=== PATIENT | female | born 1955 | race Caucasian/White ===

== ENCOUNTER 2020-03-20 08:08 | Emergency (ER) | payer MEDICARE, SELFPAY ==
--- NOTE | 2020-03-20 08:13 | ED.GENADULT ---
HPI - General Adult General Chief complaint: Urogenital-Female Stated complaint: Urogenital-female Time Seen by Provider: 03/20/20 08:13 Source: patient Mode of arrival: ambulatory Limitations: no limitations History of Present Illness HPI narrative: 64-year-old female [facility] complaints of a sore on her rectal area for the past month. Patient states at times it does burn. Patient states the pain is been intermittent. Denies any dark tarry stools or bright red blood. Patient states her last normal bowel movement was this morning and did not have any pain with it. Patient denies any pain with urination, urgency or frequency. Patient states that time she has had some abdominal pain but nothing serious. Denies any nausea, vomiting or diarrhea. Denies any fevers or chills or body aches. Related Data Home Medications Medication Instructions Recorded Confirmed famotidine 20 mg tablet 20 mg PO DAILY 02/08/20 02/08/20 lifitegrast 5 % eye drops in a 1 drop EACH EYE BID 02/08/20 02/08/20 dropperette Allergies Allergy/AdvReac Type Severity Reaction Status Date / Time morphine Allergy Mild SEVERE Verified 10/24/18 08:13 NAUSEA cephalexin Allergy Unknown Nausea Verified 08/14/17 09:26 Cephalosporins Allergy Unknown GI UPSET Verified 10/24/18 08:13 clavulanic acid Allergy Unknown GI UPSET Verified 10/24/18 08:13 codeine Allergy Unknown Nausea Verified 08/14/17 09:25 erythromycin base Allergy Unknown Diarrhea Verified 08/14/17 09:25 hydrocodone Allergy Unknown GI UPSET Verified 10/24/18 08:13 methylprednisolone Allergy Unknown DEATHLY Verified 10/24/18 08:13 SICK naproxen Allergy Unknown Nausea Verified 08/14/17 09:26 NSAIDS (Non-Steroidal Allergy Unknown Verified 05/27/18 10:12 Anti-Inflamma Sulfa (Sulfonamide Allergy Unknown Verified 09/11/18 13:04 Antibiotics) BETALACTAMASEIN Allergy Unknown GI UPSET Uncoded 11/17/08 11:44 Review of Systems Review of Systems: Narrative: CONSTITUTIONAL: Denies fever, chills, or sweats. EYES: Denies visual changes, redness, or discharge. ENT: Denies rhinorrhea, congestion, sore throat, or otalgia. CARDIOVASCULAR: Denies chest pain, palpitations, or edema. RESPIRATORY: Denies cough or dyspnea. GASTROINTESTINAL: Positive abdominal pain, denies nausea, vomiting, or diarrhea. Positive rectal pain x1 month GENITOURINARY: Denies dysuria or hematuria. SKIN: Denies rash or itching. MUSCULOSKELETAL: Denies back pain, joint pain, or myalgia. NEUROLOGIC: Denies headache, numbness, or weakness. PSYCHIATRIC: Denies anxiety or depression. [facility] Past Medical History Medical History Chicken pox Duodenitis Gastric ulcer History of shingles Measles Surgical History Surgical History History of hip surgery Hx laparoscopic cholecystectomy S/P ALIDA-BSO (total abdominal hysterectomy and bilateral salpingo-oophorectomy) Family History Family History Other Family history of atrial fibrillation Family history of hearing loss Hypertension Macular degeneration Social History Social History Smoking status: Current every day smoker Alcohol intake: never Comments At the time of my signature I agree with nursing past medical history, surgical, social, and family history. There is no relevant family history pertinent to the presenting complaint. Exam Narrative: Exam Narrative: GENERAL: Well-appearing, well-nourished, and in no acute distress. HEAD: Normocephalic, atraumatic. EYES: PERRLA and EOMI. ENT: Nares clear, no rhinorrhea or epistaxis. Mucous membranes moist. NECK: Supple. No lymphadenopathy CHEST: Clear to auscultation. No respiratory distress. HEART: Regular rate and rhythm. No murmur heard. Normal peripheral pulses.
[2020-03-20 08:17] VITALS: BP 110/86; PULSE 80; RESP 16; TEMP 36.8; O2SAT 97
== END 2020-03-20 08:47 | disposition home or self-care (01) ==
PROVIDERS: Emergency Provider Nurse Practitioner Family; PCP Family Medicine
DX: K64.4 Residual hemorrhoidal skin tags (principal); F17.200 Nicotine dependence, unspecified, uncomplicated
CPT/HCPCS: 99211; G0463

== ENCOUNTER 2020-04-23 11:43 | Emergency (ER) | payer MEDICARE, OTHER, SELFPAY ==
[2020-04-23 11:48] VITALS: BP 123/68; PULSE 72; RESP 16; TEMP 36.5; O2SAT 98
--- NOTE | 2020-04-23 11:56 | ED.URI ---
HPI - URI/Sore Throat General Chief Complaint: Upper Respiratory Infection Stated Complaint: sore throat Source: patient and RN notes reviewed Limitations: no limitations History of Present Illness HPI Narrative: The patient, a smoker/nondrinker, presents with a 1 to 2-day worsening of almost 2-week history of sore throat. No fever, tooth ache, earache, reflux-she is on Pepcid. No cough, S OB, loss of taste/smell, CP, N/V/D. Symptoms are mild worse with swallowing Related Data Home Medications Medication Instructions Recorded Confirmed famotidine 20 mg tablet 20 mg PO DAILY 02/08/20 03/20/20 lifitegrast 5 % eye drops in a 1 drop EACH EYE BID 02/08/20 02/08/20 dropperette Allergies Allergy/AdvReac Type Severity Reaction Status Date / Time morphine Allergy Mild SEVERE Verified 10/24/18 08:13 NAUSEA cephalexin Allergy Unknown Nausea Verified 08/14/17 09:26 Cephalosporins Allergy Unknown GI UPSET Verified 10/24/18 08:13 clavulanic acid Allergy Unknown GI UPSET Verified 10/24/18 08:13 codeine Allergy Unknown Nausea Verified 08/14/17 09:25 erythromycin base Allergy Unknown Diarrhea Verified 08/14/17 09:25 hydrocodone Allergy Unknown GI UPSET Verified 10/24/18 08:13 methylprednisolone Allergy Unknown DEATHLY Verified 10/24/18 08:13 SICK naproxen Allergy Unknown Nausea Verified 08/14/17 09:26 NSAIDS (Non-Steroidal Allergy Unknown Verified 05/27/18 10:12 Anti-Inflamma Sulfa (Sulfonamide Allergy Unknown Verified 09/11/18 13:04 Antibiotics) BETALACTAMASEIN Allergy Unknown GI UPSET Uncoded 11/17/08 11:44 Review of Systems Review of Systems: Narrative: General/Constitutional: No weight loss,fever Eyes: N0: Redness,discharge Ears/Nose/Throat: No: Epistaxis,ear discharge Respiratory: Denies: Hemoptysis Gastrointestinal: No Vomiting, Bleeding-rectal Skin: No Lumps, eruption Neurologic: No Focal Weakness,Sz Hematologic: Denies: Petechiae/Purpura Psychiatric: No: Suicida ideationl All Other Systems: Reviewed and Negative PMF Social History Social History Smoking status: Current every day smoker Alcohol intake: never Comments At time of signature, agree with nursing past medical, surgical, social and family history. There is no relevant family history pertinent to the presenting complaint Exam Narrative: Exam Narrative: General Appearance: Well appearing, Well nourished EYE: PERRLA, Conjunctiva clear Ears: Auditory canal normal, TM normal Nose: Rhinorrhea, Mucousal erythema Mouth/Throat: MM moist, Uvula midline, Pharyngeal erythema Neck: Supple, No adenopathy Respiratory: No respiratory distress, Breath sounds equal, Clear to auscultation Musculoskeletal: Non tender, Normal strength Skin: Warm, Dry Neurological: A&O x3, CN II-XII intact Psychiatric: Normal mood, Normal affect Course Vital Signs Vital signs: Vital Signs Temperature 97.7 F 04/23/20 11:48 Pulse Rate 72 04/23/20 11:48 Respiratory Rate 16 04/23/20 11:48 Blood Pressure 123/68 04/23/20 11:48 Pulse Oximetry 98 04/23/20 11:48 Temperature 97.7 F 04/23/20 11:48 Pulse Rate 72 04/23/20 11:48 Respiratory Rate 16 04/23/20 11:48 Blood Pressure 123/68 04/23/20 11:48 Pulse Oximetry 98 04/23/20 11:48 MDM - URI/Sore Throat Lab Data Labs: Strep Screen Presumptive Negative *(Reference Range: Negative)* Discharge Plan Discharge Clinical Impression: Odynophagia Pharyngitis Qualifiers: Pharyngitis/tonsillitis etiology: unspecified etiology Qualified Code(s): J02.9 - Acute pharyngitis, unspecified Patient Disposition: Home, Self-Care Condition: Stable Instructions: Antibiotic Form, Pharyngitis (ED) Prescriptions: New azithromycin 250 mg tablet See Rx Instructions .ROUTE .COMPLEX Qty: 6 RF: 0 Lidocaine Viscous 2 % solution 5 ml MUCOUS MEM QID PRN (Reason: pain) Qt
== END 2020-04-23 12:17 | disposition home or self-care (01) ==
PROVIDERS: Emergency Provider Emergency Medicine; PCP Family Medicine
DX: J02.9 Acute pharyngitis, unspecified (principal); R13.10 Dysphagia, unspecified; F17.200 Nicotine dependence, unspecified, uncomplicated; K21.9 Gastro-esophageal reflux disease without esophagitis
CPT/HCPCS: 87081; 87635; 87880; 99213; C9803; G0463; U0003

== ENCOUNTER → 2020-04-23 12:08 | Outpatient (NON) | payer MEDICARE, OTHER, SELFPAY ==
[2020-04-23 23:22] LABS: SARS-CoV-2 RNA PCR Negative
== END ==
PROVIDERS: PCP Family Medicine; Visit Provider Emergency Medicine
DX: Z20.828 Contact with and (suspected) exposure to other viral communicable diseases (principal); J02.9 Acute pharyngitis, unspecified
CPT/HCPCS: 87635; C9803; U0003

== ENCOUNTER 2020-08-23 02:25 | Outpatient (CLI) | payer MEDICARE, OTHER, SELFPAY ==
[2020-08-23 18:37] LABS: SARS-CoV-2 RNA PCR Negative
== END 2020-08-23 02:26 | disposition home or self-care (01) ==
LOC: ANHCOVIDDT 02:25
PROVIDERS: PCP Family Medicine; Visit Provider Internal Medicine Gastroenterology
DX: Z01.812 Encounter for preprocedural laboratory examination (principal); Z20.822 Contact with and (suspected) exposure to COVID-19
CPT/HCPCS: C9803; U0003; U0005

== ENCOUNTER 2020-08-26 01:09 | Day surgery (SDC) | payer MEDICARE, OTHER, SELFPAY ==
[2020-08-16 14:58] VITALS: BMI 24.5
[2020-08-26 09:02] VITALS: BP 130/65; PULSE 69; RESP 18; TEMP 36.8; O2SAT 96; BMI 23.1
[2020-08-26] MEDS: LACTATED RINGERS 1,000 ML 150 ML IV CONT (09:20)
--- NOTE | 2020-08-26 09:49 | WPDANESEPPF ---
Anes - Initial Pre Proc Eval Procedure: Operation Date: 08/26/20 10:00 Proposed Procedures p Esophagogastroduodenoscopy & Colonoscopy - Lalit Pereira MD Date/Time: 08/26/20 09:49 Surgeon: Lalit Pereira MD Pre Op Diagnosis: Abdomen Pain, IBS Patient Data Age: 65 Gender: F Height: 5 ft 2 in Weight: 57.4 kg Last Vital Signs Temp 98.3 F 08/26/20 09:02 Pulse 69 08/26/20 09:02 Resp 18 08/26/20 09:02 BP 130/65 08/26/20 09:02 Pulse Ox 96 08/26/20 09:02 Allergies Allergy/AdvReac Type Severity Reaction Status Date / Time morphine Allergy Mild SEVERE Verified 08/26/20 09:01 NAUSEA cephalexin Allergy Unknown Nausea Verified 08/26/20 09:01 Cephalosporins Allergy Unknown GI UPSET Verified 08/26/20 09:01 clavulanic acid Allergy Unknown GI UPSET Verified 08/26/20 09:01 codeine Allergy Unknown Nausea Verified 08/26/20 09:01 erythromycin base Allergy Unknown Diarrhea Verified 08/26/20 09:01 hydrocodone Allergy Unknown GI UPSET Verified 08/26/20 09:01 methylprednisolone Allergy Unknown DEATHLY Verified 08/26/20 09:01 SICK naproxen Allergy Unknown Nausea Verified 08/26/20 09:01 NSAIDS (Non-Steroidal Allergy Unknown Unknown Verified 08/26/20 09:01 Anti-Inflamma Sulfa (Sulfonamide Allergy Unknown Unknown Verified 08/26/20 09:01 Antibiotics) BETALACTAMASEIN Allergy Unknown GI UPSET Uncoded 08/26/20 09:01 Home Medications Medication Instructions Recorded Confirmed Type acetaminophen 500 mg tablet 500 mg PO Q6H PRN 05/05/20 08/16/20 History multivitamin-ferrous 1 tablet PO DAILY 05/05/20 08/16/20 History fumarate-folic acid 18 mg-400 mcg tablet famotidine 20 mg tablet 20 mg PO BID tablet 07/06/20 08/16/20 History lorazepam 0.5 mg tablet 0.5 mg PO BID PRN #60 tablet 07/25/20 08/16/20 Rx dicyclomine 10 mg capsule 10 mg PO BID PRN #60 cap 08/15/20 08/16/20 Rx Patient hx anesthesia problems: none Family hx anesthesia problems: none [facility] Past Medical History Medical History (Updated 07/27/20 @ 12:52 by GRAEME Conner) Chicken pox Diarrhea Duodenitis Dyslipidemia Gastric ulcer GERD (gastroesophageal reflux disease) History of shingles Measles Recurrent abdominal pain Surgical History Surgical History History of hip surgery (~1967) 1967 - for right hip dislocation Hx laparoscopic cholecystectomy (~2005) S/P ALIDA-BSO (total abdominal hysterectomy and bilateral salpingo-oophorectomy) (~2004) Family History Family History Other Family history of atrial fibrillation Family history of hearing loss Hypertension Macular degeneration Social History Social History Smoking packs per day: 0.5 Smoking cigarettes per day: 10.0 Years smoked: 40 Smoking pack-years: 20.00 Smoking status: Heavy tobacco smoker Tobacco type: cigarettes Alcohol intake: former Substance use: never Substance use type: does not use Living arrangements: alone Spiritual care concerns: No Anes - Eval Final PreProcedure Day of Procedure 08/26/20 09:49 Patient weight: normal Heart: regular rate and rhythm Lungs: clear to auscultation Airway: Mallampati scale class II Neurological: alert and oriented Last oral intake: >/= 8 hours ASA classification: III Emergent: no Anesthetic plan: proceed Anesthesia type and monitoring: general GIVS and standard monitoring Informed Consent: The patient's anesthetic plan and its attendant risks and benefits were discussed with the patient/family/POA. Questions were solicited and answers provided to the satisfaction of the patient/family/POA.
[2020-08-26] MEDS: BENZOCAINE (*SP) 60 ML SPRAY CAN (HURRICAINE) 1 SPRAY MUCOUS MEM (09:58)
--- NOTE | 2020-08-26 09:58 | WPDHPUPDATE1 ---
History and Physical Update Update Date/Time: 08/26/20 09:58 History and Physical has been reviewed, including an updated exam of the patient. There are NO changes in the patient's condition. Risks, benefits, and alternatives have been discussed and questions answered. Patient agrees to proceed with procedure.
--- NOTE | 2020-08-26 10:11 | SUR.OPER ---
1006-EGD ENDED, 1011-COLONOSCOPY STARTED
[2020-08-26 10:31] VITALS: BP 98/55; PULSE 63; RESP 20; O2SAT 98
[2020-08-26 10:41] VITALS: BP 100/62; PULSE 58; RESP 18; O2SAT 100
[2020-08-26 10:51] VITALS: BP 117/66; PULSE 60; RESP 20; O2SAT 100
[2020-08-26 11:01] VITALS: BP 111/71; PULSE 62; RESP 22; O2SAT 100
== END 2020-08-26 11:20 | disposition home or self-care (01) ==
PROVIDERS: PCP Family Medicine; Visit Provider Internal Medicine Gastroenterology
PROC: 0DJ08ZZ Inspection of Upper Intestinal Tract, Via Natural or Artificial Opening Endoscopic (ICD-10-PCS; CPT 43235; principal; 2020-08-26 10:00)
DX: R10.30 Lower abdominal pain, unspecified (principal); R19.7 Diarrhea, unspecified; K64.8 Other hemorrhoids; K29.50 Unspecified chronic gastritis without bleeding; K21.9 Gastro-esophageal reflux disease without esophagitis; E78.5 Hyperlipidemia, unspecified; Z87.11 Personal history of peptic ulcer disease; F17.210 Nicotine dependence, cigarettes, uncomplicated
CPT/HCPCS: 45380; 43239; 88305; J2704; J7120

== ENCOUNTER 2020-08-30 07:25 | Outpatient (CLI) | payer MEDICARE, OTHER, SELFPAY ==
--- NOTE | ~2020-08-30 | NM_ITS ---
EXAM: NM gastric emptying study DATE: 08/30/2020 14:25 INDICATION: Unspecified abdominal pain TECHNIQUE: A gastric emptying study was performed using the methodology of Deepika MILLER, et al. J Nucl Med 2007; 48:568-572. The patient was given a meal consisting of 2 scrambled eggs labeled with 1 mCi Tc-99m sulfur colloid, 2 slices of toast, two packages of jam, and approximately 120 mL of water. Si multaneous anterior and posterior 1-min images of the abdomen were obtained with the patient supine a t multiple time points over a total period of 4 hours. The geometric mean of anterior and posterior v iews was determined, and the percentage retention was calculated for each time point. COMPARISON: None. FINDINGS: Gastric retention of the radiotracer-labeled meal was 51%, 16%, and 1% at the 1-hour, 2-hour, and 4-h our time points, respectively. With this technique, apparent rapid gastric emptying is suggested by < 30% gastric retention at 1 hour. Delayed gastric emptying is defined by gastric retention of >90% at 1 hour, >60% retention at 2 hours, or >10% retention at 4 hours. IMPRESSION: 1. Normal gastric emptying. Reviewed, dictated and finalized at location B. RANCE CLAIMS REPRESENTATIVE IMPRESSION: 1. Normal gastric emptying.
== END 2020-08-30 07:26 | disposition home or self-care (01) ==
PROVIDERS: PCP Family Medicine; Visit Provider Internal Medicine Gastroenterology
DX: R10.9 Unspecified abdominal pain (principal)
CPT/HCPCS: 78264; A9541

== ENCOUNTER 2020-10-01 09:15 | Emergency (ER) | payer MEDICARE, OTHER, SELFPAY ==
--- NOTE | ~2020-10-01 | XR_ITS ---
XR chest 1V DATE: 10/01/2020 10:43 INDICATION: Shortness of breath TECHNIQUE: AP chest COMPARISON: 05/31/2018 two-view chest FINDINGS: Heart size appears within upper limits. Is aortic calcification and mild unfolding. No sarah r or mediastinal enlargement. No pulmonary infiltrate or consolidation, pleural effusion or pulmonary vascular congestion or pneumo thorax. Surgical clips, right upper quadrant, consistent with cholecystectomy. Diffuse osteopenia. IMPRESSION: No active cardiopulmonary disease Reviewed, dictated and finalized at location A. OWS CONSULTANT
--- NOTE | ~2020-10-01 | CT_ITS ---
EXAMINATION: CT brain wo con DATE: 10/01/2020 10:42 INDICATION: Near syncope. Left IJ blurry vision TECHNIQUE: Computed tomography (CT) of the head was performed without intravenous contrast. The mA wa s adjusted according to patient size. Iterative reconstruction technique was employed. Exam dose: 60 5.33 mGy-cm total exam DLP. 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 No intracranial mass lesion or hemorrhage or cerebrovascular accident. No midline shift or mass effec t. No subdural or epidural hematoma. There is patchy soft tissue opacification of ethmoid air cells bilaterally. The frontal sinuses and i ncluded portions of the sphenoid sinuses are unremarkable. The maxillary sinuses are largely excluded . The mastoid air cells are normally developed and aerated. No fracture or bone destruction of the cranial vault. IMPRESSION: Agenesis of the corpus callosum No acute intracranial finding Bilateral patchy ethmoid air cell opacification Reviewed, dictated and finalized at Location A. Reviewed, dictated and finalized at location A. ETRICS AND GYNECOLOGY PROFESSOR
[2020-10-01 09:19] VITALS: BP 123/80; PULSE 73; RESP 20; TEMP 36.1; O2SAT 98
[2020-10-01 09:34] VITALS: BP 132/75; PULSE 71; RESP 20; O2SAT 98
--- NOTE | 2020-10-01 10:17 | ECG_ITS ---
Measurements Intervals [place] Rate: 55 P: 45 CT: 129 QRS: 46 QRSD: 78 T: 45 QT: 406 QTc: 391 Interpretive Statements SINUS BRADYCARDIA WITH SINUS ARRHYTHMIA BORDERLINE ECG Electronically Signed On 10-01-2020 11:39:18 PROSTHODONTIST by Otto Beauchamp D.O.
[2020-10-01] MEDS: SODIUM CHLORIDE 0.9% IV 1,000 ML 999 ML IV CONT (10:32)
[2020-10-01 10:44] LABS: Basophils Absolute Auto 0.1 K/mm3 (0.0-0.1); Basophils Percent Auto 0.9 % (0.2-1.2); Eosinophils Absolute Auto 0.1 K/mm3 (0-0.3); Eosinophils Percent Auto 1.9 % (0-4.4); Hematocrit 46.9 % (37.0-47.0); Hemoglobin 15.6 g/dL (12.0-15.0); Immature Granulocyte Absolute 0.02 K/mm3 (0.00-0.031); Immature Granulocyte Percent A 0.3 % (0-0.5); Lymphocytes Absolute Auto 2.52 K/mm3 (0.9-3.2); Lymphocytes Percent Auto 37.4 % (18.3-44.2); Mean Corpuscular HGB Conc 33.3 g/dl (32-36); Mean Corpuscular Hemoglobin 32.6 pg (26-34); Mean Corpuscular Volume 98.1 fl (80-100); Mean Platelet Volume 11.7 fl (7.4-10.4); Monocytes Absolute Auto 0.5 K/mm3 (0.1-0.6); Monocytes Percent Auto 7.9 % (2.6-8.5); Neutrophils Absolute Auto 3.5 K/mm3 (1.3-6.7); Neutrophils Percent Auto 51.6 % (45.5-73.1); Platelet Count Result 199 k/mm3 (150-375); Red Blood Count 4.78 M/mm3 (4.2-5.4); Red Cell Distribution Width 12.1 % (11.5-14.5); White Blood Count 6.7 K/mm3 (4.5-10.0)
[2020-10-01 10:48] LABS: Add Urine Microscopic? YES; Appearance Urine Clear (Clear); Bacteria Urine Trace /hpf; Bilirubin Urine Negative (Negative); Blood Urine 1+ (Negative); Color Urine Colorless (Yellow); Glucose Urine UA Negative (Negative); Ketones Urine Negative (Negative); Leukocyte Esterase Ur Negative LEU/UL (Negative); Mucus Urine Rare /lpf; Nitrate Urine Negative (Negative); Protein Urine Negative (Negative); RBC Urine 0-2 /hpf (0-2); Specific Grav Ur 1.009 (1.001-1.035); Squamous Epithelial Cell Urine Rare /hpf (Few); Urobilinogen Urine Negative mg/dL (<2.0); WBC Urine 0-3 /hpf
[2020-10-01 10:55] VITALS: BP 116/67; PULSE 64; RESP 20; O2SAT 99
[2020-10-01 11:15] LABS: Alanine Aminotransferase 21 U/L (4-35); Albumin Level 3.7 g/dL (3.5-5.1); Alkaline Phosphatase 85 U/L (38-126); Anion Gap 0 mmol/L (8-16); Aspartate Amino Transferase 21 U/L (14-36); Bilirubin,Total 0.3 mg/dL (0.2-1.3); Blood Urea Nitrogen 12 mg/dL (7-17); Calcium 8.2 mg/dL (8.4-10.2); Carbon Dioxide 31 mmol/L (22-30); Chloride 108 mmol/L (98-107); Estimated CRCL calculation 73 ml/min; Estimated Glomerular Filt Rate > 60; Glucose 88 mg/dL (65-105); Potassium 3.9 mmol/L (3.4-5.0); Sodium 139 mmol/L (137-145)
--- NOTE | 2020-10-01 11:25 | ED.GENADULT ---
HPI - General Adult General Chief complaint: Headache Stated complaint: headache Time Seen by Provider: 10/01/20 10:06 Source: patient Mode of arrival: ambulatory Limitations: no limitations History of Present Illness HPI narrative: Patient is a 65-year-old female who presents to emergency department for evaluation of intermittent headache lightheadedness and feeling near syncopal over the course of the last 2 weeks knowing that it occurs most days patient has been seen by primary care for this and is also scheduled to see her neurologist on Saturday patient's neurologist and primary care doctor both referred the patient to emergency department for CT image of the brain on arrival patient notes minimal headache denies any recent illness or other complaints patient denies any focal neurologic deficits. Patient notes history of vertigo but states this has felt different. Patient denies medication changes injury or trauma. Patient on arrival in the room in no distress presents with normal gait Related Data Home Medications Medication Instructions Recorded Confirmed acetaminophen 500 mg tablet 500 mg PO Q6H PRN 05/05/20 09/27/20 Allergies Allergy/AdvReac Type Severity Reaction Status Date / Time morphine Allergy Mild SEVERE Verified 10/01/20 09:22 NAUSEA cephalexin Allergy Unknown Nausea Verified 10/01/20 09:22 Cephalosporins Allergy Unknown GI UPSET Verified 10/01/20 09:22 clavulanic acid Allergy Unknown GI UPSET Verified 10/01/20 09:22 codeine Allergy Unknown Nausea Verified 10/01/20 09:22 erythromycin base Allergy Unknown Diarrhea Verified 10/01/20 09:22 hydrocodone Allergy Unknown GI UPSET Verified 10/01/20 09:22 methylprednisolone Allergy Unknown DEATHLY Verified 10/01/20 09:22 SICK naproxen Allergy Unknown Nausea Verified 10/01/20 09:22 NSAIDS (Non-Steroidal Allergy Unknown Unknown Verified 10/01/20 09:22 Anti-Inflamma Sulfa (Sulfonamide Allergy Unknown Unknown Verified 10/01/20 09:22 Antibiotics) BETALACTAMASEIN Allergy Unknown GI UPSET Uncoded 09/27/20 08:31 Review of Systems Review of Systems: All systems reviewed & are unremarkable except as noted in HPI and below PMFSH Past Medical History Medical History Chicken pox Diarrhea Duodenitis Dyslipidemia Gastric ulcer GERD (gastroesophageal reflux disease) History of shingles Irritable bowel syndrome Measles Nausea Recurrent abdominal pain Tobacco abuse Surgical History Surgical History History of hip surgery (~1967) 1968 - for right hip dislocation Hx laparoscopic cholecystectomy (~2005) S/P ALIDA-BSO (total abdominal hysterectomy and bilateral salpingo-oophorectomy) (~2004) Family History Family History Other Family history of atrial fibrillation Family history of hearing loss Hypertension Macular degeneration Social History Social History Smoking packs per day: 0.5 Smoking cigarettes per day: 10.0 Years smoked: 40 Smoking pack-years: 20.00 Smoking status: Current every day smoker Tobacco type: cigarettes Alcohol intake: former Substance use: never Substance use type: does not use Spiritual care concerns: No Exam Narrative: Exam Narrative: GENERAL: Well-appearing, well-nourished, and in no acute distress. HEAD: Normocephalic, atraumatic. EYES: PERRLA and EOMI. ENT: Nares clear, no rhinorrhea or epistaxis. Mucous membranes moist. NECK: Supple. No adenopathy or masses. CHEST: Clear to auscultation. No respiratory distress. No wheezes rales or rhonchi HEART: Regular rate and rhythm. No murmur heard. Normal peripheral pulses. ABDOMEN: Soft, nontender, nondistended EXTREMITIES: Normal range of motion. No edema. SKIN: Warm, dry, no rash. NEURO: No focal deficits. Alert and
[2020-10-01 12:07] VITALS: BP 111/75; PULSE 66; RESP 20; O2SAT 98
[2020-10-01 12:17] VITALS: BP 111/75; PULSE 66; RESP 20; O2SAT 98
== END 2020-10-01 12:20 | disposition home or self-care (01) ==
PROVIDERS: Emergency Medicine Emergency Medical Services; Emergency Provider Emergency Medicine; PCP Family Medicine
DX: R42 Dizziness and giddiness (principal); E78.5 Hyperlipidemia, unspecified; K21.9 Gastro-esophageal reflux disease without esophagitis; K58.9 Irritable bowel syndrome, unspecified; F17.210 Nicotine dependence, cigarettes, uncomplicated; R00.1 Bradycardia, unspecified
CPT/HCPCS: 36415; 70450; 71045; 80053; 81001; 85025; 93005; 96360; 99284; J7030

== ENCOUNTER 2020-10-11 13:07 | Outpatient (CLI) | payer MEDICARE, OTHER, SELFPAY ==
--- NOTE | ~2020-10-11 | CT_ITS ---
EXAMINATION: CTA brain DATE: 10/11/2020 13:33 INDICATION: Vertigo. TECHNIQUE: Computed tomographic angiography (CTA) of the head was performed without and with 100 mL O mnipaque-350 intravenous contrast. Automated exposure control and iterative reconstruction technique were employed. The dose-length product was 1003.90 mGy-cm. Maximum intensity projection 3D reconstru ctions were created. Volume-rendered 3D reconstructions of the intracranial arteries were created by the technologist on a separate workstation. COMPARISON: Head CT 10/01/2020, brain MRI 02/07/2018 FINDINGS: There is complete agenesis of the corpus callosum. There is chronic volume loss of the trevon etal occipital regions bilaterally with enlargement of the posterior aspects of the lateral ventricle s, right worse than left. There is no intracranial hemorrhage, acute infarction, or abnormal intracra nial mass lesion. There are likely changes of ocular lens replacement surgeries. There is mucosal thi ckening in the paranasal sinuses. The mastoid air cells are normal. The vertebral arteries are codomi nant. There is no significant stenosis of basilar artery or the posterior cerebral arteries. Right P1 posterior cerebral artery segment is small, a normal variant. The posterior communicating arteries a re normal. There is no significant stenosis of the intracranial internal carotid arteries or anterior or middle cerebral arteries. Anterior communicating artery is normal. IMPRESSION: 1. Complete agenesis of the corpus callosum. 2. Chronic volume loss of the parietal occipital regions bilaterally. 3. No aneurysm or significant intracranial arterial stenosis. Reviewed, dictated and finalized at location A. GRINDER FEEDER
== END 2020-10-11 13:08 | disposition home or self-care (01) ==
PROVIDERS: PCP Family Medicine; Visit Provider Psychiatry & Neurology Neurology
DX: R42 Dizziness and giddiness (principal)
CPT/HCPCS: 70496; Q9967

== ENCOUNTER 2021-03-15 16:17 | Emergency (ER) | payer MEDICARE, OTHER, SELFPAY ==
--- NOTE | ~2021-03-15 | XR_ITS ---
EXAMINATION: XR chest 2V DATE: 03/15/2021 16:53 INDICATION: Chest pressure. TECHNIQUE: Frontal and lateral views of the chest were obtained. COMPARISON: Chest single view 10/01/2020, CT abdomen and pelvis 10/15/2018 FINDINGS: The chest demonstrates clear lungs without pneumonia, pleural effusion, or pneumothorax. Th e heart size is normal. Surgical clips in the right upper quadrant are likely from cholecystectomy. IMPRESSION: 1. No acute cardiopulmonary disease. Reviewed, dictated and finalized at location A.
[2021-03-15 16:26] VITALS: BP 155/71; PULSE 74; RESP 16; TEMP 36.6; O2SAT 98
--- NOTE | 2021-03-15 16:28 | ECG_ITS ---
Measurements Intervals [place] Rate: 66 P: 41 PA: 137 QRS: 45 QRSD: 75 T: 49 QT: 389 QTc: 409 Interpretive Statements SINUS RHYTHM NORMAL ECG Electronically Signed On 03-16-2021 7:48:04 CDT by Otto Beauchamp D.O.
--- NOTE | 2021-03-15 16:51 | ED.CHESTPAIN ---
HPI - Chest Pain General Chief Complaint: Chest Pain Stated Complaint: CHEST PAIN Time Seen by Provider: 03/15/21 16:37 Source: patient and RN notes reviewed Mode of arrival: ambulatory Limitations: no limitations History of Present Illness HPI narrative: Patient presents today complaining of a 1 to 2-week history of sternal chest pressure and feeling worn out. Chest pressure has worsened over the past 2 days. She denies any additional symptoms to include shortness of breath, abdominal pain, numbness or tingling in the extremities, nausea or vomiting, cough, or URI symptoms. Pain in the chest does not increase with deep breaths or movement. Currently rates her pain 7/10. Patient's brother is a retired physician in the area. She explained her symptoms to him and he told her to call her PCP and request a stress echocardiogram. Instead of doing this, patient came to urgent care today for evaluation. Patient reports that her current symptoms are similar to what she felt 5 to 6 years ago when she had pneumonia and is requesting a chest x-ray. MD complaint: chest pain Related Data Home Medications Medication Instructions Recorded Confirmed acetaminophen 500 mg tablet 500 mg PO Q6H PRN 05/05/20 02/21/21 Allergies Allergy/AdvReac Type Severity Reaction Status Date / Time morphine Allergy Mild SEVERE Verified 02/21/21 14:37 NAUSEA cephalexin Allergy Unknown Nausea Verified 02/21/21 14:37 Cephalosporins Allergy Unknown GI UPSET Verified 02/21/21 14:37 clavulanic acid Allergy Unknown GI UPSET Verified 02/21/21 14:37 codeine Allergy Unknown Nausea Verified 02/21/21 14:37 erythromycin base Allergy Unknown Diarrhea Verified 02/21/21 14:37 hydrocodone Allergy Unknown GI UPSET Verified 02/21/21 14:37 methylprednisolone Allergy Unknown DEATHLY Verified 02/21/21 14:37 SICK naproxen Allergy Unknown Nausea Verified 02/21/21 14:37 NSAIDS (Non-Steroidal Allergy Unknown Unknown Verified 02/21/21 14:37 Anti-Inflamma Sulfa (Sulfonamide Allergy Unknown Unknown Verified 02/21/21 14:37 Antibiotics) BETALACTAMASEIN Allergy Unknown GI UPSET Uncoded 02/21/21 14:37 Review of Systems Review of Systems: CONSTITUTIONAL: Denies body aches, fever, chills, or sweats.+ Fatigue EYES: Denies visual changes, redness, or discharge. ENT: Denies rhinorrhea, congestion, sore throat, or otalgia. CARDIOVASCULAR: Denies palpitations, or edema. + Sternal chest pressure RESPIRATORY: Denies cough or dyspnea. GASTROINTESTINAL: Denies abdominal pain, nausea, vomiting, or diarrhea. GENITOURINARY: Denies dysuria or hematuria. SKIN: Denies rash, itching, or wounds. MUSCULOSKELETAL: Denies back pain, joint pain, or myalgia. NEUROLOGIC: Denies headache, numbness, tingling, or weakness. PSYCH: Denies depression or anxiety. [facility] Past Medical History Medical History Chicken pox Depression with anxiety Diarrhea Duodenitis Dyslipidemia Gastric ulcer GERD (gastroesophageal reflux disease) History of shingles Irritable bowel syndrome Measles Nausea Recurrent abdominal pain Tobacco abuse Surgical History Surgical History History of hip surgery (~1967) 1968 - for right hip dislocation Hx laparoscopic cholecystectomy (~2005) S/P ALIDA-BSO (total abdominal hysterectomy and bilateral salpingo-oophorectomy) (~2004) Family History Family History Other Family history of atrial fibrillation Family history of hearing loss Hypertension Macular degeneration Social History Social History Smoking packs per day: 0.5 Smoking cigarettes per day: 10.0 Years smoked: 40 Smoking pack-years: 20.00 Smoking status: Current every day smoker Tobacco type: cigarettes Alcohol intake: former Substance use: never Rosales
== END 2021-03-15 17:37 | disposition home or self-care (01) ==
PROVIDERS: Emergency Provider Nurse Practitioner; PCP Family Medicine
DX: M94.0 Chondrocostal junction syndrome [Tietze] (principal); F17.210 Nicotine dependence, cigarettes, uncomplicated; E78.5 Hyperlipidemia, unspecified; K21.9 Gastro-esophageal reflux disease without esophagitis
CPT/HCPCS: 71046; 93005; 99213; G0463

== ENCOUNTER 2021-04-13 15:05 | Outpatient (CLI) | payer MEDICARE, OTHER, SELFPAY ==
--- NOTE | ~2021-04-13 | CT_ITS ---
EXAMINATION: CT abdomen pelvis w con DATE: 04/13/2021 15:33 INDICATION: Abdominal pain TECHNIQUE: Computed tomography (CT) of the abdomen and pelvis was performed with 100 cc Omnipaque 350 intravenous contrast. The dose-length product was 246.25 mGy-cm. Automated exposure control and iter ative reconstruction technique were employed. COMPARISON: CT dated 10/15/2018. FINDINGS: Lung bases are unremarkable. Heart size normal. Mild atherosclerosis of the aorta without a neurysm. No lymphadenopathy. Normal appendix. Punctate nonobstructing bilateral renal stones. Status post cholecystectomy. The liver, spleen, pancreas, adrenal glands are unremarkable. Nonobstructive bowel gas pattern. Fluid present throughout the small bowel, nonspecific. No free air or free fluid. Moderate degenerative ch anges of the hips. Mild lumbar spondylosis with levoscoliosis. IMPRESSION: 1. No acute abdominal abnormality. 2: Punctate nonobstructing bilateral nephrolithiasis. Reviewed, dictated and finalized at location A.
== END 2021-04-13 15:06 | disposition home or self-care (01) ==
LOC: ANHIMG 15:08
PROVIDERS: PCP Family Medicine; Visit Provider Nurse Practitioner Family
DX: N20.0 Calculus of kidney (principal)
CPT/HCPCS: 74177; Q9967

== ENCOUNTER 2022-04-18 15:33 | Outpatient (CLI) | payer MEDICARE, OTHER, SELFPAY ==
--- NOTE | ~2022-04-18 | XR_ITS ---
EXAMINATION: XR chest 2V Exam Date/Time: 04/18/2022 15:55 CDT HISTORY: R05.9 - Cough, unspecified X 2 WKS, NO CHEST HX Comparison: 03/15/2021. RESULT: Lines, tubes, and devices: Cholecystectomy clips. Lungs and pleura: Clear. Increased AP diameter may be related to a component of emphysematous change . Cardiomediastinal silhouette: Stable. Other: No acute osseous or upper abdominal finding. Osteopenia. Exaggerated thoracic kyphosis. Thora cic scoliosis. IMPRESSION: No acute cardiopulmonary process. Reviewed, dictated and finalized at location K.
== END 2022-04-18 15:34 | disposition home or self-care (01) ==
PROVIDERS: PCP Family Medicine; Visit Provider Nurse Practitioner
DX: R05.9 Cough, unspecified (principal)
CPT/HCPCS: 71046

== ENCOUNTER 2022-05-07 08:43 | Emergency (ER) | payer MEDICARE, OTHER, SELFPAY ==
--- NOTE | 2022-05-07 08:47 | ED.FEMALEGU ---
HPI - Female Genitourinary General Chief complaint: Urogenital-Female Stated complaint: uti symptoms Time Seen by Provider: 05/07/22 09:00 Source: patient, RN notes reviewed and old records reviewed Mode of arrival: ambulatory Limitations: no limitations History of Present Illness HPI Narrative: 67-year-old female who presents to [facility] care with complaints of urinary pain after urination, perineal pressure for the past 8 days, Patient reports that she has no frequency or urgency, denies any fevers, no visualized blood in urine or with wiping. Patient denies any fevers, chills or sweats, reports that she does have rare stress incontinency. Patient has no complaints of vaginal discharge or itching or concern for STD exposure. Patient denies any flank pain. MD elicited complaint: dysuria Pertinent past history: hysterectomy and other (previous UTI) Onset (ago): day(s) (8) Location of symptoms: other (perineal) Quality of pain: other (pressure perineal area with burning after urination.) Vaginal discharge: none Related Data Home Medications Medication Instructions Recorded Confirmed acetaminophen 500 mg tablet 500 mg PO Q6H PRN Pain 05/05/20 04/18/22 (Tylenol Extra Strength) multivitamin 1 tablet PO DAILY 07/10/21 04/18/22 wheat dextrin 3 gram-calcium g PO QHS 01/08/22 04/18/22 gluc,lactate 300 mg/8.8 gram oral powder Allergies Allergy/AdvReac Type Severity Reaction Status Date / Time morphine Allergy Mild SEVERE Verified 04/18/22 13:48 NAUSEA cephalexin Allergy Unknown Nausea Verified 04/18/22 13:48 Cephalosporins Allergy Unknown GI UPSET Verified 04/18/22 13:48 clavulanic acid Allergy Unknown GI UPSET Verified 04/18/22 13:48 codeine Allergy Unknown Nausea Verified 04/18/22 13:48 erythromycin base Allergy Unknown Diarrhea Verified 04/18/22 13:48 hydrocodone Allergy Unknown GI UPSET Verified 04/18/22 13:48 methylprednisolone Allergy Unknown DEATHLY Verified 04/18/22 13:48 SICK naproxen Allergy Unknown Nausea Verified 04/18/22 13:48 NSAIDS (Non-Steroidal Allergy Unknown Unknown Verified 04/18/22 13:48 Anti-Inflamma Sulfa (Sulfonamide Allergy Unknown Unknown Verified 04/18/22 13:48 Antibiotics) BETALACTAMASEIN Allergy Unknown GI UPSET Uncoded 04/18/22 13:48 Review of Systems Review of Systems: CONSTITUTIONAL: Denies fever, chills, or sweats. EYES: Denies visual changes, redness, or discharge. ENT: Denies rhinorrhea, congestion, sore throat, or otalgia. CARDIOVASCULAR: Denies chest pain, palpitations, or edema. RESPIRATORY: Denies cough or dyspnea. GASTROINTESTINAL: Denies abdominal pain, nausea, vomiting, or diarrhea. GENITOURINARY: reports pain after urination with perineal pressure no visualized hematuria. SKIN: Denies rash or itching. MUSCULOSKELETAL: Denies back pain, joint pain, or myalgia. NEUROLOGIC: Denies headache, numbness, or weakness. PSYCHIATRIC: positive for history of anxiety or depression. All systems reviewed & are unremarkable except as noted in HPI and below PMFSH Past Medical History Medical History Anal fissure, unspecified Chicken pox Depression with anxiety Diarrhea Duodenitis Dyslipidemia Gastric ulcer GERD (gastroesophageal reflux disease) History of shingles Irritable bowel syndrome Measles Nausea Recurrent abdominal pain Tobacco abuse Surgical History Surgical History History of hip surgery (~1967) 1967 - for right hip dislocation Hx laparoscopic cholecystectomy (~2005) S/P ALIDA-BSO (total abdominal hysterectomy and bilateral salpingo-oophorectomy) (~2004) Family History Family History Other Family history of atrial fibrillation Family history of hearing loss Hypertension Macular degeneration Skin cancer Social History Social History (Reviewed 05/07/22 @ 08:52 by Milana Zuniga
[2022-05-07 08:54] VITALS: BP 134/78; PULSE 73; RESP 16; TEMP 36.5; O2SAT 99
== END 2022-05-07 09:19 | disposition home or self-care (01) ==
PROVIDERS: Emergency Provider Registered Nurse; PCP Family Medicine
DX: R30.0 Dysuria (principal); F17.210 Nicotine dependence, cigarettes, uncomplicated; E78.5 Hyperlipidemia, unspecified; K21.9 Gastro-esophageal reflux disease without esophagitis
CPT/HCPCS: 81003; 87086; 99213; G0463

== ENCOUNTER 2022-06-22 09:36 | Outpatient (CLI) | payer MEDICARE, OTHER, SELFPAY ==
--- NOTE | ~2022-06-22 | XR_ITS ---
EXAMINATION: XR abdomen/kub 1V INDICATION: Bilateral kidney stones TECHNIQUE: Supine views of the abdomen were obtained on 2 radiographs. COMPARISON: 10/11/2018 FINDINGS: 83 mm stone projects in the lower pole of the right kidney. There is a 4 mm stone of the le ft kidney lower pole. No stones project along the expected courses of ureters. There is a left pelvic calcification at or near the expected location of the left ureterovesicular junction. A moderate vol ume of colonic stool is present. Surgical clips in the right upper quadrant are likely from prior cho lecystectomy. IMPRESSION: 1. Bilateral nephrolithiasis. 2. Possible stone at the left ureterovesicular junction. Reviewed, dictated and finalized at location F. T HAUL DRIVER
--- NOTE | ~2022-06-22 | US_ITS ---
EXAMINATION: US retroperitoneal comp DATE: 06/22/2022 10:31 INDICATION: Bilateral kidney stones TECHNIQUE: Multiple grayscale and Doppler ultrasound images of the kidneys were obtained. COMPARISON: CT, 04/13/2021 FINDINGS: The right kidney measures 10.5 x 4.2 x 5.3 cm. There is a 2.2 cm cyst of the right kidney. There is a 4 mm stone of the right kidney. The left kidney measures 9.9 x 4.5 x 4.7 cm there is a 3 m m stone of the kidney. The kidneys demonstrate normal parenchymal echogenicity. There is no hydroneph rosis. The bladder is normal. Bilateral ureteral jets are seen. IMPRESSION: 1. Bilateral nephrolithiasis without hydronephrosis. Reviewed, dictated and finalized at location F. ICIAN ANESTHESIOLOGIST
== END 2022-06-22 09:37 | disposition home or self-care (01) ==
PROVIDERS: PCP Family Medicine; Visit Provider Urology
DX: N20.0 Calculus of kidney (principal)
CPT/HCPCS: 74018; 76770

== ENCOUNTER 2022-07-13 13:02 | Outpatient (CLI) | payer MEDICARE, OTHER, SELFPAY ==
--- NOTE | ~2022-07-13 | CT_ITS ---
EXAMINATION: CT abdomen pelvis wo con DATE: 07/13/2022 13:23 INDICATION: Left ureteral stone TECHNIQUE: Computed tomography (CT) of the abdomen and pelvis was performed without intravenous contr ast. The dose-length product was 162.79 mGy-cm. Automated exposure control and iterative reconstructi on technique were employed. COMPARISON: CT dated 04/13/2021. FINDINGS: Lung bases are unremarkable. Heart size normal. No significant pleural or pericardial effus ion. There are cholecystectomy clips. The liver, spleen, pancreas, adrenal glands are unremarkable. T here are nonobstructing bilateral renal stones. No definite ureteral stones or hydronephrosis. There are pelvic phleboliths. Nonobstructive bowel gas pattern. There is atherosclerosis of the aorta witho ut aneurysm. No lymphadenopathy. No abnormal pelvic masses or fluid collections. Uterus is surgically absent. There is osteoarthritis of the hips. Moderate lumbar spondylosis with levoscoliosis. There i s a 2.2 cm right renal cyst. IMPRESSION: 1. Nonobstructing bilateral nephrolithiasis. Reviewed, dictated and finalized at location A. EW MANAGER
== END 2022-07-13 13:03 | disposition home or self-care (01) ==
PROVIDERS: PCP Family Medicine; Visit Provider Urology
DX: N20.2 Calculus of kidney with calculus of ureter (principal)
CPT/HCPCS: 74176

== ENCOUNTER 2022-08-01 15:10 | Outpatient (CLI) | payer MEDICARE, OTHER, SELFPAY ==
--- NOTE | ~2022-08-01 | DEXA_ITS ---
Bone Density Report Name: MANAN RAMOS Age: 67 Sex: Female Ethnicity: White Date of : 1955 Indication: postmenopausal; screening for osteoporosis; height loss; prior fracture; hysterectomy; Referring Provider: HARMAN KENNY Study: Bone densitometry was performed. Exam Date: August 01, 2022 Accession number: [id number] Bone Density: Region BMD T-score Z-score Classification AP Spine(L1-L4) 0.729 -2.9 -0.9 Osteoporosis Femoral Neck (Left) 0.529 -2.9 -1.2 Osteoporosis Total Hip (Left) 0.693 -2.0 -0.6 Osteopenia World Health Organization criteria for BMD impression classify patients as: Normal (T-score at or above -1.0), Osteopenia (T-score between -1.0 and -2.5), or Osteoporosis (T-score at or below -2.5). 10-year Fracture Risk: FRAX not reported because: Some T-score for Spine Total or Hip Total or Femoral Neck at or below -2.5 Clinical Information Provided by Patient: Has had a low trauma fracture Smokes Has used the following medications: Vitamin D, Calcium Has the following medical conditions: Hysterectomy Patient maximum height was 62 Menopause Age: 49 Does not regularly consume dairy products Onset of menses at age 12 Number of children 0 Impression: The patient has established osteoporosis, based on the Total Spine T-score and the existence of a prior fracture. The patient has risk factors, including: smoking, previous fracture. Discussion: HIGH RISK OF FRACTURE. BONE DENSITY IS UNDESIRABLY LOW AT ONE OR MORE SKELETAL SITES, CONSISTENT WITH POSTMENOPAUSAL OSTEOPOROSIS. This patient's lowest T-score, in a patient who has previously fractured, meets the World Health Organization's (WHO) criteria for severe osteoporosis. In untreated patients, the risk of osteoporotic fracture increases approximately two-fold for each 1.0 SD decrease in T-score. Low bone density is not the only risk factor for fracture; also consider factors such as patient's age, frailty or poor health, risk of falling, risk of injury, previous osteoporotic fracture, family history of osteoporosis, cigarette smoking, low body weight, etc. Not everyone with low bone mineral density has osteoporosis; osteomalacia and other metabolic bone disorders should also be considered. Patients who have osteoporosis should be evaluated for specific diseases and conditions (secondary causes) that may cause or contribute to bone loss. The [place] [employer]ocrinologists (AACE) and National Osteoporosis Foundation (NOF) recommend pharmacologic intervention for all postmenopausal women whose T-score is in this range. The patient should follow a healthful lifestyle (good nutrition with adequate calcium and vitamin D, and appropriate weight-bearing exercise). Follow-Up: Consider a repeat BMD and Vertebral Fracture Assessment (VFA) exam in 2 years or sooner if medical
== END 2022-08-01 15:11 | disposition home or self-care (01) ==
LOC: ANHIMG 15:11
PROVIDERS: PCP Family Medicine; Visit Provider Nurse Practitioner Family
DX: Z78.0 Asymptomatic menopausal state (principal); M81.0 Age-related osteoporosis without current pathological fracture; M85.852 Other specified disorders of bone density and structure, left thigh
CPT/HCPCS: 77080

== ENCOUNTER 2022-12-30 12:00 | Emergency (ER) | payer MEDICARE, OTHER, SELFPAY ==
--- NOTE | ~2022-12-30 | XR_ITS ---
EXAMINATION: XR chest 2V DATE: 12/30/2022 12:50 INDICATION: Cough and shortness of breath. TECHNIQUE: Frontal and lateral views of the chest were obtained. COMPARISON: Chest 2 views 04/18/2022 FINDINGS: The chest demonstrates clear lungs without pneumonia, pleural effusion, or pneumothorax. Th e heart size is normal. Surgical clips in the right upper quadrant are likely from cholecystectomy. IMPRESSION: 1. No acute cardiopulmonary disease. Reviewed, dictated and finalized at location A.
[2022-12-30 12:10] VITALS: BP 116/70; PULSE 89; RESP 16; TEMP 36.6; O2SAT 93
--- NOTE | 2022-12-30 13:11 | ED.URI ---
HPI - URI/Sore Throat General Chief Complaint: Upper Respiratory Infection Stated Complaint: chest pain,congestion,sore throat,headache Time Seen by Provider: 12/30/22 13:11 Source: patient, RN notes reviewed and old records reviewed Mode of arrival: ambulatory Limitations: no limitations History of Present Illness HPI Narrative: 67 year old female who presents to [facility] care with complaints of having headache and sore throat on Saturday which has resolved, yesterday she was just really worn out and today she noted some dyspnea with walking up stairs with patient reporting cough since Saturday. Patient reports that she feels like she is wheezing and that her chest is tight with cough,is not bring up any mucous since Saturday.Patient reports that she is still having intermittent headache and has been taking Tylenol for her discomfort. Patient has not taken any OTC cough or cold medications for her symptoms. MD elicited complaint: cough and sore throat Pertinent past history: pneumonia, COPD and other (tobacco abuse) Onset (ago): day(s) (3) Description of mucous: clear Able to tolerate fluids by mouth: Yes Exacerbating factors: exertion Relieving factors: rest Associated symptoms: headache, rhinorrhea, nasal congestion, cough and shortness of breath Related Data Home Medications Medication Instructions Recorded Confirmed acetaminophen 500 mg tablet 500 mg PO Q6H PRN Pain 05/05/20 07/09/22 (Tylenol Extra Strength) multivitamin 1 tablet PO DAILY 07/10/21 07/09/22 ascorbate calcium (vitamin C) 500 500 mg PO DAILY 07/16/22 mg tablet guar gum 1 gram chewable tablet g PO QHS 07/16/22 magnesium 250 mg tablet 250 mg PO DAILY 07/16/22 fluticasone furoate 100 inhalation 12/30/22 mcg-vilanterol 25 mcg/dose inhalation powder (Breo Ellipta) Allergies Allergy/AdvReac Type Severity Reaction Status Date / Time morphine Allergy Mild SEVERE Verified 12/30/22 12:24 NAUSEA cephalexin Allergy Unknown Nausea Verified 12/30/22 12:24 Cephalosporins Allergy Unknown GI UPSET Verified 12/30/22 12:24 clavulanic acid Allergy Unknown GI UPSET Verified 12/30/22 12:24 codeine Allergy Unknown Nausea Verified 12/30/22 12:24 erythromycin base Allergy Unknown Diarrhea Verified 12/30/22 12:24 hydrocodone Allergy Unknown GI UPSET Verified 12/30/22 12:24 methylprednisolone Allergy Unknown DEATHLY Verified 12/30/22 12:24 SICK naproxen Allergy Unknown Nausea Verified 12/30/22 12:24 NSAIDS (Non-Steroidal Allergy Unknown Unknown Verified 12/30/22 12:24 Anti-Inflamma Sulfa (Sulfonamide Allergy Unknown Unknown Verified 12/30/22 12:24 Antibiotics) BETALACTAMASEIN Allergy Unknown GI UPSET Uncoded 12/30/22 12:24 Review of Systems Review of Systems: CONSTITUTIONAL: Reports malaise,denies chills, sweats, or fever. EYES: Denies visual changes, redness, or discharge. ENT: Reports rhinorrhea, congestion, no sinus pain,no otalgia and initial sore throat that has resolved. CARDIOVASCULAR: Denies chest pain, palpitations, or edema. RESPIRATORY: Reports cough.? Reports dyspnea with exertion GASTROINTESTINAL: Denies abdominal pain, nausea, vomiting, diarrhea SKIN: Denies rash or itching. MUSCULOSKELETAL: Denies myalgia. NEUROLOGIC: reports headache. All systems reviewed & are unremarkable except as noted in HPI and below PMFSH Past Medical History Medical History Anal fissure, unspecified Chicken pox Depression with anxiety Diarrhea Duodenitis Dyslipidemia Gastric ulcer GERD (gastroesophageal reflux disease) History of shingles Irritable bowel syndrome Measles Nausea Osteoporosis Recurrent abdominal pain Tobacco abuse Vitamin D deficiency Surgical History Surgical History History of hip surgery (~1967) 1967 - for right hip dislocation Hx laparoscopic cholecystectomy (~2005) S/P ALIDA-BSO (total abdominal hys
[2022-12-30] MEDS: LEVALBUTEROL NEB 1.25 MG/3 ML INHALATION (13:40)
[2022-12-30] MEDS: IPRATROPIUM BR 0.02% INH SOLN 0.5 MG/2.5 ML VIAL INHALATION (13:40)
[2022-12-30 14:03] VITALS: PULSE 86; RESP 24; O2SAT 93
== END 2022-12-30 14:03 | disposition home or self-care (01) ==
PROVIDERS: Emergency Provider Registered Nurse; PCP Family Medicine
DX: J40 Bronchitis, not specified as acute or chronic (principal); E78.5 Hyperlipidemia, unspecified; M81.0 Age-related osteoporosis without current pathological fracture
CPT/HCPCS: 71046; 94640; 99213; G0463

== ENCOUNTER 2023-07-13 13:14 | Emergency (ER) | payer MEDICARE, OTHER, SELFPAY ==
[2023-07-13 13:21] VITALS: BP 110/64; PULSE 77; RESP 16; TEMP 36.4; O2SAT 98
[2023-07-13 13:28] VITALS: BP 110/64; PULSE 77; RESP 16; TEMP 36.4; O2SAT 98
--- NOTE | 2023-07-13 13:41 | ED.FEMALEGU ---
HPI - Female Genitourinary General Chief complaint: Urogenital-Female Stated complaint: Uti symptoms Time Seen by Provider: 07/13/23 13:30 Source: patient and RN notes reviewed Mode of arrival: ambulatory Limitations: no limitations History of Present Illness HPI Narrative: Patient presents today complaining of painful urination intermittently over the past month, but worse over the past 2 days. She also reports some intermittent cloudy urine. Denies abdominal pain, fever, hematuria. Related Data Home Medications Medication Instructions Recorded Confirmed acetaminophen 500 mg tablet 500 mg PO Q6H PRN Pain 05/05/20 07/13/23 (Tylenol Extra Strength) multivitamin 1 tablet PO DAILY 07/10/21 07/13/23 ascorbate calcium (vitamin C) 500 500 mg PO DAILY 07/16/22 07/13/23 mg tablet guar gum 1 gram chewable tablet 1 g PO QHS 07/16/22 07/13/23 magnesium 250 mg tablet 250 mg PO DAILY 07/16/22 07/13/23 fluticasone furoate 100 1 inh inhalation DAILY 12/30/22 07/13/23 mcg-vilanterol 25 mcg/dose inhalation powder (Breo Ellipta) Allergies Allergy/AdvReac Type Severity Reaction Status Date / Time morphine Allergy Mild SEVERE Verified 07/13/23 13:17 NAUSEA cephalexin Allergy Unknown Nausea Verified 07/13/23 13:17 Cephalosporins Allergy Unknown GI UPSET Verified 07/13/23 13:17 clavulanic acid Allergy Unknown GI UPSET Verified 07/13/23 13:17 codeine Allergy Unknown Nausea Verified 07/13/23 13:17 erythromycin base Allergy Unknown Diarrhea Verified 07/13/23 13:17 hydrocodone Allergy Unknown GI UPSET Verified 07/13/23 13:17 methylprednisolone Allergy Unknown DEATHLY Verified 07/13/23 13:17 SICK naproxen Allergy Unknown Nausea Verified 07/13/23 13:17 NSAIDS (Non-Steroidal Allergy Unknown Unknown Verified 07/13/23 13:17 Anti-Inflamma Sulfa (Sulfonamide Allergy Unknown Unknown Verified 07/13/23 13:17 Antibiotics) BETALACTAMASEIN Allergy Unknown GI UPSET Uncoded 07/13/23 13:17 Review of Systems Review of Systems: CONSTITUTIONAL: Denies body aches, fever, chills, or sweats. EYES: Denies visual changes, redness, or discharge. ENT: Denies rhinorrhea, congestion, sore throat, or otalgia. CARDIOVASCULAR: Denies chest pain, palpitations, or edema. RESPIRATORY: Denies cough or dyspnea. GASTROINTESTINAL: Denies abdominal pain, nausea, vomiting, or diarrhea. GENITOURINARY: + dysuria, cloudy urine SKIN: Denies rash, itching, or wounds. MUSCULOSKELETAL: Denies back pain, joint pain, or myalgia. NEUROLOGIC: Denies headache, numbness, tingling, or weakness. PSYCH: Denies depression or anxiety. [facility] Past Medical History Medical History Anal fissure, unspecified Chicken pox Depression with anxiety Diarrhea Duodenitis Dyslipidemia Gastric ulcer GERD (gastroesophageal reflux disease) History of shingles Irritable bowel syndrome Measles Nausea Osteoporosis Recurrent abdominal pain Tobacco abuse Vitamin D deficiency Surgical History Surgical History History of hip surgery (~1967) 1968 - for right hip dislocation Hx laparoscopic cholecystectomy (~2005) S/P ALIDA-BSO (total abdominal hysterectomy and bilateral salpingo-oophorectomy) (~2004) Family History Family History Other Family history of atrial fibrillation Family history of hearing loss Hypertension Macular degeneration Skin cancer Social History Social History Social History: Caffeine-rarely Smoking packs per day: 0.5 Smoking cigarettes per day: 10.0 Years smoked: 40 Smoking pack-years: 20.00 Smoking status: Current every day smoker Tobacco type: cigarettes Alcohol intake: former Substance use: never Substance use type: does not use Lack of Transportation: No Lack of Food: Never
== END 2023-07-13 13:49 | disposition home or self-care (01) ==
PROVIDERS: Emergency Provider Nurse Practitioner; PCP Family Medicine
DX: N39.0 Urinary tract infection, site not specified (principal); B96.1 Klebsiella pneumoniae [K. pneumoniae] as the cause of diseases classified elsewhere; E78.5 Hyperlipidemia, unspecified; K21.9 Gastro-esophageal reflux disease without esophagitis; M81.0 Age-related osteoporosis without current pathological fracture; F17.210 Nicotine dependence, cigarettes, uncomplicated
CPT/HCPCS: 81003; 87077; 87086; 87186; 99213; G0463

== ENCOUNTER 2023-07-14 00:55 | Emergency (ER) | payer MEDICARE, OTHER, SELFPAY ==
[2023-07-14 00:57] VITALS: BP 125/92; PULSE 69; RESP 16; TEMP 36.4; O2SAT 96
--- NOTE | 2023-07-14 03:33 | PC.NURSE ---
Pt approached triage desk and states she is going to follow up with PCP on saturday and no longer wants to be seen. Pt ambulated out of ED with steady gait, in no obvious distress
== END 2023-07-14 04:16 | disposition left against medical advice (07) ==
PROVIDERS: PCP Family Medicine
DX: R19.7 Diarrhea, unspecified (principal)
CPT/HCPCS: 99199

== ENCOUNTER 2023-11-23 08:05 | Emergency (ER) | payer MEDICARE, OTHER, SELFPAY ==
--- NOTE | 2023-11-23 08:08 | ED.FEMALEGU ---
HPI - Female Genitourinary General Chief complaint: Urogenital-Female Stated complaint: Urinary Problems Time Seen by Provider: 11/23/23 08:08 Source: patient Mode of arrival: ambulatory Limitations: no limitations History of Present Illness HPI Narrative: Patient is a 68-year-old female who presents with 2 weeks of vaginal irritation and burning after urination. 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 Was sent to urology and was told there was no infection in her urine. Patient had been placed on Macrobid prior to urology appointment. Patient states external vagina is very red and irritated along with being dry. Patient states she has been put on several different creams an oral medications since July. Denies any low back pain, fever, chills, nausea, vomiting, diarrhea, increased frequency or urgency. Denies any vaginal discharge. MD elicited complaint: dysuria Related Data Home Medications Medication Instructions Recorded Confirmed acetaminophen 500 mg tablet 500 mg PO Q6H PRN Pain 05/05/20 11/23/23 (Tylenol Extra Strength) multivitamin 1 tablet PO DAILY 07/10/21 11/23/23 ascorbate calcium (vitamin C) 500 500 mg PO DAILY 07/16/22 11/23/23 mg tablet guar gum 1 gram chewable tablet 1 g PO QHS 07/16/22 11/23/23 magnesium 250 mg tablet 250 mg PO DAILY 07/16/22 11/23/23 fluticasone furoate 100 1 inh inhalation DAILY 12/30/22 11/23/23 mcg-vilanterol 25 mcg/dose inhalation powder (Breo Ellipta) Allergies Allergy/AdvReac Type Severity Reaction Status Date / Time ciprofloxacin Allergy Intermediate Nausea and Verified 09/30/23 14:07 Vomiting morphine Allergy Mild SEVERE Verified 09/23/23 14:06 NAUSEA cephalexin Allergy Unknown Nausea Verified 09/23/23 14:06 Cephalosporins Allergy Unknown GI UPSET Verified 09/23/23 14:06 clavulanic acid Allergy Unknown GI UPSET Verified 09/23/23 14:06 codeine Allergy Unknown Nausea Verified 09/23/23 14:06 erythromycin base Allergy Unknown Diarrhea Verified 09/23/23 14:06 hydrocodone Allergy Unknown GI UPSET Verified 09/23/23 14:06 methylprednisolone Allergy Unknown DEATHLY Verified 09/23/23 14:06 SICK naproxen Allergy Unknown Nausea Verified 09/23/23 14:06 NSAIDS (Non-Steroidal Allergy Unknown Unknown Verified 09/23/23 14:06 Anti-Inflamma Sulfa (Sulfonamide Allergy Unknown Unknown Verified 09/23/23 14:06 Antibiotics) doxycycline Allergy Headache Verified 09/23/23 14:06 BETALACTAMASEIN Allergy Unknown GI UPSET Uncoded 09/23/23 14:06 Review of Systems Review of Systems: All systems reviewed & are unremarkable except as noted in HPI and below Constitutional: Constitutional: Denies chills, Denies fever(s), Denies headache(s), Denies malaise and Denies weakness Eyes: Eyes: Denies change in vision, Denies eye discharge and Denies irritation ENT: Denies otalgia, Denies headache(s), Denies nasal congestion, Denies nasal discharge, Denies sinus pain and Denies sore throat Cardiovascular: Cardiovascular: Denies chest pain, Denies edema, Denies palpitations and Denies dyspnea Respiratory: Respiratory: Denies cough and Denies dyspnea Gastrointestinal: Gastrointestinal: Denies abdominal pain, Denies diarrhea, Denies nausea and Denies vomiting Genitourinary: Genitourinary: Denies hematuria, Denies nocturia, Denies dysuria, Denies flank pain, Denies urinary urgency, Reports vaginal dryness and Reports vaginal pruritus Musculoskeletal: Musculoskeletal: Denies back pain and Denies numbness Integumentary/Breasts: Skin/Breast: Denies pruritus and Denies rash Neurologic: Denies headache(s), Denies numbness and Denies weakness Psychiatric: Psychiatric: Reports no additional psychiatric complaints Endocrine: Endocrine: Denies palpitations PMFSH Past Medical History Medical History Anal fissure, unspecified Bacterial vaginosis Chicken pox Depression with anxiety Diarrhea Duodenitis Dyslipidemia Gastric ulcer GERD (gastroesophageal reflux disease) History of shingles Irritable bowel syndrome Measles Nausea Osteoporosis Recurrent abdominal pain Tobacco abuse Vitamin D deficiency Surgical History Surgical History History of hip surgery (~1967) 1967 - for right hip dislocation Hx laparoscopic cholecystectomy (~2005) S/P ALIDA-BSO (total abdominal hysterectomy and bilateral salpingo-oophorectomy) (~2004) Family History Family History Other Family history of atrial fibrillation Family history of hearing loss Hypertension Macular degeneration Skin cancer Social History Social History Social History: Caffeine-rarely Smoking packs per day: 0.5 Smoking cigarettes per day: 10.0 Years smoked: 40 Smoking pack-years: 20.00 Smoking status: Current every day smoker Tobacco type: cigarettes Alcohol intake: former Substance use: never Substance use type: does not use Do You Feel Safe in your Home?: Yes Lack of Transportation: No Lack of Food: Never True Current Housing: I Have Housing Concerned About Future Housing: No Difficulty Paying Gas/Electric Bills: No Difficulty Paying for Meds: No Currently Unemployed: Decline to Answer Education: High School Diploma/GED Difficulty w/ Childcare or Family Care: No Living arrangements: alone Occupation/Education: retired Gender identity (if verbalized by the patient): Female Sexual Orientation (if Verbalized by the Patient): Straight or Heterosexual Spiritual care concerns: No Agree to blood products: Yes Comments At time of signature, agree with nursing past medical, surgical, social and family history. There is no relevant family history pertinent to the presenting complaint. Exam Const: General: cooperative, healthy appearing, comfortable, no acute distress and well nourished Nutritional Appearance: well nourished Orientation/consciousness: patient oriented x3 HENMT: Head: normocephalic and atraumatic Ears: external ears normal Face/Nose/Sinus: Normal external nose present, Normal nares present and normal facial exam Face and sinus: normal facial exam Eyes: General: appearance normal, both eyes and all related structures Pupils: Equal, round and reactive pupils present EOM: EOMs intact bilaterally Neck: Neck: normal visual inspection, full ROM and supple Chest: Chest palpation & inspection: normal inspection of the chest Resp: Effort & Inspection: normal respiratory effort and able to speak in complete sentences Cardio: Rate: regular rate Rhythm: regular rhythm GI: Inspection: normal to inspection GI Palp: No abdominal tenderness and Yes Soft to palpation : General: Yes no CVA tenderness OB/external & speculum: Deferred OB/external & speculum exam Manual OB Exam: Deferred manual OB exam Back/Spine/Pelvis: Back: no CVA tenderness Skin: General skin exam: normal color and no rashes or lesions noted Neuro: General: patient oriented x3 and moves all extremities Cranial nerves: Yes Equal, round and reactive pupils present Extrem: General: normal to inspection and full ROM Psych: Appearance: grossly normal and well kempt Course Course Emergency Course: Patient is aware of diagnosis, understands and agrees to treatment plan. Anticipatory guidance given. Patient agrees to follow-up as directed and is aware of reasons to seek care at the emergency department. Portions of this record may have been created with voice recognition software Level of Care: Express Care Visit Vital Signs Vital signs: Vital Signs Temperature 36.5 C 11/23/23 08:16 Pulse Rate 77 11/23/23 08:16 Respiratory Rate 16 11/23/23 08:16 Blood Pressure 122/65 11/23/23 08:16 Pulse Oximetry 98 11/23/23 08:16 Temperature 36.5 C 11/23/23 08:16 Pulse Rate 77 11/23/23 08:16 Respiratory Rate 16 11/23/23 08:16 Blood Pressure 122/65 11/23/23 08:16 Pulse Oximetry 98 11/23/23 08:16 Reviewed MDM - Female Genitourinary MDM Narrative Medical decision making narrative: Thorough discussion with patient about urine results. Also discussed the last urine culture Macrobid was not susceptible. Patient states that the only thing that helps her. Discussed vaginal symptoms, patient reports she is no longer using estrogen cream but did start medical great coconut oil this week. Given option to be referred to different OBGYN due to patient concern that she is not being heard. Patient provided with names of [id number] external lubrication and moisturizer for vagina. Exam findings and UA show no signs of UTI; patient is non-toxic appearing and is in no distress. No CMT, adnexal tenderness, or evidence of pelvic etiology. Patient is appropriate for outpatient treatment and follow-up. Differential Diagnosis Differential diagnosis: Likely urinary tract infection, bacterial vaginosis, trichomoniasis, cervicitis, vaginitis and cystitis Medical Records Attestation: I reviewed the patient's medical records. Lab Data Attestation: I reviewed the patient's lab results. Labs: Urine Glucose Negative Reference Range: Negative Urine Bilirubin Negative Reference Range: Negative Urine Ketone Negative Reference Range: Negative Urine Specific [place] 1.015 Reference Range:1.001-1.035 Urine Blood 1+ Reference Range: Negative * * Urine pH 6.0 Reference Range: 5.0-9.0 Urine Protein Negative Reference Range: Negative Urine Urobilinogen 0.2 Reference Range: 0.2-1.0 Urine Nitrate Negative Reference Range: Negative Urine Leukocyte Negative Reference Range: Negative Urine Color Yellow Reference Range: Yellow Urine Characteristics Clear Discharge Plan Discharge Clinical Impression: Vaginal irritation Patient Disposition: Home, Self-Care Condition: Stable Instructions: Vaginal Atrophy (ED) Additional Instructions: Your urine showed no signs of infection at this time. We will send it for urine culture. If culture comes back and bacteria is present will be called and an antibiotic will be sometime. Use [id number] lubrication on vagina to help with dryness and irritation. Use warm compresses as needed for comfort. Continue with increased water intake. Take Tylenol or ibuprofen as needed for pain or fever. Follow-up with primary care provider for urine recheck or see ER visit if condition worsens with high fever, nausea, vomiting, severe back pain Prescriptions: No Action fluticasone furoate-vilanterol [Breo Ellipta] 100-25 mcg/dose blister with device 1 inh INHALATION DAILY acetaminophen [Tylenol Extra Strength] 500 mg tablet 500 mg PO Q6H PRN (Reason: Pain) guar gum 1 gram tablet,chewable 1 g PO QHS magnesium 250 mg tablet 250 mg PO DAILY ascorbate calcium (vitamin C) 500 mg tablet 500 mg PO DAILY clobetasol 0.05 % ointment 1 applic topical QHS Qty: 30 0RF Rx Instructions: Apply vaginally QHS multivitamin Tablet 1 tablet PO DAILY famotidine 20 mg tablet 20 mg PO BID Qty: 60 11RF ciprofloxacin HCl 500 mg tablet 500 mg PO Q12H Qty: 10 0RF Prevalite 4 gram powder 4 g PO BID Qty: 231 5RF Rx Instructions: administer w/meal; avoid other meds within 1hr before or 4-6hr after dose lorazepam 0.5 mg tablet 0.5 mg PO BID PRN (Reason: anxiety) Qty: 60 0RF Follow-up/Referrals: Dante Ortiz MD [Physician] - 3 Days Bela Melendez MD [Primary Care Provider] - 3 Days Time of Disposition: 08:52
[2023-11-23 08:16] VITALS: BP 122/65; PULSE 77; RESP 16; TEMP 36.5; O2SAT 98
== END 2023-11-23 08:56 | disposition home or self-care (01) ==
PROVIDERS: Emergency Provider Nurse Practitioner Family; PCP Family Medicine
DX: N89.8 Other specified noninflammatory disorders of vagina (principal); F17.210 Nicotine dependence, cigarettes, uncomplicated; E78.5 Hyperlipidemia, unspecified; K21.9 Gastro-esophageal reflux disease without esophagitis; M81.0 Age-related osteoporosis without current pathological fracture
CPT/HCPCS: 81003; 87086; 99213; G0463

== ENCOUNTER 2024-04-20 13:47 | Outpatient (CLI) | payer MEDICARE, OTHER, SELFPAY ==
[2024-04-20 18:52] LABS: Add Urine Microscopic? YES; Appearance Urine Cloudy (Clear); Bacteria Urine 4+ /hpf; Bilirubin Urine Negative (Negative); Blood Urine 1+ (Negative); Color Urine Yellow (Yellow); Glucose Urine UA Negative (Negative); Ketones Urine Negative (Negative); Leukocyte Esterase Ur 2+ LEU/UL (Negative); Nitrate Urine Negative (Negative); Protein Urine Negative (Negative); Specific Grav Ur 1.018 (1.001-1.035); Squamous Epithelial Cell Urine None Seen /hpf (Few); WBC Urine >100 /hpf (0-3); pH Urine 5.5 (5.0-9.0)
== END 2024-04-20 13:48 | disposition home or self-care (01) ==
PROVIDERS: PCP Family Medicine; Visit Provider Family Medicine
DX: R30.0 Dysuria (principal)
CPT/HCPCS: 81001; 87077; 87086; 87088; 87186

== ENCOUNTER 2024-05-14 11:24 | Outpatient (CLI) | payer MEDICARE, OTHER, SELFPAY | END 2024-05-14 11:25 | disposition home or self-care (01) | LOC: ANHGOSHLAB 11:26 | PROVIDERS: PCP Family Medicine; Visit Provider Family Medicine | DX: N39.0 Urinary tract infection, site not specified (principal); R31.9 Hematuria, unspecified | CPT/HCPCS: 87077; 87086; 87186 ==

== ENCOUNTER 2024-05-30 08:13 | Emergency (ER) | payer MEDICARE, OTHER, SELFPAY ==
--- NOTE | 2024-05-30 08:20 | ED.GENADULT ---
HPI - General Adult General Chief complaint: Urogenital-Female Stated complaint: Uti Symptoms Time Seen by Provider: 05/30/24 08:20 Source: patient, RN notes reviewed and old records reviewed Mode of arrival: ambulatory Limitations: no limitations History of Present Illness HPI narrative: 69-year-old female to Express Care with complaint of suprapubic pain. Patient reports having 2 urinary tract infections since April. Patient was treated with Macrobid in April. Patient treated for 2nd urinary tract infection on May 14 with Augmentin. Patient states that starting on May 18 she started experiencing suprapubic pain that has persisted ever since. Patient denies urinary frequency, burning, incontinence, dribbling, retention, flank pain, back pain, nausea, vomiting. Patient has extensive allergy list. Patient able to tolerate fluids by mouth. Patient resting comfortably in exam room in no acute distress. Respirations even and nonlabored. Patient states that she has a Urology appointment scheduled on June 02. Related Data Home Medications Medication Instructions Recorded Confirmed acetaminophen 500 mg tablet 500 mg PO Q6H PRN Pain 05/05/20 05/30/24 (Tylenol Extra Strength) multivitamin 1 tablet PO DAILY 07/10/21 05/30/24 ascorbate calcium (vitamin C) 500 500 mg PO DAILY 07/16/22 05/30/24 mg tablet guar gum 1 gram chewable tablet 1 g PO QHS 07/16/22 05/30/24 magnesium 250 mg tablet 250 mg PO DAILY 07/16/22 05/30/24 Allergies Allergy/AdvReac Type Severity Reaction Status Date / Time ciprofloxacin Allergy Intermediate Nausea and Verified 05/30/24 08:21 Vomiting morphine Allergy Mild SEVERE Verified 05/30/24 08:21 NAUSEA cephalexin Allergy Unknown Nausea Verified 05/30/24 08:21 Cephalosporins Allergy Unknown GI UPSET Verified 05/30/24 08:21 clavulanic acid Allergy Unknown GI UPSET Verified 05/30/24 08:21 codeine Allergy Unknown Nausea Verified 05/30/24 08:21 erythromycin base Allergy Unknown Diarrhea Verified 05/30/24 08:21 hydrocodone Allergy Unknown GI UPSET Verified 05/30/24 08:21 methylprednisolone Allergy Unknown DEATHLY Verified 05/30/24 08:21 SICK naproxen Allergy Unknown Nausea Verified 05/30/24 08:21 NSAIDS (Non-Steroidal Allergy Unknown Unknown Verified 05/30/24 08:21 Anti-Inflamma Sulfa (Sulfonamide Allergy Unknown Unknown Verified 05/30/24 08:21 Antibiotics) doxycycline Allergy Headache Verified 05/30/24 08:21 BETALACTAMASEIN Allergy Unknown GI UPSET Uncoded 01/14/24 08:45 Review of Systems Review of Systems: All systems reviewed & are unremarkable except as noted in HPI and below Constitutional: Constitutional: Reports no additional constitutional complaints Eyes: Eyes: Reports no additional eye complaints ENT: Reports system reviewed and no additional complaints, except as documented Cardiovascular: Cardiovascular: Reports no additional cardiovascular complaints, Denies chest pain and Denies dyspnea Respiratory: Respiratory: Reports no additional respiratory complaints, Denies cough and Denies dyspnea Genitourinary: Genitourinary: Reports as per HPI and Reports other ( Suprapubic pain) Musculoskeletal: Musculoskeletal: Reports no additional musculoskeletal complaints Neurologic: Reports system reviewed and no additional complaints, except as documented Psychiatric: Psychiatric: Reports no additional psychiatric complaints [facility] Past Medical History Medical History Anal fissure, unspecified Bacterial vaginosis Chicken pox Depression with anxiety Diarrhea Duodenitis Dyslipidemia Gastric ulcer GERD (gastroesophageal reflux disease) History of shingles Irritable bowel syndrome Measles Nausea Osteoporosis Recurrent abdominal pain Tobacco abuse Vitamin D deficiency Surgical History Surgical History History of hip surgery (~1967) 1967 - for right hip dislocation Hx laparoscopic cholecystectomy (~2005) S/P ALIDA-BSO (total abdominal hysterectomy and bilateral salpingo-oophorectomy) (~2004) Family History Family History Other Family history of atrial fibrillation Family history of hearing loss Hypertension Macular degeneration Skin cancer Social History Social History Social History: Caffeine-rarely Smoking packs per day: 0.5 Smoking cigarettes per day: 10.0 Years smoked: 40 Smoking pack-years: 20.00 Smoking status: Current every day smoker Tobacco type: cigarettes Alcohol intake: former Substance use: never Substance use type: does not use Do You Feel Safe in your Home?: Yes Lack of Transportation: No Lack of Food: Never True Current Housing: I Have Housing Concerned About Future Housing: No Difficulty Paying Gas/Electric Bills: No Difficulty Paying for Meds: No Currently Unemployed: Decline to Answer Education: High School Diploma/GED Difficulty w/ Childcare or Family Care: No Living arrangements: alone Occupation/Education: retired Gender identity (if verbalized by the patient): Female Sexual Orientation (if Verbalized by the Patient): Straight or Heterosexual Spiritual care concerns: No Agree to blood products: Yes Comments At the time of my signature, I reviewed and agree with the nursing past medical, surgical, social, and family history. There is no relevant family history pertinent to the patient complaint. Exam Const: General: cooperative, healthy appearing, comfortable, no acute distress, alert and well nourished Nutritional Appearance: well nourished Orientation/consciousness: patient oriented x3 Limitations: no limitations HENMT: Head: normal to inspection Ears: external ears normal Face/Nose/Sinus: Normal external nose present, Normal nares present, normal facial exam, No erythema and No edema Face and sinus: normal facial exam, no erythema and no edema Mouth: Yes Normal oral and palatal mucosa present Eyes: General: appearance normal, both eyes and all related structures Neck: Neck: normal visual inspection, full ROM and no meningeal signs Chest: Chest palpation & inspection: normal inspection of the chest Resp: Effort & Inspection: normal respiratory effort and able to speak in complete sentences Cardio: Jugular venous distension: no JVD Rate: regular rate : General: Yes Bladder palpation abnormal tender and Yes no CVA tenderness Back/Spine/Pelvis: Cervical Spine: cervical ROM normal Skin: General skin exam: normal color, no rashes or lesions noted and turgor normal Neuro: General: patient oriented x3, gait normal, moves all extremities and no meningeal signs Speech: normal speech Gait exam (Neuro): Normal gait present Extrem: General: normal to inspection, full ROM and capillary refill normal Psych: Appearance: grossly normal and well kempt Course Course Emergency Course: Some parts of this dictation were generated by voice recognition software and may contain typographical and/or grammatical inaccuracies. Level of Care: Express Care Visit Vital Signs Vital signs: Vital Signs Temperature 36.4 C 05/30/24 08:22 Pulse Rate 74 05/30/24 08:22 Respiratory Rate 16 05/30/24 08:22 Blood Pressure 102/68 05/30/24 08:22 Pulse Oximetry 100 05/30/24 08:22 Temperature 36.4 C 05/30/24 08:22 Pulse Rate 74 05/30/24 08:22 Respiratory Rate 16 05/30/24 08:22 Blood Pressure 102/68 05/30/24 08:22 Pulse Oximetry 100 05/30/24 08:22 reviewed Medical Decision Making MDM Narrative Medical decision making narrative: 69-year-old female to Express Care with complaint of suprapubic pain. Patient reports having 2 urinary tract infections since April. Patient was treated with Macrobid in April. Patient treated for 2nd urinary tract infection on May 14 with Augmentin. Patient states that starting on May 18 she started experiencing suprapubic pain that has persisted ever since. Patient denies urinary frequency, burning, incontinence, dribbling, retention, flank pain, back pain, nausea, vomiting. Patient has extensive allergy list. Patient able to tolerate fluids by mouth. Patient resting comfortably in exam room in no acute distress. Respirations even and nonlabored. Patient states that she has an appointment with Urology scheduled on June 02. Patient is sitting comfortably in exam room nontoxic in appearance. On exam, Bladder tenderness present. Exam otherwise unremarkable. UA positive for UTI clinic. Culture sent. Extensive conversation had with patient regarding potential transfer for further evaluation and potential treatment with IV antibiotics. Patient states she feels that she can hold out until her urology appointment next Saturday. Patient attempted to call her 2 brothers who are in the medical field to get their opinion. Neither were available. Patient states she elects to be to discharged home on antibiotics and will follow up with Urology on Saturday. Patient appropriate for outpatient treatment and follow-up. Discharge instructions reviewed with patient, as well as provided in writing per nursing staff. The instructions also include specific and strict return/GO TO THE ER as well as f/u information. All questions have been answered, and the patient deny any further questions with discharge and discharge plan. Some parts of this dictation were generated by voice recognition software and may contain typographical and/or grammatical inaccuracies. Differential Diagnosis Differential Diagnosis: Urinary tract infection, STI, yeast infection, acute cystitis Vital Signs Vital Signs: Vital Signs Temperature 36.4 C 05/30/24 08:22 Pulse Rate 74 05/30/24 08:22 Respiratory Rate 16 05/30/24 08:22 Blood Pressure 102/68 05/30/24 08:22 Pulse Oximetry 100 05/30/24 08:22 Temperature 36.4 C 05/30/24 08:22 Pulse Rate 74 05/30/24 08:22 Respiratory Rate 16 05/30/24 08:22 Blood Pressure 102/68 05/30/24 08:22 Pulse Oximetry 100 05/30/24 08:22 Lab Data Labs: Lab Results 05/30/24 Range/Units 08:39 POC Urine Color Light/pale POC Urine Clarity Clear POC Urine pH 6.0 POC Ur Specif [place]oring 1.015 POC Urine Protein Negative (Negative) POC Ur Glucose (UA) Negative (Negative) POC Urine Ketones Negative (Negative) POC Urine Blood 1+ (Negative) POC Urine Nitrite Negative (Negative) POC Urine Bilirubin Negative (Negative) POC Urine Urobilinogen 0.2 POC U Leukocyte Esteras 2+ (Negative) Discharge Plan Discharge Clinical Impression: UTI (urinary tract infection) Patient Disposition: Home, Self-Care Condition: Stable Instructions: Urinary Tract Infection in Women (ED) Additional Instructions: We will send a urine culture off to the lab; if the culture identifies an organism that the prescribed antibiotic will not treat, you will receive a phone call from an urgent care staff member and an appropriate antibiotic will be prescribed. -Your symptoms should begin to improve within a day of starting antibiotics. But you should finish all the antibiotic pills you get. Otherwise your infection might come back. -Also recommend: drink more fluid. It might help flush out germs, and it does no harm -Tylenol/ibuprofen as needed for pain -Follow-up with your primary care provider for urine recheck OR if your symptoms persist, change or worsen significantly before you can contact your personal physician then please, without delay, go to the emergency department for further evaluation. Please keep your appointment with Urology on Saturday Prescriptions: New amoxicillin-pot clavulanate 875-125 mg tablet 1 tablet PO Q12H Qty: 20 0RF No Action acetaminophen [Tylenol Extra Strength] 500 mg tablet 500 mg PO Q6H PRN (Reason: Pain) guar gum 1 gram tablet,chewable 1 g PO QHS magnesium 250 mg tablet 250 mg PO DAILY ascorbate calcium (vitamin C) 500 mg tablet 500 mg PO DAILY multivitamin Tablet 1 tablet PO DAILY famotidine 20 mg tablet 20 mg PO BID Qty: 60 11RF Prevalite 4 gram powder 4 g PO BID Qty: 231 5RF Rx Instructions: administer w/meal; avoid other meds within 1hr before or 4-6hr after dose lorazepam 0.5 mg tablet 0.5 mg PO BID PRN (Reason: anxiety) Qty: 60 1RF fluconazole 150 mg tablet 150 mg PO ONCE Qty: 1 0RF Rx Instructions: as a single dose Follow-up/Referrals: Bela Melendez MD [Primary Care Provider] -
[2024-05-30 08:22] VITALS: BP 102/68; PULSE 74; RESP 16; TEMP 36.4; O2SAT 100
[2024-05-30 08:40] LABS: EDUAAPPEAR Clear; EDUABILI Negative (Negative); EDUABLOOD 1+ (Negative); EDUACOLOR1 Light/Pale; EDUAGLUCOSE Negative (Negative); EDUAKETONE Negative (Negative); EDUALEUKO 2+ (Negative); EDUANITRATE Negative (Negative); EDUAPROTEIN Negative (Negative); EDUASPGRAVITY 1.015; EDUAUROBILI 0.2
== END 2024-05-30 09:04 | disposition home or self-care (01) ==
PROVIDERS: Emergency Provider Nurse Practitioner Family; PCP Family Medicine
DX: N39.0 Urinary tract infection, site not specified (principal); B96.4 Proteus (mirabilis) (morganii) as the cause of diseases classified elsewhere; F17.210 Nicotine dependence, cigarettes, uncomplicated; E78.5 Hyperlipidemia, unspecified; K21.9 Gastro-esophageal reflux disease without esophagitis; M81.0 Age-related osteoporosis without current pathological fracture
CPT/HCPCS: 81003; 87086; 87186; 99213; G0463

== ENCOUNTER 2024-07-13 09:43 | Outpatient (CLI) | payer MEDICARE, OTHER, SELFPAY ==
--- NOTE | ~2024-07-13 | XR_ITS ---
AP and lateral views of the right hip Clinical history: Pain COMPARISON: 06/11/2016 Findings: No acute fracture or dislocation is seen. Stable orthopedic screw projecting over the right acetabular region. Osseous alignment is anatomic. There is minimal degenerative change of the right hip joint. Soft tissues are unremarkable. Impression: Minimal degenerative change of the right hip joint. Stable orthopedic screw projecting over the right acetabulum. Reviewed, dictated and finalized at location . E SETTER Impression: Minimal degenerative change of the right hip joint. Stable orthopedic screw projecting over the right acetabulum.
== END 2024-07-13 09:44 | disposition home or self-care (01) ==
LOC: GOSHIMG 09:44
PROVIDERS: PCP Family Medicine; Visit Provider Student in an Organized Health Care Education/Training Program
DX: M16.11 Unilateral primary osteoarthritis, right hip (principal)
CPT/HCPCS: 73502

== ENCOUNTER 2024-08-07 13:09 | Inpatient (IN) | payer MEDICARE, OTHER, SELFPAY ==
--- NOTE | ~2024-08-07 | XR_ITS ---
XR chest 1V portable Ordering provider: Antolin Guillen MD History: 69 years Female with . cough, nausea and vomiting . Comparison: August 07, 2024 FINDINGS: MEDIASTINUM: The cardiac silhouette is not enlarged. LUNGS: No effusions or pneumothorax. Opacification in the upper lobes is seen which may indicate javon y pneumonia. Follow-up advised. OTHER: No free air under the diaphragm. Degenerative changes of the spine. IMPRESSION: Opacification in the upper lobes may indicate early pneumonia. Follow-up advised. Bilateral Reviewed, dictated and finalized at location [facility]. II TUBE BENDER IMPRESSION: Opacification in the upper lobes may indicate early pneumonia. Follow-up advise dSerina Bilateral
--- NOTE | ~2024-08-07 | XR_ITS ---
XR retrograde pyelo w/stent LT DATE: 08/08/2024 09:25 INDICATION: Left entire stent placement TECHNIQUE: 3 exam images of the abdomen COMPARISON: 08/07/2024 CT abdomen pelvis FINDINGS: There is moderately severe left hydroureteronephrosis and blunted calyces. Suggestion of a filling defect in the distal left ureter. Subsequent placement of a left internal urinary stent with resultant substantial improvement of hydro nephrosis. IMPRESSION: Left anterior artery stent placement with improvement of left hydronephrosis Reviewed, dictated and finalized at [facility]. Reviewed, dictated and finalized at location [facility]. ALLER APPRENTICE IMPRESSION: Left anterior artery stent placement with improvement of left hydro nephrosis
--- NOTE | ~2024-08-07 | CT_ITS ---
CT abdomen pelvis wo con Ordering provider: Antolin Guillen MD History: 69 years Female with . flank pain, uti, . Comparison: July 13, 2022 Technique: CT abdomen and pelvis without IV and without oral contrast. Automated exposure control and iterative reconstruction technique were employed. The dose-length product was 213.46 mGy-cm. Findings: VISUALIZED LOWER CHEST: Normal. Trace of pericardial effusion. UPPER ABDOMINAL ORGANS: Liver: Normal. Gallbladder: Status post cholecystectomy. Spleen: Normal. Stomach/duodenum: Thickened wall of the stomach. Evaluation for gastritis advised. Pancreas: Normal. Adrenals: Slightly prominent left adrenal gland. Kidneys: Stone in the left kidney lower ureter measuring 5 mm with hydronephrotic changes. Tiny stone in the right kidney lower pole measuring 5 mm. PELVIC ORGANS: The bladder is normal. BOWEL AND MESENTERY: Colon: No evidence of diverticulitis. Normal appendix. Small Bowel: Normal. No obstruction. Peritoneum/mesentery: No free air or free fluid. No mesenteric lymphadenopathy. RETROPERITONEUM: Mild atheromatous disease of the abdominal aorta. No retroperitoneal lymphadenopat hy. MUSCULOSKELETAL: Superficial soft tissues: The superficial soft tissues are normal. Bones: Age appropriate degenerative changes of the spine. IMPRESSION: 1. Stone in the left lower ureter with left hydronephrotic changes. 2. Stone in the right kidney lower pole. 3. No evidence of appendicitis, diverticulitis or intestinal obstruction. 4. Slightly thickened wall of the stomach. Clinical evaluation for gastritis advised. 5. Trace of pericardial effusion. Reviewed, dictated and finalized at location [facility]. LESS COMMUNICATIONS ENGINEER IMPRESSION: 1. Stone in the left lower ureter with left hydronephrotic changes. 2. Stone in the right kidney lower pole. 3. No evidence of appendicitis, diverticulitis or intestinal obstruction. 4. Slightly thickened wall of the stomach. Clinical evaluation for gastritis a dvised. 5. Trace of pericardial effusion.
--- NOTE | ~2024-08-07 | XR_ITS ---
Clinical Indication: Cough PA and lateral views of the chest: Comparison: 12/30/2022 Findings: The lungs are clear, without evidence of focal consolidation or pleural effusion. Cardiome diastinal silhouette is stable. Bones and soft tissues are unremarkable. Impression: Clear lungs. Reviewed, dictated and finalized at [facility]. [employer] Impression: Clear lungs.
[2024-08-07 13:37] VITALS: BP 112/62; PULSE 120; RESP 20; TEMP 37.2; O2SAT 95
--- NOTE | 2024-08-07 13:40 | ED.GENADULT ---
HPI - General Adult General Chief complaint: Abdominal Pain <Lakesha Chappell PA-C - Last Filed: 08/07/24 13:41> Stated complaint: I'm really sick <Lakesha Chappell PA-C - Last Filed: 08/07/24 13:41> Time Seen by Provider: 08/07/24 22:09 <Lakesha Chappell PA-C - Last Filed: 08/07/24 13:41> Focused HPI: 69-year-old female presents to the emergency department for nausea, generalized malaise and fatigue for 3 days. States she had an episode of bowel incontinence this morning that was watery. She reports a cough with attributes this to suppress cough. Denies chest pain or shortness of breath, known fever, dysuria or hematuria. States she had some pain to the left flank at the onset of symptoms that is resolved. GENERAL: Well-appearing, well-nourished, and in no acute distress. HEAD: Normocephalic, atraumatic. CHEST: Clear to auscultation. ?No respiratory distress. HEART: Regular rate and rhythm.? NEURO: ?Alert and oriented x3. Patient screened in triage and initial orders placed.? ?Additional care and disposition to be based upon?diagnostic testing and treatment. <Lakesha Chappell PA-C - Last Filed: 08/07/24 13:41> History of Present Illness HPI narrative: Patient 69-year-old female presents emergency department with chief complaint of nausea generalized malaise and fatigue for the last 3 days patient reports that she had episode of bowel incontinence earlier today reports that she has had a cough on the patient reports no fever and reports that she has had some discomfort in her flank area. <Antolin Guillen MD - Last Filed: 08/07/24 23:56> Related Data Home medications: Home Medications ?Medication ?Instructions ?Recorded ?Confirmed ?Last Taken ?Type acetaminophen 500 mg tablet 500 mg PO Q6H PRN Pain 05/05/20 07/13/24 Unknown History (Tylenol Extra Strength) multivitamin 1 tablet PO DAILY 07/10/21 07/13/24 Unknown History magnesium 250 mg tablet 250 mg PO DAILY 07/16/22 07/13/24 Unknown History <CORRINE Quintanilla Last Filed: 08/07/24 13:41> Allergies/adverse reactions: Allergies Allergy/AdvReac Type Severity Reaction Status Date / Time ciprofloxacin Allergy Intermediate Nausea and Verified 07/13/24 08:59 Vomiting morphine Allergy Mild SEVERE Verified 07/13/24 08:59 NAUSEA cephalexin Allergy Unknown Nausea Verified 07/13/24 08:59 Cephalosporins Allergy Unknown GI UPSET Verified 07/13/24 08:59 clavulanic acid Allergy Unknown GI UPSET Verified 07/13/24 08:59 codeine Allergy Unknown Nausea Verified 07/13/24 08:59 erythromycin base Allergy Unknown Diarrhea Verified 07/13/24 08:59 hydrocodone Allergy Unknown GI UPSET Verified 07/13/24 08:59 methylprednisolone Allergy Unknown DEATHLY Verified 07/13/24 08:59 SICK naproxen Allergy Unknown Nausea Verified 07/13/24 08:59 NSAIDS (Non-Steroidal Allergy Unknown Unknown Verified 07/13/24 08:59 Anti-Inflamma Sulfa (Sulfonamide Allergy Unknown Unknown Verified 07/13/24 08:59 Antibiotics) doxycycline Allergy Headache Verified 07/13/24 08:59 BETALACTAMASEIN Allergy Unknown GI UPSET Uncoded 07/13/24 08:59 <Lakesha Chappell PA-C - Last Filed: 08/07/24 13:41> Review of Systems Review of Systems: A 10 system review of systems was completed on the patient and is negative except for what is stated in the HPI. Nursing and ancillary documentation was reviewed. <Antolin Guillen MD - Last Filed: 08/07/24 23:56> [facility] Past Medical History Medical History: Medical History Bacterial vaginosis Osteoporosis Vitamin D deficiency Anal fissure, unspecified Depression with anxiety Tobacco abuse Nausea Irritable bowel syndrome Diarrhea Dyslipidemia Recurrent abdominal pain GERD (gastroesophageal reflux disease) History of shingles Chicken pox Measles Duodenitis Gastric ulcer <Lakesha Chappell PA-C - Last Filed: 08/07/24 13:41> Surgical History Surgical History: Surgical History History of hip surgery (~1967) 1968 - for right hip dislocation Hx laparoscopic cholecystectomy (~2005) S/P ALIDA-BSO (total abdominal hysterectomy and bilateral salpingo-oophorectomy) (~2004) <Lakesha Chappell PA-C - Last Filed: 08/07/24 13:41> Family History Family History: Family History Other Family history of atrial fibrillation Family history of hearing loss Hypertension Macular degeneration Skin cancer <Lakesha Chappell PA-C - Last Filed: 08/07/24 13:41> Social History Social History: Social History Social History: Caffeine-rarely Smoking packs per day: 0.5 Smoking cigarettes per day: 10.0 Years smoked: 50 Smoking pack-years: 25.00 Smoking status: Current every day smoker Tobacco type: cigarettes Alcohol intake: former Substance use: never Substance use type: does not use Do You Feel Safe in your Home?: Yes Lack of Transportation: No Lack of Food: Never True Current Housing: I Have Housing Concerned About Future Housing: No Difficulty Paying Gas/Electric Bills: No Difficulty Paying for Meds: No Currently Unemployed: Decline to Answer Education: High School Diploma/GED Difficulty w/ Childcare or Family Care: No Living arrangements: alone Occupation/Education: retired Gender identity (if verbalized by the patient): Female Sexual Orientation (if Verbalized by the Patient): Straight or Heterosexual Spiritual care concerns: No Agree to blood products: Yes <Lakesha Chappell PA-C - Last Filed: 08/07/24 13:41> Exam Narrative: GENERAL: Well-appearing, well-nourished, and in no acute distress. HEAD: Normocephalic, atraumatic. EYES: PERRLA and EOMI. ENT: Nares clear, no rhinorrhea or epistaxis. Mucous membranes moist. NECK: Supple. CHEST: Clear to auscultation. No respiratory distress. HEART: Regular rate and rhythm. No murmur heard. Normal peripheral pulses. ABDOMEN: Soft, nontender, nondistended, normal active bowel sounds. EXTREMITIES: Normal range of motion. No edema. SKIN: Warm, dry, no rash. NEURO: No focal deficits. Alert and oriented x3. PSYCH: Normal mood and affect. <Antolin Guillen MD - Last Filed: 08/07/24 23:56> Course Vital Signs Vital signs: Vital Signs Temperature 37.2 C 08/07/24 13:37 Pulse Rate 120 H 08/07/24 13:37 Respiratory Rate 20 08/07/24 13:37 Blood Pressure 112/62 08/07/24 13:37 Pulse Oximetry 95 08/07/24 13:37 Oxygen Delivery Room Air 08/07/24 13:37 Temperature 36.6 C 08/07/24 19:31 Pulse Rate 85 08/07/24 23:01 Respiratory Rate 22 H 08/07/24 23:01 Blood Pressure 108/71 08/07/24 23:01 Pulse Oximetry 95 08/07/24 23:01 Oxygen Delivery Room Air 08/07/24 13:37 <Lakesha Chappell PA-C - Last Filed: 08/07/24 13:41> Vital Signs Temperature 37.2 C 08/07/24 13:37 Pulse Rate 120 H 08/07/24 13:37 Respiratory Rate 20 08/07/24 13:37 Blood Pressure 112/62 08/07/24 13:37 Pulse Oximetry 95 08/07/24 13:37 Oxygen Delivery Room Air 08/07/24 13:37 Temperature 36.6 C 08/07/24 19:31 Pulse Rate 85 08/07/24 23:01 Respiratory Rate 22 H 08/07/24 23:01 Blood Pressure 108/71 08/07/24 23:01 Pulse Oximetry 95 08/07/24 23:01 Oxygen Delivery Room Air 08/07/24 13:37 <Antolin Guillen MD - Last Filed: 08/07/24 23:56> Medical Decision Making MDM Narrative Medical decision making narrative: Differential diagnosis includes UTI, pyelonephritis, ureterolithiasis with septic stone Laboratory studies were obtained on the patient showed white count 76736 urinalysis showed greater than 100 white blood cells 3+ leukocyte esterase and 4+ bacteria electrolytes showed a creatinine 1.3 this is increased from the patient's baseline The patient was given IV fluids in the emergency department patient has multiple allergies patient was started on cefepime CT scan showed evidence of stone with hydronephrosis case was discussed with Urology on-call and patient will be admitted to the hospitalist service <Antolin Guillen MD - Last Filed: 08/07/24 23:56> Vital Signs Vital Signs: Vital Signs Temperature 37.2 C 08/07/24 13:37 Pulse Rate 120 H 08/07/24 13:37 Respiratory Rate 20 08/07/24 13:37 Blood Pressure 112/62 08/07/24 13:37 Pulse Oximetry 95 08/07/24 13:37 Oxygen Delivery Room Air 08/07/24 13:37 Temperature 36.6 C 08/07/24 19:31 Pulse Rate 85 08/07/24 23:01 Respiratory Rate 22 H 08/07/24 23:01 Blood Pressure 108/71 08/07/24 23:01 Pulse Oximetry 95 08/07/24 23:01 Oxygen Delivery Room Air 08/07/24 13:37 <Lakesha Chappell PA-C - Last Filed: 08/07/24 13:41> Vital Signs Temperature 37.2 C 08/07/24 13:37 Pulse Rate 120 H 08/07/24 13:37 Respiratory Rate 20 08/07/24 13:37 Blood Pressure 112/62 08/07/24 13:37 Pulse Oximetry 95 08/07/24 13:37 Oxygen Delivery Room Air 08/07/24 13:37 Temperature 36.6 C 08/07/24 19:31 Pulse Rate 85 08/07/24 23:01 Respiratory Rate 22 H 08/07/24 23:01 Blood Pressure 108/71 08/07/24 23:01 Pulse Oximetry 95 08/07/24 23:01 Oxygen Delivery Room Air 08/07/24 13:37 <Antolin Guillen MD - Last Filed: 08/07/24 23:56> Lab Data Result diagrams: 08/07/24 15:19 08/07/24 15:19 <Lakesha Chappell PA-C - Last Filed: 08/07/24 13:41> Labs: Lab Results 08/07/24 08/07/24 Range/Units 15:19 22:08 WBC 22.0 H (4.5-10.0) K/mm3 RBC 4.37 (4.2-5.4) M/mm3 Hgb 13.8 (12.0-15.0) g/dL Hct 39.4 (37.0-47.0) % MCV 90.2 (80-100) fl MCH 31.6 (26-34) pg MCHC 35.0 (32-36) g/dl RDW 12.3 (11.5-14.5) % Plt Count 99 L D (150-375) k/mm3 MPV 10.6 H (7.4-10.4) fl Immature Gran % (Auto) Not Reportable Neut % (Auto) Not Reportable Lymph % (Auto) Not Reportable Harper % (Auto) Not Reportable Eos % (Auto) Not Reportable Baso % (Auto) Not Reportable Lymph # (Auto) Not Reportable Harper # (Auto) Not Reportable Eos # (Auto) Not Reportable Baso # (Auto) Not Reportable Abs Immat Gran (auto) Not Reportable Absolute Neuts (auto) Not Reportable Absolute Nucleated RBC Not Reportable Total Counted 100 Neutrophils % (Manual) 77 H (46-73) % Band Neutrophils % 15 H (0-6) % Lymphocytes % (Manual) 2 L (18-44) % Monocytes % (Manual) 4 (3-9) % Metamyelocytes % 2 % Nucleated RBC % Not Reportable Abs Neuts (Manual) 20.24 H (1.7-7.2) K/mm3 Abs Lymphs (Manual) 0.44 L (1.1-4.5) K/mm3 Abs Monocytes (Manual) 0.88 (0.1-0.90) K/mm3 Platelet Estimate Decreased (Adequate) % Immature Plt Fraction 6.5 (0.9-11.2) % Ovalocytes 1+ Schistocytes None seen Sodium 123 L (137-145) mmol/L Potassium 3.7 (3.4-5.0) mmol/L Chloride 96 L (98-107) mmol/L Carbon Dioxide 21 L (22-30) mmol/L Anion Gap 6 (4-12) mmol/L BUN 33 H D (7-17) mg/dL Creatinine 1.30 H (0.7-1.0) mg/dL Estim Creat Clear Calc 29 ml/min Estimated GFR 40 L (59 - ) Glucose 81 (65-110) mg/dL Lactic Acid 1.4 (0.7-2.0) mmol/L Calcium 8.7 (8.4-10.2) mg/dL Total Bilirubin 0.9 (0.2-1.3) mg/dL AST 62 H (14-36) U/L ALT 64 H (6-35) U/L Alkaline Phosphatase 208 H (38-126) U/L Total Protein 7.0 (6.3-8.2) g/dL Albumin 3.6 (3.5-5.1) g/dL Urine Color Yellow (Yellow) Urine Appearance Turbid H (Clear) Urine pH >=9.0 H (5.0-9.0) Ur Specific [place] 1.020 (1.001-1.035) Urine Protein 3+ H (Negative) mg/dL Urine Glucose (UA) Negative (Negative) mg/dL Urine Ketones Trace H (Negative) mg/dL Ur Blood (Man) 3+ H (Negative) Urine Nitrate Negative (Negative) Urine Bilirubin Negative (Negative) Urine Urobilinogen 0.2 (<2.0) mg/dL Add Ur Microanalysis Reviewed Leukocyte Esterase Rfl 3+ H (Negative) ALISSA/UL Urine RBC 3-5 H (0-2) /hpf Urine WBC >100 H (0-3) /hpf Ur Squamous Epith Cells None seen (Few) /hpf Urine Bacteria 4+ H /hpf Urine Casts >20 Influenza A (RT-PCR) Negative (Negative) Influenza B (RT-PCR) Negative (Negative) RSV (RT-PCR) Negative (Negative) SARS-CoV-2 RNA (RT-PCR) Negative (Negative) <Lakesha Chappell PA-C - Last Filed: 08/07/24 13:41> Lab Results 08/07/24 08/07/24 Range/Units 15:19 22:08 WBC 22.0 H (4.5-10.0) K/mm3 RBC 4.37 (4.2-5.4) M/mm3 Hgb 13.8 (12.0-15.0) g/dL Hct 39.4 (37.0-47.0) % MCV 90.2 (80-100) fl MCH 31.6 (26-34) pg MCHC 35.0 (32-36) g/dl RDW 12.3 (11.5-14.5) % Plt Count 99 L D (150-375) k/mm3 MPV 10.6 H (7.4-10.4) fl Immature Gran % (Auto) Not Reportable Neut % (Auto) Not Reportable Lymph % (Auto) Not Reportable Harper % (Auto) Not Reportable Eos % (Auto) Not Reportable Baso % (Auto) Not Reportable Lymph # (Auto) Not Reportable Harper # (Auto) Not Reportable Eos # (Auto) Not Reportable Baso # (Auto) Not Reportable Abs Immat Gran (auto) Not Reportable Absolute Neuts (auto) Not Reportable Absolute Nucleated RBC Not Reportable Total Counted 100 Neutrophils % (Manual) 77 H (46-73) % Band Neutrophils % 15 H (0-6) % Lymphocytes % (Manual) 2 L (18-44) % Monocytes % (Manual) 4 (3-9) % Metamyelocytes % 2 % Nucleated RBC % Not Reportable Abs Neuts (Manual) 20.24 H (1.7-7.2) K/mm3 Abs Lymphs (Manual) 0.44 L (1.1-4.5) K/mm3 Abs Monocytes (Manual) 0.88 (0.1-0.90) K/mm3 Platelet Estimate Decreased (Adequate) % Immature Plt Fraction 6.5 (0.9-11.2) % Ovalocytes 1+ Schistocytes None seen Sodium 123 L (137-145) mmol/L Potassium 3.7 (3.4-5.0) mmol/L Chloride 96 L (98-107) mmol/L Carbon Dioxide 21 L (22-30) mmol/L Anion Gap 6 (4-12) mmol/L BUN 33 H D (7-17) mg/dL Creatinine 1.30 H (0.7-1.0) mg/dL Estim Creat Clear Calc 29 ml/min Estimated GFR 40 L (59 - ) Glucose 81 (65-110) mg/dL Lactic Acid 1.4 (0.7-2.0) mmol/L Calcium 8.7 (8.4-10.2) mg/dL Total Bilirubin 0.9 (0.2-1.3) mg/dL AST 62 H (14-36) U/L ALT 64 H (6-35) U/L Alkaline Phosphatase 208 H (38-126) U/L Total Protein 7.0 (6.3-8.2) g/dL Albumin 3.6 (3.5-5.1) g/dL Urine Color Yellow (Yellow) Urine Appearance Turbid H (Clear) Urine pH >=9.0 H (5.0-9.0) Ur Specific [place] 1.020 (1.001-1.035) Urine Protein 3+ H (Negative) mg/dL Urine Glucose (UA) Negative (Negative) mg/dL Urine Ketones Trace H (Negative) mg/dL Ur Blood (Man) 3+ H (Negative) Urine Nitrate Negative (Negative) Urine Bilirubin Negative (Negative) Urine Urobilinogen 0.2 (<2.0) mg/dL Add Ur Microanalysis Reviewed Leukocyte Esterase Rfl 3+ H (Negative) ALISSA/UL Urine RBC 3-5 H (0-2) /hpf Urine WBC >100 H (0-3) /hpf Ur Squamous Epith Cells None seen (Few) /hpf Urine Bacteria 4+ H /hpf Urine Casts >20 Influenza A (RT-PCR) Negative (Negative) Influenza B (RT-PCR) Negative (Negative) RSV (RT-PCR) Negative (Negative) SARS-CoV-2 RNA (RT-PCR) Negative (Negative) <Antolin Guillen MD - Last Filed: 08/07/24 23:56> Discharge Plan Discharge Clinical Impression: Acute UTI, Leukocytosis, Ureterolithiasis <Lakesha Chappell PA-C - Last Filed: 08/07/24 13:41> Patient Disposition: Still a Patient <Lakesha Chappell PA-C - Last Filed: 08/07/24 13:41> Condition: Stable <Lakesha Chappell PA-C - Last Filed: 08/07/24 13:41> Instructions: Antibiotic Form <Lakesha Chappell PA-C - Last Filed: 08/07/24 13:41> Patient Language: Turkish <Lakesha Chappell PA-C - Last Filed: 08/07/24 13:41> Prescriptions: No Action acetaminophen [Tylenol Extra Strength] 500 mg tablet 500 mg PO Q6H PRN (Reason: Pain) magnesium 250 mg tablet 250 mg PO DAILY multivitamin Tablet 1 tablet PO DAILY Prevalite 4 gram powder 4 g PO BID Qty: 231 5RF Rx Instructions: administer w/meal; avoid other meds within 1hr before or 4-6hr after dose lorazepam 0.5 mg tablet 0.5 mg PO BID PRN (Reason: anxiety) Qty: 60 1RF famotidine 20 mg tablet 20 mg PO BID Qty: 60 5RF <Lakesha Chappell PA-C - Last Filed: 08/07/24 13:41> Follow-up/Referrals: Bela Melendez MD [Primary Care Provider] - <Lakesha Chappell PA-C - Last Filed: 08/07/24 13:41> Time of Disposition: 23:56 <Lakesha Chappell PA-C - Last Filed: 08/07/24 13:41> 23:56 <Antolin Guillen MD - Last Filed: 08/07/24 23:56>
[2024-08-07 15:35] LABS: Hematocrit 39.4 % (37.0-47.0); Hemoglobin 13.8 g/dL (12.0-15.0); Immature Platelet Fraction Pct 6.5 % (0.9-11.2); Mean Corpuscular Hemoglobin 31.6 pg (26-34); Mean Corpuscular Volume 90.2 fl (80-100); Mean Platelet Volume 10.6 fl (7.4-10.4); Platelet Count Result 99 k/mm3 (150-375); Red Blood Count 4.37 M/mm3 (4.2-5.4); Red Cell Distribution Width 12.3 % (11.5-14.5)
[2024-08-07 15:44] LABS: Alanine Aminotransferase 64 U/L (6-35); Albumin Level 3.6 g/dL (3.5-5.1); Alkaline Phosphatase 208 U/L (38-126); Anion Gap 6 mmol/L (4-12); Aspartate Amino Transferase 62 U/L (14-36); Bilirubin,Total 0.9 mg/dL (0.2-1.3); Blood Urea Nitrogen 33 mg/dL (7-17); Calcium 8.7 mg/dL (8.4-10.2); Carbon Dioxide 21 mmol/L (22-30); Chloride 96 mmol/L (98-107); Estimated CRCL calculation 29 ml/min; Estimated Glomerular Filt Rate 40; Glucose 81 mg/dL (65-110); Potassium 3.7 mmol/L (3.4-5.0); Sodium 123 mmol/L (137-145)
[2024-08-07 15:52] LABS: Band Neutrophils Percent 15 % (0-6); Lymphocytes Absolute Manual 0.44 K/mm3 (1.1-4.5); Lymphocytes Percent Manual 2 % (18-44); Metamyelocytes Percent 2 %; Monocytes Absolute Manual 0.88 K/mm3 (0.1-0.90); Monocytes Percent Manual 4 % (3-9); Neutrophils Absolute Manual 20.24 K/mm3 (1.7-7.2); Neutrophils Percent Manual 77 % (46-73); Total Cells Counted 100
[2024-08-07 15:53] LABS: Ovalocytes 1+; Platelet Estimate Decreased (Adequate); Schistocytes None Seen
[2024-08-07 16:01] LABS: Add Urine Microscopic? YES; Appearance Urine Turbid (Clear); Bacteria Urine 4+ /hpf; Bilirubin Urine Negative (Negative); Blood Urine 3+ (Negative); Color Urine Yellow (Yellow); Glucose Urine UA Negative (Negative); Ketones Urine Trace mg/dL (Negative); Leukocyte Esterase Ur 3+ LEU/UL (Negative); Need Manual Microscopic Reviewed; Nitrate Urine Negative (Negative); Non Pathogenic Casts >20; Protein Urine 3+ mg/dL (Negative); Squamous Epithelial Cell Urine None Seen /hpf (Few); Urobilinogen Urine 0.2 mg/dL (<2.0); WBC Urine >100 /hpf (0-3); pH Urine >=9.0 (5.0-9.0)
[2024-08-07 16:11] LABS: Influenza A QL RT-PCR Negative (Negative); Influenza B QL RT-PCR Negative (Negative); RSV RNA, RT-PCR Negative (Negative); SARS-CoV-2 RNA PCR Negative (Negative)
[2024-08-07 19:31] VITALS: BP 113/59; PULSE 100; RESP 16; TEMP 36.6; O2SAT 100
[2024-08-07 22:02] VITALS: BP 116/71; PULSE 114; RESP 19; O2SAT 92
[2024-08-07 22:21] LABS: Lactic Acid Reflex 1.4 mmol/L (0.7-2.0)
[2024-08-07 22:48] VITALS: BP 115/75; PULSE 87; RESP 25; O2SAT 95
[2024-08-07] MEDS: SODIUM CHLORIDE 0.9% IV 1,000 ML 999 ML IV CONT (22:51)
[2024-08-07] MEDS: ONDANSETRON INJ 4 MG/2 ML VIAL IV PUSH (22:51)
[2024-08-07 23:01] VITALS: BP 108/71; PULSE 85; RESP 22; O2SAT 95
[2024-08-07] MEDS: MEROPENEM 1 GM/NS 100 ML 1 GM/100 ML BAG IVPB (23:55)
[2024-08-08] VITALS (12 sets, daily range): BP systolic 92–125; BP diastolic 51–71; PULSE 84–111; RESP 12–30; TEMP 36.3–38.1; O2SAT 90–100; BMI 22.2
--- NOTE | 2024-08-08 01:02 | ADMGEN ---
This patient, Doris Gomez, was admitted to [facility] Room 325-01. Patient/family oriented to hospital policies and general routines including ID bracelet, bed and alarms, visiting hours, pain management, procedures, bathroom and other care routines, personal items, smoking policy, room service/diet, and visiting hours. Information on how to activate the Rapid Response Team has been discussed. Patient/Family are encouraged to report perceived risks to care and to ask questions if they do not understand what they are told or what they should do. Report received from WIL Gandara in ED.
[2024-08-08] MEDS: ACETAMINOPHEN 325 MG TABLET 650 MG PO ×2 (01:49→12:50)
[2024-08-08] MEDS: SODIUM CHLORIDE 0.9% IV 1,000 ML 125 ML IV CONT ×2 (01:54→16:16)
--- NOTE | 2024-08-08 07:13 | P.HP_ITS ---
H&P: HPI History of Present Illness Date/Time: 08/08/24 07:13 Chief Complaint: Nausea and abdominal pain Narrative: 69-year-old female with past medical history COPD, chronic tobacco use, gastric ulcers, anal fissures, kidney stones and somewhat frequent UTIs who presented to the ER with 3 days of nausea and lower abdominal pain. She reported that she had also been having some generalized malaise and fatigue. She reports that she has had marked decrease in appetite due to her degree of nausea but has not been having any true vomiting. She reports that she usually has lower abdominal pain and develops dysuria and urinary frequency when she has a UTI. However the this time she was only having generalized lower abdominal pain. She reported the ER staff she was also having some left flank pain when she denied at the time of my evaluation. She had been having some low-grade temperatures at home around 99.6?. P denied significant chills. She does have a chronic smoker's cough that she reports is unchanged from baseline. She reports that she has felt so bad that she is down from smoking 0.5 packs of cigarettes per day down to 1-2 cigarettes a day over the last 3 days. In the ER CBC demonstrated white count of 22 with bandemia of 15% and patient had a fever of 100.6. She also had some acute thrombocytopenia, acute hyponatremia sodium of 123 and acute kidney injury with creatinine more than 2 times her baseline at 1.3. Her urine was also consistent with dehydration and UTI with trace ketones, 4+ bacteria and 3+ loose aside esterase with greater than 100 wbc's. The patient reported that when she was trying to provide a urine specimen in the ER she did have an episode of incontinence stool and had difficulty cleaning herself up. She was concerned that her urine specimen may have been contaminated. She had not been having diarrhea prior to this. She does report a recent anal fissure for which she was supposed to have surgical fraction this coming Saturday but she has already called her surgeon in notified them of her hospitalization. Review of Systems Review of Systems: 12 systems were reviewed with pertinent positives and negatives per HPI. Except as documented in the HPI, all other systems were reviewed and are negative. [facility] Past Medical History Medical History (Updated 08/08/24 @ 07:51 by Tlaa Andersen DO) Kidney stones Bacterial vaginosis Osteoporosis Vitamin D deficiency Anal fissure, unspecified Depression with anxiety Tobacco abuse Irritable bowel syndrome Dyslipidemia GERD (gastroesophageal reflux disease) History of shingles Chicken pox Measles Duodenitis Gastric ulcer Surgical History Surgical History (Updated 08/08/24 @ 07:44 by Tala Andersen DO) Status post cataract extraction of both eyes with insertion of intraocular lens History of hip surgery (~1967) 1967 - for right hip dislocation Hx laparoscopic cholecystectomy (~2005) S/P ALIDA-BSO (total abdominal hysterectomy and bilateral salpingo-oophorectomy) (~2004) Family History Family History Mother Family history of atrial fibrillation Hypertension Sibling Family history of atrial fibrillation Hypertension Father Macular degeneration Other Family history of hearing loss Skin cancer Social History Social History (Updated 08/08/24 @ 07:47 by Tala Andersen DO) Social History: The patient is and lives alone. She does not have any children. She has smoked up to a pack of cigarettes per day at her heaviest but is been smoking 0.5 packs per day for the last 8-10 years. She denies any significant alcohol use history and has had absolutely no alcohol use in the last 10 years or so. She denies any history of illicit substance use. 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 Code status: Full code Surrogate decision maker: Dr. Tima Gomez (brother) Smoking packs per day: 0.5 Smoking cigarettes per day: 10.0 Years smoked: 50 Smoking pack-years: 25.00 Smoking status: Current every day smoker Tobacco type: cigarettes Alcohol intake: never Substance use: never Substance use type: does not use Do You Feel Safe in your Home?: Yes Lack of Transportation: No Lack of Food: Never True Current Housing: I Have Housing Concerned About Future Housing: No Difficulty Paying Gas/Electric Bills: No Difficulty Paying for Meds: No Currently Unemployed: No Education: Trade/Vocational Certificate Difficulty w/ Childcare or Family Care: No Living arrangements: alone Occupation/Education: retired Gender identity (if verbalized by the patient): Female Sexual Orientation (if Verbalized by the Patient): Straight or Heterosexual Spiritual care concerns: No Agree to blood products: Yes Meds Home Medications and Allergies Home Medications ?Medication ?Instructions ?Recorded ?Confirmed ?Type acetaminophen 500 mg tablet 1,000 mg PO Q6H PRN Pain 05/05/20 08/08/24 History (Tylenol Extra Strength) multivitamin 1 tablet PO DAILY 07/10/21 08/08/24 History magnesium 250 mg tablet 250 mg PO DAILY 07/16/22 08/08/24 History lorazepam 0.5 mg tablet 0.5 mg PO BID PRN anxiety #60 tabs 06/22/24 08/08/24 Rx famotidine 20 mg tablet 20 mg PO BID #60 tabs 08/03/24 08/08/24 Rx cholecalciferol (vitamin D3) 10 10 mcg PO DAILY 08/08/24 08/08/24 History mcg (400 unit) capsule (Vitamin D3) cholestyramine-aspartame 4 gram 4 g PO DAILY 08/08/24 08/08/24 History oral powder (Prevalite) Allergies Allergy/AdvReac Type Severity Reaction Status Date / Time ciprofloxacin Allergy Intermediate Nausea and Verified 07/13/24 08:59 Vomiting morphine Allergy Mild SEVERE Verified 07/13/24 08:59 NAUSEA cephalexin Allergy Unknown Nausea Verified 07/13/24 08:59 Cephalosporins Allergy Unknown GI UPSET Verified 07/13/24 08:59 clavulanic acid Allergy Unknown GI UPSET Verified 07/13/24 08:59 codeine Allergy Unknown Nausea Verified 07/13/24 08:59 erythromycin base Allergy Unknown Diarrhea Verified 07/13/24 08:59 hydrocodone Allergy Unknown GI UPSET Verified 07/13/24 08:59 methylprednisolone Allergy Unknown DEATHLY Verified 07/13/24 08:59 SICK naproxen Allergy Unknown Nausea Verified 07/13/24 08:59 NSAIDS (Non-Steroidal Allergy Unknown Unknown Verified 07/13/24 08:59 Anti-Inflamma Sulfa (Sulfonamide Allergy Unknown Unknown Verified 07/13/24 08:59 Antibiotics) doxycycline Allergy Headache Verified 07/13/24 08:59 BETALACTAMASEIN Allergy Unknown GI UPSET Uncoded 07/13/24 08:59 Vital Signs Vital Signs - 24 hr 08/07/24 13:37 08/07/24 19:31 08/07/24 22:02 Temperature 98.9 F 97.8 F Pulse Rate 120 H 100 114 H Respiratory Rate 20 16 19 Blood Pressure 112/62 113/59 L 116/71 Pulse Oximetry 95 100 92 Oxygen Delivery Room Air 08/07/24 22:48 08/07/24 23:01 08/08/24 01:13 Temperature 100.6 F H Pulse Rate 87 85 99 Respiratory Rate 25 H 22 H 20 Blood Pressure 115/75 108/71 108/51 L Pulse Oximetry 95 95 94 Oxygen Delivery 08/08/24 01:49 08/08/24 02:00 08/08/24 02:49 Temperature 100.6 F H 98.1 F Pulse Rate Respiratory Rate Blood Pressure Pulse Oximetry Oxygen Delivery Room Air 08/08/24 02:49 08/08/24 06:00 Temperature 98.1 F 98.6 F Pulse Rate 88 Respiratory Rate 20 Blood Pressure 98/63 L Pulse Oximetry 93 Oxygen Delivery Exam Narrative: Weight 55.2 kg BMI 22.3 Const: Other: Mildly ill-appearing, well-developed well-nourished, appears stated age HENMT: Other: Mucous membranes are dry, no oral pharyngeal erythema, fair dentition, head is normocephalic atraumatic, upper lip appear slightly swollen Eyes: Other: Pupils are equal and reactive with evidence of bilateral lens implants, no scleral icterus, no conjunctival pallor Neck: Other: No lymphadenopathy, supple Resp: Other: Mild intermittent wheezing, no increased work of breathing, occasional cough Cardio: Other: Regular rate, regular rhythm, 2+ bilateral radial pedal pulses, no murmur GI: Other: Soft, nontender, nondistended, normoactive bowel sounds : Other: Continent of urine and stool Skin: Other: Warm to touch, non jaundice Neuro: Other: Alert orient x4, speech is clear, no facial asymmetry, no localizing neurologic deficits noted during the course of conversation Extrem: Other: No clubbing, no cyanosis, no edema, moves all extremities equally Psych: Other: Appropriate mood H&P: Results Labs Labs: Short CBC 08/07/24 Range/Units 15:19 WBC 22.0 H (4.5-10.0) K/mm3 Hgb 13.8 (12.0-15.0) g/dL Hct 39.4 (37.0-47.0) % Plt Count 99 L D (150-375) k/mm3 BMP 08/07/24 15:19 Sodium 123 L Potassium 3.7 Chloride 96 L Carbon Dioxide 21 L BUN 33 H D Creatinine 1.30 H Glucose 81 Calcium 8.7 Liver Function 08/07/24 Range/Units 15:19 Total Bilirubin 0.9 (0.2-1.3) mg/dL AST 62 H (14-36) U/L ALT 64 H (6-35) U/L Alkaline Phosphatase 208 H (38-126) U/L Albumin 3.6 (3.5-5.1) g/dL Urine 08/07/24 Range/Units 15:19 Urine Color Yellow (Yellow) Urine Appearance Turbid H (Clear) Urine pH >=9.0 H (5.0-9.0) Ur Specific [place] 1.020 (1.001-1.035) Urine Protein 3+ H (Negative) mg/dL Urine Glucose (UA) Negative (Negative) mg/dL 08/07/24 08/07/24 08/08/24 15:19 22:08 07:35 WBC 22.0 H Pending RBC 4.37 Pending Hgb 13.8 Pending Hct 39.4 Pending MCV 90.2 Pending MCH 31.6 Pending MCHC 35.0 Pending RDW 12.3 Pending Plt Count 99 L D Pending MPV 10.6 H Pending Immature Gran % (Auto) Not Reportable Pending Neut % (Auto) Not Reportable Pending Lymph % (Auto) Not Reportable Pending [place] % (Auto) Not Reportable Pending Eos % (Auto) Not Reportable Pending Baso % (Auto) Not Reportable Pending Lymph # (Auto) Not Reportable Pending [place] # (Auto) Not Reportable Pending Eos # (Auto) Not Reportable Pending Baso # (Auto) Not Reportable Pending Abs Immat Gran (auto) Not Reportable Pending Absolute Neuts (auto) Not Reportable Pending Absolute Nucleated RBC Not Reportable Pending Total Counted 100 Neutrophils % (Manual) 77 H Band Neutrophils % 15 H Lymphocytes % (Manual) 2 L Monocytes % (Manual) 4 Metamyelocytes % 2 Nucleated RBC % Not Reportable Pending Abs Neuts (Manual) 20.24 H Abs Lymphs (Manual) 0.44 L Abs Monocytes (Manual) 0.88 Platelet Estimate Decreased % Immature Plt Fraction 6.5 Ovalocytes 1+ Schistocytes None seen Sodium 123 L Pending Potassium 3.7 Pending Chloride 96 L Pending Carbon Dioxide 21 L Pending Anion Gap 6 Pending BUN 33 H D Pending Creatinine 1.30 H Pending Estim Creat Clear Calc 29 Pending Estimated GFR 40 L Pending Glucose 81 Pending Lactic Acid 1.4 Calcium 8.7 Pending Total Bilirubin 0.9 Pending AST 62 H Pending ALT 64 H Pending Alkaline Phosphatase 208 H Pending Total Protein 7.0 Pending Albumin 3.6 Pending Urine Color Yellow Urine Appearance Turbid H Urine pH >=9.0 H Ur Specific [place] 1.020 Urine Protein 3+ H Urine Glucose (UA) Negative Urine Ketones Trace H Ur Blood (Man) 3+ H Urine Nitrate Negative Urine Bilirubin Negative Urine Urobilinogen 0.2 Add Ur Microanalysis Reviewed Leukocyte Esterase Rfl 3+ H Urine RBC 3-5 H Urine WBC >100 H Ur Squamous Epith Cells None seen Urine Bacteria 4+ H Urine Casts >20 Influenza A (RT-PCR) Negative Influenza B (RT-PCR) Negative RSV (RT-PCR) Negative SARS-CoV-2 RNA (RT-PCR) Negative Impressions Chest X-Ray 08/07/24 14:19 Impression: Clear lungs. Chest X-Ray 08/07/24 22:34 IMPRESSION: Opacification in the upper lobes may indicate early pneumonia. Follow-up advised. Bilateral Abdomen/Pelvis CT 08/07/24 22:47 IMPRESSION: 1. Stone in the left lower ureter with left hydronephrotic changes. 2. Stone in the right kidney lower pole. 3. No evidence of appendicitis, diverticulitis or intestinal obstruction. 4. Slightly thickened wall of the stomach. Clinical evaluation for gastritis advised. 5. Trace of pericardial effusion. Assessment and Plan Assessment and plan (1) Acute UTI: Code(s): N39.0 - Urinary tract infection, site not specified Status: Acute (2) Sepsis: Qualifiers: Sepsis type: sepsis due to unspecified organism Sepsis acute organ dysfunction status: with acute organ dysfunction Severe sepsis acute organ dysfunction type: acute renal failure Acute renal failure type: unspecified Severe sepsis shock status: without septic shock Qualified Code(s): A41.9 - Sepsis, unspecified organism; R65.20 - Severe sepsis without septic shock; N17.9 - Acute kidney failure, unspecified Code(s): A41.9 - Sepsis, unspecified organism Status: Acute (3) Acute kidney injury: Code(s): N17.9 - Acute kidney failure, unspecified Status: Acute (4) Acute hyponatremia: Code(s): E87.1 - Hypo-osmolality and hyponatremia Status: Acute (5) Hydronephrosis with urinary obstruction due to ureteral calculus: Code(s): N13.2 - Hydronephrosis with renal and ureteral calculous obstruction Status: Acute Plan The patient is sepsis due to UTI with concomitant obstructing left distal obstructing ureteral stone. Sepsis criteria met with T-max of 100.6?, tachycardia, tachypnea and leukocytosis. Blood cultures and urine cultures obtained and are pending. Patient was started on empiric antibiotic therapy meropenem as the patient has multiple drugs listed as allergies. Although her allergies to most of antibiotics are associated with GI upset. Patient's prior cultures were reviewed and demonstrated organisms that were pansensitive. Nephrology has been consulted and patient will be NPO for anticipated cystoscopy and stent placement. Patient does have concomitant acute kidney injury with creatinine up from baseline of 0.6 up to 1.2. This is likely multifactorial due to sepsis, ureteral obstruction and dehydration. Will continue IV fluid hydration and monitor strict I&O's. Will avoid nephrotoxic medications. Tylenol will be provided as needed for fever. Patient did have acute hyponatremia but this is likely due to acute hypovolemia. Will titrate fluids based on repeat evaluation of sodium. Patient's home medications has been reviewed and reconciled with continuation of home medications as clinically appropriate. Patient has been admitted as observation status. Quality VTE Prophylaxis VTE prophylaxis: pharmacologic ordered (Lovenox 40 mg subQ daily.) Hospitalist [facility] Advance Care Plan I have confirmed that the patient's Advanced Care Plan is present, code status is documented, or surrogate decision maker is listed in patient medical record.: Yes Medication Reconciliation I have utilized all available resources to obtain, update and review the patients current medications (includes all prescriptions, OTC, herbals, cannabis, and nutritional supplements).: Yes
--- NOTE | 2024-08-08 07:50 | P.PNAN_ITS ---
Anes - Eval Pre Procedure Procedure: cysto, left stent placement Date/Time: 08/08/24 07:50 Surgeon: Dr. Jiménez Pre Op Diagnosis: Ureterolithiasis, UTI, Leukocytosis Patient Data Age: 69 Gender: F Height: 1.57 m Weight: 55.2 kg Last Vital Signs Temp 98.6 F 08/08/24 06:00 Pulse 88 08/08/24 06:00 Resp 20 08/08/24 06:00 BP 98/63 L 08/08/24 06:00 Pulse Ox 93 08/08/24 06:00 O2 Del Method Room Air 08/08/24 02:00 Allergies Allergy/AdvReac Type Severity Reaction Status Date / Time ciprofloxacin Allergy Intermediate Nausea and Verified 07/13/24 08:59 Vomiting morphine Allergy Mild SEVERE Verified 07/13/24 08:59 NAUSEA cephalexin Allergy Unknown Nausea Verified 07/13/24 08:59 Cephalosporins Allergy Unknown GI UPSET Verified 07/13/24 08:59 clavulanic acid Allergy Unknown GI UPSET Verified 07/13/24 08:59 codeine Allergy Unknown Nausea Verified 07/13/24 08:59 erythromycin base Allergy Unknown Diarrhea Verified 07/13/24 08:59 hydrocodone Allergy Unknown GI UPSET Verified 07/13/24 08:59 methylprednisolone Allergy Unknown DEATHLY Verified 07/13/24 08:59 SICK naproxen Allergy Unknown Nausea Verified 07/13/24 08:59 NSAIDS (Non-Steroidal Allergy Unknown Unknown Verified 07/13/24 08:59 Anti-Inflamma Sulfa (Sulfonamide Allergy Unknown Unknown Verified 07/13/24 08:59 Antibiotics) doxycycline Allergy Headache Verified 07/13/24 08:59 BETALACTAMASEIN Allergy Unknown GI UPSET Uncoded 07/13/24 08:59 Home Medications ?Medication ?Instructions ?Recorded ?Confirmed ?Type acetaminophen 500 mg tablet 1,000 mg PO Q6H PRN Pain 05/05/20 08/08/24 History (Tylenol Extra Strength) multivitamin 1 tablet PO DAILY 07/10/21 08/08/24 History magnesium 250 mg tablet 250 mg PO DAILY 07/16/22 08/08/24 History lorazepam 0.5 mg tablet 0.5 mg PO BID PRN anxiety #60 tabs 06/22/24 08/08/24 Rx famotidine 20 mg tablet 20 mg PO BID #60 tabs 08/03/24 08/08/24 Rx cholecalciferol (vitamin D3) 10 10 mcg PO DAILY 08/08/24 08/08/24 History mcg (400 unit) capsule (Vitamin D3) cholestyramine-aspartame 4 gram 4 g PO DAILY 08/08/24 08/08/24 History oral powder (Prevalite) Laboratory Tests 08/07/24 08/07/24 08/08/24 15:19 22:08 07:35 WBC 22.0 H K/mm3 Pending (4.5-10.0) RBC 4.37 M/mm3 Pending (4.2-5.4) Hgb 13.8 g/dL Pending (12.0-15.0) Hct 39.4 % Pending (37.0-47.0) MCV 90.2 fl Pending (80-100) MCH 31.6 pg Pending (26-34) MCHC 35.0 g/dl Pending (32-36) RDW 12.3 % Pending (11.5-14.5) Plt Count 99 L D k/mm3 Pending (150-375) MPV 10.6 H fl Pending (7.4-10.4) Immature Gran % (Auto) Not Reportable Pending Neut % (Auto) Not Reportable Pending Lymph % (Auto) Not Reportable Pending [place] % (Auto) Not Reportable Pending Eos % (Auto) Not Reportable Pending Baso % (Auto) Not Reportable Pending Lymph # (Auto) Not Reportable Pending [place] # (Auto) Not Reportable Pending Eos # (Auto) Not Reportable Pending Baso # (Auto) Not Reportable Pending Abs Immat Gran (auto) Not Reportable Pending Absolute Neuts (auto) Not Reportable Pending Absolute Nucleated RBC Not Reportable Pending Total Counted 100 Neutrophils % (Manual) 77 H % (46-73) Band Neutrophils % 15 H % (0-6) Lymphocytes % (Manual) 2 L % (18-44) Monocytes % (Manual) 4 % (3-9) Metamyelocytes % 2 % Nucleated RBC % Not Reportable Pending Abs Neuts (Manual) 20.24 H K/mm3 (1.7-7.2) Abs Lymphs (Manual) 0.44 L K/mm3 (1.1-4.5) Abs Monocytes (Manual) 0.88 K/mm3 (0.1-0.90) Platelet Estimate Decreased (Adequate) % Immature Plt Fraction 6.5 % (0.9-11.2) Ovalocytes 1+ Schistocytes None seen Sodium 123 L mmol/L Pending (137-145) Potassium 3.7 mmol/L Pending (3.4-5.0) Chloride 96 L mmol/L Pending (98-107) Carbon Dioxide 21 L mmol/L Pending (22-30) Anion Gap 6 mmol/L Pending (4-12) BUN 33 H D mg/dL Pending (7-17) Creatinine 1.30 H mg/dL Pending (0.7-1.0) Estim Creat Clear Calc 29 ml/min Pending Estimated GFR 40 L Pending (59 - ) Glucose 81 mg/dL Pending (65-110) Lactic Acid 1.4 mmol/L (0.7-2.0) Calcium 8.7 mg/dL Pending (8.4-10.2) Total Bilirubin 0.9 mg/dL Pending (0.2-1.3) AST 62 H U/L Pending (14-36) ALT 64 H U/L Pending (6-35) Alkaline Phosphatase 208 H U/L Pending (38-126) Total Protein 7.0 g/dL Pending (6.3-8.2) Albumin 3.6 g/dL Pending (3.5-5.1) Urine Color Yellow (Yellow) Urine Appearance Turbid H (Clear) Urine pH >=9.0 H (5.0-9.0) Ur Specific [place] 1.020 (1.001-1.035) Urine Protein 3+ H mg/dL (Negative) Urine Glucose (UA) Negative mg/dL (Negative) Urine Ketones Trace H mg/dL (Negative) Ur Blood (Man) 3+ H (Negative) Urine Nitrate Negative (Negative) Urine Bilirubin Negative (Negative) Urine Urobilinogen 0.2 mg/dL (<2.0) Add Ur Microanalysis Reviewed Leukocyte Esterase Rfl 3+ H ALISSA/UL (Negative) Urine RBC 3-5 H /hpf (0-2) Urine WBC >100 H /hpf (0-3) Ur Squamous Epith Cells None seen /hpf (Few) Urine Bacteria 4+ H /hpf Urine Casts >20 Influenza A (RT-PCR) Negative (Negative) Influenza B (RT-PCR) Negative (Negative) RSV (RT-PCR) Negative (Negative) SARS-CoV-2 RNA (RT-PCR) Negative (Negative) ECG: SR 66 Patient hx anesthesia problems: none Family hx anesthesia problems: none Prior surgeries: hysterectomy, lap ayde, hip Results Review: All pre-operative results and documents have been reviewed as part of the pre- operative evaluation. [facility] Past Medical History Medical History Kidney stones Bacterial vaginosis Osteoporosis Vitamin D deficiency Anal fissure, unspecified Depression with anxiety Tobacco abuse Irritable bowel syndrome Dyslipidemia GERD (gastroesophageal reflux disease) History of shingles Chicken pox Measles Duodenitis Gastric ulcer Surgical History Surgical History Status post cataract extraction of both eyes with insertion of intraocular lens History of hip surgery (~1967) 1967 - for right hip dislocation Hx laparoscopic cholecystectomy (~2005) S/P ALIDA-BSO (total abdominal hysterectomy and bilateral salpingo-oophorectomy) (~2004) Family History Family History Mother Family history of atrial fibrillation Hypertension Sibling Family history of atrial fibrillation Hypertension Father Macular degeneration Other Family history of hearing loss Skin cancer Social History Social History Social History: The patient is and lives alone. She does not have any children. She has smoked up to a pack of cigarettes per day at her heaviest but is been smoking 0.5 packs per day for the last 8-10 years. She denies any significant alcohol use history and has had absolutely no alcohol use in the last 10 years or so. She denies any history of illicit substance use. 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 Code status: Full code Surrogate decision maker: Dr. Tima Gomez (brother) Smoking packs per day: 0.5 Smoking cigarettes per day: 10.0 Years smoked: 50 Smoking pack-years: 25.00 Smoking status: Current every day smoker Tobacco type: cigarettes Alcohol intake: never Substance use: never Substance use type: does not use Do You Feel Safe in your Home?: Yes Lack of Transportation: No Lack of Food: Never True Current Housing: I Have Housing Concerned About Future Housing: No Difficulty Paying Gas/Electric Bills: No Difficulty Paying for Meds: No Currently Unemployed: No Education: Trade/Vocational Certificate Difficulty w/ Childcare or Family Care: No Living arrangements: alone Occupation/Education: retired Gender identity (if verbalized by the patient): Female Sexual Orientation (if Verbalized by the Patient): Straight or Heterosexual Spiritual care concerns: No Agree to blood products: Yes Exam Day of Procedure 08/08/24 07:50 Patient weight: normal and thin
[2024-08-08 07:54] LABS: Hematocrit 35.5 % (37.0-47.0); Hemoglobin 12.3 g/dL (12.0-15.0); Immature Platelet Fraction Pct 6.9 % (0.9-11.2); Mean Corpuscular HGB Conc 34.6 g/dl (32-36); Mean Corpuscular Hemoglobin 31.9 pg (26-34); Mean Corpuscular Volume 92.2 fl (80-100); Mean Platelet Volume 11.6 fl (7.4-10.4); Platelet Count Result 74 k/mm3 (150-375); Red Blood Count 3.85 M/mm3 (4.2-5.4); Red Cell Distribution Width 12.6 % (11.5-14.5); White Blood Count 16.1 K/mm3 (4.5-10.0)
[2024-08-08 08:05] LABS: Alanine Aminotransferase 44 U/L (6-35); Albumin Level 2.9 g/dL (3.5-5.1); Alkaline Phosphatase 114 U/L (38-126); Anion Gap 6 mmol/L (4-12); Aspartate Amino Transferase 37 U/L (14-36); Bilirubin,Total 0.5 mg/dL (0.2-1.3); Blood Urea Nitrogen 31 mg/dL (7-17); Calcium 8.3 mg/dL (8.4-10.2); Carbon Dioxide 19 mmol/L (22-30); Chloride 107 mmol/L (98-107); Estimated CRCL calculation 33 ml/min; Estimated Glomerular Filt Rate 49; Glucose 71 mg/dL (65-110); Potassium 3.6 mmol/L (3.4-5.0); Sodium 132 mmol/L (137-145)
[2024-08-08] MEDS: MULTIVITAMINS THERAPEUTIC TAB (*BKC) 1 TABLET PO (08:09)
[2024-08-08] MEDS: CHOLECALCIFEROL 400 UNITS TABLET (VIT D) PO (08:10)
[2024-08-08] MEDS: FAMOTIDINE 20 MG TABLET PO ×2 (08:10→20:38)
[2024-08-08 08:36] LABS: Band Neutrophils Percent 10 % (0-6); Lymphocytes Absolute Manual 0.64 K/mm3 (1.1-4.5); Lymphocytes Percent Manual 4 % (18-44); Monocytes Absolute Manual 0.32 K/mm3 (0.1-0.90); Monocytes Percent Manual 2 % (3-9); Neutrophils Absolute Manual 15.13 K/mm3 (1.7-7.2); Neutrophils Percent Manual 84 % (46-73); Platelet Estimate Decreased (Adequate); Schistocytes None Seen; Total Cells Counted 100
--- NOTE | 2024-08-08 08:49 | WPDANESEPPF ---
Anes - Initial Pre Proc Eval Procedure: Operation Date: 08/08/24 09:00 Proposed Procedures p Cysto, RPG, Stone Ext, Stent Placement(Left) - Diego Jiménez MD Date/Time: 08/08/24 08:49 Surgeon: Tala Andersen DO Pre Op Diagnosis: Ureterolithiasis, UTI, Leukocytosis Patient Data Age: 69 Gender: F Height: 1.57 m Weight: 55.2 kg Last Vital Signs Temp 37.0 C 08/08/24 06:00 Pulse 88 08/08/24 06:00 Resp 20 08/08/24 06:00 BP 98/63 L 08/08/24 06:00 Pulse Ox 93 08/08/24 06:00 O2 Del Method Room Air 08/08/24 02:00 Allergies Allergy/AdvReac Type Severity Reaction Status Date / Time ciprofloxacin Allergy Intermediate Nausea and Verified 07/13/24 08:59 Vomiting morphine Allergy Mild SEVERE Verified 07/13/24 08:59 NAUSEA cephalexin Allergy Unknown Nausea Verified 07/13/24 08:59 Cephalosporins Allergy Unknown GI UPSET Verified 07/13/24 08:59 clavulanic acid Allergy Unknown GI UPSET Verified 07/13/24 08:59 codeine Allergy Unknown Nausea Verified 07/13/24 08:59 erythromycin base Allergy Unknown Diarrhea Verified 07/13/24 08:59 hydrocodone Allergy Unknown GI UPSET Verified 07/13/24 08:59 methylprednisolone Allergy Unknown DEATHLY Verified 07/13/24 08:59 SICK naproxen Allergy Unknown Nausea Verified 07/13/24 08:59 NSAIDS (Non-Steroidal Allergy Unknown Unknown Verified 07/13/24 08:59 Anti-Inflamma Sulfa (Sulfonamide Allergy Unknown Unknown Verified 07/13/24 08:59 Antibiotics) doxycycline Allergy Headache Verified 07/13/24 08:59 BETALACTAMASEIN Allergy Unknown GI UPSET Uncoded 07/13/24 08:59 Home Medications ?Medication ?Instructions ?Recorded ?Confirmed ?Type acetaminophen 500 mg tablet 1,000 mg PO Q6H PRN Pain 05/05/20 08/08/24 History (Tylenol Extra Strength) multivitamin 1 tablet PO DAILY 07/10/21 08/08/24 History magnesium 250 mg tablet 250 mg PO DAILY 07/16/22 08/08/24 History lorazepam 0.5 mg tablet 0.5 mg PO BID PRN anxiety #60 tabs 06/22/24 08/08/24 Rx famotidine 20 mg tablet 20 mg PO BID #60 tabs 08/03/24 08/08/24 Rx cholecalciferol (vitamin D3) 10 10 mcg PO DAILY 08/08/24 08/08/24 History mcg (400 unit) capsule (Vitamin D3) cholestyramine-aspartame 4 gram 4 g PO DAILY 08/08/24 08/08/24 History oral powder (Prevalite) Laboratory Tests 08/07/24 08/07/24 08/08/24 15:19 22:08 07:35 WBC 22.0 H K/mm3 16.1 H K/mm3 (4.5-10.0) (4.5-10.0) RBC 4.37 M/mm3 3.85 L M/mm3 (4.2-5.4) (4.2-5.4) Hgb 13.8 g/dL 12.3 g/dL (12.0-15.0) (12.0-15.0) Hct 39.4 % 35.5 L % (37.0-47.0) (37.0-47.0) MCV 90.2 fl 92.2 fl (80-100) (80-100) MCH 31.6 pg 31.9 pg (26-34) (26-34) MCHC 35.0 g/dl 34.6 g/dl (32-36) (32-36) RDW 12.3 % 12.6 % (11.5-14.5) (11.5-14.5) Plt Count 99 L D k/mm3 74 L k/mm3 (150-375) (150-375) MPV 10.6 H fl 11.6 H fl (7.4-10.4) (7.4-10.4) Immature Gran % (Auto) Not Reportable Not Reportable Neut % (Auto) Not Reportable Not Reportable Lymph % (Auto) Not Reportable Not Reportable Freestone % (Auto) Not Reportable Not Reportable Eos % (Auto) Not Reportable Not Reportable Baso % (Auto) Not Reportable Not Reportable Lymph # (Auto) Not Reportable Not Reportable Freestone # (Auto) Not Reportable Not Reportable Eos # (Auto) Not Reportable Not Reportable Baso # (Auto) Not Reportable Not Reportable Abs Immat Gran (auto) Not Reportable Not Reportable Absolute Neuts (auto) Not Reportable Not Reportable Absolute Nucleated RBC Not Reportable Not Reportable Total Counted 100 100 Neutrophils % (Manual) 77 H % 84 H % (46-73) (46-73) Band Neutrophils % 15 H % 10 H % (0-6) (0-6) Lymphocytes % (Manual) 2 L % 4 L % (18-44) (18-44) Monocytes % (Manual) 4 % 2 L % (3-9) (3-9) Metamyelocytes % 2 % Nucleated RBC % Not Reportable Not Reportable Abs Neuts (Manual) 20.24 H K/mm3 15.13 H K/mm3 (1.7-7.2) (1.7-7.2) Abs Lymphs (Manual) 0.44 L K/mm3 0.64 L K/mm3 (1.1-4.5) (1.1-4.5) Abs Monocytes (Manual) 0.88 K/mm3 0.32 K/mm3 (0.1-0.90) (0.1-0.90) Platelet Estimate Decreased Decreased (Adequate) (Adequate) % Immature Plt Fraction 6.5 % 6.9 % (0.9-11.2) (0.9-11.2) Ovalocytes 1+ Schistocytes None seen None seen Sodium 123 L mmol/L 132 L mmol/L (137-145) (137-145) Potassium 3.7 mmol/L 3.6 mmol/L (3.4-5.0) (3.4-5.0) Chloride 96 L mmol/L 107 mmol/L (98-107) (98-107) Carbon Dioxide 21 L mmol/L 19 L mmol/L (22-30) (22-30) Anion Gap 6 mmol/L 6 mmol/L (4-12) (4-12) BUN 33 H D mg/dL 31 H mg/dL (7-17) (7-17) Creatinine 1.30 H mg/dL 1.10 H mg/dL (0.7-1.0) (0.7-1.0) Estim Creat Clear Calc 29 ml/min 33 ml/min Estimated GFR 40 L 49 L (59 - ) (59 - ) Glucose 81 mg/dL 71 mg/dL (65-110) (65-110) Lactic Acid 1.4 mmol/L (0.7-2.0) Calcium 8.7 mg/dL 8.3 L mg/dL (8.4-10.2) (8.4-10.2) Total Bilirubin 0.9 mg/dL 0.5 mg/dL (0.2-1.3) (0.2-1.3) AST 62 H U/L 37 H U/L (14-36) (14-36) ALT 64 H U/L 44 H U/L (6-35) (6-35) Alkaline Phosphatase 208 H U/L 114 U/L (38-126) (38-126) Total Protein 7.0 g/dL 6.0 L g/dL (6.3-8.2) (6.3-8.2) Albumin 3.6 g/dL 2.9 L g/dL (3.5-5.1) (3.5-5.1) Urine Color Yellow (Yellow) Urine Appearance Turbid H (Clear) Urine pH >=9.0 H (5.0-9.0) Ur Specific [place] 1.020 (1.001-1.035) Urine Protein 3+ H mg/dL (Negative) Urine Glucose (UA) Negative mg/dL (Negative) Urine Ketones Trace H mg/dL (Negative) Ur Blood (Man) 3+ H (Negative) Urine Nitrate Negative (Negative) Urine Bilirubin Negative (Negative) Urine Urobilinogen 0.2 mg/dL (<2.0) Add Ur Microanalysis Reviewed Leukocyte Esterase Rfl 3+ H ALISSA/UL (Negative) Urine RBC 3-5 H /hpf (0-2) Urine WBC >100 H /hpf (0-3) Ur Squamous Epith Cells None seen /hpf (Few) Urine Bacteria 4+ H /hpf Urine Casts >20 Influenza A (RT-PCR) Negative (Negative) Influenza B (RT-PCR) Negative (Negative) RSV (RT-PCR) Negative (Negative) SARS-CoV-2 RNA (RT-PCR) Negative (Negative) Patient hx anesthesia problems: none Family hx anesthesia problems: none Results Review: All pre-operative results and documents have been reviewed as part of the pre-operative evaluation. [facility]LY [facility] Past Medical History Medical History Kidney stones Bacterial vaginosis Osteoporosis Vitamin D deficiency Anal fissure, unspecified Depression with anxiety Tobacco abuse Irritable bowel syndrome Dyslipidemia GERD (gastroesophageal reflux disease) History of shingles Chicken pox Measles Duodenitis Gastric ulcer Surgical History Surgical History Status post cataract extraction of both eyes with insertion of intraocular lens History of hip surgery (~1967) 1967 - for right hip dislocation Hx laparoscopic cholecystectomy (~2005) S/P ALIDA-BSO (total abdominal hysterectomy and bilateral salpingo-oophorectomy) (~2004) Family History Family History Mother Family history of atrial fibrillation Hypertension Sibling Family history of atrial fibrillation Hypertension Father Macular degeneration Other Family history of hearing loss Skin cancer Social History Social History Social History: The patient is and lives alone. She does not have any children. She has smoked up to a pack of cigarettes per day at her heaviest but is been smoking 0.5 packs per day for the last 8-10 years. She denies any significant alcohol use history and has had absolutely no alcohol use in the last 10 years or so. She denies any history of illicit substance use. 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 Code status: Full code Surrogate decision maker: Dr. Tima Gomez (brother) Smoking packs per day: 0.5 Smoking cigarettes per day: 10.0 Years smoked: 50 Smoking pack-years: 25.00 Smoking status: Current every day smoker Tobacco type: cigarettes Alcohol intake: never Substance use: never Substance use type: does not use Do You Feel Safe in your Home?: Yes Lack of Transportation: No Lack of Food: Never True Current Housing: I Have Housing Concerned About Future Housing: No Difficulty Paying Gas/Electric Bills: No Difficulty Paying for Meds: No Currently Unemployed: No Education: Trade/Vocational Certificate Difficulty w/ Childcare or Family Care: No Living arrangements: alone Occupation/Education: retired Gender identity (if verbalized by the patient): Female Sexual Orientation (if Verbalized by the Patient): Straight or Heterosexual Spiritual care concerns: No Agree to blood products: Yes Anes - Eval Final PreProcedure Day of Procedure 08/08/24 08:49 Patient weight: normal Heart: regular rate and rhythm Lungs: clear to auscultation and normal air movement Airway: Mallampati scale class II Neurological: alert and oriented Last oral intake: >/= 8 hours ASA classification: III Emergent: no Anesthetic plan: proceed Anesthesia type and monitoring: general GIVS and standard monitoring Results Review: All pre-operative results and documents have been reviewed as part of the pre-operative evaluation. Informed Consent: The patient's anesthetic plan and its attendant risks and benefits were discussed with the patient/family/POA. Questions were solicited and answers provided to the satisfaction of the patient/family/POA.
--- NOTE | 2024-08-08 08:52 | WPDURCON ---
Assessment and Plan Assessment and plan (1) Ureteral calculus, left: Code(s): N20.1 - Calculus of ureter Status: Acute (2) Hydronephrosis with urinary obstruction due to ureteral calculus: Code(s): N13.2 - Hydronephrosis with renal and ureteral calculous obstruction Status: Acute (3) Abnormal urinalysis: Code(s): R82.90 - Unspecified abnormal findings in urine Status: Acute (4) Acute kidney injury: Code(s): N17.9 - Acute kidney failure, unspecified Status: Acute Plan She will be taken to the operating room for cystoscopy, left retrograde pyelogram, left ureteral stent placement. She understands risks of bleeding, infection, damage to the urinary tract, inability to place the stent. Definitive stone management to follow as an outpatient. Awaiting speciation of urine culture. Once returns can be transitioned to p.o. antibiotics depending on cultures and antibiotic tolerance. Follow white count. Follow creatinine. Other care per admitting service Urology Consult Note HPI Date Seen: 08/08/24 Requesting Physician: Tala Andersen DO Primary Care Provider: Robin Melendez MD Consult Narrative Narrative: Doris Gomez is a 69 year old female who is known to me for several years. She has a known history of bilateral nonobstructive renal stones. We have been observing them for some time now. She comes in last night with a 3 day history of left-sided pain radiating to the left groin and not feeling well. She was found to have an elevated white blood cell count of 20 urinalysis suspicious for infection and a CT scan showing a left distal ureteral stone with hydronephrosis. She is also found to have a elevated creatinine consistent with acute kidney injury. She was placed on IV antibiotics and admitted to the hospitalist she will be taken to the OR this morning for left stent placement. She denies fever. She states she had some dysuria within the last 24 hours but has since resolved. No visible blood in the urine. She has never needed stone intervention in the past. We replaced a stent today. Plan on definitive stone management in the future. I reviewed previous urine cultures. They have shown Proteus and Klebsiella in the past. She has multiple drug intolerance is but these do not sound like true allergies Review of Systems Review of Systems: All systems reviewed & are unremarkable except as noted in HPI and below PMFSH Past Medical History Medical History Kidney stones Bacterial vaginosis Osteoporosis Vitamin D deficiency Anal fissure, unspecified Depression with anxiety Tobacco abuse Irritable bowel syndrome Dyslipidemia GERD (gastroesophageal reflux disease) History of shingles Chicken pox Measles Duodenitis Gastric ulcer Surgical History Surgical History Status post cataract extraction of both eyes with insertion of intraocular lens History of hip surgery (~1967) 1967 - for right hip dislocation Hx laparoscopic cholecystectomy (~2005) S/P ALIDA-BSO (total abdominal hysterectomy and bilateral salpingo-oophorectomy) (~2004) Family History Family History Mother Family history of atrial fibrillation Hypertension Sibling Family history of atrial fibrillation Hypertension Father Macular degeneration Other Family history of hearing loss Skin cancer Social History Social History Social History: The patient is and lives alone. She does not have any children. She has smoked up to a pack of cigarettes per day at her heaviest but is been smoking 0.5 packs per day for the last 8-10 years. She denies any significant alcohol use history and has had absolutely no alcohol use in the last 10 years or so. She denies any history of illicit substance use. 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 Code status: Full code Surrogate decision maker: Dr. Tima Gomez (brother) Smoking packs per day: 0.5 Smoking cigarettes per day: 10.0 Years smoked: 50 Smoking pack-years: 25.00 Smoking status: Current every day smoker Tobacco type: cigarettes Alcohol intake: never Substance use: never Substance use type: does not use Do You Feel Safe in your Home?: Yes Lack of Transportation: No Lack of Food: Never True Current Housing: I Have Housing Concerned About Future Housing: No Difficulty Paying Gas/Electric Bills: No Difficulty Paying for Meds: No Currently Unemployed: No Education: Trade/Vocational Certificate Difficulty w/ Childcare or Family Care: No Living arrangements: alone Occupation/Education: retired Gender identity (if verbalized by the patient): Female Sexual Orientation (if Verbalized by the Patient): Straight or Heterosexual Spiritual care concerns: No Agree to blood products: Yes Meds Home Medications and Allergies Home Medications ?Medication ?Instructions ?Recorded ?Confirmed ?Type acetaminophen 500 mg tablet 1,000 mg PO Q6H PRN Pain 05/05/20 08/08/24 History (Tylenol Extra Strength) multivitamin 1 tablet PO DAILY 07/10/21 08/08/24 History magnesium 250 mg tablet 250 mg PO DAILY 07/16/22 08/08/24 History lorazepam 0.5 mg tablet 0.5 mg PO BID PRN anxiety #60 tabs 06/22/24 08/08/24 Rx famotidine 20 mg tablet 20 mg PO BID #60 tabs 08/03/24 08/08/24 Rx cholecalciferol (vitamin D3) 10 10 mcg PO DAILY 08/08/24 08/08/24 History mcg (400 unit) capsule (Vitamin D3) cholestyramine-aspartame 4 gram 4 g PO DAILY 08/08/24 08/08/24 History oral powder (Prevalite) Allergies Allergy/AdvReac Type Severity Reaction Status Date / Time ciprofloxacin Allergy Intermediate Nausea and Verified 07/13/24 08:59 Vomiting morphine Allergy Mild SEVERE Verified 07/13/24 08:59 NAUSEA cephalexin Allergy Unknown Nausea Verified 07/13/24 08:59 Cephalosporins Allergy Unknown GI UPSET Verified 07/13/24 08:59 clavulanic acid Allergy Unknown GI UPSET Verified 07/13/24 08:59 codeine Allergy Unknown Nausea Verified 07/13/24 08:59 erythromycin base Allergy Unknown Diarrhea Verified 07/13/24 08:59 hydrocodone Allergy Unknown GI UPSET Verified 07/13/24 08:59 methylprednisolone Allergy Unknown DEATHLY Verified 07/13/24 08:59 SICK naproxen Allergy Unknown Nausea Verified 07/13/24 08:59 NSAIDS (Non-Steroidal Allergy Unknown Unknown Verified 07/13/24 08:59 Anti-Inflamma Sulfa (Sulfonamide Allergy Unknown Unknown Verified 07/13/24 08:59 Antibiotics) doxycycline Allergy Headache Verified 07/13/24 08:59 BETALACTAMASEIN Allergy Unknown GI UPSET Uncoded 07/13/24 08:59 Vital Signs Vital Signs - 24 hr 08/07/24 13:37 08/07/24 19:31 08/07/24 22:02 Temperature 98.9 F 97.8 F Pulse Rate 120 H 100 114 H Respiratory Rate 20 16 19 Blood Pressure 112/62 113/59 L 116/71 Pulse Oximetry 95 100 92 Oxygen Delivery Room Air 08/07/24 22:48 08/07/24 23:01 08/08/24 01:13 Temperature 100.6 F H Pulse Rate 87 85 99 Respiratory Rate 25 H 22 H 20 Blood Pressure 115/75 108/71 108/51 L Pulse Oximetry 95 95 94 Oxygen Delivery 08/08/24 01:49 08/08/24 02:00 08/08/24 02:49 Temperature 100.6 F H 98.1 F Pulse Rate Respiratory Rate Blood Pressure Pulse Oximetry Oxygen Delivery Room Air 08/08/24 02:49 08/08/24 06:00 Temperature 98.1 F 98.6 F Pulse Rate 88 Respiratory Rate 20 Blood Pressure 98/63 L Pulse Oximetry 93 Oxygen Delivery Exam Const: General: cooperative, alert, awake, Physically active, average body habitus and well nourished; No acute distress or lethargic Nutritional Appearance: average body habitus and well nourished Orientation/consciousness: patient oriented x3 and No lethargic Limitations: no limitations HENMT: Head: normal to inspection Eyes: General: appearance normal, both eyes and all related structures Neck: Neck: normal visual inspection and full ROM Chest: Chest palpation & inspection: normal inspection of the chest Resp: Effort & Inspection: normal respiratory effort, able to speak in complete sentences and no cough GI: Inspection: normal to inspection Back/Spine/Pelvis: Back: CVA tenderness (Left) Skin: General skin exam: normal color and no rashes or lesions noted Lesions: no lesions Rashes: no rashes Neuro: General: patient oriented x3 and moves all extremities Extrem: General: normal to inspection and full ROM Psych: Appearance: grossly normal Results Labs 08/08/24 07:35 08/08/24 07:35 Labs: Short CBC 08/07/24 08/08/24 Range/Units 15:19 07:35 WBC 22.0 H 16.1 H (4.5-10.0) K/mm3 Hgb 13.8 12.3 (12.0-15.0) g/dL Hct 39.4 35.5 L (37.0-47.0) % Plt Count 99 L D 74 L (150-375) k/mm3 BMP 08/07/24 08/08/24 15:19 07:35 Sodium 123 L 132 L Potassium 3.7 3.6 Chloride 96 L 107 Carbon Dioxide 21 L 19 L BUN 33 H D 31 H Creatinine 1.30 H 1.10 H Glucose 81 71 Calcium 8.7 8.3 L Liver Function 08/07/24 08/08/24 Range/Units 15:19 07:35 Total Bilirubin 0.9 0.5 (0.2-1.3) mg/dL AST 62 H 37 H (14-36) U/L ALT 64 H 44 H (6-35) U/L Alkaline Phosphatase 208 H 114 (38-126) U/L Albumin 3.6 2.9 L (3.5-5.1) g/dL Urine 08/07/24 Range/Units 15:19 Urine Color Yellow (Yellow) Urine Appearance Turbid H (Clear) Urine pH >=9.0 H (5.0-9.0) Ur Specific [place] 1.020 (1.001-1.035) Urine Protein 3+ H (Negative) mg/dL Urine Glucose (UA) Negative (Negative) mg/dL Imaging My impression: I reviewed her CAT scan myself. Nonobstructing right renal stone. Left ureteral stone with hydronephrosis.
--- NOTE | 2024-08-08 08:58 | WPDHPUPDATE1 ---
History and Physical Update Update Date/Time: 08/08/24 08:58 History and Physical has been reviewed, including an updated exam of the patient. There are NO changes in the patient's condition. Risks, benefits, and alternatives have been discussed and questions answered. Patient agrees to proceed with procedure.
[2024-08-08] MEDS: LIDOCAINE 2% GEL UROJET 10 ML PKG MUCOUS MEM (09:14)
[2024-08-08] MEDS: LACTATED RINGERS 1,000 ML 30 ML IV CONT ×2 (09:45→10:00)
--- NOTE | 2024-08-08 10:09 | P.OP_ITS ---
Procedure Note - Detailed Date of Procedure 08/08/24 Pre-op Diagnosis Left ureteral stone, abnormal urinalysis Post-op Diagnosis Same Procedure Performed Cystoscopy, left retrograde pyelogram, left ureteral stent placement Surgeon Diego Jiménez MD Anesthesia MAC and Local (Lidocaine jelly) Indications Alone with a ureteral stone abnormal urinalysis. White count is elevated. She presents for ureteral stent placement. Understands risks of bleeding, infection, inability to place stent, damage to the urinary tract. She agrees to proceed Findings Successful ureteral stent placement. Torturous ureter. Stone in distal ureter. Pyuria proximal to the stone Description of Procedure She was correctly identified. Informed consent obtained. She is from the operating room. She was given monitored anesthesia care. She was placed in dorsal lithotomy position. She was prepped and draped sterile fashion. Time- out performed. Cystoscopy revealed a ureter tapered bladder consistent with cystitis. The urine was cloudy. I did a gentle retrograde pyelogram on the left. The stone was seen in the distal ureter as a filling defect. There was hydronephrosis proximal to the stone. She had a tortuous S shaped proximal ureter. With some difficulty I was able to get a wire into the upper pole of the kidney. I used a combination of a angled Glidewire and a Sensor wire to negotiate past the stone into the upper pole kidney. Purulence was seen to come from the ureter once the wire was in place. I then placed a 4.8 variable length stent. Proximal coil in the upper pole kidney. Distal coil in the bladder. The bladder was drained. Lidocaine jelly was applied. She was awakened transferred to PACU in stable condition. Estimated Blood Loss 0 Drains Yes (Ureteral stent) Complications No immediate complications Condition Stable Disposition PACU
[2024-08-08] MEDS: MEPERIDINE HCL INJ (*CRX) 50 MG/ML AMPUL 12.5 MG IV PUSH (10:14)
[2024-08-08] MEDS: CHOLESTYRAMINE LIGHT 4 GM POWD.PACK PO (12:46)
[2024-08-08] MEDS: MEROPENEM 1 GM/NS 100 ML 1 GM/100 ML BAG IVPB (12:47)
--- NOTE | 2024-08-08 12:54 | P.PNIM_ITS ---
Progress Note: A&P Assessment and Plan (1) Acute UTI: Code(s): N39.0 - Urinary tract infection, site not specified Status: Acute Assessment and Plan: * The patient is sepsis due to UTI with concomitant obstructing left distal obstructing ureteral stone. Sepsis criteria met with T-max of 100.6?, tachycardia, tachypnea and leukocytosis. * Meropenem 1 gram IVPB q 8. * Urine culture pending. (2) Sepsis: Qualifiers: Sepsis type: sepsis due to unspecified organism Sepsis acute organ dysfunction status: with acute organ dysfunction Severe sepsis acute organ dysfunction type: acute renal failure Acute renal failure type: unspecified Severe sepsis shock status: without septic shock Qualified Code(s): A41.9 - Sepsis, unspecified organism; R65.20 - Severe sepsis without septic shock; N17.9 - Acute kidney failure, unspecified Code(s): A41.9 - Sepsis, unspecified organism Status: Acute Assessment and Plan: * The patient is sepsis due to UTI with concomitant obstructing left distal obstructing ureteral stone. Sepsis criteria met with T-max of 100.6?, tachycardia, tachypnea and leukocytosis. * Blood cultures growing gram negative bacilli * Meropenem 1 gram IVPB q 8. * WBC improving 22.0>16.1. (3) Acute kidney injury: Code(s): N17.9 - Acute kidney failure, unspecified Status: Acute Assessment and Plan: * Creatinine improvin.30>1.10 * Baseline creatinine 0.6-1.2. * Avoid nephrotic medications. (4) Acute hyponatremia: Code(s): E87.1 - Hypo-osmolality and hyponatremia Status: Acute Assessment and Plan: * sodium 123 improved to 132 * NS @ 125 ml/hr (5) Hydronephrosis with urinary obstruction due to ureteral calculus: Code(s): N13.2 - Hydronephrosis with renal and ureteral calculous obstruction Status: Acute Assessment and Plan: * Urology consulted. * Left ureter stent placed today. (6) Thrombocytopenia: Code(s): D69.6 - Thrombocytopenia, unspecified Status: Acute Assessment and Plan: * Platelets 74. * COVID, flu, and RSV negative. * Check a B12 and folate. * Monitor labs. (7) Headache: Code(s): R51.9 - Headache, unspecified Status: Acute Assessment and Plan: * Acetaminophen 650 mg PO q 4 PRN. * Encourage hydration. * NS@ 125 ml/hr. Subjective Date/time seen: 08/08/24 12:54 Interval history: Patient reports a headache that is a 7 , constant, and throbbing. Patient denies kidney pain, shortness of breath, nausea, or vomiting. Urology placed stent into left ureter. Review of Systems Review of Systems: All systems reviewed & are unremarkable except as noted in HPI and below Exam Const: General: no acute distress and uncomfortable Resp: Effort & Inspection: normal respiratory effort Auscultation: wheezes expiratory wheezes and diminished lung sounds Cardio: Rate: regular rate Rhythm: regular rhythm GI: GI Palp: Yes Soft to palpation Auscultation: normal bowel sounds Skin: General skin exam: no rashes or lesions noted Extrem: General: no pedal edema Psych: Mental Status: mental status grossly normal Affect: normal affect Objective Data Vital Signs Vital Signs: Vital Signs - 24 hr 08/07/24 13:37 08/07/24 19:31 08/07/24 22:02 Temperature 98.9 F 97.8 F Pulse Rate 120 H 100 114 H Respiratory Rate 20 16 19 Blood Pressure 112/62 113/59 L 116/71 Pulse Oximetry 95 100 92 Oxygen Delivery Room Air Oxygen Flow Rate 08/07/24 22:48 08/07/24 23:01 08/08/24 01:13 Temperature 100.6 F H Pulse Rate 87 85 99 Respiratory Rate 25 H 22 H 20 Blood Pressure 115/75 108/71 108/51 L Pulse Oximetry 95 95 94 Oxygen Delivery Oxygen Flow Rate 08/08/24 01:49 08/08/24 02:00 08/08/24 02:49 Temperature 100.6 F H 98.1 F Pulse Rate Respiratory Rate Blood Pressure Pulse Oximetry Oxygen Delivery Room Air Oxygen Flow Rate 08/08/24 02:49 08/08/24 06:00 08/08/24 09:29 Temperature 98.1 F 98.6 F 99.6 F Pulse Rate 88 94 Respiratory Rate 20 12 Blood Pressure 98/63 L 94/58 L Pulse Oximetry 93 100 Oxygen Delivery Simple Face Mask Oxygen Flow Rate 8 08/08/24 09:44 08/08/24 09:59 08/08/24 10:14 Temperature Pulse Rate 93 108 H 107 H Respiratory Rate 30 H 23 H 25 H Blood Pressure 105/68 125/69 124/66 Pulse Oximetry 94 98 98 Oxygen Delivery Room Air Nasal Cannula Nasal Cannula Oxygen Flow Rate 2 2 08/08/24 10:29 08/08/24 12:45 Temperature 99.2 F Pulse Rate 111 H 107 H Respiratory Rate 22 H 18 Blood Pressure 110/71 99/55 L Pulse Oximetry 92 90 Oxygen Delivery Nasal Cannula Oxygen Flow Rate 1 Intake/Output Intake/Output: Intake & Output 08/05/24 08/06/24 08/07/24 08/08/24 23:59 23:59 23:59 23:59 Intake Total 1000 1550 Balance 1000 1550 Meds/Results Medications: Active Medications Generic Name Dose Route Start Last Admin Trade Name Freq PRN Reason Stop Dose Admin Acetaminophen 650 mg 08/07/24 23:56 08/08/24 12:50 Acetaminophen 325 Mg Tablet PO 650 mg Q4H PRN Administration Mild Pain (1-3) or Fever Cholestyramine Resin 4 gm 08/08/24 12:00 08/08/24 12:46 Cholestyramine Light 4 Gm Powd.Pack PO 4 gm DAILY@1200 [facility] Administration Famotidine 20 mg 08/08/24 09:00 08/08/24 08:10 Famotidine 20 Mg Tablet PO 20 mg Q12HR [facility] Administration Hydromorphone HCl 0.5 mg 08/07/24 23:56 Hydromorphone Hcl Inj (*Crx) 1 Mg/Ml Syr IV PUSH Q4H PRN Pain Rated 7-10 Meropenem 1 gm in 100 mls @ 200 mls/hr 08/08/24 12:00 08/08/24 12:47 IVPB 200 mls/hr Q12H [facility] Administration Sodium Chloride 1,000 mls @ 125 mls/hr 08/07/24 23:45 08/08/24 01:54 Normal Saline Iv IV CONT 125 mls/hr .Q8H [facility] Administration Lorazepam 0.5 mg 08/08/24 07:11 Lorazepam (*Crx) 0.5 Mg Tablet PO BID PRN anxiety Magnesium Oxide 200 mg 08/08/24 09:00 08/08/24 08:13 Magnesium Oxide 200 Mg Tablet PO 09/07/24 08:59 Not Given DAILY [facility] Multivitamins Therapeutic 1 tablet 08/08/24 09:00 08/08/24 08:09 Multivitamins Therapeutic Tab (*Bkc) PO 1 tablet DAILY [facility] Administration Ondansetron HCl 4 mg 08/07/24 23:56 Ondansetron Inj 4 Mg/2 Ml Vial IV PUSH Q4H PRN Nausea Ondansetron HCl 4 mg 08/08/24 08:53 Ondansetron Inj 4 Mg/2 Ml Vial IV PUSH ONCE PRN Nausea Vitamin D 400 units 08/08/24 09:00 08/08/24 08:10 Cholecalciferol 400 Units Tablet (Vit D) PO 400 units DAILY [facility] Administration Radiology Results: ITS Impressions Chest X-Ray 08/07/24 22:34 IMPRESSION: Opacification in the upper lobes may indicate early pneumonia. Follow-up advised. Bilateral Abdomen/Pelvis CT 08/07/24 22:47 IMPRESSION: 1. Stone in the left lower ureter with left hydronephrotic changes. 2. Stone in the right kidney lower pole. 3. No evidence of appendicitis, diverticulitis or intestinal obstruction. 4. Slightly thickened wall of the stomach. Clinical evaluation for gastritis advised. 5. Trace of pericardial effusion. Labs Labs: Laboratory Results - last 24 hr 08/07/24 08/07/24 08/08/24 15:19 22:08 07:35 WBC 22.0 H 16.1 H RBC 4.37 3.85 L Hgb 13.8 12.3 Hct 39.4 35.5 L MCV 90.2 92.2 MCH 31.6 31.9 MCHC 35.0 34.6 RDW 12.3 12.6 Plt Count 99 L D 74 L MPV 10.6 H 11.6 H Immature Gran % (Auto) Not Reportable Not Reportable Neut % (Auto) Not Reportable Not Reportable Lymph % (Auto) Not Reportable Not Reportable [place] % (Auto) Not Reportable Not Reportable Eos % (Auto) Not Reportable Not Reportable Baso % (Auto) Not Reportable Not Reportable Lymph # (Auto) Not Reportable Not Reportable [place] # (Auto) Not Reportable Not Reportable Eos # (Auto) Not Reportable Not Reportable Baso # (Auto) Not Reportable Not Reportable Abs Immat Gran (auto) Not Reportable Not Reportable Absolute Neuts (auto) Not Reportable Not Reportable Absolute Nucleated RBC Not Reportable Not Reportable Total Counted 100 100 Neutrophils % (Manual) 77 H 84 H Band Neutrophils % 15 H 10 H Lymphocytes % (Manual) 2 L 4 L Monocytes % (Manual) 4 2 L Metamyelocytes % 2 Nucleated RBC % Not Reportable Not Reportable Abs Neuts (Manual) 20.24 H 15.13 H Abs Lymphs (Manual) 0.44 L 0.64 L Abs Monocytes (Manual) 0.88 0.32 Platelet Estimate Decreased Decreased % Immature Plt Fraction 6.5 6.9 Ovalocytes 1+ Schistocytes None seen None seen Sodium 123 L 132 L Potassium 3.7 3.6 Chloride 96 L 107 Carbon Dioxide 21 L 19 L Anion Gap 6 6 BUN 33 H D 31 H Creatinine 1.30 H 1.10 H Estim Creat Clear Calc 29 33 Estimated GFR 40 L 49 L Glucose 81 71 Lactic Acid 1.4 Calcium 8.7 8.3 L Total Bilirubin 0.9 0.5 AST 62 H 37 H ALT 64 H 44 H Alkaline Phosphatase 208 H 114 Total Protein 7.0 6.0 L Albumin 3.6 2.9 L Urine Color Yellow Urine Appearance Turbid H Urine pH >=9.0 H Ur Specific [place] 1.020 Urine Protein 3+ H Urine Glucose (UA) Negative Urine Ketones Trace H Ur Blood (Man) 3+ H Urine Nitrate Negative Urine Bilirubin Negative Urine Urobilinogen 0.2 Add Ur Microanalysis Reviewed Leukocyte Esterase Rfl 3+ H Urine RBC 3-5 H Urine WBC >100 H Ur Squamous Epith Cells None seen Urine Bacteria 4+ H Urine Casts >20 Influenza A (RT-PCR) Negative Influenza B (RT-PCR) Negative RSV (RT-PCR) Negative SARS-CoV-2 RNA (RT-PCR) Negative Quality VTE Prophylaxis VTE prophylaxis: pharmacologic ordered (Lovenox 40 mg subQ daily.)
[2024-08-08 20:48] LABS: Vitamin B12 > 1000.0 pg/mL (239-931)
[2024-08-09] MEDS: MEROPENEM 1 GM/NS 100 ML 1 GM/100 ML BAG IVPB ×3 (00:03→23:10)
[2024-08-09] MEDS: ACETAMINOPHEN 325 MG TABLET 650 MG PO (00:24)
[2024-08-09] MEDS: SODIUM CHLORIDE 0.9% IV 1,000 ML 125 ML IV CONT (03:06)
[2024-08-09 05:26] VITALS: BP 109/70; PULSE 88; RESP 16; TEMP 37.3; O2SAT 94
[2024-08-09 08:33] LABS: Basophils Percent Auto 0.3 % (0.2-1.2); Eosinophils Percent Auto 0.1 % (0-4.4); Hematocrit 34.9 % (37.0-47.0); Hemoglobin 11.8 g/dL (12.0-15.0); Immature Granulocyte Absolute 0.11 K/mm3 (0.00-0.031); Immature Granulocyte Percent A 0.7 % (0-0.5); Immature Platelet Fraction Pct 8.1 % (0.9-11.2); Lymphocytes Percent Auto 4.5 % (18.3-44.2); Mean Corpuscular HGB Conc 33.8 g/dl (32-36); Mean Corpuscular Hemoglobin 31.6 pg (26-34); Mean Corpuscular Volume 93.3 fl (80-100); Mean Platelet Volume 11.6 fl (7.4-10.4); Monocytes Absolute Auto 0.9 K/mm3 (0.1-0.6); Monocytes Percent Auto 5.6 % (2.6-8.5); Neutrophils Absolute Auto 13.9 K/mm3 (1.3-6.7); Neutrophils Percent Auto 88.8 % (45.5-73.1); Platelet Count Result 68 k/mm3 (150-375); Red Blood Count 3.74 M/mm3 (4.2-5.4); White Blood Count 15.6 K/mm3 (4.5-10.0)
[2024-08-09 08:43] LABS: Alanine Aminotransferase 37 U/L (6-35); Albumin Level 2.5 g/dL (3.5-5.1); Alkaline Phosphatase 123 U/L (38-126); Anion Gap -1 mmol/L (4-12); Aspartate Amino Transferase 36 U/L (14-36); Bilirubin,Total 0.6 mg/dL (0.2-1.3); Blood Urea Nitrogen 19 mg/dL (7-17); Calcium 8.1 mg/dL (8.4-10.2); Carbon Dioxide 24 mmol/L (22-30); Chloride 110 mmol/L (98-107); Estimated CRCL calculation 59 ml/min; Estimated Glomerular Filt Rate > 60; Glucose 94 mg/dL (65-110); Potassium 3.5 mmol/L (3.4-5.0); Sodium 133 mmol/L (137-145)
[2024-08-09] MEDS: MULTIVITAMINS THERAPEUTIC TAB (*BKC) 1 TABLET PO (08:50)
[2024-08-09] MEDS: CHOLECALCIFEROL 400 UNITS TABLET (VIT D) PO (08:50)
[2024-08-09] MEDS: MAGNESIUM OXIDE 200 MG TABLET PO (08:50)
[2024-08-09] MEDS: FAMOTIDINE 20 MG TABLET PO ×2 (08:50→20:28)
[2024-08-09 10:27] LABS: INR 1.1; Prothrombin Time 14.3 Seconds (11.1-14.7)
[2024-08-09 10:28] LABS: Partial Thromboplastin Time 27.6 Seconds (22.3-36.8)
--- NOTE | 2024-08-09 11:21 | WPDANESPN ---
Anes - Prog Note Post-Op Date/Time: 08/09/24 11:21 Cardiovascular status: normal Respiratory status: other (SOB easily) Airway patency: baseline Mental status: baseline Vital Signs: Last Vital Signs Temp 37.3 C 08/09/24 05:26 Pulse 88 08/09/24 05:26 Resp 16 08/09/24 05:26 BP 109/70 08/09/24 05:26 Pulse Ox 94 08/09/24 05:26 O2 Del Method Room Air 08/08/24 20:38 O2 Flow Rate 1 08/08/24 10:29 Pain Score (VAS): 1-2 I/O: Intake & Output 08/08/24 08/09/24 08/09/24 23:59 07:59 15:59 Intake Total 520 1650 360 Balance 520 1650 360 Laboratory Tests 08/09/24 07:57 08/09/24 07:57 08/08/24 08/09/24 08/09/24 07:35 07:57 10:01 WBC 15.6 H RBC 3.74 L Hgb 11.8 L Hct 34.9 L MCV 93.3 MCH 31.6 MCHC 33.8 RDW 13.0 Plt Count 68 L MPV 11.6 H Immature Gran % (Auto) 0.7 H Neut % (Auto) 88.8 H Lymph % (Auto) 4.5 L [place] % (Auto) 5.6 Eos % (Auto) 0.1 Baso % (Auto) 0.3 Lymph # (Auto) 0.70 L [place] # (Auto) 0.9 H Eos # (Auto) 0.0 Baso # (Auto) 0.0 Abs Immat Gran (auto) 0.11 H Absolute Neuts (auto) 13.9 H Absolute Nucleated RBC 0.000 Nucleated RBC % 0.0 % Immature Plt Fraction 8.1 PT 14.3 INR 1.1 APTT 27.6 Sodium 133 L Potassium 3.5 Chloride 110 H Carbon Dioxide 24 Anion Gap -1 L BUN 19 H D Creatinine 0.60 L Estim Creat Clear Calc 59 Estimated GFR > 60 Glucose 94 Calcium 8.1 L Total Bilirubin 0.6 AST 36 ALT 37 H Alkaline Phosphatase 123 Total Protein 5.0 L Albumin 2.5 L Vitamin B12 > 1000.0 H RBC Folate Pending Microbiology 08/07/24 15:19 Urine Clean Catch Urine Culture - Preliminary Gram negative bacilli isolated 08/07/24 22:04 Blood Blood Culture - Preliminary Gram negative bacilli isolated 08/07/24 22:08 Blood Blood Culture - Preliminary Gram negative bacilli isolated Post-procedural complaints: none Patient Feedback: Patient satisfied with anesthetic care.
--- NOTE | 2024-08-09 12:38 | P.PNIM_ITS ---
Progress Note: A&P Assessment and Plan (1) Acute UTI: Code(s): N39.0 - Urinary tract infection, site not specified Status: Acute Assessment and Plan: * The patient is sepsis due to UTI with concomitant obstructing left distal obstructing ureteral stone. Sepsis criteria met with T-max of 100.6?, tachycardia, tachypnea and leukocytosis. * Meropenem 1 gram IVPB q 8. * Urine culture growing gram negative bacilli, sensitivities are not back yet . (2) Sepsis: Qualifiers: Sepsis type: sepsis due to unspecified organism Sepsis acute organ dysfunction status: with acute organ dysfunction Severe sepsis acute organ dysfunction type: acute renal failure Acute renal failure type: unspecified Severe sepsis shock status: without septic shock Qualified Code(s): A41.9 - Sepsis, unspecified organism; R65.20 - Severe sepsis without septic shock; N17.9 - Acute kidney failure, unspecified Code(s): A41.9 - Sepsis, unspecified organism Status: Acute Assessment and Plan: * The patient is sepsis due to UTI with concomitant obstructing left distal obst ructing ureteral stone. Sepsis criteria met with T-max of 100.6?, tachycardia, tachypnea and leukocytosis. * Blood cultures grew proteus mirabilis, sensitivities pending. * Meropenem 1 gram IVPB q 8. * WBC improving 22.0>16.1>15.6. (3) Acute kidney injury: Code(s): N17.9 - Acute kidney failure, unspecified Status: Acute Assessment and Plan: * Creatinine improvin.30>1.10>0.60 * Baseline creatinine 0.6-1.2. * Avoid nephrotic medications. (4) Acute hyponatremia: Code(s): E87.1 - Hypo-osmolality and hyponatremia Status: Acute Assessment and Plan: * Improved to 133 * Stop IV fluids. (5) Hydronephrosis with urinary obstruction due to ureteral calculus: Code(s): N13.2 - Hydronephrosis with renal and ureteral calculous obstruction Status: Acute Assessment and Plan: * Urology consulted. * Left ureter stent placed on 08/08/24. (6) Thrombocytopenia: Code(s): D69.6 - Thrombocytopenia, unspecified Status: Acute Assessment and Plan: * Platelets 74>68. * COVID, flu, and RSV negative. * B12 >1,000 and folate- pending. INR 1.1, PT 14.3. * Monitor labs. * Hematology consult placed. (7) Headache: Code(s): R51.9 - Headache, unspecified Status: Acute Assessment and Plan: * Acetaminophen 650 mg PO q 4 PRN. * Denies headache at present. * Encourage hydration. Subjective Date/time seen: 08/09/24 12:38 Interval history: Patient sitting up on the side of the bed. Patient denies any burning with urination or nausea. Appetite is improving. 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 Patient reports having loose stool, patient stated that she can not take probiotics or eat yogurt. Patient reports that she is lactose intolerant and does not have a gall bladder. Review of Systems Review of Systems: All systems reviewed & are unremarkable except as noted in HPI and below Exam Const: General: comfortable and no acute distress Resp: Auscultation: diminished lung sounds Cardio: Rate: regular rate Rhythm: regular rhythm GI: GI Palp: Yes Soft to palpation Auscultation: normal bowel sounds Skin: General skin exam: no rashes or lesions noted Neuro: Speech: normal speech Extrem: General: no pedal edema Psych: Mental Status: mental status grossly normal Affect: normal affect Objective Data Vital Signs Vital Signs: Vital Signs - 24 hr 08/08/24 12:45 08/08/24 16:00 08/08/24 20:16 Temperature 99.2 F 97.8 F 97.3 F L Pulse Rate 107 H 84 84 Respiratory Rate 18 18 20 Blood Pressure 99/55 L 92/54 L 105/65 Pulse Oximetry 90 96 97 Oxygen Delivery 08/08/24 20:38 08/09/24 05:26 Temperature 99.2 F Pulse Rate 88 Respiratory Rate 16 Blood Pressure 109/70 Pulse Oximetry 94 Oxygen Delivery Room Air Intake/Output Intake/Output: Intake & Output 08/06/24 08/07/24 08/08/24 08/09/24 23:59 23:59 23:59 23:59 Intake Total 1000 3470 2009 Balance 1000 3470 2009 Meds/Results Medications: Active Medications Generic Name Dose Route Start Last Admin Trade Name Freq PRN Reason Stop Dose Admin Acetaminophen 650 mg 08/07/24 23:56 01/05/25 00:24 Acetaminophen 325 Mg Tablet PO 650 mg Q4H PRN Administration Mild Pain (1-3) or Fever Albuterol 2 puff 08/08/24 16:09 Albuterol Sulfate (*Sp) Aerosol 1 Puff INHALATION Q6HRT PRN Shortness Of Breath Cholestyramine Resin 4 gm 08/08/24 12:00 08/08/24 12:46 Cholestyramine Light 4 Gm Powd.Pack PO 4 gm DAILY@1200 [facility] Administration Famotidine 20 mg 08/08/24 09:00 08/09/24 08:50 Famotidine 20 Mg Tablet PO 20 mg Q12HR [facility] Administration Hydromorphone HCl 0.5 mg 08/07/24 23:56 Hydromorphone Hcl Inj (*Crx) 1 Mg/Ml Syr IV PUSH Q4H PRN Pain Rated 7-10 Meropenem 1 gm in 100 mls @ 200 mls/hr 08/08/24 12:00 08/09/24 00:33 IVPB Infused Q12H [facility] Infusion Lorazepam 0.5 mg 08/08/24 07:11 Lorazepam (*Crx) 0.5 Mg Tablet PO BID PRN anxiety Magnesium Oxide 200 mg 08/08/24 09:00 08/09/24 08:50 Magnesium Oxide 200 Mg Tablet PO 09/07/24 08:59 200 mg DAILY [facility] Administration Multivitamins Therapeutic 1 tablet 08/08/24 09:00 08/09/24 08:50 Multivitamins Therapeutic Tab (*Bkc) PO 1 tablet DAILY [facility] Administration Ondansetron HCl 4 mg 08/07/24 23:56 Ondansetron Inj 4 Mg/2 Ml Vial IV PUSH Q4H PRN Nausea Ondansetron HCl 4 mg 08/08/24 08:53 Ondansetron Inj 4 Mg/2 Ml Vial IV PUSH ONCE PRN Nausea Vitamin D 400 units 08/08/24 09:00 08/09/24 08:50 Cholecalciferol 400 Units Tablet (Vit D) PO 400 units DAILY [facility] Administration Radiology Results: ITS Impressions Chest X-Ray 08/07/24 22:34 IMPRESSION: Opacification in the upper lobes may indicate early pneumonia. Follow-up advised. Bilateral Abdomen/Pelvis CT 08/07/24 22:47 IMPRESSION: 1. Stone in the left lower ureter with left hydronephrotic changes. 2. Stone in the right kidney lower pole. 3. No evidence of appendicitis, diverticulitis or intestinal obstruction. 4. Slightly thickened wall of the stomach. Clinical evaluation for gastritis advised. 5. Trace of pericardial effusion. Retrograde Pyelogram 08/09/24 06:40 IMPRESSION: Left anterior artery stent placement with improvement of left hydronephrosis Labs Labs: Laboratory Results - last 24 hr 08/08/24 08/09/24 08/09/24 07:35 07:57 10:01 WBC 15.6 H RBC 3.74 L Hgb 11.8 L Hct 34.9 L MCV 93.3 MCH 31.6 MCHC 33.8 RDW 13.0 Plt Count 68 L MPV 11.6 H Immature Gran % (Auto) 0.7 H Neut % (Auto) 88.8 H Lymph % (Auto) 4.5 L [place] % (Auto) 5.6 Eos % (Auto) 0.1 Baso % (Auto) 0.3 Lymph # (Auto) 0.70 L [place] # (Auto) 0.9 H Eos # (Auto) 0.0 Baso # (Auto) 0.0 Abs Immat Gran (auto) 0.11 H Absolute Neuts (auto) 13.9 H Absolute Nucleated RBC 0.000 Nucleated RBC % 0.0 % Immature Plt Fraction 8.1 PT 14.3 INR 1.1 APTT 27.6 Sodium 133 L Potassium 3.5 Chloride 110 H Carbon Dioxide 24 Anion Gap -1 L BUN 19 H D Creatinine 0.60 L Estim Creat Clear Calc 59 Estimated GFR > 60 Glucose 94 Calcium 8.1 L Total Bilirubin 0.6 AST 36 ALT 37 H Alkaline Phosphatase 123 Total Protein 5.0 L Albumin 2.5 L Vitamin B12 > 1000.0 H Quality VTE Prophylaxis VTE prophylaxis: pharmacologic ordered (Lovenox 40 mg subQ daily.)
[2024-08-09] MEDS: POTASSIUM CHLORIDE 20 MEQ ER TABLET 40 MEQ PO (12:59)
[2024-08-09] MEDS: CHOLESTYRAMINE LIGHT 4 GM POWD.PACK PO (12:59)
--- NOTE | 2024-08-09 14:06 | WPDUROPN2 ---
Subjective Subjective Date/Time Seen: 08/09/24 14:06 Interval history: due to weather conditions will not be seen today unless issues. +UCX +BCX. IV abx pending cultures. outpatient stone management Objective Data Vital Signs Vital Signs: Vital Signs - 24 hr 08/08/24 16:00 08/08/24 20:16 08/08/24 20:38 Temperature 97.8 F 97.3 F L Pulse Rate 84 84 Respiratory Rate 18 20 Blood Pressure 92/54 L 105/65 Pulse Oximetry 96 97 Oxygen Delivery Room Air 08/09/24 05:26 Temperature 99.2 F Pulse Rate 88 Respiratory Rate 16 Blood Pressure 109/70 Pulse Oximetry 94 Oxygen Delivery Intake/Output Intake/Output: Intake & Output 08/06/24 08/07/24 08/08/24 08/09/24 23:59 23:59 23:59 23:59 Intake Total 1000 3470 2250 Balance 1000 3470 2250 Meds/Results Medications: Active Medications Generic Name Dose Route Start Last Admin Trade Name Freq PRN Reason Stop Dose Admin Acetaminophen 650 mg 08/07/24 23:56 08/09/24 00:24 Acetaminophen 325 Mg Tablet PO 650 mg Q4H PRN Administration Mild Pain (1-3) or Fever Albuterol 2 puff 08/08/24 16:09 Albuterol Sulfate (*Sp) Aerosol 1 Puff INHALATION Q6HRT PRN Shortness Of Breath Cholestyramine Resin 4 gm 08/08/24 12:00 08/09/24 12:59 Cholestyramine Light 4 Gm Powd.Pack PO 4 gm DAILY@1200 [facility] Administration Famotidine 20 mg 08/08/24 09:00 08/09/24 08:50 Famotidine 20 Mg Tablet PO 20 mg Q12HR [facility] Administration Hydromorphone HCl 0.5 mg 08/07/24 23:56 Hydromorphone Hcl Inj (*Crx) 1 Mg/Ml Syr IV PUSH Q4H PRN Pain Rated 7-10 Meropenem 1 gm in 100 mls @ 200 mls/hr 08/08/24 12:00 08/09/24 12:58 IVPB 200 mls/hr Q12H [facility] Administration Lorazepam 0.5 mg 08/08/24 07:11 Lorazepam (*Crx) 0.5 Mg Tablet PO BID PRN anxiety Magnesium Oxide 200 mg 08/08/24 09:00 08/09/24 08:50 Magnesium Oxide 200 Mg Tablet PO 09/07/24 08:59 200 mg DAILY [facility] Administration Multivitamins Therapeutic 1 tablet 08/08/24 09:00 08/09/24 08:50 Multivitamins Therapeutic Tab (*Bkc) PO 1 tablet DAILY [facility] Administration Ondansetron HCl 4 mg 08/07/24 23:56 Ondansetron Inj 4 Mg/2 Ml Vial IV PUSH Q4H PRN Nausea Ondansetron HCl 4 mg 08/08/24 08:53 Ondansetron Inj 4 Mg/2 Ml Vial IV PUSH ONCE PRN Nausea Vitamin D 400 units 08/08/24 09:00 08/09/24 08:50 Cholecalciferol 400 Units Tablet (Vit D) PO 400 units DAILY [facility] Administration Radiology Results: ITS Impressions Chest X-Ray 08/07/24 22:34 IMPRESSION: Opacification in the upper lobes may indicate early pneumonia. Follow-up advised. Bilateral Abdomen/Pelvis CT 08/07/24 22:47 IMPRESSION: 1. Stone in the left lower ureter with left hydronephrotic changes. 2. Stone in the right kidney lower pole. 3. No evidence of appendicitis, diverticulitis or intestinal obstruction. 4. Slightly thickened wall of the stomach. Clinical evaluation for gastritis advised. 5. Trace of pericardial effusion. Retrograde Pyelogram 08/09/24 06:40 IMPRESSION: Left anterior artery stent placement with improvement of left hydronephrosis Labs Labs: Laboratory Results - last 24 hr 08/08/24 08/09/24 08/09/24 07:35 07:57 10:01 WBC 15.6 H RBC 3.74 L Hgb 11.8 L Hct 34.9 L MCV 93.3 MCH 31.6 MCHC 33.8 RDW 13.0 Plt Count 68 L MPV 11.6 H Immature Gran % (Auto) 0.7 H Neut % (Auto) 88.8 H Lymph % (Auto) 4.5 L [place] % (Auto) 5.6 Eos % (Auto) 0.1 Baso % (Auto) 0.3 Lymph # (Auto) 0.70 L [place] # (Auto) 0.9 H Eos # (Auto) 0.0 Baso # (Auto) 0.0 Abs Immat Gran (auto) 0.11 H Absolute Neuts (auto) 13.9 H Absolute Nucleated RBC 0.000 Nucleated RBC % 0.0 % Immature Plt Fraction 8.1 PT 14.3 INR 1.1 APTT 27.6 Sodium 133 L Potassium 3.5 Chloride 110 H Carbon Dioxide 24 Anion Gap -1 L BUN 19 H D Creatinine 0.60 L Estim Creat Clear Calc 59 Estimated GFR > 60 Glucose 94 Calcium 8.1 L Total Bilirubin 0.6 AST 36 ALT 37 H Alkaline Phosphatase 123 Total Protein 5.0 L Albumin 2.5 L Vitamin B12 > 1000.0 H
[2024-08-09 15:01] VITALS: BP 124/68; PULSE 91; RESP 16; TEMP 37.2; O2SAT 93
--- NOTE | 2024-08-09 17:45 | P.CONS_ITS ---
HPI Data of Consult Date/Time: 08/09/24 17:45 Requesting Physician: Tala Andersen DO Primary Care Provider: Robin Melendez MD Consult Narrative Narrative: Doris Gomez is a 69 year old female admitted with urinary tract infection and septic shock. She was found to have bilateral renal stones and to have left hydronephrosis secondary to ureteral kidney stone obstruction. Her CBC revealed leukocytosis with neutrophilia consistent with bacterial infection. She also had thrombocytopenia. Her protime was 14 INR 1.1 9 suggesting a relatively normal coagulation status. The patient was referred to Hematology for evaluation of abnormal hematology studies. Her total protein was 5 and her albumin 2.5 g% suggesting protein calorie malnutrition. [facility] Past Medical History Medical History Kidney stones Bacterial vaginosis Osteoporosis Vitamin D deficiency Anal fissure, unspecified Depression with anxiety Tobacco abuse Irritable bowel syndrome Dyslipidemia GERD (gastroesophageal reflux disease) History of shingles Chicken pox Measles Duodenitis Gastric ulcer Surgical History Surgical History Status post cataract extraction of both eyes with insertion of intraocular lens History of hip surgery (~1967) 1967 - for right hip dislocation Hx laparoscopic cholecystectomy (~2005) S/P ALIDA-BSO (total abdominal hysterectomy and bilateral salpingo-oophorectomy) (~2004) Family History Family History Mother Family history of atrial fibrillation Hypertension Sibling Family history of atrial fibrillation Hypertension Father Macular degeneration Other Family history of hearing loss Skin cancer Social History Social History Social History: The patient is and lives alone. She does not have any children. She has smoked up to a pack of cigarettes per day at her heaviest but is been smoking 0.5 packs per day for the last 8-10 years. She denies any significant alcohol use history and has had absolutely no alcohol use in the last 10 years or so. She denies any history of illicit substance use. 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 Code status: Full code Surrogate decision maker: Dr. Tima Gomez (brother) Smoking packs per day: 0.5 Smoking cigarettes per day: 10.0 Years smoked: 50 Smoking pack-years: 25.00 Smoking status: Current every day smoker Tobacco type: cigarettes Alcohol intake: never Substance use: never Substance use type: does not use Do You Feel Safe in your Home?: Yes Lack of Transportation: No Lack of Food: Never True Current Housing: I Have Housing Concerned About Future Housing: No Difficulty Paying Gas/Electric Bills: No Difficulty Paying for Meds: No Currently Unemployed: No Education: Trade/Vocational Certificate Difficulty w/ Childcare or Family Care: No Living arrangements: alone Occupation/Education: retired Gender identity (if verbalized by the patient): Female Sexual Orientation (if Verbalized by the Patient): Straight or Heterosexual Spiritual care concerns: No Agree to blood products: Yes Meds Home Medications and Allergies Home Medications ?Medication ?Instructions ?Recorded ?Confirmed ?Type acetaminophen 500 mg tablet 1,000 mg PO Q6H PRN Pain 05/05/20 08/08/24 History (Tylenol Extra Strength) multivitamin 1 tablet PO DAILY 07/10/21 08/08/24 History magnesium 250 mg tablet 250 mg PO DAILY 07/16/22 08/08/24 History lorazepam 0.5 mg tablet 0.5 mg PO BID PRN anxiety #60 tabs 06/22/24 08/08/24 Rx famotidine 20 mg tablet 20 mg PO BID #60 tabs 08/03/24 08/08/24 Rx cholecalciferol (vitamin D3) 10 10 mcg PO DAILY 08/08/24 08/08/24 History mcg (400 unit) capsule (Vitamin D3) cholestyramine-aspartame 4 gram 4 g PO DAILY 08/08/24 08/08/24 History oral powder (Prevalite) Allergies Allergy/AdvReac Type Severity Reaction Status Date / Time ciprofloxacin Allergy Intermediate Nausea and Verified 07/13/24 08:59 Vomiting morphine Allergy Mild SEVERE Verified 07/13/24 08:59 NAUSEA cephalexin Allergy Unknown Nausea Verified 07/13/24 08:59 Cephalosporins Allergy Unknown GI UPSET Verified 07/13/24 08:59 clavulanic acid Allergy Unknown GI UPSET Verified 07/13/24 08:59 codeine Allergy Unknown Nausea Verified 07/13/24 08:59 erythromycin base Allergy Unknown Diarrhea Verified 07/13/24 08:59 hydrocodone Allergy Unknown GI UPSET Verified 07/13/24 08:59 methylprednisolone Allergy Unknown DEATHLY Verified 07/13/24 08:59 SICK naproxen Allergy Unknown Nausea Verified 07/13/24 08:59 NSAIDS (Non-Steroidal Allergy Unknown Unknown Verified 07/13/24 08:59 Anti-Inflamma Sulfa (Sulfonamide Allergy Unknown Unknown Verified 07/13/24 08:59 Antibiotics) doxycycline Allergy Headache Verified 07/13/24 08:59 BETALACTAMASEIN Allergy Unknown GI UPSET Uncoded 07/13/24 08:59 Vital Signs Vital Signs - 24 hr 08/08/24 20:16 08/08/24 20:38 08/09/24 05:26 Temperature 36.3 C L 37.3 C Pulse Rate 84 88 Respiratory Rate 20 16 Blood Pressure 105/65 109/70 Pulse Oximetry 97 94 Oxygen Delivery Room Air 08/09/24 15:01 Temperature 37.2 C Pulse Rate 91 Respiratory Rate 16 Blood Pressure 124/68 Pulse Oximetry 93 Oxygen Delivery Results Labs 08/09/24 07:57 08/09/24 07:57 Labs: Short CBC 08/09/24 Range/Units 07:57 WBC 15.6 H (4.5-10.0) K/mm3 Hgb 11.8 L (12.0-15.0) g/dL Hct 34.9 L (37.0-47.0) % Plt Count 68 L (150-375) k/mm3 BMP 08/09/24 07:57 Sodium 133 L Potassium 3.5 Chloride 110 H Carbon Dioxide 24 BUN 19 H D Creatinine 0.60 L Glucose 94 Calcium 8.1 L Liver Function 08/09/24 Range/Units 07:57 Total Bilirubin 0.6 (0.2-1.3) mg/dL AST 36 (14-36) U/L ALT 37 H (6-35) U/L Alkaline Phosphatase 123 (38-126) U/L Albumin 2.5 L (3.5-5.1) g/dL Attestation Supervising Provider Attestation Assessment: This is a 69-year-old lady admitted in septic shock with positive urine cultures for Gram-negative bacilli. She developed leukocytosis with neutrophilia secondary to her bacterial sepsis. She also developed thrombocytopenia which could be secondary to multiple factors. Plan: 1 consult and is on the case. 2. Patient is on antibiotics with good clinical response With normalizing vital signs and functional status--sitting up on her bed. 3. WBC has decreased from 22K to 15.6K 2 with a predominance of neutrophils Confirming bacterial sepsis as a cause. 4. Thrombocytopenia: I have reviewed all her medications and none has adverse effect of thrombocytopenia. DIC is ruled out by normal PT and INR. Thrombocytopenia is most likely probably secondary to sepsis and is expected to resolve as her infection resolves. Thank you for this very interesting consult. I will follow the case with you.
[2024-08-09 22:00] VITALS: BP 128/72; PULSE 86; RESP 16; TEMP 36.9; O2SAT 93
[2024-08-09] MEDS: LORazepam (*CRX) 0.5 MG TABLET PO (23:10)
[2024-08-10] MEDS: ACETAMINOPHEN 325 MG TABLET 650 MG PO ×2 (06:00→21:28)
[2024-08-10] MEDS: MULTIVITAMINS THERAPEUTIC TAB (*BKC) 1 TABLET PO (08:46)
[2024-08-10] MEDS: CHOLECALCIFEROL 400 UNITS TABLET (VIT D) PO (08:46)
[2024-08-10] MEDS: FAMOTIDINE 20 MG TABLET PO ×2 (08:46→21:27)
[2024-08-10 08:59] LABS: Basophils Absolute Auto 0.1 K/mm3 (0.0-0.1); Basophils Percent Auto 0.4 % (0.2-1.2); Eosinophils Absolute Auto 0.1 K/mm3 (0-0.3); Eosinophils Percent Auto 0.8 % (0-4.4); Hematocrit 33.5 % (37.0-47.0); Hemoglobin 11.6 g/dL (12.0-15.0); Immature Granulocyte Absolute 0.22 K/mm3 (0.00-0.031); Immature Granulocyte Percent A 1.6 % (0-0.5); Immature Platelet Fraction Pct 6.5 % (0.9-11.2); Lymphocytes Absolute Auto 1.37 K/mm3 (0.9-3.2); Lymphocytes Percent Auto 10.2 % (18.3-44.2); Mean Corpuscular HGB Conc 34.6 g/dl (32-36); Mean Corpuscular Hemoglobin 31.8 pg (26-34); Mean Corpuscular Volume 91.8 fl (80-100); Mean Platelet Volume 11.5 fl (7.4-10.4); Monocytes Absolute Auto 1.3 K/mm3 (0.1-0.6); Monocytes Percent Auto 9.5 % (2.6-8.5); Neutrophils Absolute Auto 10.4 K/mm3 (1.3-6.7); Neutrophils Percent Auto 77.5 % (45.5-73.1); Platelet Count Result 72 k/mm3 (150-375); Red Blood Count 3.65 M/mm3 (4.2-5.4); White Blood Count 13.4 K/mm3 (4.5-10.0)
[2024-08-10 09:08] LABS: Alanine Aminotransferase 32 U/L (6-35); Albumin Level 2.5 g/dL (3.5-5.1); Alkaline Phosphatase 105 U/L (38-126); Anion Gap 0 mmol/L (4-12); Aspartate Amino Transferase 29 U/L (14-36); Bilirubin,Total 0.8 mg/dL (0.2-1.3); Blood Urea Nitrogen 14 mg/dL (7-17); Carbon Dioxide 27 mmol/L (22-30); Chloride 107 mmol/L (98-107); Estimated CRCL calculation 69 ml/min; Estimated Glomerular Filt Rate > 60; Glucose 100 mg/dL (65-110); Potassium 3.2 mmol/L (3.4-5.0); Sodium 134 mmol/L (137-145)
--- NOTE | 2024-08-10 11:04 | WPDUROPN2 ---
Progress Note: A&P Assessment and Plan (1) Ureteral calculus, left: Code(s): N20.1 - Calculus of ureter Status: Acute (2) Hydronephrosis with urinary obstruction due to ureteral calculus: Code(s): N13.2 - Hydronephrosis with renal and ureteral calculous obstruction Status: Acute (3) Sepsis: Qualifiers: Sepsis type: sepsis due to unspecified organism Sepsis acute organ dysfunction status: with acute organ dysfunction Severe sepsis acute organ dysfunction type: acute renal failure Acute renal failure type: unspecified Severe sepsis shock status: without septic shock Qualified Code(s): A41.9 - Sepsis, unspecified organism; R65.20 - Severe sepsis without septic shock; N17.9 - Acute kidney failure, unspecified Code(s): A41.9 - Sepsis, unspecified organism Status: Acute (4) Acute UTI: Code(s): N39.0 - Urinary tract infection, site not specified Status: Acute Plan Transition to p.o. antibiotics when appropriate. Discharge home when appropriate. Outpatient stone management. We will contact her schedule Subjective Subjective Date/Time Seen: 08/10/24 11:04 Interval history: Feeling improved and getting her appetite back. Urine and blood culture show Proteus Exam Narrative: Resting comfortably. Patient's questions answered Objective Data Vital Signs Vital Signs: Vital Signs - 24 hr 08/09/24 15:01 08/09/24 20:39 08/09/24 22:00 Temperature 98.9 F 98.4 F Pulse Rate 91 86 Respiratory Rate 16 16 Blood Pressure 124/68 128/72 Pulse Oximetry 93 93 Oxygen Delivery Room Air Intake/Output Intake/Output: Intake & Output 08/07/24 08/08/24 08/09/24 08/10/24 23:59 23:59 23:59 23:59 Intake Total 1000 3470 2590 600 Balance 1000 3470 2590 600 Meds/Results Medications: Active Medications Generic Name Dose Route Start Last Admin Trade Name Freq PRN Reason Stop Dose Admin Acetaminophen 650 mg 08/07/24 23:56 08/10/24 06:00 Acetaminophen 325 Mg Tablet PO 650 mg Q4H PRN Administration Mild Pain (1-3) or Fever Albuterol 2 puff 08/08/24 16:09 Albuterol Sulfate (*Sp) Aerosol 1 Puff INHALATION Q6HRT PRN Shortness Of Breath Cholestyramine Resin 4 gm 08/08/24 12:00 08/09/24 12:59 Cholestyramine Light 4 Gm Powd.Pack PO 4 gm DAILY@1200 NATIVIDAD Administration Famotidine 20 mg 08/08/24 09:00 08/10/24 08:46 Famotidine 20 Mg Tablet PO 20 mg Q12HR NATIVIDAD Administration Hydromorphone HCl 0.5 mg 08/07/24 23:56 Hydromorphone Hcl Inj (*Crx) 1 Mg/Ml Syr IV PUSH Q4H PRN Pain Rated 7-10 Meropenem 1 gm in 100 mls @ 200 mls/hr 08/08/24 12:00 08/09/24 23:10 IVPB 200 mls/hr Q12H NATIVIDAD Administration Lorazepam 0.5 mg 08/08/24 07:11 08/09/24 23:10 Lorazepam (*Crx) 0.5 Mg Tablet PO 0.5 mg BID PRN Administration anxiety Magnesium Oxide 200 mg 08/08/24 09:00 08/09/24 08:50 Magnesium Oxide 200 Mg Tablet PO 09/07/24 08:59 200 mg DAILY NATIVIDAD Administration Multivitamins Therapeutic 1 tablet 08/08/24 09:00 08/10/24 08:46 Multivitamins Therapeutic Tab (*Bkc) PO 1 tablet DAILY NATIVIDAD Administration Ondansetron HCl 4 mg 08/07/24 23:56 Ondansetron Inj 4 Mg/2 Ml Vial IV PUSH Q4H PRN Nausea Ondansetron HCl 4 mg 08/08/24 08:53 Ondansetron Inj 4 Mg/2 Ml Vial IV PUSH ONCE PRN Nausea Vitamin D 400 units 08/08/24 09:00 08/10/24 08:46 Cholecalciferol 400 Units Tablet (Vit D) PO 400 units DAILY NATIVIDAD Administration Radiology Results: ITS Impressions Chest X-Ray 08/07/24 22:34 IMPRESSION: Opacification in the upper lobes may indicate early pneumonia. Follow-up advised. Bilateral Abdomen/Pelvis CT 08/07/24 22:47 IMPRESSION: 1. Stone in the left lower ureter with left hydronephrotic changes. 2. Stone in the right kidney lower pole. 3. No evidence of appendicitis, diverticulitis or intestinal obstruction. 4. Slightly thickened wall of the stomach. Clinical evaluation for gastritis advised. 5. Trace of pericardial effusion. Retrograde Pyelogram 08/09/24 06:40 IMPRESSION: Left anterior artery stent placement with improvement of left hydronephrosis Labs Labs: Laboratory Results - last 24 hr 08/10/24 08:35 WBC 13.4 H RBC 3.65 L Hgb 11.6 L Hct 33.5 L MCV 91.8 MCH 31.8 MCHC 34.6 RDW 13.0 Plt Count 72 L MPV 11.5 H Immature Gran % (Auto) 1.6 H Neut % (Auto) 77.5 H Lymph % (Auto) 10.2 L [place] % (Auto) 9.5 H Eos % (Auto) 0.8 Baso % (Auto) 0.4 Lymph # (Auto) 1.37 [place] # (Auto) 1.3 H Eos # (Auto) 0.1 Baso # (Auto) 0.1 Abs Immat Gran (auto) 0.22 H Absolute Neuts (auto) 10.4 H Absolute Nucleated RBC 0.000 Nucleated RBC % 0.0 % Immature Plt Fraction 6.5 Sodium 134 L Potassium 3.2 L Chloride 107 Carbon Dioxide 27 Anion Gap 0 L BUN 14 D Creatinine 0.50 L Estim Creat Clear Calc 69 Estimated GFR > 60 Glucose 100 Calcium 8.0 L Total Bilirubin 0.8 AST 29 ALT 32 Alkaline Phosphatase 105 Total Protein 5.0 L Albumin 2.5 L
--- NOTE | 2024-08-10 12:33 | P.PNIM_ITS ---
Progress Note: A&P Assessment and Plan (1) Acute UTI: Code(s): N39.0 - Urinary tract infection, site not specified Status: Acute Assessment and Plan: * The patient is sepsis due to UTI with concomitant obstructing left distal obstructing ureteral stone. Sepsis criteria met with T-max of 100.6?, tachycardia, tachypnea and leukocytosis. * Meropenem 1 gram IVPB q 8, changed to Levofloxacin 750 mg PO daily. * Urine culture growing proteus mirabilis. (2) Sepsis: Qualifiers: Sepsis type: sepsis due to unspecified organism Sepsis acute organ dysfunction status: with acute organ dysfunction Severe sepsis acute organ dysfunction type: acute renal failure Acute renal failure type: unspecified Severe sepsis shock status: without septic shock Qualified Code(s): A41.9 - Sepsis, unspecified organism; R65.20 - Severe sepsis without septic shock; N17.9 - Acute kidney failure, unspecified Code(s): A41.9 - Sepsis, unspecified organism Status: Acute Assessment and Plan: * The patient is sepsis due to UTI with concomitant obstructing left distal obstructing ureteral stone. Sepsis criteria met with T-max of 100.6?, tachycardia, tachypnea and leukocytosis. * Blood culture grew proteus mirabilis * Meropenem 1 gram IVPB q 8, changed to Levofloxacin 750 mg PO daily.. * WBC improving 22.0>16.1>15.6>13.4. (3) Acute kidney injury: Code(s): N17.9 - Acute kidney failure, unspecified Status: Acute Assessment and Plan: * Creatinine improvin.30>1.10>0.60>0.50 * Baseline creatinine 0.6-1.2. * Avoid nephrotic medications. (4) Acute hyponatremia: Code(s): E87.1 - Hypo-osmolality and hyponatremia Status: Acute Assessment and Plan: * Improved to 134 (5) Hydronephrosis with urinary obstruction due to ureteral calculus: Code(s): N13.2 - Hydronephrosis with renal and ureteral calculous obstruction Status: Acute Assessment and Plan: * Urology consulted. * Left ureter stent placed on 08/08/24. (6) Thrombocytopenia: Code(s): D69.6 - Thrombocytopenia, unspecified Status: Acute Assessment and Plan: * Platelets 74>68>72. * COVID, flu, and RSV negative. * B12 >1,000 and folate- pending. INR 1.1, PT 14.3. * Monitor labs. * Hematology consult placed. (7) Headache: Code(s): R51.9 - Headache, unspecified Status: Acute Assessment and Plan: * Acetaminophen 650 mg PO q 4 PRN. * Denies headache at present. * Encourage hydration. (8) Hypokalemia: Code(s): E87.6 - Hypokalemia Status: Acute Assessment and Plan: * Potassium 3.2. * Patient given Potassium Chloride 40 meq PO x1. * Monitor labs. Subjective Date/time seen: 08/10/24 12:33 Interval history: Patient reports feeling better today and appetite is improving. Patient denies nausea, vomiting, or burning with urination. Review of Systems Review of Systems: All systems reviewed & are unremarkable except as noted in HPI and below Exam Const: General: comfortable and no acute distress Resp: Auscultation: diminished lung sounds GI: GI Palp: Yes Soft to palpation Auscultation: normal bowel sounds Skin: General skin exam: no rashes or lesions noted Neuro: Speech: normal speech Psych: Mental Status: mental status grossly normal Affect: normal affect Objective Data Vital Signs Vital Signs: Vital Signs - 24 hr 08/09/24 15:01 08/09/24 20:39 08/09/24 22:00 Temperature 98.9 F 98.4 F Pulse Rate 91 86 Respiratory Rate 16 16 Blood Pressure 124/68 128/72 Pulse Oximetry 93 93 Oxygen Delivery Room Air Intake/Output Intake/Output: Intake & Output 08/07/24 08/08/24 08/09/24 08/10/24 23:59 23:59 23:59 23:59 Intake Total 1000 3470 2590 600 Balance 1000 3470 2590 600 Meds/Results Medications: Active Medications Generic Name Dose Route Start Last Admin Trade Name Freq PRN Reason Stop Dose Admin Acetaminophen 650 mg 08/07/24 23:56 08/10/24 06:00 Acetaminophen 325 Mg Tablet PO 650 mg Q4H PRN Administration Mild Pain (1-3) or Fever Albuterol 2 puff 08/08/24 16:09 Albuterol Sulfate (*Sp) Aerosol 1 Puff INHALATION Q6HRT PRN Shortness Of Breath Cholestyramine Resin 4 gm 08/08/24 12:00 08/09/24 12:59 Cholestyramine Light 4 Gm Powd.Pack PO 4 gm DAILY@1200 NATIVIDAD Administration Famotidine 20 mg 08/08/24 09:00 08/10/24 08:46 Famotidine 20 Mg Tablet PO 20 mg Q12HR NATIVIDAD Administration Hydromorphone HCl 0.5 mg 08/07/24 23:56 Hydromorphone Hcl Inj (*Crx) 1 Mg/Ml Syr IV PUSH Q4H PRN Pain Rated 7-10 Levofloxacin 750 mg 08/10/24 11:35 Levofloxacin 750 Mg Tablet PO DAILY NATIVIDAD Lorazepam 0.5 mg 08/08/24 07:11 08/09/24 23:10 Lorazepam (*Crx) 0.5 Mg Tablet PO 0.5 mg BID PRN Administration anxiety Magnesium Oxide 200 mg 08/08/24 09:00 08/09/24 08:50 Magnesium Oxide 200 Mg Tablet PO 09/07/24 08:59 200 mg DAILY NATIVIDAD Administration Multivitamins Therapeutic 1 tablet 08/08/24 09:00 08/10/24 08:46 Multivitamins Therapeutic Tab (*Bkc) PO 1 tablet DAILY NATIVIDAD Administration Ondansetron HCl 4 mg 08/07/24 23:56 Ondansetron Inj 4 Mg/2 Ml Vial IV PUSH Q4H PRN Nausea Ondansetron HCl 4 mg 08/08/24 08:53 Ondansetron Inj 4 Mg/2 Ml Vial IV PUSH ONCE PRN Nausea Vitamin D 400 units 08/08/24 09:00 08/10/24 08:46 Cholecalciferol 400 Units Tablet (Vit D) PO 400 units DAILY NATIVIDAD Administration Radiology Results: ITS Impressions Chest X-Ray 08/07/24 22:34 IMPRESSION: Opacification in the upper lobes may indicate early pneumonia. Follow-up advised. Bilateral Abdomen/Pelvis CT 08/07/24 22:47 IMPRESSION: 1. Stone in the left lower ureter with left hydronephrotic changes. 2. Stone in the right kidney lower pole. 3. No evidence of appendicitis, diverticulitis or intestinal obstruction. 4. Slightly thickened wall of the stomach. Clinical evaluation for gastritis advised. 5. Trace of pericardial effusion. Retrograde Pyelogram 08/09/24 06:40 IMPRESSION: Left anterior artery stent placement with improvement of left hydro nephrosis Labs Labs: Laboratory Results - last 24 hr 08/10/24 08:35 WBC 13.4 H RBC 3.65 L Hgb 11.6 L Hct 33.5 L MCV 91.8 MCH 31.8 MCHC 34.6 RDW 13.0 Plt Count 72 L MPV 11.5 H Immature Gran % (Auto) 1.6 H Neut % (Auto) 77.5 H Lymph % (Auto) 10.2 L [place] % (Auto) 9.5 H Eos % (Auto) 0.8 Baso % (Auto) 0.4 Lymph # (Auto) 1.37 [place] # (Auto) 1.3 H Eos # (Auto) 0.1 Baso # (Auto) 0.1 Abs Immat Gran (auto) 0.22 H Absolute Neuts (auto) 10.4 H Absolute Nucleated RBC 0.000 Nucleated RBC % 0.0 % Immature Plt Fraction 6.5 Sodium 134 L Potassium 3.2 L Chloride 107 Carbon Dioxide 27 Anion Gap 0 L BUN 14 D Creatinine 0.50 L Estim Creat Clear Calc 69 Estimated GFR > 60 Glucose 100 Calcium 8.0 L Total Bilirubin 0.8 AST 29 ALT 32 Alkaline Phosphatase 105 Total Protein 5.0 L Albumin 2.5 L Quality VTE Prophylaxis VTE prophylaxis: pharmacologic ordered (Lovenox 40 mg subQ daily.)
[2024-08-10] MEDS: CHOLESTYRAMINE LIGHT 4 GM POWD.PACK PO (14:04)
[2024-08-10] MEDS: levoFLOXacin 750 MG TABLET PO (14:04)
[2024-08-10] MEDS: POTASSIUM CHLORIDE 20 MEQ ER TABLET 40 MEQ PO (14:06)
--- NOTE | 2024-08-10 14:14 | PCDIET ---
Physician consult. Spoke with patient today, regarding supplementation and lactose intolerance. Patient is going to try the apple streusel protein puree. 10gm of additional protein. Will continue to monitor.
--- NOTE | 2024-08-10 16:38 | PC.NURSE ---
No changes from previous assesment by this RN, patient A-O4, ambulatory, voids spontaneously no c/o pain at this time.
[2024-08-10 22:07] VITALS: BP 120/66; PULSE 87; RESP 16; TEMP 36.9; O2SAT 93
[2024-08-10] MEDS: LORazepam (*CRX) 0.5 MG TABLET PO (23:07)
[2024-08-11 06:00] VITALS: BP 116/68; PULSE 83; RESP 16; TEMP 36.7; O2SAT 93
[2024-08-11 06:51] LABS: Basophils Absolute Auto 0.1 K/mm3 (0.0-0.1); Basophils Percent Auto 0.8 % (0.2-1.2); Eosinophils Absolute Auto 0.2 K/mm3 (0-0.3); Eosinophils Percent Auto 1.5 % (0-4.4); Hemoglobin 12.2 g/dL (12.0-15.0); Immature Granulocyte Percent A 4.2 % (0-0.5); Lymphocytes Absolute Auto 1.65 K/mm3 (0.9-3.2); Lymphocytes Percent Auto 13.8 % (18.3-44.2); Mean Corpuscular HGB Conc 33.9 g/dl (32-36); Mean Corpuscular Hemoglobin 31.3 pg (26-34); Mean Corpuscular Volume 92.3 fl (80-100); Mean Platelet Volume 11.3 fl (7.4-10.4); Monocytes Absolute Auto 1.2 K/mm3 (0.1-0.6); Monocytes Percent Auto 9.8 % (2.6-8.5); Neutrophils Absolute Auto 8.4 K/mm3 (1.3-6.7); Neutrophils Percent Auto 69.9 % (45.5-73.1); Platelet Count Result 96 k/mm3 (150-375)
[2024-08-11 07:09] LABS: Alanine Aminotransferase 36 U/L (6-35); Albumin Level 2.6 g/dL (3.5-5.1); Alkaline Phosphatase 97 U/L (38-126); Anion Gap 2 mmol/L (4-12); Aspartate Amino Transferase 29 U/L (14-36); Bilirubin,Total 0.9 mg/dL (0.2-1.3); Blood Urea Nitrogen 11 mg/dL (7-17); Calcium 7.9 mg/dL (8.4-10.2); Carbon Dioxide 28 mmol/L (22-30); Chloride 106 mmol/L (98-107); Estimated CRCL calculation 84 ml/min; Estimated Glomerular Filt Rate > 60; Glucose 102 mg/dL (65-110); Potassium 3.6 mmol/L (3.4-5.0); Sodium 136 mmol/L (137-145)
[2024-08-11 07:34] LABS: Anisocytosis 1+; Large Platelets Present; Platelet Estimate Decreased (Adequate); Schistocytes None Seen
[2024-08-11] MEDS: FAMOTIDINE 20 MG TABLET PO ×2 (08:37→20:46)
[2024-08-11] MEDS: MULTIVITAMINS THERAPEUTIC TAB (*BKC) 1 TABLET PO (08:37)
[2024-08-11] MEDS: CHOLECALCIFEROL 400 UNITS TABLET (VIT D) PO (08:37)
[2024-08-11] MEDS: MAGNESIUM OXIDE 200 MG TABLET PO (08:37)
[2024-08-11] MEDS: levoFLOXacin 750 MG TABLET PO (08:37)
--- NOTE | 2024-08-11 10:54 | P.PNIM_ITS ---
Progress Note: A&P Assessment and Plan (1) Acute UTI: Code(s): N39.0 - Urinary tract infection, site not specified Status: Acute Assessment and Plan: * The patient is sepsis due to UTI with concomitant obstructing left distal obstructing ureteral stone. Sepsis criteria met with T-max of 100.6?, tachycardia, tachypnea and leukocytosis. * Meropenem 1 gram IVPB q 8, changed to Levofloxacin 750 mg PO daily. * Urine culture growing proteus mirabilis. (2) Sepsis: Qualifiers: Sepsis type: sepsis due to unspecified organism Sepsis acute organ dysfunction status: with acute organ dysfunction Severe sepsis acute organ dysfunction type: acute renal failure Acute renal failure type: unspecified Severe sepsis shock status: without septic shock Qualified Code(s): A41.9 - Sepsis, unspecified organism; R65.20 - Severe sepsis without septic shock; N17.9 - Acute kidney failure, unspecified Code(s): A41.9 - Sepsis, unspecified organism Status: Acute Assessment and Plan: * The patient is sepsis due to UTI with concomitant obstructing left distal obstructing ureteral stone. Sepsis criteria met with T-max of 100.6?, tachycardia, tachypnea and leukocytosis. * Blood culture grew proteus mirabilis * Meropenem 1 gram IVPB q 8, changed to Levofloxacin 750 mg PO daily.. * WBC improving 22.0>16.1>15.6>13.4>12.0 (3) Acute kidney injury: Code(s): N17.9 - Acute kidney failure, unspecified Status: Acute Assessment and Plan: * Creatinine improvin.30>1.10>0.60>0.50>0.40. * Baseline creatinine 0.6-1.2. * Avoid nephrotic medications. (4) Acute hyponatremia: Code(s): E87.1 - Hypo-osmolality and hyponatremia Status: Acute Assessment and Plan: * Improved to 136 (5) Hydronephrosis with urinary obstruction due to ureteral calculus: Code(s): N13.2 - Hydronephrosis with renal and ureteral calculous obstruction Status: Acute Assessment and Plan: * Urology following. * Left ureter stent placed on 08/08/24. (6) Thrombocytopenia: Code(s): D69.6 - Thrombocytopenia, unspecified Status: Acute Assessment and Plan: * Platelets 74>68>72>96 * COVID, flu, and RSV negative. * B12 >1,000 and folate- pending. INR 1.1, PT 14.3. * Monitor labs. * Hematology consult placed. (7) Headache: Code(s): R51.9 - Headache, unspecified Status: Acute Assessment and Plan: * Acetaminophen 650 mg PO q 4 PRN. * Denies headache at present. * Encourage hydration. (8) Hypokalemia: Code(s): E87.6 - Hypokalemia Status: Acute Assessment and Plan: * Potassium 3.6. * Patient given Potassium Chloride 40 meq PO x1. * Monitor labs. Subjective Date/time seen: 08/11/24 10:54 Interval history: Patient reports feeling better today and appetite is improving. Patient denies nausea, vomiting, or burning with urination. Patient reports episode where she stood up and urine went down legs. Review of Systems Review of Systems: All systems reviewed & are unremarkable except as noted in HPI and below Exam Const: General: comfortable and no acute distress Eyes: Sclera: sclerae normal Resp: Effort & Inspection: normal respiratory effort Auscultation: diminished lung sounds Cardio: Rate: regular rate Rhythm: regular rhythm GI: GI Palp: Yes Soft to palpation Auscultation: normal bowel sounds : Other: Voiding without difficulty. Neuro: General: gait normal Speech: normal speech Psych: Mental Status: mental status grossly normal Affect: normal affect Objective Data Vital Signs Vital Signs: Vital Signs - 24 hr 08/10/24 21:28 08/10/24 22:07 08/11/24 06:00 Temperature 98.5 F 98.0 F Pulse Rate 87 83 Respiratory Rate 16 16 Blood Pressure 120/66 116/68 Pulse Oximetry 93 93 Oxygen Delivery Room Air 08/11/24 08:00 Temperature Pulse Rate Respiratory Rate Blood Pressure Pulse Oximetry Oxygen Delivery Room Air Intake/Output Intake/Output: Intake & Output 08/08/24 08/09/24 08/10/24 08/11/24 23:59 23:59 23:59 23:59 Intake Total 3470 2590 1080 600 Balance 3470 2590 1080 600 Meds/Results Medications: Active Medications Generic Name Dose Route Start Last Admin Trade Name Freq PRN Reason Stop Dose Admin Acetaminophen 650 mg 08/07/24 23:56 08/10/24 21:28 Acetaminophen 325 Mg Tablet PO 650 mg Q4H PRN Administration Mild Pain (1-3) or Fever Albuterol 2 puff 08/08/24 16:09 Albuterol Sulfate (*Sp) Aerosol 1 Puff INHALATION Q6HRT PRN Shortness Of Breath Cholestyramine Resin 4 gm 08/08/24 12:00 08/10/24 14:04 Cholestyramine Light 4 Gm Powd.Pack PO 4 gm DAILY@1200 NATIVIDAD Administration Famotidine 20 mg 08/08/24 09:00 08/11/24 08:37 Famotidine 20 Mg Tablet PO 20 mg Q12HR NATIVIDAD Administration Hydromorphone HCl 0.5 mg 08/07/24 23:56 Hydromorphone Hcl Inj (*Crx) 1 Mg/Ml Syr IV PUSH Q4H PRN Pain Rated 7-10 Levofloxacin 750 mg 08/10/24 11:35 08/11/24 08:37 Levofloxacin 750 Mg Tablet PO 750 mg DAILY NATIVIDAD Administration Lorazepam 0.5 mg 08/08/24 07:11 08/10/24 23:07 Lorazepam (*Crx) 0.5 Mg Tablet PO 0.5 mg BID PRN Administration anxiety Magnesium Oxide 200 mg 08/08/24 09:00 08/11/24 08:37 Magnesium Oxide 200 Mg Tablet PO 09/07/24 08:59 200 mg DAILY NATIVIDAD Administration Multivitamins Therapeutic 1 tablet 08/08/24 09:00 08/11/24 08:37 Multivitamins Therapeutic Tab (*Bkc) PO 1 tablet DAILY NATIVIDAD Administration Ondansetron HCl 4 mg 08/07/24 23:56 Ondansetron Inj 4 Mg/2 Ml Vial IV PUSH Q4H PRN Nausea Ondansetron HCl 4 mg 08/08/24 08:53 Ondansetron Inj 4 Mg/2 Ml Vial IV PUSH ONCE PRN Nausea Vitamin D 400 units 08/08/24 09:00 08/11/24 08:37 Cholecalciferol 400 Units Tablet (Vit D) PO 400 units DAILY NATIVIDAD Administration Radiology Results: ITS Impressions Chest X-Ray 08/07/24 22:34 IMPRESSION: Opacification in the upper lobes may indicate early pneumonia. Follow-up advised. Bilateral Abdomen/Pelvis CT 08/07/24 22:47 IMPRESSION: 1. Stone in the left lower ureter with left hydronephrotic changes. 2. Stone in the right kidney lower pole. 3. No evidence of appendicitis, diverticulitis or intestinal obstruction. 4. Slightly thickened wall of the stomach. Clinical evaluation for gastritis advised. 5. Trace of pericardial effusion. Retrograde Pyelogram 08/09/24 06:40 IMPRESSION: Left anterior artery stent placement with improvement of left hydronephrosis Labs Labs: Laboratory Results - last 24 hr 08/11/24 06:34 WBC 12.0 H RBC 3.90 L Hgb 12.2 Hct 36.0 L MCV 92.3 MCH 31.3 MCHC 33.9 RDW 13.0 Plt Count 96 L MPV 11.3 H Immature Gran % (Auto) 4.2 H Neut % (Auto) 69.9 Lymph % (Auto) 13.8 L Elbert % (Auto) 9.8 H Eos % (Auto) 1.5 Baso % (Auto) 0.8 Lymph # (Auto) 1.65 Elbert # (Auto) 1.2 H Eos # (Auto) 0.2 Baso # (Auto) 0.1 Abs Immat Gran (auto) 0.50 H Absolute Neuts (auto) 8.4 H Absolute Nucleated RBC 0.000 Nucleated RBC % 0.0 Platelet Estimate Decreased Large Platelets Present % Immature Plt Fraction 6.0 Anisocytosis 1+ Schistocytes None seen Sodium 136 L Potassium 3.6 Chloride 106 Carbon Dioxide 28 Anion Gap 2 L BUN 11 Creatinine 0.40 L Estim Creat Clear Calc 84 Estimated GFR > 60 Glucose 102 Calcium 7.9 L Total Bilirubin 0.9 AST 29 ALT 36 H Alkaline Phosphatase 97 Total Protein 5.0 L Albumin 2.6 L Quality VTE Prophylaxis VTE prophylaxis: pharmacologic ordered (Lovenox 40 mg subQ daily.)
--- NOTE | 2024-08-11 14:25 | P.CONS_ITS ---
HPI Data of Consult Date/Time: 08/11/24 14:25 Requesting Physician: Tala Andersen DO Primary Care Provider: Robin Melendez MD Consult Narrative Narrative: Doris Gomez is a 69 year old female Review of Systems 2 Review of Systems: Patient is clinically much improved. She is afebrile. She is up to toilet. Thrombocytopenia is resolving (68K--96K) Leukocytosis is resolving (12K) [facility] Past Medical History Medical History Kidney stones Bacterial vaginosis Osteoporosis Vitamin D deficiency Anal fissure, unspecified Depression with anxiety Tobacco abuse Irritable bowel syndrome Dyslipidemia GERD (gastroesophageal reflux disease) History of shingles Chicken pox Measles Duodenitis Gastric ulcer Surgical History Surgical History Status post cataract extraction of both eyes with insertion of intraocular lens History of hip surgery (~1967) 1967 - for right hip dislocation Hx laparoscopic cholecystectomy (~2005) S/P ALIDA-BSO (total abdominal hysterectomy and bilateral salpingo-oophorectomy) (~2004) Family History Family History Mother Family history of atrial fibrillation Hypertension Sibling Family history of atrial fibrillation Hypertension Father Macular degeneration Other Family history of hearing loss Skin cancer Social History Social History Social History: The patient is and lives alone. She does not have any children. She has smoked up to a pack of cigarettes per day at her heaviest but is been smoking 0.5 packs per day for the last 8-10 years. She denies any significant alcohol use history and has had absolutely no alcohol use in the last 10 years or so. She denies any history of illicit substance use. 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 Code status: Full code Surrogate decision maker: Dr. Tima Gomez (brother) Smoking packs per day: 0.5 Smoking cigarettes per day: 10.0 Years smoked: 50 Smoking pack-years: 25.00 Smoking status: Current every day smoker Tobacco type: cigarettes Alcohol intake: never Substance use: never Substance use type: does not use Do You Feel Safe in your Home?: Yes Lack of Transportation: No Lack of Food: Never True Current Housing: I Have Housing Concerned About Future Housing: No Difficulty Paying Gas/Electric Bills: No Difficulty Paying for Meds: No Currently Unemployed: No Education: Trade/Vocational Certificate Difficulty w/ Childcare or Family Care: No Living arrangements: alone Occupation/Education: retired Gender identity (if verbalized by the patient): Female Sexual Orientation (if Verbalized by the Patient): Straight or Heterosexual Spiritual care concerns: No Agree to blood products: Yes Meds Home Medications and Allergies Home Medications ?Medication ?Instructions ?Recorded ?Confirmed ?Type acetaminophen 500 mg tablet 1,000 mg PO Q6H PRN Pain 05/05/20 08/08/24 History (Tylenol Extra Strength) multivitamin 1 tablet PO DAILY 07/10/21 08/08/24 History magnesium 250 mg tablet 250 mg PO DAILY 07/16/22 08/08/24 History lorazepam 0.5 mg tablet 0.5 mg PO BID PRN anxiety #60 tabs 06/22/24 08/08/24 Rx famotidine 20 mg tablet 20 mg PO BID #60 tabs 08/03/24 08/08/24 Rx cholecalciferol (vitamin D3) 10 10 mcg PO DAILY 08/08/24 08/08/24 History mcg (400 unit) capsule (Vitamin D3) cholestyramine-aspartame 4 gram 4 g PO DAILY 08/08/24 08/08/24 History oral powder (Prevalite) Allergies Allergy/AdvReac Type Severity Reaction Status Date / Time ciprofloxacin Allergy Intermediate Nausea and Verified 07/13/24 08:59 Vomiting morphine Allergy Mild SEVERE Verified 07/13/24 08:59 NAUSEA cephalexin Allergy Unknown Nausea Verified 07/13/24 08:59 Cephalosporins Allergy Unknown GI UPSET Verified 07/13/24 08:59 clavulanic acid Allergy Unknown GI UPSET Verified 07/13/24 08:59 codeine Allergy Unknown Nausea Verified 07/13/24 08:59 erythromycin base Allergy Unknown Diarrhea Verified 07/13/24 08:59 hydrocodone Allergy Unknown GI UPSET Verified 07/13/24 08:59 methylprednisolone Allergy Unknown DEATHLY Verified 07/13/24 08:59 SICK naproxen Allergy Unknown Nausea Verified 07/13/24 08:59 NSAIDS (Non-Steroidal Allergy Unknown Unknown Verified 07/13/24 08:59 Anti-Inflamma Sulfa (Sulfonamide Allergy Unknown Unknown Verified 07/13/24 08:59 Antibiotics) doxycycline Allergy Headache Verified 07/13/24 08:59 BETALACTAMASEIN Allergy Unknown GI UPSET Uncoded 07/13/24 08:59 Vital Signs Vital Signs - 24 hr 08/10/24 21:28 08/10/24 22:07 08/11/24 06:00 Temperature 36.9 C 36.7 C Pulse Rate 87 83 Respiratory Rate 16 16 Blood Pressure 120/66 116/68 Pulse Oximetry 93 93 Oxygen Delivery Room Air 08/11/24 08:00 Temperature Pulse Rate Respiratory Rate Blood Pressure Pulse Oximetry Oxygen Delivery Room Air Results Labs 08/11/24 06:34 08/11/24 06:34 Labs: Short CBC 08/11/24 Range/Units 06:34 WBC 12.0 H (4.5-10.0) K/mm3 Hgb 12.2 (12.0-15.0) g/dL Hct 36.0 L (37.0-47.0) % Plt Count 96 L (150-375) k/mm3 BMP 08/11/24 06:34 Sodium 136 L Potassium 3.6 Chloride 106 Carbon Dioxide 28 BUN 11 Creatinine 0.40 L Glucose 102 Calcium 7.9 L Liver Function 08/11/24 Range/Units 06:34 Total Bilirubin 0.9 (0.2-1.3) mg/dL AST 29 (14-36) U/L ALT 36 H (6-35) U/L Alkaline Phosphatase 97 (38-126) U/L Albumin 2.6 L (3.5-5.1) g/dL Attestation Supervising Provider Attestation Assessment: Leukocytosis (neutrophilia) of infection is resolving. Thrombocytopenia also resolving with resolution of sepsis. Plan: Continue treatment UTI with sepsis, Urologist is on case. Continue to monitor CBC
[2024-08-11] MEDS: ACETAMINOPHEN 325 MG TABLET 650 MG PO (14:48)
[2024-08-11] MEDS: POTASSIUM CHLORIDE 20 MEQ ER TABLET 40 MEQ PO (15:41)
[2024-08-11 20:00] VITALS: PULSE 87; RESP 16; O2SAT 96
[2024-08-11 20:39] VITALS: BP 119/72; PULSE 87; RESP 16; TEMP 36.4; O2SAT 96
[2024-08-11] MEDS: LORazepam (*CRX) 0.5 MG TABLET PO (22:32)
[2024-08-12 05:35] VITALS: BP 112/64; PULSE 89; RESP 14; TEMP 36.3; O2SAT 95
[2024-08-12 06:52] LABS: Basophils Percent Auto 0.4 % (0.2-1.2); Eosinophils Absolute Auto 0.2 K/mm3 (0-0.3); Eosinophils Percent Auto 1.3 % (0-4.4); Hematocrit 36.2 % (37.0-47.0); Hemoglobin 12.2 g/dL (12.0-15.0); Immature Granulocyte Absolute 0.46 K/mm3 (0.00-0.031); Immature Platelet Fraction Pct 4.6 % (0.9-11.2); Lymphocytes Absolute Auto 1.88 K/mm3 (0.9-3.2); Lymphocytes Percent Auto 16.5 % (18.3-44.2); Mean Corpuscular HGB Conc 33.7 g/dl (32-36); Mean Corpuscular Hemoglobin 31.1 pg (26-34); Mean Corpuscular Volume 92.3 fl (80-100); Mean Platelet Volume 11.1 fl (7.4-10.4); Monocytes Absolute Auto 0.9 K/mm3 (0.1-0.6); Monocytes Percent Auto 8.2 % (2.6-8.5); Neutrophils Absolute Auto 7.9 K/mm3 (1.3-6.7); Neutrophils Percent Auto 69.6 % (45.5-73.1); Platelet Count Result 149 k/mm3 (150-375); Red Blood Count 3.92 M/mm3 (4.2-5.4); Red Cell Distribution Width 12.9 % (11.5-14.5); White Blood Count 11.4 K/mm3 (4.5-10.0)
[2024-08-12 07:22] LABS: Platelet Estimate Adequate (Adequate); Schistocytes None Seen
[2024-08-12 07:26] LABS: Alanine Aminotransferase 31 U/L (6-35); Albumin Level 2.6 g/dL (3.5-5.1); Alkaline Phosphatase 106 U/L (38-126); Anion Gap 1 mmol/L (4-12); Aspartate Amino Transferase 32 U/L (14-36); Bilirubin,Total 0.8 mg/dL (0.2-1.3); Blood Urea Nitrogen 10 mg/dL (7-17); Calcium 8.1 mg/dL (8.4-10.2); Carbon Dioxide 30 mmol/L (22-30); Chloride 104 mmol/L (98-107); Estimated CRCL calculation 76 ml/min; Estimated Glomerular Filt Rate > 60; Glucose 99 mg/dL (65-110); Potassium 4.1 mmol/L (3.4-5.0); Sodium 135 mmol/L (137-145)
[2024-08-12] MEDS: FAMOTIDINE 20 MG TABLET PO (08:05)
[2024-08-12] MEDS: levoFLOXacin 750 MG TABLET PO (08:05)
[2024-08-12] MEDS: CHOLECALCIFEROL 400 UNITS TABLET (VIT D) PO (08:05)
[2024-08-12] MEDS: MULTIVITAMINS THERAPEUTIC TAB (*BKC) 1 TABLET PO (08:05)
[2024-08-12 13:18] LABS: Red Blood Cell Folate 610 ng/mL RBC (>280)
[2024-08-12 14:00] VITALS: BP 104/60; PULSE 81; RESP 18; TEMP 36.8; O2SAT 96
--- NOTE | 2024-08-12 14:36 | P.DS_ITS ---
DS: Admitting Diagnosis Discharge Date 08/12/2024 Admitting Diagnosis Left Flank Pain DS: Discharge Diagnosis Discharge Diagnosis (1) Sepsis: Qualifiers: Sepsis type: sepsis due to unspecified organism Sepsis acute organ dysfunction status: with acute organ dysfunction Severe sepsis acute organ dysf unction type: acute renal failure Acute renal failure type: unspecified Severe sepsis shock status: without septic shock Qualified Code(s): A41.9 - Sepsis, unspecified organism; R65.20 - Severe sepsis without septic shock; N17.9 - Acute kidney failure, unspecified Code(s): A41.9 - Sepsis, unspecified organism Status: Acute Assessment and Plan: * Patient met Sepsis criteria on admission. * Resolved prior to discharge. (2) Acute UTI: Code(s): N39.0 - Urinary tract infection, site not specified Status: Acute Assessment and Plan: * UA consistent with UTI. * Patient treated with IV abx inpatient and will complete PO abx at home. (3) Acute kidney injury: Code(s): N17.9 - Acute kidney failure, unspecified Status: Acute Assessment and Plan: * Possibly related to UTI. * Resolved prior to discharge. (4) Acute hyponatremia: Code(s): E87.1 - Hypo-osmolality and hyponatremia Status: Acute Assessment and Plan: * Possibly related to volume depletion. * Resolved prior to discharge. (5) Hydronephrosis with urinary obstruction due to ureteral calculus: Code(s): N13.2 - Hydronephrosis with renal and ureteral calculous obstruction Status: Acute Assessment and Plan: * Seen by Urology. * Left ureter stent placed on 08/08/24. * Outpatient f/u with urology. (6) Thrombocytopenia: Code(s): D69.6 - Thrombocytopenia, unspecified Status: Acute Assessment and Plan: * Possibly related to infection. * Progressing towards resolution prior to discharge. (7) Headache: Code(s): R51.9 - Headache, unspecified Status: Acute Assessment and Plan: * Resolved prior to discharge. (8) Hypokalemia: Code(s): E87.6 - Hypokalemia Status: Acute Assessment and Plan: * Repleted and wnl prior to discharge. Plan Discharge Home. DS: Summary Hospital Course Reason for hospitalization: Sepsis Secondary to UTI Hospital Course: Patient presented to the ER with reports of severe left flank and lower abdominal pain. Initial work-up labs included UA that was consistent with UTI, with the patient's CT abd/pelvis that showed Stone in the left lower ureter with left hydronephrotic changes and Stone in the right kidney lower pole. Patient met Sepsis Criteria on admission, likely secondary to UTI, with fevers, tachypnea, tachycardia and leukocytosis, with UA positive for UTI. Sepsis resolved prior to discharge after pt treated per Sepsis Protocol with fluid bolus and broad-spectrum IV abx. Blood and urine cultures were collected and pt started on IV Meropenem. Urologist was consulted and after evaluating patient, surgical intervention was recommended for treatment of patient's Left ureteral stone. Patient underwent a successful Cystoscopy, left retrograde pyelogram, left ureteral stent placement with no complications. Patient will follow-up with urologist outpatient for further renal stone management. Patient's blood and urine cultures grew Proteus Mirabilis that was almost pansensitive, and patient will be discharged on Levaquin to complete antibiotics treatment. Patient reports her pain is resolved and she's feeling much better, wants to go home. She has been cleared for discharge by the urologist who will follow-up with her outpatient. Patient had thrombocytopenia during this admission likely related to sepsis and platelet count improved, almost normalized prior to discharge. She was seen by hematology and conservative mgt was recommended with improving platelet levels. All her other chronic conditions remained stable inpatient and pt is medically stable for discharge with no acute distress noted or reported prior to discharge. Time spent discussing smoking cessation with patient: 3 to 10 minutes Status at Discharge Functional status at discharge: independent ambulation Overall status at discharge: patient is progressing back to baseline Time Spent with Patient Time attestation: Total time spent providing and/or coordinating discharge services: Time spent: Greater than 30 minutes Exam Narrative: General: Well appearing, comfortable on chair. HEENT: Atraumatic, PERRL, EOM, anicteric, moist mucosa. NECK: Supple. Lungs: Clear bilaterally. Heart: RRR, no murmurs. Abdomen: Soft, non-tender, non-distended, +ve BS X4 Quadrants. Extremities: Acyanotic, Trace edema yesica. LE. Skin: Warm and dry. No lesions noted. Neuro: Well oriented. CN II-XII grossly intact. Psych: Pleasant and co-operative. DS: Data Data Completed and Pending Labs on day of discharge: Labs from last 24 hours 08/12/24 08/08/24 06:11 07:35 WBC 11.4 H RBC 3.92 L Hgb 12.2 Hct 36.2 L MCV 92.3 MCH 31.1 MCHC 33.7 RDW 12.9 Plt Count 149 L D MPV 11.1 H Immature Gran % (Auto) 4.0 H Neut % (Auto) 69.6 Lymph % (Auto) 16.5 L Mckenzie % (Auto) 8.2 Eos % (Auto) 1.3 Baso % (Auto) 0.4 Lymph # (Auto) 1.88 Mckenzie # (Auto) 0.9 H Eos # (Auto) 0.2 Baso # (Auto) 0.0 Abs Immat Gran (auto) 0.46 H Absolute Neuts (auto) 7.9 H Absolute Nucleated RBC 0.000 Nucleated RBC % 0.0 Platelet Estimate Adequate % Immature Plt Fraction 4.6 Schistocytes None seen Sodium 135 L Potassium 4.1 Chloride 104 Carbon Dioxide 30 Anion Gap 1 L BUN 10 Creatinine 0.45 L Estim Creat Clear Calc 76 Estimated GFR > 60 Glucose 99 Calcium 8.1 L Total Bilirubin 0.8 AST 32 ALT 31 Alkaline Phosphatase 106 Total Protein 6.0 L Albumin 2.6 L RBC Folate 610 Discharge Plan Discharge Attending physician on discharge: Michael Tubbs Consulting providers: Diego Jiménez; Good Flores Discharging Clinician: Kath Mccollum Anticipated Discharge Date/Time: 08/12/24 15:07 Patient Disposition: Home, Self-Care Activity: as tolerated Diet: as tolerated Patient Instructions: Antibiotic Form Patient Language: Macedonian Stand Alone Forms: General Discharge Information Follow-up/Referrals: Diego Jiménez MD [Physician] - (Urology to call patient for appointment) Bela Melendez MD [Primary Care Provider] - 1 Week Discharge Medications: New levofloxacin 750 mg tablet 750 mg PO DAILY Qty: 7 0RF Continued acetaminophen [Tylenol Extra Strength] 500 mg tablet 1,000 mg PO Q6H PRN (Reason: Pain) magnesium 250 mg tablet 250 mg PO DAILY Patient Comments: currently stopped due to having a procedure for anal fissures- but now postponed multivitamin Tablet 1 tablet PO DAILY cholecalciferol (vitamin D3) [Vitamin D3] 10 mcg (400 unit) capsule 10 mcg PO DAILY Prevalite 4 gram powder 4 g PO DAILY Patient Comments: pt states taking suspension Rx Instructions: administer w/meal; avoid other meds within 1hr before or 4-6hr after dose lorazepam 0.5 mg tablet 0.5 mg PO BID PRN (Reason: anxiety) Qty: 60 1RF famotidine 20 mg tablet 20 mg PO BID Qty: 60 5RF Date of admission: 08/08/24 08:39 Primary Care Provider: Bela Melendez Admitting Provider: Tala Andersen Attending physician on admission: Tala Andersen Condition: Stable Quality If No VTE Prophylaxis Answer both mechanical and pharmacologic: Reason no mechanical VTE proph: low risk/not indicated Reason no pharmacologic proph: low risk/not indicated Hospitalist MIPS Heart Failure (Exclusion) Patient has history of Heart Transplant or Left Ventricular Assistive Device?: No IF YES, STOP HERE Heart Failure (Qualifier) Patient has current or prior documentation of LVEF less than or equal to 40%, or mod/servere depressed LVSF?: No IF NO, STOP HERE
== END 2024-08-12 15:55 | disposition home or self-care (01) | DRG 854 ==
LOC: ANHED 23:56 → ANH3MEDSUR 08-08 00:38
PROVIDERS: Nurse Practitioner Family; Physician Assistant; Urology; Admitting Provider Internal Medicine; Emergency Provider Emergency Medicine; PCP Family Medicine; Visit Provider Nurse Practitioner Adult Health
PROC: BT1FYZZ Fluoroscopy of Left Kidney, Ureter and Bladder using Other Contrast (ICD-10-PCS; CPT 52352; principal; 2024-08-08 09:00)
DX: A41.59 Other Gram-negative sepsis (principal); E87.1 Hypo-osmolality and hyponatremia; N13.6 Pyonephrosis; N17.9 Acute kidney failure, unspecified; R65.20 Severe sepsis without septic shock; E87.6 Hypokalemia; J44.9 Chronic obstructive pulmonary disease, unspecified; D69.6 Thrombocytopenia, unspecified; E55.9 Vitamin D deficiency, unspecified; E78.5 Hyperlipidemia, unspecified; K21.9 Gastro-esophageal reflux disease without esophagitis; K58.9 Irritable bowel syndrome, unspecified; M81.0 Age-related osteoporosis without current pathological fracture; F41.9 Anxiety disorder, unspecified; F32.A Depression, unspecified; F17.210 Nicotine dependence, cigarettes, uncomplicated; Z20.822 Contact with and (suspected) exposure to COVID-19; Z87.11 Personal history of peptic ulcer disease
CPT/HCPCS: 36415; 71045; 71046; 74176; 74420; 80053; 81001; 82607; 82747; 83605; 85025; 85055; 85610; 85730; 87040; 87086; 87186; 87637; 96361; 96374; 99285; A9270; C1758; C1769; C2617; G0378; J2003; J2175; J2185; J2250; J2405; J2704; J3010; J7030; J7120; Q9966

== ENCOUNTER 2024-08-25 09:49 | Outpatient (CLI) | payer MEDICARE, OTHER, SELFPAY ==
--- OUTSIDE RECORDS SUMMARY | 2024-08-27 17:04 | XMS_ITS | Continuity of Care Document ---
Author Organization [facility] Address [address] [place] [address] [address] [place] [address] Phone Care Team Providers Care Field Training Manager Name Role Phone Ольга Forman Unavailable Unavailable Procedures Procedure Date Eye Exam Established Pt Advance Directives Directive Yes / No Effective Date File Name No Information Encounters Encounter Description Practice Location Reason(s) For Visit Diagnoses Date Provider Providers Copied on Encounter [facility], [address] [place] [address] [address], [place], [place], [id number], [place] tel:[phone] [facility] No Information [id number] [place] , [address], [place], [address], [place]. tel:[phone] Family History Family Member Type Diagnosis Age At Onset No Information Payers Payer name Insurance type Covered constitution party ID Authoriza tion(s) No Information Social History Type Description Quantity Date Captured Comments Sex Female Smoking Status No Information Chief Complaint And Reason For Visit No Information Reason For Referral Reason For Referral No Information History Of Present Illness Encounter Date Complaint History Of Prese nt Illness No Information Functional Status Date Functional Assessmen t No Information Instructions Date Instruction Additional Infor mation No Information Assessments Type Assessment Date No Information Patient Care Teams Name Effective Dates (start - stop) Status Members No Information
--- OUTSIDE RECORDS SUMMARY | 2024-08-27 17:04 | XMS_ITS | Referral Summary ---
Author Organization [facility] [place] [address] Address [address] [place] [address] Care Team Providers Care Digital Marketing Manager Name Role Phone Robin Melendez MD Primary Care Provider Abilio Osorio MD Unavailable [phone] Encounters Date Type Department Care Team Description 08/17/2024 Orders Only [facility] at [address] [place] [address] Jazmin Stephens NP 08/17/2024 Telephone [facility] at [address] [place] [address] Janie Preston, WIL 08/07/2024 Telephone [facility] at [address] [place] [address] Abilio Osorio MD Canceled Surgery 07/27/2024 Telephone [facility] at [address] [place] [address] Veronika Vo, WIL 07/08/2024 Telephone [facility] at [address] [place] [address] Abilio Osorio MD Scheduled Surgery 07/08/2024 10:45 AM EMERGENCY CARE ATTENDANT Office Visit [facility] at [facility] [address] [facility] [address] [place] [address] Abilio Osorio MD Anal fissure (Primary Dx) from Last 3 Months Allergies Active Allergy Reactions Criticality Noted Date Comments Cephalosporins Unknown 04/06/2021 Ciprofloxacin Nausea only Low 07/21/2024 Codeine Unknown 04/06/2021 Corticosteroids (Glucocorticoids) Unknown 04/06/2021 Doxycycline Other (See comments) Low 07/21/2024 Abdominal pain Erythromycin Unknown 04/06/2021 Cephalexin Unknown 04/06/2021 Cephalexin Hcl Unknown 04/06/2021 Naproxen Unknown 04/06/2021 Nsaids (Non-Steroidal Anti-Inflammatory Drug) Unknown 03/31/2021 Medications famotidine (PEPCID) 20 mg tablet 1 Active Cholestyramine Light 4 gram powder 1 Active LORazepam (ATIVAN) 0.5 mg tablet 1 1 Active traMADoL (ULTRAM) 50 mg tablet Take 1 tablet (50 mg total) by mouth every 8 (eight) hours 1 Active acetaminophen (TYLENOL) 325 mg tablet Take 2 tablets (650 mg total) by mouth every 6 (six) hours as needed for pain Active [id number] -Lmfolate-algal 27 mg iron-1.13 mg-581.92 mg capsule Take by mouth Active wheat dextrin 3 gram/3.8 gram powder Take by mouth Active cholecalciferol (VITAMIN D-3) 2000 unit tablet Active liver oil-zinc oxide (DESITIN) ointment Apply topically as needed for irritation Active magnesium oxide (MAG-OX) 250 mg (150.8 mg elemental) tabletIndicatio ns:hypomagnesem ia 1 tablet (250 mg total) daily as needed Active cream base no.171, bulk, (CompoundMax Base) cream 1 application (deactivated) by Perianal route 3 (three) times a day 60 g 5 Active Active Problems Problem Noted Date Diagnosed Date Anal fissure 07/08/2024 Abnormal stress test 03/31/2021 Tobacco abuse 03/31/2021 Immunizations Name Administration Dates Next Due Influenza, Quadrivalent, Split, Intramuscular Pneumococcal Conjugate PCV 13 01/13/2020 Pneumococcal Polysaccharide PPV23 01/28/2021, Tdap 04/11/2012 Social History Tobacco Use Types Packs/Day Years Used Date Smoking Tobacco: Every Day Cigarettes 0.5 52.1 Started: 1972 Passive Smoke Exposure: Current Smokeless Tobacco: Never Tobacco Cessation:Ready to Q uit: Not Asked; Counseling Given: Not Answered AUDIT-C Answer Date Recorded Q1: How often do you have a drink containing alcohol? Never 04/13/2024 Q2: How many drinks containi ng alcohol do you have on a typical day when you are drinking? Patient does not drink Q3: How often do you have si x or more drinks on one occasion? Never 04/13/2024 Comments No Sex and Gender Information Value Date Recorded Sex Assigned at Not on file Legal Sex Female 12:47 AM EMERGENCY CARE ATTENDANT Gender Identity Not on file Sexual Orientation Not on file Last Filed Vital Signs Vital Sign Reading Time Taken Comments Blood Pressure 115/70 07/08/2024 10:49 AM EMERGENCY CARE ATTENDANT Pulse 69 07/08/2024 10:49 AM EMERGENCY CARE ATTENDANT Temperature 37.1 ??C (98.8 ??F) 04/13/2024 12:20 PM C DT Respiratory Rate 20 04/08/2022 8:20 AM CDT Oxygen Saturation 94% 07/08/2024 10:49 AM EMERGENCY CARE ATTENDANT Inhaled Oxygen Concentration - - Weight 54.4 kg (120 lb) 07/21/2024 9:10 AM EMERGENCY CARE ATTENDANT Height 157.5 cm (5' 2 ) 07/21/2024 9:10 AM EMERGENCY CARE ATTENDANT Body Mass Index 21.95 07/21/2024 9:10 AM EMERGENCY CARE ATTENDANT Plan of Treatment Not on file Insurance MEDICARE [facility] MEDICARE [facility] MEDICARE [facility] Care Teams Digital Marketing Manager Relationship Specialty Start Date End Date Robin Melendez MD PCP - General 11/19/18 Abilio Osorio MD [address] [address] [address] [place] [address] Surgeon General Surgery 07/01/24
--- OUTSIDE RECORDS SUMMARY | 2024-08-27 17:04 | XMS_ITS | Clinical Summary ---
Author Organization [facility] [place] [address] Address [address] [place] [address] Care Team Providers Care Diesel Technology Instructor Name Role Phone Robin Melendez MD Primary Care Provider Abilio Osorio MD Unavailable [phone] Allergies Active Allergy Reactions Criticality Noted Date [...] (six) hours as needed for pain Active [id number] -Lmfolate-algal 27 mg iron-1.13 mg-581.92 mg capsule [...] 3 (three) times a day 60 g Active Active Problems Problem Noted Date Diagnosed Date Anal fissure 07/08/2024 Abnormal stress test 03/31/2021 Tobacco abuse 03/31/2021 Encounters Date Type Department Care Team Description 08/17/2024 Orders Only [facility] at [address] [place] [phone] Jazmin Stephens NP 08/17/2024 Telephone [facility] [address] [address] [place] [address] Janie Preston, WIL 08/07/2024 Telephone [facility] [address] [place] [phone] Abilio Osorio MD Canceled Surgery 07/27/2024 Telephone [facility] at [address] [address] [address] [place] [phone] Veronika Vo, WIL 07/08/2024 10:45 AM MACHINE HEDDLE CLEANER Office Visit [facility] at [address] [place] [phone] Abilio Osorio MD Anal fissure (Primary Dx) 07/08/2024 Telephone [facility] at [address] [address] [address] [place] [address] Abilio Osorio MD Scheduled Surgery from Last 3 Months Immunizations Name Administration Dates Next Due Influenza, Quadrivalent, Split, Intramuscular Pneumococcal Conjugate PCV 13 01/13/2020 Pneumococcal Polysaccharide PPV23 01/28/2021, Tdap 04/11/2012 Surgical History Surgery Date Site/Laterality Comments TOTAL ABDOMINAL HYSTERECTOMY W/ BILATERAL SALPINGOOPHORECTOMY CHOLECYSTECTOMY HIP SURGERY Right COLONOSCOPY ESOPHAGOGASTRODUODENOSCOPY Medical History Medical History Date Comments Acid indigestion Pneumonia Cataract Anxiety and depression Family History Medical History Relation Name Comments Heart attack Brother 1 Hypertension Brother 2 Heart disease Father Heart disease Mother Skin cancer Mother Relation Name Status Comments Brother 1 Alive Brother 2 Alive Father (Age 90) Mother Alive Social History Tobacco Use Types Packs/Day Years [...] on file Legal Sex Female 12:47 AM MACHINE HEDDLE CLEANER Gender Identity Not on file Sexual Orientation Not on file Obstetrics History Last Filed Vital Signs Vital Sign Reading Time Taken Comments Blood Pressure 115/70 07/08/2024 10:49 AM MACHINE HEDDLE CLEANER Pulse 69 07/08/2024 10:49 AM MACHINE HEDDLE CLEANER Temperature 37.1 ??C (98.8 ??F) 04/13/2024 12:20 PM C DT Respiratory Rate 20 04/08/2022 8:20 AM CDT Oxygen Saturation 94% 07/08/2024 10:49 AM MACHINE HEDDLE CLEANER Inhaled Oxygen Concentration - - Weight 54.4 kg (120 lb) 07/21/2024 9:10 AM MACHINE HEDDLE CLEANER Height 157.5 cm (5' 2 ) 07/21/2024 9:10 AM MACHINE HEDDLE CLEANER Body Mass Index 21.95 07/21/2024 9:10 AM MACHINE HEDDLE CLEANER Plan of Treatment Health Maintenance Due Date Last Done Comments Breast Cancer Screening-Mammogram 1954 Colon Cancer Screening-Colonoscopy 1954 Depression Screening 1954 Fall Risk Assessment 1954 Hepatitis C Screening 1954 Osteoporosis Screening-Bone Density Scan 1954 Hepatitis B Screening 1972 Lung Cancer Screening 2004 Zoster Vaccine (1 of 2) 2004 Well Visit 65+ 2019 DTaP/Tdap/Td Vaccine (2 - Td or Tdap) 04/11/202202/2012 Covid-19 Vaccine (3 - season) 2024, 09/17/2020 Influenza Vaccine (#1) 2024 05/23/2018 Pneumococcal vaccine 65+ Completed 021, 01/13/2020, 05/23/2016 Insurance MEDICARE [facility] [place] [id number] MEDICARE [place] [facility] [place] MEDICARE [facility] [address] Care Teams Diesel Technology Instructor Relationship Specialty Start Date End Date Robin Melendez MD PCP - General 11/19/18 Abilio Osorio MD [address] [facility] [address] [facility] 2 [place] [address] Surgeon General Surgery 07/01/24
== END 2024-08-25 09:50 | disposition home or self-care (01) ==
PROVIDERS: PCP Family Medicine; Visit Provider Urology
DX: N20.1 Calculus of ureter (principal)
CPT/HCPCS: 87086

== ENCOUNTER 2024-10-06 13:25 | Inpatient (IN) | payer MEDICARE, OTHER, SELFPAY ==
[2024-10-06] VITALS (17 sets, daily range): BP systolic 112–151; BP diastolic 56–82; PULSE 97–124; RESP 18–38; TEMP 36.6–37.2; O2SAT 90–100; BMI 20.3
--- NOTE | ~2024-10-06 | XR_ITS ---
EXAMINATION: XR chest 1V portable DATE: 10/06/2024 14:50 INDICATION: Acute bronchitis. TECHNIQUE: A single frontal view of the chest was obtained. COMPARISON: Chest single view 08/07/2024 FINDINGS: There are airspace opacities in left upper lobe. No pleural effusion or pneumothorax. The h eart size is normal. IMPRESSION: 1. New airspace opacities in left upper lobe, consistent with pneumonia. Reviewed, dictated and finalized at location A. EATIONAL PROGRAMS DIRECTOR
--- NOTE | ~2024-10-06 | CT_ITS ---
Clinical Indication: Tachycardia, shortness of breath CT Scan of the Chest with Contrast: Technique: Contiguous sections were acquired throughout the chest after intravenous administration of 100 cc of Omnipaque 350. Dose reduction technique was used on this scan by utilizing automated expos ure control and iterative reconstruction technique. The dose-length product (DLP) was 148.64 mGy-cm. Findings: There is no evidence of any significant mediastinal, hilar or axillary lymphadenopathy. There is no f illing defect in the pulmonary arterial tree to suggest pulmonary embolus. There is no evidence of ao rtic dissection or aneurysm. There is no evidence of pleural or pericardial effusion. There is extensive left upper lobe consolidation, compatible with pneumonia. There is minimal patchy groundglass opacity in the inferior right upper lobe.. Images through the upper abdomen reveal no abnormalities. Impression: No evidence of pulmonary embolus, aortic dissection, or aortic aneurysm. Extensive left upper lobe pneumonia. Probable minimal involvement in the inferior right upper lobe. Reviewed, dictated and finalized at [facility]. TION SPECIALIST Impression: No evidence of pulmonary embolus, aortic dissection, or aortic aneurysm. Extensive left upper lobe pneumonia. Probable minimal involvement in the inferi or right upper lobe.
--- NOTE | ~2024-10-06 | XR_ITS ---
EXAMINATION: XR chest 1V portable DATE: 10/09/2024 10:43 INDICATION: Shortness of breath. TECHNIQUE: A single frontal view of the chest was obtained. COMPARISON: Chest single view 10/06/2024, chest CT 10/07/2024 FINDINGS: There are airspace opacities in all left lung zones, worst in the left mid and lower upper lung zones with a small area of cavitation. There are mild airspace opacities in right midlung zone. No pleural effusion or pneumothorax. The heart size is normal. IMPRESSION: 1. Worsened necrotizing pneumonia in left lung. Mild pneumonia in right midlung zone. Reviewed, dictated and finalized at location A. INSTRUCTOR
--- NOTE | 2024-10-06 13:29 | ECG_ITS ---
Test Date: 2024-10-06 13:34:25 Measurements Intervals [place] Rate: 107 P: 40 GA: 128 QRS: 58 QRSD: 64 T: 66 QT: 304 QTc: 406 Interpretive Statements SINUS TACHYCARDIA ANTEROSEPTAL MYOCARDIAL INFARCTION , OF INDETERMINATE AGE [40+ ms Q WAVE IN V1-V4] No previous ECG available for comparison Electronically Signed On 10-07-2024 11:05:49 [employer] by Zack Patton M.D.
[2024-10-06 13:57] LABS: Basophils Absolute Auto 0.1 K/mm3 (0.0-0.1); Basophils Percent Auto 0.3 % (0.2-1.2); Eosinophils Absolute Auto 0.1 K/mm3 (0-0.3); Eosinophils Percent Auto 0.5 % (0-4.4); Hematocrit 40.5 % (37.0-47.0); Hemoglobin 13.8 g/dL (12.0-15.0); Immature Granulocyte Absolute 0.31 K/mm3 (0.00-0.031); Immature Granulocyte Percent A 1.5 % (0-0.5); Lymphocytes Absolute Auto 0.94 K/mm3 (0.9-3.2); Lymphocytes Percent Auto 4.6 % (18.3-44.2); Mean Corpuscular HGB Conc 34.1 g/dl (32-36); Mean Corpuscular Hemoglobin 31.4 pg (26-34); Monocytes Absolute Auto 1.4 K/mm3 (0.1-0.6); Monocytes Percent Auto 6.9 % (2.6-8.5); Neutrophils Absolute Auto 17.8 K/mm3 (1.3-6.7); Neutrophils Percent Auto 86.2 % (45.5-73.1); Platelet Count Result 231 k/mm3 (150-375); Red Cell Distribution Width 12.6 % (11.5-14.5); White Blood Count 20.6 K/mm3 (4.5-10.0)
--- NOTE | 2024-10-06 14:14 | ED.URI ---
HPI - URI/Sore Throat General Chief Complaint: Upper Respiratory Infection Stated Complaint: I'm sick Time Seen by Provider: 10/06/24 14:09 History of Present Illness HPI Narrative: For the past week patient has felt sick; short of breath, loss of appetite. Slight chest tightness, unsure if anxiety. Tried tylenol at home. Finally came in because her brother told her to. Does smoke cigarettes. Related Data Home Medications ?Medication ?Instructions ?Recorded ?Confirmed ?Last Taken ?Type acetaminophen 500 mg tablet 1,000 mg PO Q6H PRN Pain 05/05/20 08/24/24 08/07/24 History (Tylenol Extra Strength) multivitamin 1 tablet PO DAILY 07/10/21 08/31/24 08/26/24 History magnesium 250 mg tablet 250 mg PO DAILY 07/16/22 08/31/24 08/26/24 History cholestyramine-aspartame 4 gram 4 g PO DAILY 08/08/24 08/31/24 08/30/24 History oral powder (Prevalite) cholecalciferol (vitamin D3) 25 25 mcg PO DAILY 08/24/24 08/31/24 08/27/24 History mcg (1,000 unit) capsule DILTIAZEM AND LODOCAINE 2 topical TID RECTAL PAIN 08/31/24 08/30/24 History Allergies Allergy/AdvReac Type Severity Reaction Status Date / Time Sulfa (Sulfonamide Allergy Unknown Unknown Verified 10/06/24 14:43 Antibiotics) erythromycin base AdvReac Severe Headache Verified 10/06/24 14:43 methylprednisolone AdvReac Severe JITTERY Verified 10/06/24 14:43 ciprofloxacin AdvReac Intermediate Nausea and Verified 10/06/24 14:43 Vomiting morphine AdvReac Mild SEVERE Verified 10/06/24 14:43 NAUSEA cephalexin AdvReac Unknown Nausea Verified 10/06/24 14:43 Cephalosporins AdvReac Unknown GI UPSET Verified 10/06/24 14:43 clavulanic acid AdvReac Unknown GI UPSET Verified 10/06/24 14:43 codeine AdvReac Unknown Nausea Verified 10/06/24 14:43 hydrocodone AdvReac Unknown GI UPSET Verified 10/06/24 14:43 naproxen AdvReac Unknown Nausea Verified 10/06/24 14:43 NSAIDS (Non-Steroidal AdvReac Unknown GI UPSET, Verified 10/06/24 14:43 Anti-Inflamma PEPTIC ULCER doxycycline AdvReac Headache Verified 10/06/24 14:43 BETALACTAMASEIN Allergy Unknown GI UPSET Uncoded 10/06/24 14:43 Review of Systems Review of Systems: All systems reviewed & are unremarkable except as noted in HPI and below [facility] Past Medical History Medical History Kidney stones Bacterial vaginosis Osteoporosis Vitamin D deficiency Anal fissure, unspecified Depression with anxiety Tobacco abuse Irritable bowel syndrome Dyslipidemia GERD (gastroesophageal reflux disease) History of shingles Chicken pox Measles Duodenitis Gastric ulcer Surgical History Surgical History Status post cataract extraction of both eyes with insertion of intraocular lens History of hip surgery (~1967) 1967 - for right hip dislocation Hx laparoscopic cholecystectomy (~2005) S/P ALIDA-BSO (total abdominal hysterectomy and bilateral salpingo-oophorectomy) (~2004) Family History Family History Mother Family history of atrial fibrillation Hypertension Sibling Family history of atrial fibrillation Hypertension Father Macular degeneration Other Family history of hearing loss Skin cancer Social History Social History Social History: The patient is and lives alone. She does not have any children. She has smoked up to a pack of cigarettes per day at her heaviest but is been smoking 0.5 packs per day for the last 8-10 years. She denies any significant alcohol use history and has had absolutely no alcohol use in the last 10 years or so. She denies any history of illicit substance use. 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 Code status: Full code Surrogate decision maker: Dr. Tima Gomez (brother) Smoking packs per day: 0.5 Smoking cigarettes per day: 10.0 Years smoked: 50 Smoking pack-years: 25.00 Smoking status: Current every day smoker Tobacco type: cigarettes Additional smoking assessment comments: SMOKES 1/2 PACK/DAY CURRENTLY Alcohol intake: never Substance use: never Substance use type: does not use Do You Feel Safe in your Home?: Yes Lack of Transportation: No Lack of Food: Never True Current Housing: I Have Housing Concerned About Future Housing: No Difficulty Paying Gas/Electric Bills: No Difficulty Paying for Meds: No Currently Unemployed: No Education: Trade/Vocational Certificate Difficulty w/ Childcare or Family Care: No Living arrangements: alone Occupation/Education: retired Gender identity (if verbalized by the patient): Female Sexual Orientation (if Verbalized by the Patient): Straight or Heterosexual Spiritual care concerns: No Agree to blood products: Yes Exam Narrative: EXAMINATION OF ORGAN SYSTEMS/BODY AREAS: Constitutional: Vital signs per nursing GENERAL: Appears anxious HEAD: Normal with no signs of head trauma. EYES: EOMI, conjunctiva normal ENT: Hearing grossly intact LUNGS: Wheezing all lung varela HEART: Slightly tachycardic ABD: [Soft], [nontender to palpation] EXT: Normal range of motion SKIN: [No rashes or lesions.] NEURO: [Alert and oriented x 3. No gross focal sensory or strength deficits.] PSYCH: Normal affect Course Vital Signs Vital signs: Vital Signs Temperature 99 F 10/06/24 13:26 Pulse Rate 113 H 10/06/24 13:26 Respiratory Rate 18 10/06/24 13:26 Blood Pressure 151/82 H 10/06/24 13:26 Pulse Oximetry 92 10/06/24 13:26 Oxygen Delivery Room Air 10/06/24 13:26 Temperature 98.0 F 10/06/24 16:28 Pulse Rate 110 H 10/06/24 16:28 Respiratory Rate 20 10/06/24 16:28 Blood Pressure 129/77 10/06/24 16:28 Pulse Oximetry 94 10/06/24 16:28 Oxygen Delivery Nasal Cannula 10/06/24 14:34 Oxygen Flow Rate 2 10/06/24 14:34 MDM - URI/Sore Throat MDM Narrative Medical decision making narrative: 1) Differential diagnosis: pneumonia, COPD, viral syndrome, ACS 2) Comorbidities: Anxiety, smoking 3) External notes reviewed: PCP notes 4) History sources independently obtained from: 5) Discussion of management with: Hospitalist 6) Independent interpretation of: EKG shows sinus tachycardia rate 107, normal IL, QRS, QTC intervals, normal axis, no obvious ST elevations depressions or signs of acute ischemia or arrhythmia Chest x-ray my independent interpretation does show some slight consolidation to the left lung 7) Diagnostic tests or therapies considered but not ordered: 8) Social determinants of health: 9) Shared decision making: Patient presenting here with shortness of breath and cough and generalized fatigue, on exam she does appear slightly anxious, minimally tachycardic, wheezing all lung varela. I suspect likely acute bronchitis, started on breathing treatments, infectious workup initiated. She does have a pneumonia, given her extensive and numerous allergies, will put her on amoxicillin and azithromycin. She has required 2 L of oxygen here so will be admitted, patient agreeable to this plan. Discussed with hospitalist for admission. Sepsis workup initiated including 30 cc/kg fluids. Lab Data 10/06/24 13:43 10/06/24 13:43 Labs: Lab Results 10/06/24 10/06/24 10/06/24 Range/Units 13:42 13:43 15:34 WBC 20.6 H (4.5-10.0) K/mm3 RBC 4.40 (4.2-5.4) M/mm3 Hgb 13.8 (12.0-15.0) g/dL Hct 40.5 (37.0-47.0) % MCV 92.0 (80-100) fl MCH 31.4 (26-34) pg MCHC 34.1 (32-36) g/dl RDW 12.6 (11.5-14.5) % Plt Count 231 D (150-375) k/mm3 MPV 10.0 (7.4-10.4) fl Immature Gran % (Auto) 1.5 H (0-0.5) % Neut % (Auto) 86.2 H (45.5-73.1) % Lymph % (Auto) 4.6 L (18.3-44.2) % [place] % (Auto) 6.9 (2.6-8.5) % Eos % (Auto) 0.5 (0-4.4) % Baso % (Auto) 0.3 (0.2-1.2) % Lymph # (Auto) 0.94 (0.9-3.2) K/mm3 [place] # (Auto) 1.4 H (0.1-0.6) K/mm3 Eos # (Auto) 0.1 (0-0.3) K/mm3 Baso # (Auto) 0.1 (0.0-0.1) K/mm3 Abs Immat Gran (auto) 0.31 H (0.00-0.031) K/mm3 Absolute Neuts (auto) 17.8 H (1.3-6.7) K/mm3 Absolute Nucleated RBC 0.000 (0.0-0.012) K/mm3 Nucleated RBC % 0.0 (0.0-0.2) % Sodium 134 L (137-145) mmol/L Potassium 3.8 (3.4-5.0) mmol/L Chloride 96 L (98-107) mmol/L Carbon Dioxide 27 (22-30) mmol/L Anion Gap 11 (4-12) mmol/L BUN 10 (7-17) mg/dL Creatinine 0.55 L (0.7-1.0) mg/dL Estim Creat Clear Calc 63 ml/min Estimated GFR > 60 (59 - ) Glucose 120 H (65-110) mg/dL Lactic Acid 1.6 (0.7-2.0) mmol/L Calcium 8.9 (8.4-10.2) mg/dL Magnesium 2.2 (1.6-2.3) mg/dL Total Bilirubin 1.2 (0.2-1.3) mg/dL AST 33 (14-36) U/L ALT 34 (6-35) U/L Alkaline Phosphatase 100 (38-126) U/L Total Protein 8.0 (6.3-8.2) g/dL Albumin 4.3 (3.5-5.1) g/dL TSH Pending Influenza A (RT-PCR) Negative (Negative) Influenza B (RT-PCR) Negative (Negative) RSV (RT-PCR) Negative (Negative) SARS-CoV-2 RNA (RT-PCR) Negative (Negative) Discharge Plan Discharge Clinical Impression: Acute exacerbation of chronic obstructive pulmonary disease (COPD), Acute hypoxic respiratory failure, Pneumonia Sepsis Qualifiers: Sepsis type: sepsis due to unspecified organism Sepsis acute organ dysfunction status: with acute organ dysfunction Severe sepsis acute organ dysfunction type: acute renal failure Acute renal failure type: unspecified Severe sepsis shock status: without septic shock Qualified Code(s): A41.9 - Sepsis, unspecified organism Patient Disposition: Still a Patient Condition: Serious
[2024-10-06 14:18] LABS: Alanine Aminotransferase 34 U/L (6-35); Albumin Level 4.3 g/dL (3.5-5.1); Alkaline Phosphatase 100 U/L (38-126); Anion Gap 11 mmol/L (4-12); Aspartate Amino Transferase 33 U/L (14-36); Bilirubin,Total 1.2 mg/dL (0.2-1.3); Blood Urea Nitrogen 10 mg/dL (7-17); Calcium 8.9 mg/dL (8.4-10.2); Carbon Dioxide 27 mmol/L (22-30); Chloride 96 mmol/L (98-107); Estimated CRCL calculation 63 ml/min; Estimated Glomerular Filt Rate > 60; Glucose 120 mg/dL (65-110); Potassium 3.8 mmol/L (3.4-5.0); Sodium 134 mmol/L (137-145)
[2024-10-06 14:31] LABS: Influenza A QL RT-PCR Negative (Negative); Influenza B QL RT-PCR Negative (Negative); RSV RNA, RT-PCR Negative (Negative); SARS-CoV-2 RNA PCR Negative (Negative)
[2024-10-06] MEDS: ALBUTEROL SULFATE NEB 2.5 MG/3 ML INH 15 MG INHALATION (14:32)
[2024-10-06] MEDS: IPRATROPIUM BR 0.02% INH SOLN 0.5 MG/2.5 ML VIAL 1 MG INHALATION (14:32)
--- OUTSIDE RECORDS SUMMARY | 2024-10-06 15:22 | XMS_ITS | Clinical Summary ---
Author Organization [facility] [place] [address] Address [address] [place] [address] Care Team Providers Care Operations Specialists Name Role Phone Robin Melendez MD Primary Care Provider Abilio Osorio MD Unavailable [phone] Allergies Active Allergy Reactions Criticality Noted Date Comments Cephalosporins Unknown 04/06/2021 Ciprofloxacin Nausea only Low 07/21/2024 Codeine Unknown 04/06/2021 Corticosteroids (Glucocorticoids) Unknown 04/06/2021 Doxycycline Other (See comments) Low 07/21/2024 Abdominal pain Erythromycin Unknown 04/06/2021 Cephalexin Unknown 04/06/2021 Cephalexin Hcl Unknown 04/06/2021 Naproxen Unknown 04/06/2021 Nsaids (Non-Steroidal Anti-Inflammatory Drug) Unknown 03/31/2021 Medications famotidine (PEPCID) 20 mg tablet 2 (two) times a day 1 Active Cholestyramine Light 4 gram powder 1 Active LORazepam (ATIVAN) 0.5 mg tablet 1 1 Active traMADoL (ULTRAM) 50 mg tablet Take 1 tablet (50 mg total) by mouth every 8 (eight) hours 1 Active acetaminophen (TYLENOL) 325 mg tablet Take 2 tablets (650 mg total) by mouth every 6 (six) hours as needed for pain Active [id number] -Lmfolate-algal 27 mg iron-1.13 mg-581.92 mg capsule [...] Encounters Date Type Department Care Team Description 09/22/2024 Telephone [facility] at [address] [address] [address] [place] [address] Veronika Edward RN 09/11/2024 Telephone [facility] [address] [address] [address] [place] [address] Abilio Osorio MD Rescheduled Surgery 08/17/2024 Orders Only [facility] at [address] [address] [address] [place] [phone] Jazmin Stephens NP 08/17/2024 Telephone [facility] [address] [address] [address] [place] [address] Janie Preston RN 08/07/2024 Telephone [facility] [address] [address] [address] [place] [address] Abilio Osorio MD Canceled Surgery 07/27/2024 Telephone [facility] [address] [address] [address] [place] [address] Veronika Edward RN 07/08/2024 10:45 AM SENIOR CONSTRUCTION MANAGER Office Visit [facility] at [address] [place] [address] Abilio Osorio MD Anal fissure (Primary Dx) 07/08/2024 Telephone [facility] at [address] [place] [address] Abilio Osorio MD Scheduled Surgery from Last 3 Months Immunizations Immunization Administration Dates Next Due Influenza, Quadrivalent, Split, Intramuscular Pneumococcal Conjugate PCV 13 01/13/2020 Pneumococcal Polysaccharide PPV23 01/28/2021, Tdap 04/11/2012 Surgical History Surgery Date Site/Laterality Comments TOTAL ABDOMINAL HYSTERECTOMY W/ BILATERAL SALPINGOOPHORECTOMY CHOLECYSTECTOMY HIP SURGERY Right COLONOSCOPY ESOPHAGOGASTRODUODENOSCOPY CYSTOSCOPY INSERTION / REMOVAL STENT / STONE Medical History Medical History Date Comments Acid indigestion Pneumonia Cataract Anxiety and depression Kidney stone Family History Medical History Relation Name Comments Heart attack Brother 1 Hypertension Brother 2 Heart disease Father Heart disease Mother Skin cancer Mother Relation Name Status Comments Brother 1 Alive Brother 2 Alive Father (Age 90) Mother Alive Social History Tobacco Use Types Packs/Day Years Used Date Smoking Tobacco: Every Day Cigarettes 0.5 52.2 Started: 1972 Passive Smoke Exposure: Current Smokeless Tobacco: Never Tobacco Cessation:Ready to Q uit: Not Asked; Counseling Given: Not Answered AUDIT-C Answer Date Recorded Q1: How often do you have a drink containing alcohol? Never 09/14/2024 Q2: How many drinks containi ng alcohol do you have on a typical day when you are drinking? Patient does not drink Q3: How often do you have si x or more drinks on one occasion? Never 09/14/2024 Comments No Sex and Gender Information Value Date Recorded Sex Assigned at Not on file Legal Sex Female 12:47 AM SENIOR CONSTRUCTION MANAGER Gender Identity Not on file Sexual Orientation Not on file Obstetrics History Last Filed Vital Signs Vital Sign Reading Time Taken Comments Blood Pressure 115/70 07/08/2024 10:49 AM SENIOR CONSTRUCTION MANAGER Pulse 69 07/08/2024 10:49 AM SENIOR CONSTRUCTION MANAGER Temperature 37.1 C (98.8 F) 04/13/2024 12:20 PM CDT Respiratory Rate 20 04/08/2022 8:20 AM CDT Oxygen Saturation 94% 07/08/2024 10:49 AM SENIOR CONSTRUCTION MANAGER Inhaled Oxygen Concentration - - Weight 52.6 kg (116 lb) 09/14/2024 10:05 AM SENIOR CONSTRUCTION MANAGER Height 157.5 cm (5' 2 ) 09/14/2024 10:05 AM SENIOR CONSTRUCTION MANAGER Body Mass Index 21.22 09/14/2024 10:05 AM SENIOR CONSTRUCTION MANAGER Plan of Treatment Health Maintenance Due Date [...] 65+ Completed 021, 01/13/2020, 05/23/2016 Insurance MEDICARE [facility] MEDICARE [facility] MEDICARE [employer] [facility] Care Teams Operations Specialists Relationship Specialty Start Date End Date Robin Melendez MD PCP - General 11/19/18 Abilio Osorio MD [address] [facility] [address] [place] [address] Surgeon General Surgery 07/01/24
--- OUTSIDE RECORDS SUMMARY | 2024-10-06 15:22 | XMS_ITS | Referral Summary ---
Author Organization [facility] [address] Address [address] [place] [address] Care Team Providers Care Wilton Weaver Name Role Phone Robin Melnedez MD Primary Care Provider Abilio Osorio MD Unavailable Encounters Date Type Department Care Team Description 09/22/2024 Telephone [facility] at [address] [place] [address] Veronika Edward, RN 09/11/2024 Telephone [facility] at [address] [place] [address] Abilio Osorio MD Rescheduled Surgery 08/17/2024 Orders Only [facility] at [address] [place] [address] Jazmin Stephens NP 08/17/2024 Telephone [facility] at [address] [place] [address] Janie Preston, WIL 08/07/2024 Telephone [facility] at [address] [place] [address] Abilio Osorio MD Canceled Surgery 07/27/2024 Telephone [facility] at [address] [place] [address] Veronika Edward RN 07/08/2024 Telephone [facility] at [address] [place] [address] Abiilo Osorio MD Scheduled Surgery 07/08/2024 10:45 AM COFFEE SUPERVISOR Office Visit [facility] at [address] [place] [address] Abilio Osorio MD Anal fissure (Primary Dx) [...] (six) hours as needed for pain Active [id number] -Lmfolate-algal 27 mg iron-1.13 mg-581.92 mg capsule [...] stress test 03/31/2021 Tobacco abuse 03/31/2021 Immunizations Immunization Administration Dates Next Due Influenza, [...] on file Legal Sex Female 12:47 AM COFFEE SUPERVISOR Gender Identity Not on file Sexual Orientation Not on file Last Filed Vital Signs Vital Sign Reading Time Taken Comments Blood Pressure 115/70 07/08/2024 10:49 AM COFFEE SUPERVISOR Pulse 69 07/08/2024 10:49 AM COFFEE SUPERVISOR Temperature 37.1 C (98.8 F) 04/13/2024 12:20 PM CDT Respiratory Rate 20 04/08/2022 8:20 AM CDT Oxygen Saturation 94% 07/08/2024 10:49 AM COFFEE SUPERVISOR Inhaled Oxygen Concentration - - Weight 52.6 kg (116 lb) 09/14/2024 10:05 AM COFFEE SUPERVISOR Height 157.5 cm (5' 2 ) 09/14/2024 10:05 AM COFFEE SUPERVISOR Body Mass Index 21.22 09/14/2024 10:05 AM COFFEE SUPERVISOR Plan of Treatment Not on file Insurance MEDICARE [facility] MEDICARE [facility] MEDICARE [facility] Care Teams Wilton Weaver Relationship Specialty Start Date End Date Robin Melendez MD PCP - General 11/19/18 Abilio Osorio MD 70 [facility] [address] [place] [address] Surgeon General Surgery 07/01/24
--- OUTSIDE RECORDS SUMMARY | 2024-10-06 15:22 | XMS_ITS | Continuity of Care Document ---
Author Organization [facility] Address [address] [place] [address] [address] [place] [address] Phone Care Team Providers Care Education Rep Name Role Phone Ольга Forman Unavailable Unavailable Procedures Procedure Date Eye Exam Established Pt Advance Directives Directive Yes / No Effective Date File Name No Information Encounters Encounter Description Practice Location Reason(s) For Visit Diagnoses Date Provider Providers Copied on Encounter [facility], [address] [place] [address] [address], [place], [place], [id number], [place] tel:[phone] [facility] No Information [address] [place] , [address], [place], [address], [place]. tel:[phone] Family History Family Member Type Diagnosis Age At Onset No Information Payers Payer name Insurance type Covered alliance party ID Authoriza tion(s) No Information Social [...]
[2024-10-06] MEDS: AMOXICILLIN 500 MG CAPSULE 1000 MG PO (15:42)
[2024-10-06] MEDS: AZITHROMYCIN 250 MG TABLET 500 MG PO (15:42)
[2024-10-06 15:51] LABS: Lactic Acid Reflex 1.6 mmol/L (0.7-2.0)
--- NOTE | 2024-10-06 16:19 | PC.NURSE ---
Room air challenged performed. Pt unable to maintain Sa02 above 86% heart rate elevated to 114. Oxygen 2L per NC applied. Dr. Schwartz notified.
--- NOTE | 2024-10-06 16:32 | P.HP_ITS ---
H&P: HPI History of Present Illness Date/Time: 10/06/24 16:32 Chief Complaint: Shortness of breath/dyspnea Narrative: This is a 69-year-old female with a significant past medical history of GERD, hyperlipidemia, irritable bowel syndrome, depression with anxiety, vitamin-D deficiency, osteoporosis, COPD, current every day smoker who presented with increased shortness of breath/dyspnea. Patient states that her symptoms started about a week and a half ago with upper respiratory symptoms. She reports shortness of breath, tight productive cough, wheezing. she tested for flu and COVID at home a few times in the last 9 days however has been negative for influenza or COVID. She states that she tried to deal with her symptoms at home however they progressively gotten worse over the last 24 hours and she decided to present to the hospital for further workup. She denies any fever, chills, nausea, vomiting, diarrhea, abdominal pain. she does report some pleuritic pain on the left side and anxiety. Workup in the hospital included a chest x-ray which showed new airspace opacities in the left upper lobe consistent with pneumonia. Initial labs showed a white blood cell count of 20.6, sodium 134, chloride 96, creatinine 0.55, blood sugar 120, lactic acid 1.6. respiratory panel negative for influenza a and B, RSV, COVID. Blood cultures were obtained and pending. EKG showed sinus tachycardia with a rate of 107, QTC 406. Patient was given DuoNeb, azithromycin, amoxicillin while in the ED. Of note, she was also tachycardic in the ED and we switched her to Xopenex as this was thought to be because the use of DuoNebs in the ED however at the time of my exam and review of her telemetry it looks like she is in sinus tach in the 120s and then bounces up to the 150s to 160s which appears to be like SVT. Magnesium was 2.2. Patient was given a dose of her Xanax and started on 12.5 mg of metoprolol b.i.d. we will also check a D-dimer and potentially of chest CTA to rule out PE. Review of Systems Review of Systems: All systems reviewed & are unremarkable except as noted in HPI and below PMFSH Past Medical History Medical History (Updated 10/06/24 @ 23:33 by Nicolette Urrutia, DUANE) COPD (chronic obstructive pulmonary disease) Kidney stones Bacterial vaginosis Osteoporosis Vitamin D deficiency Anal fissure, unspecified Depression with anxiety Tobacco abuse Irritable bowel syndrome Dyslipidemia GERD (gastroesophageal reflux disease) History of shingles Chicken pox Measles Duodenitis Gastric ulcer Surgical History Surgical History Status post cataract extraction of both eyes with insertion of intraocular lens History of hip surgery (~1967) 1967 - for right hip dislocation Hx laparoscopic cholecystectomy (~2005) S/P ALIDA-BSO (total abdominal hysterectomy and bilateral salpingo-oophorectomy) (~2004) Family History Family History Mother Family history of atrial fibrillation Hypertension Sibling Family history of atrial fibrillation Hypertension Father Macular degeneration Other Family history of hearing loss Skin cancer Social History Social History Social History: The patient is and lives alone. She does not have any children. She has smoked up to a pack of cigarettes per day at her heaviest but is been smoking 0.5 packs per day for the last 8-10 years. She denies any significant alcohol use history and has had absolutely no alcohol use in the last 10 years or so. She denies any history of illicit substance use. 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 Code status: Full code Surrogate decision maker: Dr. Tima Gomez (brother) Smoking packs per day: 0.5 Smoking cigarettes per day: 10.0 Years smoked: 50 Smoking pack-years: 25.00 Smoking status: Current every day smoker Additional smoking assessment comments: SMOKES 1/2 PACK/DAY CURRENTLY Alcohol intake: never Substance use: never Substance use type: does not use Do You Feel Safe in your Home?: Yes Lack of Transportation: No Lack of Food: Never True Current Housing: I Have Housing Concerned About Future Housing: No Difficulty Paying Gas/Electric Bills: No Difficulty Paying for Meds: No Currently Unemployed: No Education: Trade/Vocational Certificate Difficulty w/ Childcare or Family Care: No Living arrangements: alone Occupation/Education: retired Gender identity (if verbalized by the patient): Female Sexual Orientation (if Verbalized by the Patient): Straight or Heterosexual Spiritual care concerns: No Agree to blood products: Yes Meds Home Medications and Allergies Home Medications ?Medication ?Instructions ?Recorded ?Confirmed ?Type acetaminophen 500 mg tablet 1,000 mg PO Q6H PRN Pain 05/05/20 10/06/24 History (Tylenol Extra Strength) multivitamin 1 tablet PO DAILY 07/10/21 10/06/24 History magnesium 250 mg tablet 250 mg PO PRN constipation 07/16/22 10/06/24 History famotidine 20 mg tablet 20 mg PO BID #60 tabs 08/03/24 10/06/24 Rx cholestyramine-aspartame 4 gram 4 g PO DAILY 08/08/24 10/06/24 History oral powder (Prevalite) cholecalciferol (vitamin D3) 25 25 mcg PO DAILY 08/24/24 10/06/24 History mcg (1,000 unit) capsule tramadol 50 mg tablet 50 mg PO Q6H PRN pain #20 tabs 08/31/24 10/06/24 Rx lorazepam 0.5 mg tablet 0.5 mg PO BID PRN anxiety #60 tabs 09/23/24 10/06/24 Rx Allergies Allergy/AdvReac Type Severity Reaction Status Date / Time Sulfa (Sulfonamide Allergy Unknown Unknown Verified 10/06/24 20:16 Antibiotics) erythromycin base AdvReac Severe Headache Verified 10/06/24 20:16 methylprednisolone AdvReac Severe JITTERY Verified 10/06/24 20:16 ciprofloxacin AdvReac Intermediate Nausea and Verified 10/06/24 20:16 Vomiting morphine AdvReac Mild SEVERE Verified 10/06/24 20:16 NAUSEA cephalexin AdvReac Unknown Nausea Verified 10/06/24 20:16 Cephalosporins AdvReac Unknown GI UPSET Verified 10/06/24 20:16 clavulanic acid AdvReac Unknown GI UPSET Verified 10/06/24 20:16 codeine AdvReac Unknown Nausea Verified 10/06/24 20:16 hydrocodone AdvReac Unknown GI UPSET Verified 10/06/24 20:16 naproxen AdvReac Unknown Nausea Verified 10/06/24 20:16 NSAIDS (Non-Steroidal AdvReac Unknown GI UPSET, Verified 10/06/24 20:16 Anti-Inflamma PEPTIC ULCER doxycycline AdvReac Headache Verified 10/06/24 20:16 BETALACTAMASEIN Allergy Unknown GI UPSET Uncoded 10/06/24 20:16 Vital Signs Vital Signs - 24 hr 10/06/24 13:26 10/06/24 14:22 10/06/24 14:31 Temperature 99 F Pulse Rate 113 H 118 H 109 H Respiratory Rate 18 29 H 38 H Blood Pressure 151/82 H 123/69 119/66 Pulse Oximetry 92 90 94 Oxygen Delivery Room Air Oxygen Flow Rate 10/06/24 14:32 10/06/24 14:32 10/06/24 14:34 Temperature Pulse Rate 106 H Respiratory Rate 30 H Blood Pressure Pulse Oximetry 90 94 Oxygen Delivery Room Air Nasal Cannula Oxygen Flow Rate 2 10/06/24 14:46 10/06/24 15:00 10/06/24 15:15 Temperature 97.8 F Pulse Rate 110 H 112 H 117 H Respiratory Rate 30 H 29 H 28 H Blood Pressure 120/70 Pulse Oximetry 99 99 99 Oxygen Delivery Oxygen Flow Rate 10/06/24 15:30 10/06/24 16:21 Temperature 98.0 F Pulse Rate 124 H 114 H Respiratory Rate 30 H 20 Blood Pressure 120/70 Pulse Oximetry 100 95 Oxygen Delivery Oxygen Flow Rate Exam Narrative: General: Anxious, malnourished Head: atraumatic, no encephalopathy Eyes: PERRLA, sclera clear ENT: moist mucous membranes, nasal passages clear Neck: supple, no JVD, no adenopathy, trachea midline Cardiac: Normal S1 and S2. Sinus tach on monitor 120's, No murmur, gallops or friction rubs, peripheral pulses intact. Respiratory: TONI Rhonchi, Wheezing throughout all lung varela, currently on 4L NC, SOB at rest with pursed lip breathing, tight-bark like cough that is productive at times. Gastrointestinal: soft, non-distended, non-tender, normoactive bowel sounds. : voiding without difficulty. Extremities: moves all extremities well, no edema Skin: clean, dry, intact. No wounds or lesions. Neuro: Alert and oriented x4, cranial nerves intact, no neuro deficits. Psych: normal mood, normal affect, interactive H&P: Results Labs Labs: Short CBC 10/06/24 Range/Units 13:43 WBC 20.6 H (4.5-10.0) K/mm3 Hgb 13.8 (12.0-15.0) g/dL Hct 40.5 (37.0-47.0) % Plt Count 231 D (150-375) k/mm3 BMP 10/06/24 13:43 Sodium 134 L Potassium 3.8 Chloride 96 L Carbon Dioxide 27 BUN 10 Creatinine 0.55 L Glucose 120 H Calcium 8.9 Liver Function 10/06/24 Range/Units 13:43 Total Bilirubin 1.2 (0.2-1.3) mg/dL AST 33 (14-36) U/L ALT 34 (6-35) U/L Alkaline Phosphatase 100 (38-126) U/L Albumin 4.3 (3.5-5.1) g/dL Imaging Chest x-ray: Radiologist's impression: EXAMINATION: XR chest 1V portable DATE: 10/06/2024 14:50 INDICATION: Acute bronchitis. TECHNIQUE: A single frontal view of the chest was obtained. COMPARISON: Chest single view 08/07/2024 FINDINGS: There are airspace opacities in left upper lobe. No pleural effusion or pneumothorax. The heart size is normal. IMPRESSION: 1. New airspace opacities in left upper lobe, consistent with pneumonia. Reviewed, dictated and finalized at location A. ET MOTOR MECHANIC Assessment and Plan Assessment and plan (1) Sepsis: Qualifiers: Acute renal failure type: unspecified Sepsis acute organ dysfunction status: with acute organ dysfunction Sepsis type: sepsis due to unspecified organism Severe sepsis acute organ dysfunction type: acute renal failure Sever e sepsis shock status: without septic shock Qualified Code(s): A41.9 - Sepsis, unspecified organism; R65.20 - Severe sepsis without septic shock; N17.9 - Acute kidney failure, unspecified Code(s): A41.9 - Sepsis, unspecified organism Status: Acute Assessment and Plan: * initially meeting sepsis criteria with a white blood cell count of 20.6, heart rate 113, hypoxia, chest x-ray showing pneumonia * patient was given 1.5 L of LR while in the ED * blood cultures were obtained and pending * chest x-ray showing new airspace opacities in the left upper lobe consistent pneumonia * patient started on azithromycin and amoxicillin in the ED, will transition to Augmentin and azithromycin-- patient has multiple drug allergies * continuous telemetry monitoring due to her heart rate (2) Acute hypoxic respiratory failure: Code(s): J96.01 - Acute respiratory failure with hypoxia Status: Acute Assessment and Plan: * currently on 2 L nasal cannula * continue to wean O2 for sat greater than 92% * chest x-ray showing pneumonia in the left upper lobe * will start Xopenex breathing treatments considering her tachycardia * start Mucinex and incentive spirometry * respiratory panel negative for influenza a and B, RSV, COVID (3) Acute exacerbation of chronic obstructive pulmonary disease (COPD): Code(s): J44.1 - Chronic obstructive pulmonary disease with (acute) exacerbation Status: Acute Assessment and Plan: see above plan of care (4) Pneumonia: Code(s): J18.9 - Pneumonia, unspecified organism Status: Acute Assessment and Plan: see above plan of care (5) Sinus tachycardia: Code(s): R00.0 - Tachycardia, unspecified Status: Acute Assessment and Plan: * continuous telemetry monitoring * heart rate in the 120s appears to be sinus tach however she does bounce up into the 150s to 160s which looks like SVT * she was given her Xanax for anxiety * also started her on metoprolol 12.5 mg b.i.d. for rate control * magnesium 2.2 * will check D-dimer and if elevated will send her for a chest CTA to rule out PE * breathing treatments change to Xopenex (6) GERD (gastroesophageal reflux disease): Qualifiers: Esophagitis presence: without esophagitis Qualified Code(s): K21.9 - Gastro-esophageal reflux disease without esophagitis Code(s): K21.9 - Gastro-esophageal reflux disease without esophagitis Status: Acute Assessment and Plan: * start Protonix (7) Depression with anxiety: Code(s): F41.8 - Other specified anxiety disorders Status: Acute Assessment and Plan: * Xanax ordered Quality VTE Prophylaxis VTE prophylaxis: pharmacologic ordered Hospitalist [facility] Advance Care Plan I have confirmed that the patient's Advanced Care Plan is present, code status is documented, or surrogate decision maker is listed in patient medical record.: Yes Medication Reconciliation I have utilized all available resources to obtain, update and review the patients current medications (includes all prescriptions, OTC, herbals, cannabis, and nutritional supplements).: Yes
--- OUTSIDE RECORDS SUMMARY | 2024-10-06 16:34 | XMS_ITS | Referral Summary ---
Author Organization [facility] [address] Address [address] [place] [address] Care Team Providers Care Balloon Artist Name Role Phone Robin Melendez MD Primary Care Provider Abilio Osorio MD Unavailable Encounters Date Type Department Care Team Description 09/22/2024 Telephone [facility] at [address] [place] [address] Veronika Edward, RN 09/11/2024 Telephone [facility] at [address] [place] [address] Abilio Osorio MD Rescheduled Surgery 08/17/2024 Orders Only [facility] at [address] [place] [address] Jazmin Stephens NP 08/17/2024 Telephone [facility] at [address] [place] [address] Janie Preston, WIL 08/07/2024 Telephone [facility] at [address] [place] [address] Abilio Osorio MD Canceled Surgery 07/27/2024 Telephone [facility] at [address] [place] [address] Veronika Edward RN 07/08/2024 Telephone [facility] at [address] [place] [address] Abilio Osorio MD Scheduled Surgery 07/08/2024 10:45 AM PHOTO GRAPHICS LIBRARIAN Office Visit [facility] at [address] [place] [address] Abilio Osorio MD Anal fissure (Primary Dx) [...] (six) hours as needed for pain Active [id number] -Lmfolate-algal 27 mg iron-1.13 mg-581.92 mg capsule [...] on file Legal Sex Female 12:47 AM PHOTO GRAPHICS LIBRARIAN Gender Identity Not on file Sexual Orientation Not on file Last Filed Vital Signs Vital Sign Reading Time Taken Comments Blood Pressure 115/70 07/08/2024 10:49 AM PHOTO GRAPHICS LIBRARIAN Pulse 69 07/08/2024 10:49 AM PHOTO GRAPHICS LIBRARIAN Temperature 37.1 C (98.8 F) 04/13/2024 12:20 PM CDT Respiratory Rate 20 04/08/2022 8:20 AM CDT Oxygen Saturation 94% 07/08/2024 10:49 AM PHOTO GRAPHICS LIBRARIAN Inhaled Oxygen Concentration - - Weight 52.6 kg (116 lb) 09/14/2024 10:05 AM PHOTO GRAPHICS LIBRARIAN Height 157.5 cm (5' 2 ) 09/14/2024 10:05 AM PHOTO GRAPHICS LIBRARIAN Body Mass Index 21.22 09/14/2024 10:05 AM PHOTO GRAPHICS LIBRARIAN Plan of Treatment Not on file Insurance MEDICARE [facility] MEDICARE [facility] MEDICARE [facility] Care Teams Balloon Artist Relationship Specialty Start Date End Date Robin Melendez MD PCP - General 11/19/18 Abilio Osorio MD 70 [facility] [address] [place] [address] Surgeon General Surgery 07/01/24
--- OUTSIDE RECORDS SUMMARY | 2024-10-06 16:34 | XMS_ITS | Clinical Summary ---
Author Organization [facility] [address] Address [address] [place] [address] Care Team Providers Care Fixture Builder Name Role Phone Robin Melendez MD Primary Care Provider Abilio Osorio MD Unavailable [phone] Allergies Active Allergy Reactions Criticality Noted [...] (six) hours as needed for pain Active [id number] -Lmfolate-algal 27 mg iron-1.13 mg-581.92 mg capsule [...] Team Description 09/22/2024 Telephone [facility] at [address] [address] [place] [address] Veronika Edward RN 09/11/2024 Telephone [facility] at [address] [address] [place] [address] Abilio Osorio MD Rescheduled Surgery 08/17/2024 Orders Only [facility] at [address] [address] [place] [address] Jazmin Stephens NP 08/17/2024 Telephone [facility] at [address] [address] [place] [address] Janie Preston RN 08/07/2024 Telephone [facility] at [address] [place] [address] Abilio Osorio MD Canceled Surgery 07/27/2024 Telephone [facility] at [address] [place] [address] Veronika Edward RN 07/08/2024 10:45 AM ASPHALT PAVING FOREMAN Office Visit [facility] at [address] [place] [address] Abilio Osorio MD Anal fissure (Primary Dx) 07/08/2024 Telephone [facility] at [address] [place] [address] Abilio Osorio MD Scheduled Surgery from Last [...] on file Legal Sex Female 12:47 AM ASPHALT PAVING FOREMAN Gender Identity Not on file Sexual Orientation Not on file Obstetrics History Last Filed Vital Signs Vital Sign Reading Time Taken Comments Blood Pressure 115/70 07/08/2024 10:49 AM ASPHALT PAVING FOREMAN Pulse 69 07/08/2024 10:49 AM ASPHALT PAVING FOREMAN Temperature 37.1 C (98.8 F) 04/13/2024 12:20 PM CDT Respiratory Rate 20 04/08/2022 8:20 AM CDT Oxygen Saturation 94% 07/08/2024 10:49 AM ASPHALT PAVING FOREMAN Inhaled Oxygen Concentration - - Weight 52.6 kg (116 lb) 09/14/2024 10:05 AM ASPHALT PAVING FOREMAN Height 157.5 cm (5' 2 ) 09/14/2024 10:05 AM ASPHALT PAVING FOREMAN Body Mass Index 21.22 09/14/2024 10:05 AM ASPHALT PAVING FOREMAN Plan of Treatment Health Maintenance Due Date [...] 65+ Completed 021, 01/13/2020, 05/23/2016 Insurance MEDICARE [facility] MEDICARE [facility] MEDICARE [facility] Care Teams Fixture Builder Relationship Specialty Start Date End Date Robin Melendez MD PCP - General 11/19/18 Abilio Osorio MD 70 [facility] [address] [place] [address] Surgeon General Surgery 07/01/24
--- OUTSIDE RECORDS SUMMARY | 2024-10-06 16:34 | XMS_ITS | Continuity of Care Document ---
Author Organization [facility] Address [address] [place] [address] [address] [place] [address] Phone Care Team Providers Care Chief Medical Officer Name Role Phone Ольга Forman Unavailable Unavailable Procedures Procedure Date Eye Exam Established Pt Advance Directives Directive Yes / No Effective Date File Name No Information Encounters Encounter Description Practice Location Reason(s) For Visit Diagnoses Date Provider Providers Copied on Encounter [facility], [address] [place] [address] [address], [place], [place], [id number], [place] tel:[phone] [facility] No Information [address] [place] , [address], [place], [address], [place]. tel:[phone] Family History Family Member Type Diagnosis Age At Onset No Information Payers Payer name Insurance type Covered republican ID Authoriza tion(s) No Information Social History [...]
--- NOTE | 2024-10-06 17:28 | PC.NURSE ---
Nicolette hospitalist called informing pt allergy to Clavulanic Acid.
[2024-10-06 17:36] LABS: Magnesium 2.2 mg/dL (1.6-2.3)
[2024-10-06] MEDS: ACETAMINOPHEN 325 MG TABLET 650 MG PO (17:51)
[2024-10-06] MEDS: ONDANSETRON INJ 4 MG/2 ML VIAL IV PUSH (17:51)
[2024-10-06] MEDS: guaiFENesin 12 HR 600 MG TABCR 1200 MG PO (17:53)
[2024-10-06] MEDS: SODIUM CHLORIDE 0.9% IV 1,000 ML 999 ML IV CONT (18:01)
[2024-10-06] MEDS: SODIUM CHLORIDE 0.9% IV 600 ML 999 ML IV CONT (18:02)
[2024-10-06 18:08] LABS: Thyroid Stimulating Hormone 0.799 uIU/mL (0.465-4.680)
--- NOTE | 2024-10-06 18:52 | PC.NURSE ---
1751: Pt c/o nausea with h/a. Medicated per prn orders. Repostioned.
--- NOTE | 2024-10-06 19:43 | ADMGEN ---
This patient, Doris Gomez, was admitted to 2 Medical Room 251-01. Patient/family oriented to hospital policies and general routines including ID bracelet, bed and alarms, visiting hours, pain management, procedures, bathroom and other care routines, personal items, smoking policy, room service/diet, and visiting hours. Information on how to activate the Rapid Response Team has been discussed. Patient/Family are encouraged to report perceived risks to care and to ask questions if they do not understand what they are told or what they should do.
[2024-10-06] MEDS: LEVALBUTEROL NEB 1.25 MG/3 ML 0.63 MG INHALATION (20:36)
[2024-10-06] MEDS: LORazepam (*CRX) 0.5 MG TABLET PO (23:23)
[2024-10-06] MEDS: METOPROLOL TARTRATE 12.5 MG TABLET PO (23:23)
[2024-10-06 23:50] LABS: D Dimer 1.02 ug/mL (<0.48)
[2024-10-07] VITALS (30 sets, daily range): BP systolic 90–110; BP diastolic 50–60; PULSE 70–145; RESP 14–20; TEMP 36.9–39.1; O2SAT 92–97; BMI 20.3
--- NOTE | 2024-10-07 | ECHO_ITS ---
Patient Info Name: Doris Jenkinsnc Age: 69 years : 1955 Gender: Female Ht: 62 in Wt: 111 lbs BSA: 1.48 m2 HR: 81 bpm BP: 96 / 52 mmHg Heart Rhythm: Sinus Rhythm Exam Date: 10/07/2024 12:02 PM Exam Location: Echo Lab Patient Status: Inpatient Admit Date: 10/07/2024 Staff Ordering Physician: Tala Andersen DO Audience Development Manager: Shakira River RDCS Attending Provider: Antolin Ji MD Referring Physician: Ganesh VAIL; Exam Type: CA echo doppler color flow Study Info Indications - A-fib Complete two-dimensional, color flow and Doppler transthoracic echocardiogram is performed. Summary 1. Left ventricular chamber dimension is normal. 2. Left ventricular systolic function is normal, estimated at 60-65%. 3. The left ventricular diastolic function is grade I diastolic dysfunction. 4. Right ventricular chamber dimension is mildly enlarged. 5. Right ventricular systolic function is normal. 6. Left atrial chamber dimension is moderately enlarged. 7. Right atrial chamber dimension is moderately enlarged. 8. There is mild aortic valve regurgitation. 9. There is mild mitral valve regurgitation. 10. There is mild tricuspid valve regurgitation. Left Ventricle Left ventricular chamber dimension is normal. Left ventricular systolic function is normal, estimated at 60-65%. There is no increased left ventricular wall thickness. The left ventricular diastolic function is grade I diastolic dysfunction. Right Ventricle Right ventricular chamber dimension is mildly enlarged. Right ventricular systolic function is normal. Left Atria Left atrial chamber dimension is moderately enlarged. Right Atria Right atrial chamber dimension is moderately enlarged. Atrial Septum Intact interatrial septum visualized by color flow imaging. Aortic Valve The aortic valve is probable trileaflet. There is no aortic valve stenosis. There is mild aortic valve regurgitation. There is moderate aortic valve calcification. Pulmonic Valve The pulmonic valve is not well visualized. Mitral Valve There is mild mitral valve regurgitation. Tricuspid Valve There is mild tricuspid valve regurgitation. Pericardium/Pleural There is no pericardial effusion. Inferior Vena Cava Normal inferior vena cava with >50% collapse upon inspiration consistent with normal right atrial pressure, 3 mmHg. Aorta The aortic root size at the sinus of Valsalva is normal. Left Ventricular Outflow Tract Name Value Normal LVOT 2D LVOT Diameter 2.0 cm LVOT Doppler LVOT Peak Gradient 9 mmHg LVOT Mean Gradient 5 mmHg LVOT VTI 33 cm LVOT VTI/AV VTI Ratio 0.7 LVOT Stroke Volume 99 ml LVOT CO 18.7 l/min LVOT CI 12.6 l/min/m2 Pulmonic Valve Name Value Normal RVOT Doppler RVOT Peak Gradient 2 mmHg PV Doppler PV Peak Gradient 4 mmHg Mitral Valve Name Value Normal MV Doppler MV Decel [place] 353 cm/s2 MV PHT 78 ms MV Area (PHT) 2.8 cm2 4.0-5.0 MV Diastolic Function MV E Peak Velocity 95 cm/s MV A Peak Velocity 94 cm/s MV E/A 1.0 MV Decel Time 270 ms MV Annular TDI MV E/e' (Septal) 8.8 <=8.0 MV E/e' (Lateral) 8.4 <=8.0 MV E/e' (Average) 8.6 Tricuspid Valve Name Value Normal TV Regurgitation Doppler TR Peak Velocity 268 cm/s TR Peak Gradient 27 mmHg Estimated PAP/RSVP RA Pressure 3 mmHg <=5 PA Systolic Pressure 32 mmHg <36 RV Systolic Pressure 32 mmHg <36 Aortic Valve Name Value Normal AV Doppler AV Peak Velocity 239 cm/s AV Peak Gradient 23 mmHg AV Mean Gradient 11 mmHg AV VTI 47 cm AV Area (Cont Eq VTI) 2.1 cm2 >=3.0 AV Area (Cont Eq [place]) 312.2 cm2 AV Regurgitation 2D LVOT Area 3.0 cm2 AV Regurgitation Doppler AR Decel Time 1,856 ms AR Decel [place] 190 cm/s2 AR PHT 538 ms Ventricles Name Value Normal LV Dimensions 2D/MM IVS Diastolic Thickness (2D) 0.8 cm 0.6-1.0 LVID Diastole (2D) 3.8 cm 3.8-5.2 LVIW Diastolic Thickness (2D) 0.7 cm 0.6-0.9 LVID Systole (2D) 2.5 cm 2.2-3.5 LVOT Diameter 2.0 cm LV Mass (2D Cubed) 76.81 g 67.00-162.00 LV Mass Index (2D Cubed) 52 g/m2 43-95 Relative Wall Thickness (2D) 0.36 LV Fractional Shortening/Ejection Fraction 2D/MM LV Fractional Shortening (2D) 31 % 27-45 LV EF (2D Teicholz) 60 % 54-74 LV Diastolic Volume (4C MOD) 77 ml LV EF (4C MOD) 66 % LV Diastolic Volume (2C MOD) 86 ml LV EF (2C MOD) 63 % LV Diastolic Volume (BP MOD) 81 ml 46-106 LV Diastolic Volume Index (BP MOD) 55 ml/m2 29-61 LV Systolic Volume (BP MOD) 29 ml 14-42 LV Systolic Volume Index (BP MOD) 20 ml/m2 8-24 LV EF (BP MOD) 64 % 54-74 LV Diastolic Length (4C) 7.0 cm LV Systolic Length (4C) 5.7 cm LV Stroke Volume (4C MOD) 51 ml Atria Name Value Normal LA Dimensions LA Volume (4C A-L) 39 ml LA Volume (BP A-L) 43 ml RA Dimensions RA Area (4C) 15.7 cm2 <=18.0 Report Signatures
[2024-10-07] MEDS: METOPROLOL TARTRATE INJ 5 MG/5 ML VIAL IV PUSH ×3 (00:37→02:57)
--- NOTE | 2024-10-07 01:47 | ECG_ITS ---
Test Date: 2024-10-07 02:06:10 Measurements Intervals [place] Rate: 104 P: 28 ME: 120 QRS: 59 QRSD: 81 T: 66 QT: 307 QTc: 405 Interpretive Statements SINUS TACHYCARDIA SEPTAL INFARCT, OLD Compared to ECG 10/06/2024 13:34:25 Myocardial infarct finding no longer present Electronically Signed On 10-07-2024 13:18:52 NUCLEAR MEDICINE OFFICER by Ana Dunne M.D.
--- NOTE | 2024-10-07 02:09 | ECG_ITS ---
Test Date: 2024-10-07 02:07:51 Measurements Intervals [place] Rate: 119 P: 0 DE: 0 QRS: 61 QRSD: 79 T: 66 QT: 304 QTc: 429 Interpretive Statements SINUS TACHYCARDIA WITH PACS Compared to ECG 10/07/2024 02:06:10 NO SIGNIFICANT CHANGES Electronically Signed On 10-07-2024 13:19:30 PRECISION HONER by Ana Dunne M.D.
--- NOTE | 2024-10-07 03:11 | P.PNCROSS_ITS ---
Event Note Event Note Event Note: Nursing staff called around 02:00 as the patient was having a intermittent incr eased burst of AFib. Patient's heart rate was for most part between 110s and although he had to 180s at times. However the more rapid intervals of the tachycardia of were short-lived only for few seconds to a couple of minutes. Patient was asymptomatic from the heart rate and was only frustrated with staff because they would not let her sleep. She had been evaluated by the nurse practitioner on admission and had been given 1 dose of IV Lopressor and started on oral metoprolol. Nursing staff called as the interval of time the patient was spending in more rapid rhythms was increasing. I gave orders for IV Lopressor x2 over a 30-40 minute interval. Nursing staff called back to tell me that after the 2nd dose of IV Lopressor patient's blood pressures were borderline low at 90/52. I was considering transferring the patient to IMU but when I went to evaluate the patient the patient's heart rate had acutely improved. For the most part the patient was running between low 100s to 110s. The patient's blood pressure had improved. I got called to another matter and when I went back to re-evaluate the patient's telemetry again about 20 minutes later the patient had converted back into sinus rhythm. The patient's morning labs had returned by this point in the patient was mildly hypokalemic. An order was given for 40 mg of potassium chloride. A magnesium and phosphorus were adde d to the a.m. labs. Which were normal. Of note the patient also spiked a fever just after my evaluation and received Tylenol. Her T-max was a 102.5? on exam the patient was noted to have occasional irregular beats but overall heart rate during my exam was 90-110. The patient 2+ bilateral radial pulses. She was hot to touch. She acutely ill-appearing. She had moist mucous membranes. Head was normocephalic atraumatic. Pupils were equal and reactive. Pulse ox was 94% on 3 L. 35 minute spent critical care activities. Due to a high probability of clinically significant, life threatening deterioration, the patient required my highest level of preparedness to intervene emergently and I personally spent this critical care time directly and personally managing the patient. This critical care time included obtaining a history; examining the patient; pulse oximetry; ordering and review of studies; arranging urgent treatment with development of a management plan; evaluation of patient's response to treatment; frequent reassessment; and discussions with other providers. It was exclusive of separately billable procedures and treating other patients and teaching time. Please see Assessment and Plan section and the rest of the note for further information on patient assessment and treatment.
[2024-10-07] MEDS: ACETAMINOPHEN 325 MG TABLET 650 MG PO ×2 (03:26→15:41)
[2024-10-07] MEDS: SODIUM CHLORIDE 0.9% IV 1,000 ML 100 ML IV CONT (03:36)
[2024-10-07 05:03] LABS: Basophils Percent Auto 0.2 % (0.2-1.2); Hematocrit 35.8 % (37.0-47.0); Hemoglobin 12.1 g/dL (12.0-15.0); Immature Granulocyte Percent A 1.3 % (0-0.5); Lymphocytes Absolute Auto 0.71 K/mm3 (0.9-3.2); Lymphocytes Percent Auto 4.5 % (18.3-44.2); Mean Corpuscular HGB Conc 33.8 g/dl (32-36); Mean Corpuscular Hemoglobin 31.1 pg (26-34); Mean Platelet Volume 9.8 fl (7.4-10.4); Monocytes Absolute Auto 1.6 K/mm3 (0.1-0.6); Monocytes Percent Auto 10.2 % (2.6-8.5); Neutrophils Absolute Auto 13.2 K/mm3 (1.3-6.7); Neutrophils Percent Auto 83.8 % (45.5-73.1); Platelet Count Result 194 k/mm3 (150-375); Red Blood Count 3.89 M/mm3 (4.2-5.4); White Blood Count 15.8 K/mm3 (4.5-10.0)
[2024-10-07 05:21] LABS: Phosphorus 3.3 mg/dL (2.5-4.5)
[2024-10-07 05:24] LABS: Alanine Aminotransferase 31 U/L (6-35); Albumin Level 3.1 g/dL (3.5-5.1); Alkaline Phosphatase 113 U/L (38-126); Anion Gap 12 mmol/L (4-12); Aspartate Amino Transferase 34 U/L (14-36); Bilirubin,Total 0.9 mg/dL (0.2-1.3); Blood Urea Nitrogen 11 mg/dL (7-17); Carbon Dioxide 21 mmol/L (22-30); Chloride 101 mmol/L (98-107); Estimated CRCL calculation 68 ml/min; Estimated Glomerular Filt Rate > 60; Glucose 116 mg/dL (65-110); Potassium 3.3 mmol/L (3.4-5.0); Sodium 134 mmol/L (137-145)
[2024-10-07] MEDS: POTASSIUM CHLORIDE 20 MEQ ER TABLET 40 MEQ PO (06:00)
[2024-10-07] MEDS: FAMOTIDINE 20 MG TABLET PO ×2 (08:51→17:28)
[2024-10-07] MEDS: guaiFENesin 12 HR 600 MG TABCR 1200 MG PO ×2 (08:51→20:38)
[2024-10-07] MEDS: MULTIVITAMINS THERAPEUTIC TAB (*BKC) 1 TABLET PO (08:52)
[2024-10-07] MEDS: CHOLECALCIFEROL 1,000 UNITS TABLET 1000 UNITS PO (08:52)
[2024-10-07] MEDS: METOPROLOL TARTRATE 12.5 MG TABLET PO ×2 (08:52→21:22)
[2024-10-07] MEDS: ENOXAPARIN 40 MG/0.4 ML SYRINGE SUB-Q (08:52)
[2024-10-07] MEDS: LEVALBUTEROL NEB 1.25 MG/3 ML 0.63 MG INHALATION ×3 (09:08→20:12)
[2024-10-07 10:55] LABS: Toxigenic C. Diff NEGATIVE (NEGATIVE)
--- NOTE | 2024-10-07 11:48 | P.CDI_ITS ---
CDI Query Clarification Request BMI: 20.4 Nutritional Diagnostic Statement: Please refer to the comprehensive nutrition assessment for further information. If you agree with diagnosis of Severe Protein Calorie Malnutrition as related to inadequate protein energy intake with increased protein energy needs in setting of chronic disease as evidenced by weight loss of 8 ibs (7%) 2 months; < 7% EER for > or = 1 month; moderate muscle wasting (temporalis) and moderate subcutaneous fat loss (orbital fat pads). Please specify severity if known: * Mild * Moderate * Severe * Other/Unknown <Balbina Quezada RN - Last Filed: 10/07/24 11:48> Clarified Diagnosis Clarified Diagnosis: severe <Nicolette Urrutia APRN - Last Filed: 10/07/24 12:25>
--- NOTE | 2024-10-07 12:25 | P.PNIM_ITS ---
Progress Note: A&P Assessment and Plan (1) Sepsis: Qualifiers: Acute renal failure type: unspecified Sepsis acute organ dysfunction status: with acute organ dysfunction Sepsis type: sepsis due to unspecified or ganism Severe sepsis acute organ dysfunction type: acute renal failure Severe sepsis shock status: without septic shock Qualified Code(s): A41.9 - Sepsis, unspecified organism; R65.20 - Severe sepsis without septic shock; N17.9 - Acute kidney failure, unspecified Code(s): A41.9 - Sepsis, unspecified organism Status: Acute Assessment and Plan: * initially meeting sepsis criteria with a white blood cell count of 20.6, heart rate 113, hypoxia, chest x-ray showing pneumonia * patient was given 1.5 L of LR while in the ED * blood cultures were obtained and pending * chest x-ray showing new airspace opacities in the left upper lobe consistent pneumonia * patient started on azithromycin and amoxicillin in the ED, will transition to Augmentin and azithromycin-- patient has multiple drug allergies * continuous telemetry monitoring due to her heart rate 3/ * Patient had a T-max of 102.4? overnight * Chest CTA was negative for PE, showed extensive left upper lobe pneumonia with minimal involvement in the inferior right upper lobe * Blood cultures are showing no growth to date on preliminary read * Continue telemetry monitoring * White blood cell count 15.8 today * Continue antibiotics (2) Acute hypoxic respiratory failure: Code(s): J96.01 - Acute respiratory failure with hypoxia Status: Acute Assessment and Plan: * currently on 2 L nasal cannula * continue to wean O2 for sat greater than 92% * chest x-ray showing pneumonia in the left upper lobe * will start Xopenex breathing treatments considering her tachycardia * start Mucinex and incentive spirometry * respiratory panel negative for influenza a and B, RSV, COVID 3/2 * Continue to wean O2 for sat greater than 92% * Chest CTA was negative for PE, showed extensive left upper lobe pneumonia with minimal involvement in the inferior right upper lobe * Continue Xopenex breathing treatments * Continue Mucinex * Continue incentive spirometry (3) Acute exacerbation of chronic obstructive pulmonary disease (COPD): Code(s): J44.1 - Chronic obstructive pulmonary disease with (acute) exacerbation Status: Acute Assessment and Plan: see above plan of care (4) Pneumonia: Code(s): J18.9 - Pneumonia, unspecified organism Status: Acute Assessment and Plan: see above plan of care (5) Sinus tachycardia: Code(s): R00.0 - Tachycardia, unspecified Status: Acute Assessment and Plan: * continuous telemetry monitoring * heart rate in the 120s appears to be sinus tach however she does bounce up into the 150s to 160s which looks like SVT * she was given her Xanax for anxiety * also started her on metoprolol 12.5 mg b.i.d. for rate control * magnesium 2.2 * will check D-dimer and if elevated will send her for a chest CTA to rule out PE * breathing treatments change to Xopenex 10/07 * D-dimer elevated to 1.06, CTA was negative for PE however did show extensive left upper lobe pneumonia * Continue telemetry monitoring * Heart rate now in the 80s * Continue metoprolol 12.5 mg b.i.d. (6) GERD (gastroesophageal reflux disease): Qualifiers: Esophagitis presence: without esophagitis Qualified Code(s): K21.9 - Gastro-esophageal reflux disease without esophagitis Code(s): K21.9 - Gastro-esophageal reflux disease without esophagitis Status: Acute Assessment and Plan: * start Protonix 10/07 * No change to current treatment plan (7) Depression with anxiety: Code(s): F41.8 - Other specified anxiety disorders Status: Acute Assessment and Plan: * Xanax ordered 10/07 * No change to current treatment plan (8) Severe protein-calorie malnutrition: Code(s): E43 - Unspecified severe protein-calorie malnutrition Status: Acute Assessment and Plan: * Dietitian consulted * Encourage p.o. intake * Ensure supplement ordered * BMI 20.4, 50.5 kg Time Spent With Patient Time with patient: 25 - 35 minutes Subjective Date/time seen: 10/07/24 12:25 Interval history: Interval history: This is a 69-year-old female with a significant past medical history of GERD, hyperlipidemia, irritable bowel syndrome, depression with anxiety, vitamin-D deficiency, osteoporosis, COPD, current every day smoker who presented with increased shortness of breath/dyspnea. Patient states that her symptoms started about a week and a half ago with upper respiratory symptoms. She reports shortness of breath, tight productive cough, wheezing. she tested for flu and COVID at home a few times in the last 9 days however has been negative for influenza or COVID. She states that she tried to deal with her symptoms at home however they progressively gotten worse over the last 24 hours and she decided to present to the hospital for further workup. She denies any fever, chills, nausea, vomiting, diarrhea, abdominal pain. she does report some pleuritic pain on the left side and anxiety. Workup in the hospital included a chest x-ray which showed new airspace opacities in the left upper lobe consistent with pneumonia. Initial labs showed a white blood cell count of 20.6, sodium 134, chloride 96, creatinine 0.55, blood sugar 120, lactic acid 1.6. respiratory panel negative for influenza a and B, RSV, COVID. Blood cultures were obtained and pending. EKG showed sinus tachycardia with a rate of 107, QTC 406. Patient was given DuoNeb, azithromycin, amoxicillin while in the ED. Of note, she was also tachycardic in the ED and we switched her to Xopenex as this was thought to be because the use of DuoNebs in the ED however at the time of my exam and review of her telemetry it looks like she is in sinus tach in the 120s and then bounces up to the 150s to 160s which appears to be like SVT. Magnesium was 2.2. Patient was given a dose of her Xanax and started on 12.5 mg of metoprolol b.i.d. we will also check a D-dimer and potentially of chest CTA to rule out PE. D dimer was elevated at 1.02. CTA of chest was negative for PE and shown extensive Left upper lobe pneumonia with minimal involvement in the inferior right upper lobe. Subjective: Patient now down to 2L NC. She is less tachycardic today. She is still feeling anxious. Labs and imaging reviewed. Review of Systems Review of Systems: All systems reviewed & are unremarkable except as noted in HPI and below Exam Narrative: General: Anxious, malnourished Cardiac: Normal S1 and S2. NSR in the 80s today No murmur, gallops or friction rubs, peripheral pulses intact. Respiratory: TONI Rhonchi/ course, Wheezing throughout all lung varela, currently on 2L NC tight-bark like cough that is productive at times. Gastrointestinal: soft, non-distended, non-tender, normoactive bowel sounds. : voiding without difficulty. Neuro: Alert and oriented x4 Objective Data Vital Signs Vital Signs: Vital Signs - 24 hr 10/06/24 13:26 10/06/24 14:22 10/06/24 14:31 Temperature 99 F Pulse Rate 113 H 118 H 109 H Respiratory Rate 18 29 H 38 H Blood Pressure 151/82 H 123/69 119/66 Pulse Oximetry 92 90 94 Oxygen Delivery Room Air Oxygen Flow Rate 10/06/24 14:32 10/06/24 14:32 10/06/24 14:34 Temperature Pulse Rate 106 H Respiratory Rate 30 H Blood Pressure Pulse Oximetry 90 94 Oxygen Delivery Room Air Nasal Cannula Oxygen Flow Rate 2 10/06/24 14:46 10/06/24 15:00 10/06/24 15:15 Temperature 97.8 F Pulse Rate 110 H 112 H 117 H Respiratory Rate 30 H 29 H 28 H Blood Pressure 120/70 Pulse Oximetry 99 99 99 Oxygen Delivery Oxygen Flow Rate 10/06/24 15:30 10/06/24 16:21 10/06/24 16:28 Temperature 98.0 F 98.0 F Pulse Rate 124 H 114 H 110 H Respiratory Rate 30 H 20 20 Blood Pressure 120/70 129/77 Pulse Oximetry 100 95 94 Oxygen Delivery Oxygen Flow Rate 10/06/24 19:52 10/06/24 20:00 10/06/24 20:00 Temperature 98.1 F Pulse Rate 101 H 97 Respiratory Rate 20 Blood Pressure 112/56 L Pulse Oximetry 92 92 Oxygen Delivery Nasal Cannula Oxygen Flow Rate 2 10/06/24 20:38 10/06/24 20:40 10/06/24 20:42 Temperature Pulse Rate 100 101 H Respiratory Rate 24 H 24 H Blood Pressure Pulse Oximetry 92 Oxygen Delivery Nasal Cannula Oxygen Flow Rate 3 10/06/24 23:23 10/07/24 00:00 10/07/24 00:37 Temperature Pulse Rate 120 H 103 H 130 H Respiratory Rate Blood Pressure Pulse Oximetry Oxygen Delivery Oxygen Flow Rate 10/07/24 00:38 10/07/24 01:57 10/07/24 02:06 Temperature 98.9 F Pulse Rate 100 145 H 120 H Respiratory Rate 18 Blood Pressure 110/52 L Pulse Oximetry 95 Oxygen Delivery Oxygen Flow Rate 10/07/24 02:29 10/07/24 02:44 10/07/24 02:57 Temperature Pulse Rate 127 H Respiratory Rate Blood Pressure 98/50 L 110/60 Pulse Oximetry Oxygen Delivery Oxygen Flow Rate 10/07/24 03:16 10/07/24 03:26 10/07/24 04:00 Temperature 102.4 F H 102.4 F H Pulse Rate 109 H 81 Respiratory Rate 18 Blood Pressure 90/52 L Pulse Oximetry 94 Oxygen Delivery Oxygen Flow Rate 10/07/24 04:16 10/07/24 08:52 10/07/24 09:08 Temperature 99.2 F Pulse Rate 96 Respiratory Rate Blood Pressure Pulse Oximetry 97 Oxygen Delivery Nasal Cannula Oxygen Flow Rate 3.5 10/07/24 09:08 10/07/24 09:18 10/07/24 09:52 Temperature Pulse Rate 83 86 Respiratory Rate 20 20 Blood Pressure Pulse Oximetry 92 Oxygen Delivery Nasal Cannula Oxygen Flow Rate 2 Intake/Output Intake/Output: Intake & Output 10/04/24 10/05/24 10/06/24 10/07/24 23:59 23:59 23:59 23:59 Intake Total 1650 480 Output Total 200 Balance 1650 280 Meds/Results Medications: Active Medications Generic Name Dose Route Start Last Admin Trade Name Freq PRN Reason Stop Dose Admin Acetaminophen 650 mg 10/06/24 16:28 10/07/24 03:26 Acetaminophen 325 Mg Tablet PO 650 mg Q4H PRN Administration Mild Pain (1-3) or Fever Enoxaparin Sodium 40 mg 10/07/24 09:00 10/07/24 08:52 Enoxaparin 40 Mg/0.4 Ml Syringe SUB-Q 40 mg DAILY NATIVIDAD Administration Famotidine 20 mg 10/07/24 09:00 10/07/24 08:51 Famotidine 20 Mg Tablet PO 20 mg BID NATIVIDAD Administration Guaifenesin 1,200 mg 10/06/24 16:50 10/07/24 08:51 Guaifenesin 12 Hr 600 Mg Tabcr PO 1,200 mg Q12HR NATIVIDAD Administration Ceftriaxone Sodium 1 gm in 50 mls @ 100 mls/hr 10/07/24 18:00 Rocephin 1 Gm/Ns 50 Ml IVPB Q24H NATIVIDAD Sodium Chloride 1,000 mls @ 100 mls/hr 10/07/24 03:37 10/07/24 03:53 Normal Saline Iv IV CONT 10/07/24 13:36 Not Given .Q10H ONE Levalbuterol HCl 0.63 mg 10/06/24 20:00 10/07/24 09:08 Levalbuterol Neb 1.25 Mg/3 Ml INHALATION 0.63 mg Q6HRT NATIVIDAD Administration Lorazepam 0.5 mg 10/06/24 23:14 10/06/24 23:23 Lorazepam (*Crx) 0.5 Mg Tablet PO 0.5 mg BID PRN Administration anxiety Metoprolol Tartrate 12.5 mg 10/06/24 23:20 10/07/24 08:52 Metoprolol Tartrate 12.5 Mg Tablet PO 12.5 mg Q12HR NATIVIDAD Administration Multivitamins Therapeutic 1 tablet 10/07/24 09:00 10/07/24 08:52 Multivitamins Therapeutic Tab (*Bkc) PO 1 tablet DAILY NATIVIDAD Administration Ondansetron HCl 4 mg 10/06/24 16:28 10/06/24 17:51 Ondansetron Inj 4 Mg/2 Ml Vial IV PUSH 4 mg Q6H PRN Administration Nausea And Vomiting Perflutren Lipid Microsphere 0 ml 10/07/24 03:12 Perflutren Lipid Microspheres 1.5 Ml Vial Diluted To 10 Ml Total Volume IV PUSH 10/10/24 03:12 ONCE PRN adequate visualization Protocol Tramadol HCl 50 mg 10/06/24 23:14 Tramadol Hcl (*Crx) 50 Mg Tablet PO Q6H PRN Pain Rated 4-6 Vitamin D 1,000 units 10/07/24 09:00 10/07/24 08:52 Cholecalciferol 1,000 Units Tablet PO 1,000 units DAILY NATIVIDAD Administration Radiology Results: ITS Impressions Chest X-Ray 10/06/24 14:50 IMPRESSION: 1. New airspace opacities in left upper lobe, consistent with pneumonia. Chest CTA 10/07/24 06:04 Impression: No evidence of pulmonary embolus, aortic dissection, or aortic aneurysm. Extensive left upper lobe pneumonia. Probable minimal involvement in the inferior right upper lobe. Labs Labs: Laboratory Results - last 24 hr 10/06/24 10/06/24 10/06/24 13:42 13:43 15:34 WBC 20.6 H RBC 4.40 Hgb 13.8 Hct 40.5 MCV 92.0 MCH 31.4 MCHC 34.1 RDW 12.6 Plt Count 231 D MPV 10.0 Immature Gran % (Auto) 1.5 H Neut % (Auto) 86.2 H Lymph % (Auto) 4.6 L Daniels % (Auto) 6.9 Eos % (Auto) 0.5 Baso % (Auto) 0.3 Lymph # (Auto) 0.94 Daniels # (Auto) 1.4 H Eos # (Auto) 0.1 Baso # (Auto) 0.1 Abs Immat Gran (auto) 0.31 H Absolute Neuts (auto) 17.8 H Absolute Nucleated RBC 0.000 Nucleated RBC % 0.0 D-Dimer Sodium 134 L Potassium 3.8 Chloride 96 L Carbon Dioxide 27 Anion Gap 11 BUN 10 Creatinine 0.55 L Estim Creat Clear Calc 63 Estimated GFR > 60 Glucose 120 H Lactic Acid 1.6 Calcium 8.9 Phosphorus Magnesium 2.2 Total Bilirubin 1.2 AST 33 ALT 34 Alkaline Phosphatase 100 Total Protein 8.0 Albumin 4.3 TSH 0.799 C. difficile (PCR) Influenza A (RT-PCR) Negative Influenza B (RT-PCR) Negative RSV (RT-PCR) Negative SARS-CoV-2 RNA (RT-PCR) Negative 10/06/24 10/07/24 10/07/24 23:25 04:50 09:52 WBC 15.8 H RBC 3.89 L Hgb 12.1 Hct 35.8 L MCV 92.0 MCH 31.1 MCHC 33.8 RDW 13.0 Plt Count 194 MPV 9.8 Immature Gran % (Auto) 1.3 H Neut % (Auto) 83.8 H Lymph % (Auto) 4.5 L Daniels % (Auto) 10.2 H Eos % (Auto) 0.0 Baso % (Auto) 0.2 Lymph # (Auto) 0.71 L Daniels # (Auto) 1.6 H Eos # (Auto) 0.0 Baso # (Auto) 0.0 Abs Immat Gran (auto) 0.20 H Absolute Neuts (auto) 13.2 H Absolute Nucleated RBC 0.000 Nucleated RBC % 0.0 D-Dimer 1.02 H Sodium 134 L Potassium 3.3 L Chloride 101 Carbon Dioxide 21 L Anion Gap 12 BUN 11 Creatinine 0.51 L Estim Creat Clear Calc 68 Estimated GFR > 60 Glucose 116 H Lactic Acid Calcium 8.0 L Phosphorus 3.3 Magnesium 2.0 Total Bilirubin 0.9 AST 34 ALT 31 Alkaline Phosphatase 113 Total Protein 6.0 L Albumin 3.1 L TSH C. difficile (PCR) Negative Influenza A (RT-PCR) Influenza B (RT-PCR) RSV (RT-PCR) SARS-CoV-2 RNA (RT-PCR) Quality VTE Prophylaxis VTE prophylaxis: pharmacologic ordered
[2024-10-07] MEDS: LORazepam (*CRX) 0.5 MG TABLET PO (20:38)
[2024-10-08] VITALS (17 sets, daily range): BP systolic 100–108; BP diastolic 50–60; PULSE 70–106; RESP 16–20; TEMP 37–37.8; O2SAT 94–97
[2024-10-08 06:14] LABS: Basophils Percent Auto 0.2 % (0.2-1.2); Eosinophils Percent Auto 0.1 % (0-4.4); Hematocrit 33.5 % (37.0-47.0); Immature Granulocyte Absolute 0.12 K/mm3 (0.00-0.031); Immature Granulocyte Percent A 0.7 % (0-0.5); Lymphocytes Absolute Auto 1.32 K/mm3 (0.9-3.2); Lymphocytes Percent Auto 7.7 % (18.3-44.2); Mean Corpuscular HGB Conc 32.8 g/dl (32-36); Mean Corpuscular Hemoglobin 30.6 pg (26-34); Mean Corpuscular Volume 93.1 fl (80-100); Mean Platelet Volume 10.3 fl (7.4-10.4); Monocytes Absolute Auto 1.5 K/mm3 (0.1-0.6); Monocytes Percent Auto 8.4 % (2.6-8.5); Neutrophils Absolute Auto 14.3 K/mm3 (1.3-6.7); Neutrophils Percent Auto 82.9 % (45.5-73.1); Platelet Count Result 205 k/mm3 (150-375); Red Cell Distribution Width 13.1 % (11.5-14.5); White Blood Count 17.2 K/mm3 (4.5-10.0)
[2024-10-08 06:29] LABS: Alanine Aminotransferase 28 U/L (6-35); Albumin Level 2.7 g/dL (3.5-5.1); Alkaline Phosphatase 86 U/L (38-126); Anion Gap 7 mmol/L (4-12); Aspartate Amino Transferase 28 U/L (14-36); Bilirubin,Total 0.5 mg/dL (0.2-1.3); Blood Urea Nitrogen 10 mg/dL (7-17); Calcium 8.2 mg/dL (8.4-10.2); Carbon Dioxide 22 mmol/L (22-30); Chloride 105 mmol/L (98-107); Estimated CRCL calculation 74 ml/min; Estimated Glomerular Filt Rate > 60; Glucose 101 mg/dL (65-110); Potassium 3.6 mmol/L (3.4-5.0); Sodium 134 mmol/L (137-145)
[2024-10-08] MEDS: LEVALBUTEROL NEB 1.25 MG/3 ML 0.63 MG INHALATION ×3 (07:42→19:59)
[2024-10-08] MEDS: CHOLECALCIFEROL 1,000 UNITS TABLET 1000 UNITS PO (08:41)
[2024-10-08] MEDS: ENOXAPARIN 40 MG/0.4 ML SYRINGE SUB-Q (08:41)
[2024-10-08] MEDS: METOPROLOL TARTRATE 12.5 MG TABLET PO ×2 (08:41→20:26)
[2024-10-08] MEDS: FAMOTIDINE 20 MG TABLET PO ×2 (08:41→17:10)
[2024-10-08] MEDS: guaiFENesin 12 HR 600 MG TABCR 1200 MG PO ×2 (08:41→20:26)
[2024-10-08] MEDS: MULTIVITAMINS THERAPEUTIC TAB (*BKC) 1 TABLET PO (08:41)
--- NOTE | 2024-10-08 10:55 | P.PNIM_ITS ---
Progress Note: A&P Assessment and Plan (1) Sepsis: Qualifiers: Acute renal failure type: unspecified Sepsis acute organ dysfunction status: with acute organ dysfunction Sepsis type: sepsis due to unspecified or ganism Severe sepsis acute organ dysfunction type: acute renal failure Severe sepsis shock status: without septic shock Qualified Code(s): A41.9 - Sepsis, unspecified organism; R65.20 - Severe sepsis without septic shock; N17.9 - Acute kidney failure, unspecified Code(s): A41.9 - Sepsis, unspecified organism Status: Acute Assessment and Plan: * initially meeting sepsis criteria with a white blood cell count of 20.6, heart rate 113, hypoxia, chest x-ray showing pneumonia * patient was given 1.5 L of LR while in the ED * blood cultures were obtained and pending * chest x-ray showing new airspace opacities in the left upper lobe consistent pneumonia * patient started on azithromycin and amoxicillin in the ED, will transition to Augmentin and azithromycin-- patient has multiple drug allergies * continuous telemetry monitoring due to her heart rate 10/07 * Patient had a T-max of 102.4? overnight * Chest CTA was negative for PE, showed extensive left upper lobe pneumonia with minimal involvement in the inferior right upper lobe * Blood cultures are showing no growth to date on preliminary read * Continue telemetry monitoring * White blood cell count 15.8 today * Continue antibiotics 10/08 * WBC bumped to 17.2, likely due to initiation of steroids yesterday * Continue Azithromycin and Amoxicillin * Blood cultures showing no growth to date on preliminary read (2) Acute hypoxic respiratory failure: Code(s): J96.01 - Acute respiratory failure with hypoxia Status: Acute Assessment and Plan: * currently on 2 L nasal cannula * continue to wean O2 for sat greater than 92% * chest x-ray showing pneumonia in the left upper lobe * will start Xopenex breathing treatments considering her tachycardia * start Mucinex and incentive spirometry * respiratory panel negative for influenza a and B, RSV, COVID 10/07 * Continue to wean O2 for sat greater than 92% * Chest CTA was negative for PE, showed extensive left upper lobe pneumonia with minimal involvement in the inferior right upper lobe * Continue Xopenex breathing treatments * Continue Mucinex * Continue incentive spirometry 10/08 * No change to current treatment plan * Patient still on 1L NC (3) Acute exacerbation of chronic obstructive pulmonary disease (COPD): Code(s): J44.1 - Chronic obstructive pulmonary disease with (acute) exacerbation Status: Acute Assessment and Plan: see above plan of care (4) Pneumonia: Code(s): J18.9 - Pneumonia, unspecified organism Status: Acute Assessment and Plan: see above plan of care (5) Sinus tachycardia: Code(s): R00.0 - Tachycardia, unspecified Status: Acute Assessment and Plan: * continuous telemetry monitoring * heart rate in the 120s appears to be sinus tach however she does bounce up into the 150s to 160s which looks like SVT * she was given her Xanax for anxiety * also started her on metoprolol 12.5 mg b.i.d. for rate control * magnesium 2.2 * will check D-dimer and if elevated will send her for a chest CTA to rule out PE * breathing treatments change to Xopenex 10/07 * D-dimer elevated to 1.06, CTA was negative for PE however did show extensive left upper lobe pneumonia * Continue telemetry monitoring * Heart rate now in the 80s * Continue metoprolol 12.5 mg b.i.d. 10/08 * Will discontinue telemetry monitoring as she has been stable with heart rate in the 70-80's for over 24 hours * Continue metoprolol 12.5 mg BID for now (6) GERD (gastroesophageal reflux disease): Qualifiers: Esophagitis presence: without esophagitis Qualified Code(s): K21.9 - Gastro-esophageal reflux disease without esophagitis Code(s): K21.9 - Gastro-esophageal reflux disease without esophagitis Status: Acute Assessment and Plan: * start Protonix 10/07 * No change to current treatment plan (7) Depression with anxiety: Code(s): F41.8 - Other specified anxiety disorders Status: Acute Assessment and Plan: * Xanax ordered 10/07 * No change to current treatment plan (8) Severe protein-calorie malnutrition: Code(s): E43 - Unspecified severe protein-calorie malnutrition Status: Acute Assessment and Plan: * Dietitian consulted * Encourage p.o. intake * Ensure supplement ordered * BMI 20.4, 50.5 kg 10/07 * No change (9) Diarrhea: Code(s): R19.7 - Diarrhea, unspecified Status: Resolved Assessment and Plan: * C diff negative * Stool culture and Norovirus pending * Will start Imodium Time Spent With Patient Time with patient: 25 - 35 minutes Subjective Date/time seen: 10/08/24 10:55 Interval history: Interval history: This is a 69-year-old female with a significant past medical history of GERD, hyperlipidemia, irritable bowel syndrome, depression with anxiety, vitamin-D deficiency, osteoporosis, COPD, current every day smoker who presented with increased shortness of breath/dyspnea. Patient states that her symptoms started about a week and a half ago with upper respiratory symptoms. She reports shortness of breath, tight productive cough, wheezing. she tested for flu and COVID at home a few times in the last 9 days however has been negative for influenza or COVID. She states that she tried to deal with her symptoms at home however they progressively gotten worse over the last 24 hours and she decided to present to the hospital for further workup. She denies any fever, chills, nausea, vomiting, diarrhea, abdominal pain. she does report some pleuritic pain on the left side and anxiety. Workup in the hospital included a chest x-ray which showed new airspace opacities in the left upper lobe consistent with pneumonia. Initial labs showed a white blood cell count of 20.6, sodium 134, chloride 96, creatinine 0.55, blood sugar 120, lactic acid 1.6. respiratory panel negative for influenza a and B, RSV, COVID. Blood cultures were obtained and pending. EKG showed sinus tachycardia with a rate of 107, QTC 406. Patient was given DuoNeb, azithromycin, amoxicillin while in the ED. Of note, she was also tachycardic in the ED and we switched her to Xopenex as this was thought to be because the use of DuoNebs in the ED however at the time of my exam and review of her telemetry it looks like she is in sinus tach in the 120s and then bounces up to the 150s to 160s which appears to be like SVT. Magnesium was 2.2. Patient was given a dose of her Xanax and started on 12.5 mg of metoprolol b.i.d. we will also check a D-dimer and potentially of chest CTA to rule out PE. D dimer was elevated at 1.02. CTA of chest was negative for PE and shown extensive Left upper lobe pneumonia with minimal involvement in the inferior right upper lobe. Subjective: Patient states she is feeling a bit better today. She is now down to 1L NC. Labs reviewed. Review of Systems Review of Systems: All systems reviewed & are unremarkable except as noted in HPI and below Exam Narrative: General: Anxious, malnourished Cardiac: Normal S1 and S2. NSR in the 70's- 80s today No murmur, gallops or friction rubs, peripheral pulses intact. Respiratory: TONI Rhonchi/ course, Wheezing throughout all lung varela, currently on 1L NC tight-bark like cough that is productive at times. Gastrointestinal: soft, non-distended, non-tender, normoactive bowel sounds. : voiding without difficulty. Neuro: Alert and oriented x4 Objective Data Vital Signs Vital Signs: Vital Signs - 24 hr 10/07/24 12:00 10/07/24 14:00 10/07/24 15:41 Temperature 100.5 F H 100.5 F H Pulse Rate 74 92 Respiratory Rate 18 Blood Pressure 101/50 L Pulse Oximetry 95 Oxygen Delivery Oxygen Flow Rate 10/07/24 15:49 10/07/24 15:58 10/07/24 16:00 Temperature Pulse Rate 83 84 88 Respiratory Rate 20 20 Blood Pressure Pulse Oximetry Oxygen Delivery Oxygen Flow Rate 10/07/24 20:00 10/07/24 20:00 10/07/24 20:19 Temperature Pulse Rate 70 87 Respiratory Rate 20 Blood Pressure Pulse Oximetry 96 Oxygen Delivery Nasal Cannula Oxygen Flow Rate 2 10/07/24 20:20 10/07/24 20:29 10/07/24 20:53 Temperature 98.4 F Pulse Rate 85 79 Respiratory Rate 20 14 Blood Pressure 100/52 L Pulse Oximetry 95 96 Oxygen Delivery Nasal Cannula Oxygen Flow Rate 2 10/07/24 21:22 10/08/24 00:00 10/08/24 04:00 Temperature Pulse Rate 94 84 75 Respiratory Rate Blood Pressure Pulse Oximetry Oxygen Delivery Oxygen Flow Rate 10/08/24 07:13 10/08/24 07:42 10/08/24 07:42 Temperature 99.4 F Pulse Rate 82 80 Respiratory Rate 16 20 Blood Pressure 108/50 L Pulse Oximetry 94 95 Oxygen Delivery Nasal Cannula Oxygen Flow Rate 1 10/08/24 07:50 10/08/24 08:00 10/08/24 08:40 Temperature Pulse Rate 76 90 Respiratory Rate 20 Blood Pressure Pulse Oximetry 95 Oxygen Delivery Nasal Cannula Oxygen Flow Rate 1 10/08/24 08:41 Temperature Pulse Rate 76 Respiratory Rate Blood Pressure Pulse Oximetry Oxygen Delivery Oxygen Flow Rate Intake/Output Intake/Output: Intake & Output 10/05/24 10/06/24 10/07/24 10/08/24 23:59 23:59 23:59 23:59 Intake Total 1650 2060 490 Output Total 200 Balance 1650 1860 490 Meds/Results Medications: Active Medications Generic Name Dose Route Start Last Admin Trade Name Freq PRN Reason Stop Dose Admin Acetaminophen 650 mg 10/06/24 16:28 10/07/24 15:41 Acetaminophen 325 Mg Tablet PO 650 mg Q4H PRN Administration Mild Pain (1-3) or Fever Enoxaparin Sodium 40 mg 10/07/24 09:00 10/08/24 08:41 Enoxaparin 40 Mg/0.4 Ml Syringe SUB-Q 40 mg DAILY NATIVIDAD Administration Famotidine 20 mg 10/07/24 09:00 10/08/24 08:41 Famotidine 20 Mg Tablet PO 20 mg BID NATIVIDAD Administration Guaifenesin 1,200 mg 10/06/24 16:50 10/08/24 08:41 Guaifenesin 12 Hr 600 Mg Tabcr PO 1,200 mg Q12HR NATIVIDAD Administration Ceftriaxone Sodium 1 gm in 50 mls @ 100 mls/hr 10/07/24 18:00 10/07/24 17:29 Rocephin 1 Gm/Ns 50 Ml IVPB 100 mls/hr Q24H NATIVIDAD Administration Levalbuterol HCl 0.63 mg 10/06/24 20:00 10/08/24 07:42 Levalbuterol Neb 1.25 Mg/3 Ml INHALATION 0.63 mg Q6HRT NATIVIDAD Administration Lorazepam 0.5 mg 10/06/24 23:14 10/07/24 20:38 Lorazepam (*Crx) 0.5 Mg Tablet PO 0.5 mg BID PRN Administration anxiety Metoprolol Tartrate 12.5 mg 10/06/24 23:20 10/08/24 08:41 Metoprolol Tartrate 12.5 Mg Tablet PO 12.5 mg Q12HR NATIVIDAD Administration Multivitamins Therapeutic 1 tablet 10/07/24 09:00 10/08/24 08:41 Multivitamins Therapeutic Tab (*Bkc) PO 1 tablet DAILY NATIVIDAD Administration Ondansetron HCl 4 mg 10/06/24 16:28 10/06/24 17:51 Ondansetron Inj 4 Mg/2 Ml Vial IV PUSH 4 mg Q6H PRN Administration Nausea And Vomiting Perflutren Lipid Microsphere 0 ml 10/07/24 03:12 Perflutren Lipid Microspheres 1.5 Ml Vial Diluted To 10 Ml Total Volume IV PUSH 10/10/24 03:12 ONCE PRN adequate visualization Protocol Tramadol HCl 50 mg 10/06/24 23:14 Tramadol Hcl (*Crx) 50 Mg Tablet PO Q6H PRN Pain Rated 4-6 Vitamin D 1,000 units 10/07/24 09:00 10/08/24 08:41 Cholecalciferol 1,000 Units Tablet PO 1,000 units DAILY NATIVIDAD Administration Radiology Results: ITS Impressions Chest X-Ray 10/06/24 14:50 IMPRESSION: 1. New airspace opacities in left upper lobe, consistent with pneumonia. Chest CTA 10/07/24 06:04 Impression: No evidence of pulmonary embolus, aortic dissection, or aortic aneurysm. Extensive left upper lobe pneumonia. Probable minimal involvement in the inferior right upper lobe. Labs Labs: Laboratory Results - last 24 hr 10/07/24 10/08/24 09:52 05:43 WBC 17.2 H RBC 3.60 L Hgb 11.0 L Hct 33.5 L MCV 93.1 MCH 30.6 MCHC 32.8 RDW 13.1 Plt Count 205 MPV 10.3 Immature Gran % (Auto) 0.7 H Neut % (Auto) 82.9 H Lymph % (Auto) 7.7 L [place] % (Auto) 8.4 Eos % (Auto) 0.1 Baso % (Auto) 0.2 Lymph # (Auto) 1.32 [place] # (Auto) 1.5 H Eos # (Auto) 0.0 Baso # (Auto) 0.0 Abs Immat Gran (auto) 0.12 H Absolute Neuts (auto) 14.3 H Absolute Nucleated RBC 0.000 Nucleated RBC % 0.0 Sodium 134 L Potassium 3.6 Chloride 105 Carbon Dioxide 22 Anion Gap 7 BUN 10 Creatinine 0.46 L Estim Creat Clear Calc 74 Estimated GFR > 60 Glucose 101 Calcium 8.2 L Total Bilirubin 0.5 AST 28 ALT 28 Alkaline Phosphatase 86 Total Protein 6.0 L Albumin 2.7 L C. difficile (PCR) Negative Quality VTE Prophylaxis VTE prophylaxis: pharmacologic ordered
[2024-10-08] MEDS: ACETAMINOPHEN 325 MG TABLET 650 MG PO (17:10)
[2024-10-08] MEDS: LORazepam (*CRX) 0.5 MG TABLET PO (22:04)
[2024-10-09] VITALS (10 sets, daily range): BP systolic 108–118; BP diastolic 53–60; PULSE 81–100; RESP 16–20; TEMP 36.8–37.2; O2SAT 91–94
[2024-10-09 05:40] LABS: Basophils Percent Auto 0.2 % (0.2-1.2); Eosinophils Absolute Auto 0.1 K/mm3 (0-0.3); Eosinophils Percent Auto 0.5 % (0-4.4); Hematocrit 33.3 % (37.0-47.0); Hemoglobin 11.1 g/dL (12.0-15.0); Immature Granulocyte Absolute 0.07 K/mm3 (0.00-0.031); Immature Granulocyte Percent A 0.6 % (0-0.5); Lymphocytes Absolute Auto 1.19 K/mm3 (0.9-3.2); Lymphocytes Percent Auto 10.3 % (18.3-44.2); Mean Corpuscular HGB Conc 33.3 g/dl (32-36); Mean Corpuscular Hemoglobin 30.8 pg (26-34); Mean Corpuscular Volume 92.5 fl (80-100); Mean Platelet Volume 10.3 fl (7.4-10.4); Monocytes Absolute Auto 1.2 K/mm3 (0.1-0.6); Monocytes Percent Auto 10.4 % (2.6-8.5); Platelet Count Result 257 k/mm3 (150-375); Red Cell Distribution Width 13.2 % (11.5-14.5); White Blood Count 11.5 K/mm3 (4.5-10.0)
[2024-10-09 05:50] LABS: Alanine Aminotransferase 34 U/L (6-35); Albumin Level 2.7 g/dL (3.5-5.1); Alkaline Phosphatase 102 U/L (38-126); Anion Gap 6 mmol/L (4-12); Aspartate Amino Transferase 35 U/L (14-36); Bilirubin,Total 0.5 mg/dL (0.2-1.3); Blood Urea Nitrogen 6 mg/dL (7-17); Calcium 7.9 mg/dL (8.4-10.2); Carbon Dioxide 26 mmol/L (22-30); Chloride 103 mmol/L (98-107); Estimated CRCL calculation 84 ml/min; Estimated Glomerular Filt Rate > 60; Glucose 105 mg/dL (65-110); Sodium 135 mmol/L (137-145)
[2024-10-09] MEDS: METOPROLOL TARTRATE 12.5 MG TABLET PO (08:17)
[2024-10-09] MEDS: FAMOTIDINE 20 MG TABLET PO (08:17)
[2024-10-09] MEDS: CHOLECALCIFEROL 1,000 UNITS TABLET 1000 UNITS PO (08:17)
[2024-10-09] MEDS: guaiFENesin 12 HR 600 MG TABCR 1200 MG PO (08:17)
[2024-10-09] MEDS: MULTIVITAMINS THERAPEUTIC TAB (*BKC) 1 TABLET PO (08:17)
[2024-10-09] MEDS: LEVALBUTEROL NEB 1.25 MG/3 ML 0.63 MG INHALATION (09:23)
--- NOTE | 2024-10-09 10:05 | P.DS_ITS ---
DS: Admitting Diagnosis Discharge Date 10/09/24 Admitting Diagnosis sepsis acute hypoxic respiratory failure acute exacerbation of COPD pneumonia sinus tachycardia GERD depression and anxiety DS: Discharge Diagnosis Discharge Diagnosis (1) Sepsis: Qualifiers: Acute renal failure type: unspecified Sepsis acute organ dysfunction status: with acute organ dysfunction Sepsis type: sepsis due to unspecified organism Severe sepsis acute organ dysfunction type: acute renal failure Severe sepsis shock status: without septic shock Qualified Code(s): A41.9 - Sepsis, unspecified organism; R65.20 - Severe sepsis without septic shock; N17.9 - Acute kidney failure, unspecified Code(s): A41.9 - Sepsis, unspecified organism Status: Acute (2) Acute hypoxic respiratory failure: Code(s): J96.01 - Acute respiratory failure with hypoxia Status: Acute (3) Acute exacerbation of chronic obstructive pulmonary disease (COPD): Code(s): J44.1 - Chronic obstructive pulmonary disease with (acute) exacerbation Status: Acute (4) Pneumonia: Code(s): J18.9 - Pneumonia, unspecified organism Status: Acute (5) Sinus tachycardia: Code(s): R00.0 - Tachycardia, unspecified Status: Acute (6) GERD (gastroesophageal reflux disease): Qualifiers: Esophagitis presence: without esophagitis Qualified Code(s): K21.9 - Gastro-esophageal reflux disease without esophagitis Code(s): K21.9 - Gastro-esophageal reflux disease without esophagitis Status: Acute (7) Depression with anxiety: Code(s): F41.8 - Other specified anxiety disorders Status: Acute (8) Severe protein-calorie malnutrition: Code(s): E43 - Unspecified severe protein-calorie malnutrition Status: Acute (9) Diarrhea: Code(s): R19.7 - Diarrhea, unspecified Status: Resolved DS: Summary Hospital Course Reason for hospitalization: sepsis acute hypoxic respiratory failure acute exacerbation of COPD pneumonia sinus tachycardia GERD depression and anxiety Hospital Course: This is a 69-year-old female with a significant past medical history of GERD, hyperlipidemia, irritable bowel syndrome, depression with anxiety, vitamin-D deficiency, osteoporosis, COPD, current every day smoker who presented with increased shortness of breath/dyspnea. Patient states that her symptoms started about a week and a half ago with upper respiratory symptoms. She reports shortness of breath, tight productive cough, wheezing. she tested for flu and COVID at home a few times in the last 9 days however has been negative for influenza or COVID. She states that she tried to deal with her symptoms at home however they progressively gotten worse over the last 24 hours and she decided to present to the hospital for further workup. She denies any fever, chills, nausea, vomiting, diarrhea, abdominal pain. she does report some pleuritic pain on the left side and anxiety. Workup in the hospital included a chest x-ray which showed new airspace opacities in the left upper lobe consistent with pneumonia. Initial labs showed a white blood cell count of 20.6, sodium 134, chloride 96, creatinine 0.55, blood sugar 120, lactic acid 1.6. respiratory panel negative for influenza a and B, RSV, COVID. Blood cultures were obtained and pending. EKG showed sinus tachycardia with a rate of 107, QTC 406. Patient was given DuoNeb, azithromycin, amoxicillin while in the ED. Of note, she was also tachycardic in the ED and we switched her to Xopenex as this was thought to be because the use of DuoNebs in the ED however at the time of my exam and review of her telemetry it looks like she is in sinus tach in the 120s and then bounces up to the 150s to 160s which appears to be like SVT. Magnesium was 2.2. Patient was given a dose of her Xanax and started on 12.5 mg of metoprolol b.i.d. we will also check a D-dimer and potentially of chest CTA to rule out PE. D dimer was elevated at 1.02. CTA of chest was negative for PE and shown extensive Left upper lobe pneumonia with minimal involvement in the inferior right upper lobe. Patient now weaned to room air. Her work of breathing has improved significantly. Her Rocephin was changed to Levaquin today. She had a home O2 eval and did not require any baseline O2. She is stable for discharge at this time. She will need to finish her antibiotics and follow up with her Primary care doctor. She was also started on Metoprolol 12.5 mg BID for the SVT. Her heart rate has been well controlled on this medication. I also ordered her Xopenex breathing treatment, nebulizer and accessories for home use. She was educated on smoking cessation. final diagnosis: sepsis, acute hypoxic respiratory failure, community-acquired pneumonia, acute exacerbation of COPD Status at Discharge Cognitive/behavioral status at discharge: alert oriented x4 Functional status at discharge: independent ambulation Overall status at discharge: patient is progressing back to baseline Time Spent with Patient Time attestation: Total time spent providing and/or coordinating discharge services: Time spent: Greater than 30 minutes Exam Narrative: General: Anxious, malnourished Cardiac: Normal S1 and S2. NSR in the 70's- 80s today No murmur, gallops or friction rubs, peripheral pulses intact. Respiratory: TONI Rhonchi/ course, Wheezing throughout all lung varela, currently on 1L NC tight-bark like cough that is productive at times. Gastrointestinal: soft, non-distended, non-tender, normoactive bowel sounds. : voiding without difficulty. Neuro: Alert and oriented x4 DS: Data Data Completed and Pending Completed studies during hospitalization: chest x-ray chest CTA Pending studies at discharge: blood cultures Labs on day of discharge: Labs from last 24 hours 10/09/24 04:54 WBC 11.5 H RBC 3.60 L Hgb 11.1 L Hct 33.3 L MCV 92.5 MCH 30.8 MCHC 33.3 RDW 13.2 Plt Count 257 MPV 10.3 Immature Gran % (Auto) 0.6 H Neut % (Auto) 78.0 H Lymph % (Auto) 10.3 L [place] % (Auto) 10.4 H Eos % (Auto) 0.5 Baso % (Auto) 0.2 Lymph # (Auto) 1.19 [place] # (Auto) 1.2 H Eos # (Auto) 0.1 Baso # (Auto) 0.0 Abs Immat Gran (auto) 0.07 H Absolute Neuts (auto) 9.0 H Absolute Nucleated RBC 0.000 Nucleated RBC % 0.0 Sodium 135 L Potassium 3.0 L Chloride 103 Carbon Dioxide 26 Anion Gap 6 BUN 6 L Creatinine 0.40 L Estim Creat Clear Calc 84 Estimated GFR > 60 Glucose 105 Calcium 7.9 L Total Bilirubin 0.5 AST 35 ALT 34 Alkaline Phosphatase 102 Total Protein 6.0 L Albumin 2.7 L Preliminary micro results at discharge 10/06/24 15:34 Blood Culture - Preliminary Blood 10/06/24 15:34 Blood Culture - Preliminary Blood Procedures/Treatments: none Discharge Plan Discharge Attending physician on discharge: Harsha Red Discharging Clinician: Nicolette Urrutia Anticipated Discharge Date/Time: 10/09/24 10:02 Patient Disposition: Home, Self-Care Activity: as tolerated Diet: as tolerated and regular Discharge Instructions: * Finish all your antibiotics even if you are feeling better. Take your antibiotic after you eat something in the morning to avoid GI upset * Follow up with your primary care doctor in 1 week. Patient Instructions: Antibiotic Form Patient Language: Uzbek Stand Alone Forms: General Discharge Information Follow-up/Referrals: Bela Melendez MD [Primary Care Provider] - 1 Week Discharge Medications: New (DME) nebulizer and compressor Device See Rx Instructions .Route Qty: 1 0RF Rx Instructions: As directed (DME) nebulizer accessories Kit See Rx Instructions .Route Qty: 1 0RF Rx Instructions: As directed guaifenesin [Mucus Relief ER] 600 mg Tablet Extended Release 12hr 1,200 mg PO Q12HR Qty: 20 0RF levofloxacin 750 mg tablet 750 mg PO DAILY Qty: 7 0RF levalbuterol HCl 1.25 mg/3 mL solution for nebulization 1.25 mg inhalation Q6H PRN (Reason: shortness of breath or wheezing) Qty: 90 0RF metoprolol tartrate 25 mg tablet 12.5 mg PO BID Qty: 30 0RF loperamide 2 mg Capsule 2 mg PO PRN PRN (Reason: Diarrhea) Qty: 30 0RF metoprolol tartrate 25 mg tablet 12.5 mg PO BID Qty: 30 0RF Continued acetaminophen [Tylenol Extra Strength] 500 mg tablet 1,000 mg PO Q6H PRN (Reason: Pain) magnesium 250 mg tablet 250 mg PO PRN multivitamin Tablet 1 tablet PO DAILY Prevalite 4 gram powder 4 g PO DAILY Patient Comments: pt states taking suspension Rx Instructions: administer w/meal; avoid other meds within 1hr before or 4-6hr after dose cholecalciferol (vitamin D3) 25 mcg (1,000 unit) capsule 25 mcg PO DAILY tramadol 50 mg tablet 50 mg PO Q6H PRN (Reason: pain) Qty: 20 0RF famotidine 20 mg tablet 20 mg PO BID Qty: 60 5RF lorazepam 0.5 mg tablet 0.5 mg PO BID PRN (Reason: anxiety) Qty: 60 1RF Patient Comments: TOOK 1/2 PILL Date of admission: 10/07/24 10:20 Primary Care Provider: Bela Melendez Admitting Provider: Antolin Ji Attending physician on admission: Antolin Ji Condition: Improved Quality VTE Prophylaxis VTE prophylaxis: pharmacologic ordered Hospitalist MIPS Heart Failure (Exclusion) Patient has history of Heart Transplant or Left Ventricular Assistive Device?: No IF YES, STOP HERE Heart Failure (Qualifier) Patient has current or prior documentation of LVEF less than or equal to 40%, or mod/servere depressed LVSF?: No IF NO, STOP HERE
[2024-10-09] MEDS: levoFLOXacin 750 MG TABLET PO (12:46)
[2024-10-09 21:54] LABS: Norovirus RNA PCR, Stool NOT DETECTED
== END 2024-10-09 15:25 | disposition home or self-care (01) | DRG 871 ==
LOC: ANHED 16:25 → ANH3MEDSUR 17:33 → ANH2MED 19:19 → ANHIMU 10-07 03:22 → ANH2MED 10-07 03:37
PROVIDERS: Emergency Medicine; Internal Medicine; Admitting Provider Internal Medicine; Emergency Provider Emergency Medicine; PCP Family Medicine; Visit Provider Nurse Practitioner Acute Care
DX: A41.9 Sepsis, unspecified organism (principal); E43 Unspecified severe protein-calorie malnutrition; J18.9 Pneumonia, unspecified organism; J96.01 Acute respiratory failure with hypoxia; N17.9 Acute kidney failure, unspecified; J44.0 Chronic obstructive pulmonary disease with (acute) lower respiratory infection; J44.1 Chronic obstructive pulmonary disease with (acute) exacerbation; R65.20 Severe sepsis without septic shock; K21.9 Gastro-esophageal reflux disease without esophagitis; F41.8 Other specified anxiety disorders; Z20.822 Contact with and (suspected) exposure to COVID-19; I48.91 Unspecified atrial fibrillation; E78.5 Hyperlipidemia, unspecified; K58.9 Irritable bowel syndrome, unspecified; M81.0 Age-related osteoporosis without current pathological fracture; F17.210 Nicotine dependence, cigarettes, uncomplicated; Z68.20 Body mass index [BMI] 20.0-20.9, adult; Z86.16 Personal history of COVID-19; Z90.49 Acquired absence of other specified parts of digestive tract; Z90.710 Acquired absence of both cervix and uterus; Z90.722 Acquired absence of ovaries, bilateral; Z96.1 Presence of intraocular lens; Z98.42 Cataract extraction status, left eye; Z98.41 Cataract extraction status, right eye
CPT/HCPCS: 36415; 71045; 71275; 80053; 83605; 83735; 84100; 84443; 85025; 85380; 87040; 87045; 87427; 87449; 87493; 87637; 87798; 93005; 93306; 94618; 94640; 96361; 96365; 96375; 96376; 99285; A9270; G0378; J0696; J1650; J2405; J7030; Q9967

== ENCOUNTER 2024-10-13 11:06 | Outpatient (CLI) | payer MEDICARE, OTHER, SELFPAY ==
--- OUTSIDE RECORDS SUMMARY | 2024-10-13 12:52 | XMS_ITS | Clinical Summary ---
Author Organization [facility] [address] Address [address] [place] [address] Care Team Providers Care Senior Business Process Analyst Name Role Phone Robin Melendez MD Primary Care Provider Abilio Osorio MD Unavailable [phone] Allergies Active Allergy Reactions Criticality Noted Date [...] (six) hours as needed for pain Active [id number] -Lmfolate-algal 27 mg iron-1.13 mg-581.92 mg capsule [...] Team Description 09/22/2024 Telephone [facility] [address] [place] [phone] Veronika Edward RN 09/11/2024 Telephone [facility] [place] [address] [place] [phone] Abilio Osorio MD Rescheduled Surgery 08/17/2024 Orders Only [facility] [place] [address] [place] [phone] Jazmin Stephens NP 08/17/2024 Telephone [facility] [place] [address] [address] [place] [phone] Janie Preston RN 08/07/2024 Telephone [facility] [place] [address] [place] [phone] Abilio Osorio MD Canceled Surgery 07/27/2024 Telephone [facility] [place] [address] [place] [phone] Veronika Edward RN from Last 3 Months Immunizations Immunization Administration [...] on file Legal 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 [employer] Gender Identity Not on file Sexual Orientation Not on file Obstetrics History Last Filed Vital Signs Vital Sign Reading Time Taken Comments Blood Pressure 115/70 07/08/2024 10:49 AM MANAGER ACTION Pulse 69 07/08/2024 10:49 AM MANAGER ACTION Temperature 37.1 C (98.8 F) 04/13/2024 12:20 PM CDT Respiratory Rate 20 04/08/2022 8:20 AM CDT Oxygen Saturation 94% 07/08/2024 10:49 AM MANAGER ACTION Inhaled Oxygen Concentration - - Weight 52.6 kg (116 lb) 09/14/2024 10:05 AM MANAGER ACTION Height 157.5 cm (5' 2 ) 09/14/2024 10:05 AM MANAGER ACTION Body Mass Index 21.22 09/14/2024 10:05 AM MANAGER ACTION Plan of Treatment Health Maintenance Due Date [...] 65+ Completed 021, 01/13/2020, 05/23/2016 Insurance MEDICARE [facility] [place] [id number] MEDICARE [place] [employer] MEDIC[place] [address] Care Teams Senior Business Process Analyst Relationship Specialty Start Date End Date Robin Melendez MD PCP - General 11/19/18 Abilio Osorio MD [address] [facility] [address] [facility] [place] [address] [place] [address] Surgeon General Surgery 07/01/24
--- OUTSIDE RECORDS SUMMARY | 2024-10-13 12:52 | XMS_ITS | Continuity of Care Document ---
Author Organization [facility] Address [address] [place] [address] [address] [place] [address] Phone Care Team Providers Care Meat Sales And Storage Manager Name Role Phone Ольга Forman Unavailable Unavailable Procedures Procedure Date Eye Exam Established Pt Advance Directives Directive Yes / No Effective Date File Name No Information Encounters Encounter Description Practice Location Reason(s) For Visit Diagnoses Date Provider Providers Copied on Encounter Formerly [facility], [address] [place] [address] [address], [place], [place], [id number], [place] tel:[phone] [facility] No Information [address] [facility] [place] , [address], [place], [address], [place]. tel:[phone] Family History Family Member Type Diagnosis Age [...]
--- OUTSIDE RECORDS SUMMARY | 2024-10-13 12:52 | XMS_ITS | Referral Summary ---
Author Organization [facility] [address] Address [address] [place] [address] Care Team Providers Care Tool Tender Name Role Phone Robin Melendez MD Primary Care Provider Abilio Osorio MD Unavailable [phone] Encounters Date Type Department Care Team Description 09/22/2024 Telephone [facility] at [address] [place] [address] Veronika Edward, RN 09/11/2024 Telephone [facility] at [address] [place] [address] Abilio Osorio MD Rescheduled Surgery 08/17/2024 Orders Only [facility] at [address] [place] [address] Jazmin Stephens NP 08/17/2024 Telephone [facility] at [address] [place] [address] Janie Preston, WIL 08/07/2024 Telephone [facility] at [address] [place] [address] Abilio Osorio MD Canceled Surgery 07/27/2024 Telephone [facility] at [facility] [address] [facility] [address] [place] [address] Veronika Edward RN from Last 3 Months Allergies Active Allergy [...] (six) hours as needed for pain Active -jejq -Lmfolate-algal 27 mg iron-1.13 mg-581.92 mg capsule [...] on file 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 Gender Identity Not on file Sexual Orientation Not on file Last Filed Vital Signs Vital Sign Reading Time Taken Comments Blood Pressure 115/70 07/08/2024 10:49 AM HARDWARE SUPPLIES SALES REPRESENTATIVE Pulse 69 07/08/2024 10:49 AM HARDWARE SUPPLIES SALES REPRESENTATIVE Temperature 37.1 C (98.8 F) 04/13/2024 12:20 PM CDT Respiratory Rate 20 04/08/2022 8:20 AM CDT Oxygen Saturation 94% 07/08/2024 10:49 AM HARDWARE SUPPLIES SALES REPRESENTATIVE Inhaled Oxygen Concentration - - Weight 52.6 kg (116 lb) 09/14/2024 10:05 AM HARDWARE SUPPLIES SALES REPRESENTATIVE Height 157.5 cm (5' 2 ) 09/14/2024 10:05 AM HARDWARE SUPPLIES SALES REPRESENTATIVE Body Mass Index 21.22 09/14/2024 10:05 AM HARDWARE SUPPLIES SALES REPRESENTATIVE Plan of Treatment Not on file Insurance [facility]ICARE [facility] [place] [employer] [facility] [place] MEDICARE [facility] Care Teams Tool Tender Relationship Specialty Start Date End Date Robin Melendez MD PCP - General 11/19/18 Abilio Osorio MD [address] [address] [address] [place] [address] Surgeon General Surgery 07/01/24
[2024-10-13 13:35] LABS: Basophils Absolute Auto 0.1 K/mm3 (0.0-0.1); Basophils Percent Auto 0.5 % (0.2-1.2); Eosinophils Absolute Auto 0.1 K/mm3 (0-0.3); Eosinophils Percent Auto 1.1 % (0-4.4); Hematocrit 34.6 % (37.0-47.0); Immature Granulocyte Percent A 1.6 % (0-0.5); Lymphocytes Absolute Auto 2.17 K/mm3 (0.9-3.2); Lymphocytes Percent Auto 16.9 % (18.3-44.2); Mean Corpuscular HGB Conc 31.8 g/dl (32-36); Mean Corpuscular Hemoglobin 30.4 pg (26-34); Mean Corpuscular Volume 95.6 fl (80-100); Mean Platelet Volume 10.9 fl (7.4-10.4); Monocytes Absolute Auto 1.1 K/mm3 (0.1-0.6); Monocytes Percent Auto 8.7 % (2.6-8.5); Neutrophils Absolute Auto 9.2 K/mm3 (1.3-6.7); Neutrophils Percent Auto 71.2 % (45.5-73.1); Platelet Count Result 395 k/mm3 (150-375); Red Blood Count 3.62 M/mm3 (4.2-5.4); Red Cell Distribution Width 13.2 % (11.5-14.5); White Blood Count 12.9 K/mm3 (4.5-10.0)
[2024-10-13 14:04] LABS: Alanine Aminotransferase 79 U/L (6-35); Albumin Level 3.3 g/dL (3.5-5.1); Alkaline Phosphatase 99 U/L (38-126); Anion Gap 9 mmol/L (4-12); Aspartate Amino Transferase 63 U/L (14-36); Bilirubin,Total 0.7 mg/dL (0.2-1.3); Blood Urea Nitrogen 8 mg/dL (7-17); Calcium 8.5 mg/dL (8.4-10.2); Carbon Dioxide 26 mmol/L (22-30); Chloride 100 mmol/L (98-107); Estimated Glomerular Filt Rate > 60; Glucose 95 mg/dL (65-110); Potassium 4.2 mmol/L (3.4-5.0); Sodium 135 mmol/L (137-145)
[2024-10-13 21:47] LABS: Iron 20 ug/dL (37-170)
[2024-10-13 21:56] LABS: Percent Iron Saturation 11 % (20-50)
== END 2024-10-13 11:07 | disposition home or self-care (01) ==
LOC: ANHGOSHLAB 11:07
PROVIDERS: PCP Family Medicine; Visit Provider Family Medicine
DX: E87.6 Hypokalemia (principal); D64.9 Anemia, unspecified
CPT/HCPCS: 36415; 80053; 82728; 83540; 83550; 85025

== ENCOUNTER 2025-01-13 10:03 | Outpatient (CLI) | payer MEDICARE, OTHER, SELFPAY ==
--- OUTSIDE RECORDS SUMMARY | 2025-01-13 11:22 | XMS_ITS | Referral Summary ---
Author Organization [facility] [address] Address [address] [place] [address] Care Team Providers Care Environmental Education Specialist Name Role Phone Robin Melendez MD Primary Care Provider Abilio Osorio MD Unavailable [phone] Encounters Date Type Department Care Team Description 01/04/2025 1:30 PM CDT Office Visit [facility] at [facility] 70 [facility] [address] [place] [phone] Jazmin Stephens NP Anal fissure [K60.2] (Primary Dx) 12/21/2024 7:50 AM CDT - 12/21/2024 8:30 AM CDT Surgery [facility] Operating Room [address] [place] [address] Abilio Osorio MD INJECTION BOTOX SPHINCTER 12/21/2024 8:10 AM CDT Anesthesia Event [facility] [address] [place] [address] Elpidio Anderson, 12/21/2024 6:08 AM CDT - 12/21/2024 9:15 AM CDT Hospital Encounter [facility] [address] [place] [address] Abilio Osorio MD Anal fissure [K60.2] (Primary Dx) Discharge Disposition: Discharge to home or self care 12/03/2024 Telephone [facility] Pre Anesthesia Testing 6 [facility] 1, [address] [place] [address] Deepika Ghotra RN 12/01/2024 Telephone [facility] 70 [facility] [address] [place] [address] Abilio Osorio MD Rescheduled Surgery from Last 3 Months Allergies Active Allergy [...] (six) hours as needed for pain Active [id number] -Lmfolate-algal 27 mg iron-1.13 mg-581.92 mg capsule [...] times a day 60 g 5 Active nutritional supplement-fibe r liquid Take by mouth daily Active FeroSuL 325 mg (65 mg iron) tablet Take 1 tablet (325 mg total) by mouth daily Active lidocaine (XYLOCAINE) 5 % ointmentIndicat ions:skin irritation Apply topically as needed for pain 35.44 g 2 5 05/04/20 25 Active Active Problems Problem Noted Date Diagnosed Date Anal fissure 07/08/2024 Abnormal stress test 03/31/2021 Tobacco abuse 03/31/2021 Immunizations Immunization Administration Dates Next Due Influenza, Quadrivalent, Split, Intramuscular Pneumococcal Conjugate PCV 13 01/13/2020 Pneumococcal Polysaccharide PPV23 01/28/2021, Tdap 04/11/2012 Social History Tobacco Use Types Packs/Day Years Used Date Smoking Tobacco: Every Day Cigarettes 0.5 52.4 Started: 1972 Passive Smoke Exposure: Current Smokeless Tobacco: Never Tobacco Cessation:Ready to Q uit: Not Asked; Counseling Given: Not Answered AUDIT-C Answer Date Recorded Q1: How often do you have a drink containing alcohol? Never 12/21/2024 Q2: How many drinks containi ng alcohol do you have on a typical day when you are drinking? Patient does not drink Q3: How often do you have si x or more drinks on one occasion? Never 12/21/2024 Personal Safety Answer Date Recorded Have you ever been in or are you currently in a harmful physical or emotional relationship or is someone making you feel afraid or unsafe? 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 Gender Identity Not on file Sexual Orientation Not on file Last Filed Vital Signs Vital Sign Reading Time Taken Comments Blood Pressure 104/70 01/04/2025 1:31 PM CDT Pulse 76 01/04/2025 1:31 PM CDT Temperature 36.7 C (98 F) 01/04/2025 1:31 PM CDT Respiratory Rate 22 12/21/2024 8:50 AM CDT Oxygen Saturation 98% 12/21/2024 8:50 AM CDT Inhaled Oxygen Concentration - - Weight 50.8 kg (112 lb) 12/21/2024 6:25 AM CDT Height 157.5 cm (5' 2) 12/03/2024 10:40 AM CDT Body Mass Index 20.49 12/03/2024 10:40 AM CDT Plan of Treatment Not on file Procedures Procedure Name Priority Date/Time Associated Diagnosis Comments INJECTION BOTOX SPHINCTER 12/21/2024 8:10 AM CDT Anal fissure Case Notes Needs SA from Last 3 Months Insurance MEDICARE [facility] Care Teams Environmental Education Specialist Relationship Specialty Start Date End Date Robin Melendez MD PCP - General 11/19/18 Abilio Osorio MD 70 [facility] [address] [place] [address] Surgeon General Surgery 07/01/24
--- OUTSIDE RECORDS SUMMARY | 2025-01-13 11:22 | XMS_ITS | Clinical Summary ---
Author Organization [facility] [address] Address [address] [place] [address] Care Team Providers Care Airplane Mechanic Name Role Phone Robin Melendez MD Primary Care Provider Abilio Osorio MD Unavailable [phone] Allergies Active Allergy Reactions Criticality Noted Date [...] (six) hours as needed for pain Active uesepeud12-chlf -Lmfolate-algal 27 mg iron-1.13 mg-581.92 mg capsule [...] tablet (325 mg total) by mouth daily 5 Active lidocaine (XYLOCAINE) 5 % ointmentIndicat ions:skin irritation Apply topically as needed for pain 35.44 g 2 5 05/04/20 25 Active Active Problems Problem Noted Date Diagnosed Date Anal fissure 07/08/2024 Abnormal stress test 03/31/2021 Tobacco abuse 03/31/2021 Encounters Date Type Department Care Team Description 01/04/2025 1:30 PM CDT Office Visit [facility] at [address] [place] [address] Jazmin Stephens NP Anal fissure [K60.2] (Primary Dx) 12/21/2024 8:10 AM CDT Anesthesia Event [facility] Operating Room [address] [place] [address] Elpidio Anderson, 12/21/2024 7:50 AM CDT - 12/21/2024 8:30 AM CDT Surgery [facility] Operating Room [address] [place] [address] Abilio Osorio MD INJECTION BOTOX SPHINCTER 12/21/2024 6:08 AM CDT - 12/21/2024 9:15 AM CDT Hospital Encounter [facility] Operating Room [address] [place] [address] Abilio Osorio MD Anal fissure [K60.2] (Primary Dx) Discharge Disposition: Discharge to home or self care 12/03/2024 Telephone [facility] Pre Anesthesia Testing 6 [facility] 1, [address] [place] [address] Deepika Ghotra RN 12/01/2024 Telephone [facility] 70 [facility] 2 [address] [place] [address] Abilio Osorio MD Rescheduled Surgery from Last 3 Months Immunizations Immunization Administration Dates Next Due Influenza, Quadrivalent, Split, Intramuscular Pneumococcal Conjugate PCV 13 01/13/2020 Pneumococcal Polysaccharide PPV23 01/28/2021, Tdap 04/11/2012 Surgical History Surgery Date Site/Laterality Comments TOTAL ABDOMINAL HYSTERECTOMY W/ BILATERAL SALPINGOOPHORECTOMY CHOLECYSTECTOMY HIP SURGERY Right COLONOSCOPY ESOPHAGOGASTRODUODENOSCOPY CYSTOSCOPY INSERTION / REMOV AL STENT / STONE RECTAL BOTOX INJECTION 12/21/2024 Chemo denervation of the internal anal sphincter with 100 units of Botox By Dr Osorio Medical History Medical History Date Comments Acid [...] on file 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 Gender Identity Not on file Sexual Orientation [...] 12/03/2024 10:40 AM CDT Plan of Treatment Health Maintenance Due Date Last Done Comments Breast Cancer Screening-Mammogram 1954 Colon Cancer Screening-Colonoscopy 1954 Depression Screening 1954 Hepatitis C Screening 1954 Osteoporosis Screening-Bone Density Scan 1954 Hepatitis B Screening 1972 Lung Cancer Screening 2004 Zoster Vaccine (1 of 2) 2004 Well Visit 65+ 2019 DTaP/Tdap/Td Vaccine (2 - Td or Tdap) 04/11/202202/2012 Covid-19 Vaccine ( - season) 2024, 09/17/2020 Influenza Vaccine (Season Ended) 2025 05/23/20 18 Fall Risk Assessment 12/21/2025 12/21/2024 Pneumococcal vaccine 65+ Completed 021, 01/13/2020, 05/23/2016 Procedures Procedure Name Priority Date/Time Associated Diagnosis Comments INJECTION BOTOX SPHINCTER 12/21/2024 8:10 AM CDT Anal fissure Case Notes Needs SA from Last 3 Months Insurance MEDICARE [employer] [place] [employer]ICARE [employer] [place] MEDICARE [employer] Care Teams Airplane Mechanic Relationship Specialty Start Date End Date Robin Melendez MD PCP - General 11/19/18 Abilio Osorio MD [address] [place] [address] Surgeon General Surgery 07/01/24
[2025-01-13 12:27] LABS: Basophils Absolute Auto 0.1 K/mm3 (0.0-0.1); Basophils Percent Auto 0.7 % (0.2-1.2); Eosinophils Absolute Auto 0.2 K/mm3 (0-0.3); Eosinophils Percent Auto 2.8 % (0-4.4); Hematocrit 46.4 % (37.0-47.0); Immature Granulocyte Absolute 0.03 K/mm3 (0.00-0.031); Immature Granulocyte Percent A 0.4 % (0-0.5); Lymphocytes Absolute Auto 2.71 K/mm3 (0.9-3.2); Lymphocytes Percent Auto 39.7 % (18.3-44.2); Mean Corpuscular HGB Conc 32.3 g/dl (32-36); Mean Corpuscular Hemoglobin 30.7 pg (26-34); Mean Corpuscular Volume 95.1 fl (80-100); Mean Platelet Volume 10.7 fl (7.4-10.4); Monocytes Absolute Auto 0.5 K/mm3 (0.1-0.6); Monocytes Percent Auto 7.2 % (2.6-8.5); Neutrophils Absolute Auto 3.4 K/mm3 (1.3-6.7); Neutrophils Percent Auto 49.2 % (45.5-73.1); Platelet Count Result 215 k/mm3 (150-375); Red Blood Count 4.88 M/mm3 (4.2-5.4); White Blood Count 6.8 K/mm3 (4.5-10.0)
[2025-01-13 12:51] LABS: Alanine Aminotransferase 17 U/L (6-35); Albumin Level 4.2 g/dL (3.5-5.1); Alkaline Phosphatase 75 U/L (38-126); Anion Gap 5 mmol/L (4-12); Aspartate Amino Transferase 45 U/L (14-36); Bilirubin,Total 0.3 mg/dL (0.2-1.3); Blood Urea Nitrogen 13 mg/dL (7-17); Calcium 9.2 mg/dL (8.4-10.2); Carbon Dioxide 31 mmol/L (22-30); Chloride 103 mmol/L (98-107); Estimated Glomerular Filt Rate > 60; Glucose 90 mg/dL (65-110); Potassium 4.1 mmol/L (3.4-5.0); Sodium 139 mmol/L (137-145); Total Protein 7.1 g/dL (6.3-8.2)
[2025-01-13 14:03] LABS: Thyroid Stimulating Hormone Reflex 0.996 uIU/mL (0.465-4.68)
== END 2025-01-13 10:04 | disposition home or self-care (01) ==
PROVIDERS: PCP Family Medicine; Visit Provider Family Medicine
DX: F41.8 Other specified anxiety disorders (principal); I10 Essential (primary) hypertension; E78.5 Hyperlipidemia, unspecified; Z00.00 Encounter for general adult medical examination without abnormal findings
CPT/HCPCS: 36415; 80053; 84443; 85025

== ENCOUNTER 2025-02-02 13:13 | Outpatient (CLI) | payer MEDICARE, OTHER, SELFPAY ==
--- NOTE | ~2025-02-02 | XR_ITS ---
Supine and upright views of the abdomen Clinical history: Kidney stones COMPARISON: 06/22/2022 Findings: Bowel gas pattern is nonspecific. No evidence for obstruction or free air. Probable right r enal stones measuring up to 4 mm. Stable orthopedic screw the right acetabular region. Cholecystectom y clips are present. Impression: Small right renal stones, as above. Reviewed, dictated and finalized at location . Impression: Small right renal stones, as above.
--- OUTSIDE RECORDS SUMMARY | 2025-02-02 13:19 | XMS_ITS | Referral Summary ---
Author Organization [facility] [address] Address [address] [place] [address] Care Team Providers Care Supervisor Reclamation Name Role Phone Robin Melendez MD Primary Care Provider Abilio Osorio MD Unavailable [phone] Encounters Date Type Department Care Team Description 01/25/2025 Telephone [facility] at [address] [place] [address] Veronika Edward, WIL 01/22/2025 Telephone [facility] at [address] [place] [address] Veronika Edward, WIL 01/04/2025 1:30 PM CDT Office Visit [facility] at [address] [place] [address] Jazmin Stephens NP Anal fissure [K60.2] (Primary Dx) 12/21/2024 7:50 AM CDT - 12/21/2024 8:30 AM CDT Surgery [facility] [address] [place] [address] Abilio Osorio MD INJECTION BOTOX SPHINCTER 12/21/2024 8:10 AM CDT Anesthesia Event [facility] [address] [place] [address] Elpidio Anderson, 12/21/2024 6:08 AM CDT - 12/21/2024 9:15 AM CDT Hospital Encounter [facility] Operating Room [address] [place] [address] Abilio Osorio MD Anal fissure [K60.2] (Primary Dx) Discharge Disposition: Discharge to home or self care 12/03/2024 Telephone [facility] Pre Anesthesia Testing 6 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
--- OUTSIDE RECORDS SUMMARY | 2025-02-02 13:19 | XMS_ITS | Clinical Summary ---
Author Organization [facility] [address] Address [address] [place] [address] Care Team Providers Care Protection Manager Name Role Phone Robin Melendez MD Primary Care Provider Abilio Osorio MD Unavailable [phone] Allergies Active Allergy Reactions Criticality Noted Date [...] (six) hours as needed for pain Active -rels -Lmfolate-algal 27 mg iron-1.13 mg-581.92 mg capsule [...] Type Department Care Team Description 01/25/2025 Telephone [facility] at [address] [place] [phone] Veronika Edward RN 01/22/2025 Telephone [facility] at [address] [place] [address] Veronika Edward RN 01/04/2025 1:30 PM CDT Office Visit [facility] at [address] [place] [address] Jazmin Stephens NP Anal fissure [K60.2] (Primary Dx) 12/21/2024 8:10 AM CDT Anesthesia Event [facility] Operating Room [address] [place], [place] [address] Elpidio Anderson, 12/21/2024 7:50 AM CDT - 12/21/2024 8:30 AM CDT Surgery [facility] Operating Room 10 [place] [address] Abilio Osorio MD INJECTION BOTOX SPHINCTER 12/21/2024 6:08 AM CDT - 12/21/2024 9:15 AM CDT Hospital Encounter [facility] Operating Room 10 [place] [address] Abilio Osorio MD Anal fissure [K60.2] (Primary Dx) Discharge Disposition: Discharge to home or self care 12/03/2024 Telephone [facility] Pre Anesthesia Testing 6 [facility] 1, [address] [place] [address] Deepika Ghotra RN 12/01/2024 Telephone [facility] 70 [facility] [address] [place] [phone] Abilio Osorio MD Rescheduled Surgery from Last [...] Tobacco: Every Day Cigarettes 0.5 52.5 Started: 1972 Passive Smoke Exposure: Current Smokeless [...] on file 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 Gender Identity Not on file Sexual [...] (3 - season) 2024, 09/17/2020 Influenza Vaccine (Season Ended) 2025 05/23/20 18 Fall Risk Assessment 12/21/2025 12/21/2024 Pneumococcal vaccine 65+ Completed 021, 01/13/2020, 05/23/2016 Procedures Procedure Name Priority Date/Time Associated Diagnosis Comments INJECTION BOTOX SPHINCTER 12/21/2024 8:10 AM CDT Anal fissure Case Notes Needs SA from Last 3 Months Insurance MEDICARE [facility] Member Subscriber Plan / Payer (Ef fective 2020-Present) Name:Doris Gomez Relation to Subscriber:Self Name:Doris Gomez Payer ID:[id number] Group ID:Not on file Type:[facility] Address: [address] [place] [id number] MEDICARE [facility] Member Subscriber Plan / Payer (Ef fective 2020-Present) Name:Doris Gomez Relation to Subscriber:Self Name:Doris Gomez Payer ID:[id number] Group ID:Not on file Type:[facility] Address: [address] [facility] [place] [address] MEDICARE [facility] Member Subscriber Plan / Payer ( fective 2020-Present) Name:Doris Gomez Relation to Subscriber:Self Name:Doris Gomez Payer ID:[id number] Group ID:Not on file Type:[facility] Address: [address] [facility] [place] [address] Care Teams Protection Manager Relationship Specialty Start Date End Date Robin Melendez MD PCP - General 11/19/18 Abilio Osorio MD 70 [facility] [address] [place] [address] Surgeon General Surgery 07/01/24
== END 2025-02-02 13:14 | disposition home or self-care (01) ==
PROVIDERS: PCP Family Medicine; Visit Provider Urology
DX: N20.0 Calculus of kidney (principal)
CPT/HCPCS: 74018

== ENCOUNTER 2025-07-21 09:41 | Outpatient (CLI) | payer MEDICARE, OTHER, SELFPAY ==
--- NOTE | ~2025-07-21 | XR_ITS ---
EXAMINATION: XR hip RT 2V w AP pelvis, 07/21/2025 9:44 SUPPRESSION CREW LEADER HISTORY: M25.551 - Pain in right hip COMPARISON: No comparisons available. Findings: Postsurgical changes noted in the right acetabulum, no fracture identified. Moderate degenerative changes Soft tissues unremarkable. Impression: No acute fracture or malalignment. Reviewed, dictated and finalized at location P. RESSION CREW LEADER Impression: No acute fracture or malalignment.
== END 2025-07-21 09:42 | disposition home or self-care (01) ==
PROVIDERS: PCP Orthopaedic Surgery; Visit Provider Nurse Practitioner Family
DX: M25.551 Pain in right hip (principal); G89.29 Other chronic pain
CPT/HCPCS: 73502